=== PATIENT | male | born 1955 | race Caucasian/White ===

== ENCOUNTER → 2016-04-26 | Outpatient (CLI) | payer OTHER ==
[~2016-04-26] MED LIST: JANUVIA; LISI40TA; RYZOLT; SYNT75TA; TYLENOL #3; ZOCO40TA
--- NOTE | 2016-04-26 10:13 | REP ---
Chest two views HISTORY: Respiratory infection Comparison: 05/09/2008 The lungs are clear. The heart is normal in size. The pulmonary vasculature is normal in appearance. There are old compression fractures of several lower thoracic vertebral bodies. IMPRESSION: No acute disease. Signed by Jem Perez MD 04/26/2016 10:05 A
== END ==
LOC: M ADAMS 08:50
PROVIDERS: ATTEND Physician Assistant
DX: J06.9 Acute upper respiratory infection, unspecified (principal)
CPT/HCPCS: 71020; G0463

== ENCOUNTER → 2016-05-13 | Outpatient (REF) | payer OTHER | LOC: M SFHCADAM 10:04 | PROVIDERS: ATTEND Physician Assistant | DX: L40.1 Generalized pustular psoriasis (principal); L30.2 Cutaneous autosensitization; L25.9 Unspecified contact dermatitis, unspecified cause ==

== ENCOUNTER → 2016-07-25 | Outpatient (REF) | payer OTHER | LOC: M LAB REF 11:19 | PROVIDERS: ATTEND Nurse Practitioner Family | DX: L08.9 Local infection of the skin and subcutaneous tissue, unspecified (principal) ==

== ENCOUNTER → 2016-08-25 | Outpatient (REF) | payer OTHER ==
[2016-08-25 12:50] LABS: ALBUMIN 3.4 GM/DL (3.2-5.2); ALBUMIN/GLOBULIN RATIO 0.89 (1.00-1.93); BILIRUBIN,TOTAL 0.4 MG/DL (0.2-1.0); CALCIUM LEVEL 8.9 MG/DL (8.5-10.1); CREATININE FOR GFR 1.43 MG/DL (0.70-1.30); FREE T4 1.58 NG/DL (0.76-1.46); GLOMERULAR FILTRATION RATE 54.1 (>56); TOTAL PROTEIN 7.2 GM/DL (6.4-8.2)
== END ==
LOC: M SFHCPLAZ 08:01
PROVIDERS: ATTEND Physician Assistant
DX: N18.9 Chronic kidney disease, unspecified (principal); E03.9 Hypothyroidism, unspecified; E11.65 Type 2 diabetes mellitus with hyperglycemia

== ENCOUNTER → 2016-08-30 | Outpatient (CLI) | payer OTHER ==
--- NOTE | 2016-08-30 10:08 | REP ---
RIGHT HIP SERIES: Two views. HISTORY: Pain in the right hip. History of bursitis. 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 There is mild vascular calcification. There is femoral and acetabular spurring consistent with osteoarthritis. No fracture is seen. IMPRESSION: Mild osteoarthritic spurring. Prior right inguinal herniorrhaphy. No acute bony abnormality. Signed by Jaswant Law MD 08/30/2016 03:43 P
== END ==
LOC: M ADAMS 08:15
PROVIDERS: ATTEND Physician Assistant
DX: M25.551 Pain in right hip (principal); Z98.890 Other specified postprocedural states
CPT/HCPCS: 73502; G0463

== ENCOUNTER → 2016-10-04 | Outpatient (REF) | payer OTHER | LOC: M LAB REF 15:31 | PROVIDERS: ATTEND Nurse Practitioner Family | DX: L08.9 Local infection of the skin and subcutaneous tissue, unspecified (principal) ==

== ENCOUNTER → 2017-03-02 | Outpatient (REF) | payer OTHER ==
[2017-03-02 14:09] LABS: ANION GAP 10 MEQ/L (8-16); BLOOD UREA NITROGEN 27 MG/DL (7-18); CARBON DIOXIDE LEVEL 25 MEQ/L (21-32); CHLORIDE LEVEL 102 MEQ/L (98-107); CREATININE FOR GFR 1.64 MG/DL (0.70-1.30); GLUCOSE, FASTING 103 MG/DL (70-105); POTASSIUM SERUM 4.7 MEQ/L (3.5-5.1); SODIUM LEVEL 137 MEQ/L (136-145)
[2017-03-02 14:56] LABS: ESTIMATED AVERAGE GLUCOSE 192 MG/DL (60-110); HEMOGLOBIN A1c 8.3 %
== END ==
LOC: M SFHCADAM 08:30
DX: E11.65 Type 2 diabetes mellitus with hyperglycemia (principal); I10 Essential (primary) hypertension; J06.9 Acute upper respiratory infection, unspecified
CPT/HCPCS: 83036

== ENCOUNTER 2017-03-14 14:10 | Inpatient (IN) | payer OTHER ==
[2017-03-14] MEDS: NS 1,000 ML IV ×3 (14:35→18:30)
[2017-03-14] MEDS: IPRATROPIUM 0.5MG/ALBUTEROL 2.5MG INH SOL UD 3ML (DUONEB)(J7620) NEB (14:52)
[2017-03-14 15:03] LABS: BASO % 0.2 % (0.0-1.0); EOS % 0.1 % (0.0-3.0); HEMATOCRIT 44.7 % (42.0-52.0); HEMOGLOBIN 15.3 g/dl (14.0-18.0); IMMATURE GRANULOCYTE # 0.1 10^3/uL (0-0); IMMATURE GRANULOCYTE % 0.6 % (0-0); LYMPH # 1.4 10^3/uL (1.5-4.5); LYMPH % 8.6 % (24.0-44.0); MEAN CORPUSCULAR HEMOGLOBIN 28.9 pg (27.0-33.0); MEAN CORPUSCULAR HGB CONC 34.2 g/dl (32.0-36.5); MEAN CORPUSCULAR VOLUME 84.3 fl (80.0-96.0); MONO # 1.5 10^3/uL (0.0-0.8); MONO % 9.1 % (0.0-5.0); NEUTROPHILS # 13.5 10^3/uL (1.8-7.7); NEUTROPHILS % 81.4 % (36.0-66.0); PLATELET COUNT, AUTOMATED 250 10^3/uL (150-450); RED CELL DISTRIBUTION WIDTH 12.9 % (11.5-14.5); WHITE BLOOD COUNT 16.6 10^3/uL (4.0-10.0)
[2017-03-14 15:24] LABS: INR 0.92; PROTHROMBIN TIME 12.4 SECONDS (12.4-14.5)
[2017-03-14 15:27] LABS: ALBUMIN/GLOBULIN RATIO 0.71 (1.00-1.93); ALKALINE PHOSPHATASE 55 U/L (45-117); ALT/SGPT 19 U/L (12-78); ANION GAP 9 MEQ/L (8-16); AST/SGOT 9 U/L (7-37); BILIRUBIN,DIRECT 0.2 MG/DL (0.0-0.2); BILIRUBIN,TOTAL 0.6 MG/DL (0.2-1.0); BLOOD UREA NITROGEN 21 MG/DL (7-18); CALCIUM LEVEL 8.5 MG/DL (8.5-10.1); CARBON DIOXIDE LEVEL 24 MEQ/L (21-32); CHLORIDE LEVEL 105 MEQ/L (98-107); GLUCOSE, FASTING 198 MG/DL (70-100); LIPASE 98 U/L (73-393); POTASSIUM SERUM 4.3 MEQ/L (3.5-5.1); SODIUM LEVEL 138 MEQ/L (136-145); TOTAL PROTEIN 7.2 GM/DL (6.4-8.2)
[2017-03-14 15:28] LABS: LACTIC ACID SEPSIS PROTOCOL 1.4 MMOL/L (0.4-2.0)
[2017-03-14 15:56] LABS: BEDSIDE GLUCOSE 164 MG/DL (70-105)
[2017-03-14] MEDS ORDERED: ISOVUE-370 76% 100ML VIAL (Q9967) As Ordered (15:58)
[2017-03-14 17:07] LABS: CPK CREATINE PHOSPHOKINASE 46 U/L (39-308); MB/CK RELATIVE INDEX 2.17 (< OR =4); TROPONIN I < 0.02 NG/ML (< 0.10)
[2017-03-14] MEDS ORDERED: IPRATROPIUM 0.5MG/ALBUTEROL 2.5MG INH SOL UD 3ML (DUONEB)(J7620) NEB (18:30)
[2017-03-14] MEDS ORDERED: DEXTROSE 50% 50 ML SYRINGE IV (18:30)
[2017-03-14] MEDS ORDERED: GLUCOSE 4 GM CHEW TABLET PO (18:30)
[2017-03-14] MEDS ORDERED: GLUCAGON FOR INJ 1 MG VIAL (J1610) SC (18:30)
[2017-03-14] MEDS ORDERED: ACETAMINOPHEN TAB 650MG DOSE (2X325MG) PO (19:15)
[2017-03-14] MEDS ORDERED: ONDANSETRON 4MG/2ML VIAL (J2405) IV (19:15)
[2017-03-14] MEDS: dexameTHASONE 20 MG/5 ML VIAL (J1100) IV (19:30)
[2017-03-14] MEDS: CLINDAMYCIN 600 MG in APPROPRIATE DILUENT 1 EA IV (20:00)
[2017-03-14] MEDS ORDERED: rOPINIRole 0.25 MG TAB(REQUIP) PO (21:00)
[2017-03-14 21:31] LABS: BEDSIDE GLUCOSE 248 MG/DL (70-105)
[2017-03-14] MEDS: HumaLOG INSULIN (NovoLOG) PER UNIT SC (21:36)
[2017-03-14] MEDS: SENOKOT S TAB PO (21:36)
[2017-03-14] MEDS: LEVEMIR (INSULIN DETEMIR) 1 UNITS/0.01ML SC (21:56)
[2017-03-14] MEDS: rOPINIRole 0.25 MG TAB(REQUIP) PO (21:56)
[2017-03-14] MEDS: DOXYCYCLINE HYCLATE 100 MG in D5W MINI-BAG PLUS 100 ML IV (21:56)
[2017-03-15] MEDS: CLINDAMYCIN 600 MG in APPROPRIATE DILUENT 1 EA IV ×4 (02:26→19:47)
[2017-03-15] MEDS: HEPARIN SOD (PORCINE) 5000 UNITS/ML VIAL SC ×3 (06:39→21:32)
[2017-03-15] MEDS: LEVOTHYROXINE 150MCG TABLET (0.15MG) PO (06:39)
[2017-03-15 07:02] LABS: BASO % 0.1 % (0.0-1.0); HEMATOCRIT 41.2 % (42.0-52.0); HEMOGLOBIN 13.7 g/dl (14.0-18.0); IMMATURE GRANULOCYTE # 0.1 10^3/uL (0-0); IMMATURE GRANULOCYTE % 0.6 % (0-0); LYMPH # 0.7 10^3/uL (1.5-4.5); LYMPH % 6.1 % (24.0-44.0); MEAN CORPUSCULAR HEMOGLOBIN 28.9 pg (27.0-33.0); MEAN CORPUSCULAR HGB CONC 33.3 g/dl (32.0-36.5); MEAN CORPUSCULAR VOLUME 86.9 fl (80.0-96.0); MONO # 0.4 10^3/uL (0.0-0.8); NEUTROPHILS # 10.7 10^3/uL (1.8-7.7); NEUTROPHILS % 90.2 % (36.0-66.0); PLATELET COUNT, AUTOMATED 224 10^3/uL (150-450); RED BLOOD COUNT 4.74 10^6/uL (4.30-6.10); RED CELL DISTRIBUTION WIDTH 12.9 % (11.5-14.5); WHITE BLOOD COUNT 11.9 10^3/uL (4.0-10.0)
[2017-03-15 07:15] LABS: ANION GAP 5 MEQ/L (8-16); BLOOD UREA NITROGEN 25 MG/DL (7-18); CALCIUM LEVEL 8.4 MG/DL (8.5-10.1); CARBON DIOXIDE LEVEL 26 MEQ/L (21-32); CHLORIDE LEVEL 106 MEQ/L (98-107); CREATININE FOR GFR 1.58 MG/DL (0.70-1.30); GLUCOSE, FASTING 318 MG/DL (70-100); MAGNESIUM LEVEL 2.1 MG/DL (1.8-2.4); SODIUM LEVEL 137 MEQ/L (136-145)
[2017-03-15 07:17] LABS: POTASSIUM SERUM 5.2 MEQ/L (3.5-5.1)
[2017-03-15] MEDS: HumaLOG INSULIN (NovoLOG) PER UNIT SC ×4 (08:02→21:31)
[2017-03-15] MEDS: ROSUVASTATIN 10 MG TAB (CRESTOR) PO (08:04)
[2017-03-15] MEDS: SENOKOT S TAB PO ×2 (08:05→19:47)
[2017-03-15] MEDS: LOSARTAN 50 MG TAB PO (08:05)
[2017-03-15] MEDS: ASPIRIN 81 MG ENTERIC TAB PO (08:05)
[2017-03-15] MEDS: NS 1,000 ML IV ×2 (08:06→14:40)
[2017-03-15] MEDS: LEVEMIR (INSULIN DETEMIR) 1 UNITS/0.01ML SC ×2 (08:06→21:31)
[2017-03-15] MEDS: DOXYCYCLINE HYCLATE 100 MG in D5W MINI-BAG PLUS 100 ML IV ×2 (09:00→21:31)
[2017-03-15] MEDS ORDERED: hydroCHLOROthiazide 25 MG TAB PO (09:00)
[2017-03-15] MEDS: dexameTHASONE 20 MG/5 ML VIAL (J1100) IV (10:00)
[2017-03-15] MEDS: OXYMETAZOLINE NASAL SPRAY (AFRIN) (10:00)
[2017-03-15] MEDS: LIDOCAINE VISCOUS 2% SOLN 15ML UDC MT (10:15)
[2017-03-15] MEDS ORDERED: ISOVUE-370 76% 100ML VIAL (Q9967) As Ordered (11:13)
[2017-03-15 12:10] LABS: BEDSIDE GLUCOSE 237 MG/DL (70-105)
[2017-03-15 16:49] LABS: BEDSIDE GLUCOSE 298 MG/DL (70-105)
[2017-03-15] MEDS: rOPINIRole 0.25 MG TAB(REQUIP) PO (21:51)
[2017-03-15 22:05] LABS: BEDSIDE GLUCOSE 343 MG/DL (70-105)
[2017-03-16] MEDS: NS 1,000 ML IV ×2 (01:31→14:11)
[2017-03-16] MEDS: CLINDAMYCIN 600 MG in APPROPRIATE DILUENT 1 EA IV ×4 (01:31→20:00)
[2017-03-16] MEDS: LEVOTHYROXINE 150MCG TABLET (0.15MG) PO (05:45)
[2017-03-16 06:39] LABS: BASO % 0.2 % (0.0-1.0); HEMOGLOBIN 13.5 g/dl (14.0-18.0); IMMATURE GRANULOCYTE # 0.1 10^3/uL (0-0); IMMATURE GRANULOCYTE % 0.5 % (0-0); LYMPH # 1.5 10^3/uL (1.5-4.5); LYMPH % 10.4 % (24.0-44.0); MEAN CORPUSCULAR HEMOGLOBIN 28.6 pg (27.0-33.0); MEAN CORPUSCULAR HGB CONC 33.8 g/dl (32.0-36.5); MEAN CORPUSCULAR VOLUME 84.7 fl (80.0-96.0); MONO % 6.9 % (0.0-5.0); NEUTROPHILS # 11.6 10^3/uL (1.8-7.7); PLATELET COUNT, AUTOMATED 263 10^3/uL (150-450); RED BLOOD COUNT 4.72 10^6/uL (4.30-6.10); RED CELL DISTRIBUTION WIDTH 12.9 % (11.5-14.5); WHITE BLOOD COUNT 14.1 10^3/uL (4.0-10.0)
[2017-03-16] MEDS: HEPARIN SOD (PORCINE) 5000 UNITS/ML VIAL SC ×3 (07:00→22:53)
[2017-03-16 07:04] LABS: ANION GAP 7 MEQ/L (8-16); BLOOD UREA NITROGEN 34 MG/DL (7-18); CALCIUM LEVEL 8.9 MG/DL (8.5-10.1); CARBON DIOXIDE LEVEL 23 MEQ/L (21-32); CHLORIDE LEVEL 109 MEQ/L (98-107); CREATININE FOR GFR 1.37 MG/DL (0.70-1.30); GLOMERULAR FILTRATION RATE 56.6 (>56); GLUCOSE, FASTING 195 MG/DL (70-100); POTASSIUM SERUM 4.4 MEQ/L (3.5-5.1); SODIUM LEVEL 139 MEQ/L (136-145)
[2017-03-16] MEDS: LEVEMIR (INSULIN DETEMIR) 1 UNITS/0.01ML SC ×2 (08:17→22:54)
[2017-03-16] MEDS: SENOKOT S TAB PO ×2 (08:18→22:53)
[2017-03-16] MEDS: HumaLOG INSULIN (NovoLOG) PER UNIT SC ×4 (08:18→22:54)
[2017-03-16] MEDS: ROSUVASTATIN 10 MG TAB (CRESTOR) PO (08:18)
[2017-03-16] MEDS: LOSARTAN 50 MG TAB PO (08:19)
[2017-03-16] MEDS: dexameTHASONE 20 MG/5 ML VIAL (J1100) IV (08:19)
[2017-03-16] MEDS: ASPIRIN 81 MG ENTERIC TAB PO (08:19)
[2017-03-16] MEDS: DOXYCYCLINE HYCLATE 100 MG in D5W MINI-BAG PLUS 100 ML IV ×2 (08:20→22:54)
[2017-03-16] MEDS: OXYMETAZOLINE NASAL SPRAY (AFRIN) (11:15)
[2017-03-16] MEDS: LIDOCAINE 4% TOPICAL SOLN 50 ML BTL TOP (11:15)
[2017-03-16 11:56] LABS: BEDSIDE GLUCOSE 246 MG/DL (70-105)
[2017-03-16 17:55] LABS: BEDSIDE GLUCOSE 363 MG/DL (70-105)
[2017-03-16] MEDS ORDERED: PROHANCE 279.3MG/ML 5ML VIAL (A9576) As Ordered (21:58)
[2017-03-16] MEDS: rOPINIRole 0.25 MG TAB(REQUIP) PO (22:53)
[2017-03-16 23:02] LABS: BEDSIDE GLUCOSE 358 MG/DL (70-105)
[2017-03-17] MEDS: CLINDAMYCIN 600 MG in APPROPRIATE DILUENT 1 EA IV ×4 (02:20→20:47)
[2017-03-17] MEDS: HEPARIN SOD (PORCINE) 5000 UNITS/ML VIAL SC ×3 (06:00→22:09)
[2017-03-17] MEDS: LEVOTHYROXINE 150MCG TABLET (0.15MG) PO (06:26)
[2017-03-17 06:39] LABS: BASO % 0.3 % (0.0-1.0); HEMATOCRIT 38.8 % (42.0-52.0); HEMOGLOBIN 13.4 g/dl (14.0-18.0); IMMATURE GRANULOCYTE % 0.4 % (0-0); LYMPH # 2.5 10^3/uL (1.5-4.5); LYMPH % 22.8 % (24.0-44.0); MEAN CORPUSCULAR HEMOGLOBIN 29.5 pg (27.0-33.0); MEAN CORPUSCULAR HGB CONC 34.5 g/dl (32.0-36.5); MEAN CORPUSCULAR VOLUME 85.3 fl (80.0-96.0); MONO # 0.9 10^3/uL (0.0-0.8); MONO % 8.2 % (0.0-5.0); NEUTROPHILS # 7.5 10^3/uL (1.8-7.7); NEUTROPHILS % 68.3 % (36.0-66.0); PLATELET COUNT, AUTOMATED 260 10^3/uL (150-450); RED BLOOD COUNT 4.55 10^6/uL (4.30-6.10); RED CELL DISTRIBUTION WIDTH 12.7 % (11.5-14.5); WHITE BLOOD COUNT 10.9 10^3/uL (4.0-10.0)
[2017-03-17 06:49] LABS: ANION GAP 6 MEQ/L (8-16); BLOOD UREA NITROGEN 29 MG/DL (7-18); CALCIUM LEVEL 8.9 MG/DL (8.5-10.1); CARBON DIOXIDE LEVEL 26 MEQ/L (21-32); CHLORIDE LEVEL 107 MEQ/L (98-107); CREATININE FOR GFR 1.28 MG/DL (0.70-1.30); GLOMERULAR FILTRATION RATE > 60.0 (>56); GLUCOSE, FASTING 154 MG/DL (70-100); POTASSIUM SERUM 4.1 MEQ/L (3.5-5.1); SODIUM LEVEL 139 MEQ/L (136-145)
[2017-03-17] MEDS: HumaLOG INSULIN (NovoLOG) PER UNIT SC ×4 (07:30→21:37)
[2017-03-17] MEDS: ASPIRIN 81 MG ENTERIC TAB PO (07:33)
[2017-03-17] MEDS: LEVEMIR (INSULIN DETEMIR) 1 UNITS/0.01ML SC ×2 (07:34→21:36)
[2017-03-17] MEDS: ROSUVASTATIN 10 MG TAB (CRESTOR) PO (08:13)
[2017-03-17] MEDS: SENOKOT S TAB PO ×2 (08:14→21:36)
[2017-03-17] MEDS: LOSARTAN 50 MG TAB PO (08:14)
[2017-03-17] MEDS: DOXYCYCLINE HYCLATE 100 MG in D5W MINI-BAG PLUS 100 ML IV ×2 (09:24→21:37)
[2017-03-17 11:27] LABS: BEDSIDE GLUCOSE 113 MG/DL (70-105)
[2017-03-17] MEDS: PHENYLEPHRINE 0.5% NASAL SPRAY 15 ML As Ordered (13:34)
[2017-03-17] MEDS: LIDOCAINE W/EPINEPHRINE 1% 20ML VIAL As Ordered (13:34)
[2017-03-17] MEDS: CLINDAMYCIN 600 MG/50 ML PREMIX BAG As Ordered (14:10)
[2017-03-17] MEDS: OXYMETAZOLINE NASAL SPRAY (AFRIN) As Ordered (14:29)
[2017-03-17] MEDS ORDERED: ONDANSETRON 4MG/2ML VIAL (J2405) IV (16:00)
[2017-03-17] MEDS ORDERED: METOCLOPRAMIDE INJ 10MG/2ML VIAL (J2765) IV (16:00)
[2017-03-17] MEDS ORDERED: fentaNYL 100 MCG/2 ML INJECTION (J3010) IV (16:00)
[2017-03-17] MEDS: LR 1,000 ML IV (16:00)
[2017-03-17] MEDS ORDERED: HYDROmorphone HCL 1 MG/ML SYRINGE (J1170) IV (16:00)
[2017-03-17 16:58] LABS: BEDSIDE GLUCOSE 117 MG/DL (70-105)
[2017-03-17] MEDS: MORPHINE 2 MG/ML 1ML SYRINGE IV (20:57)
[2017-03-17] MEDS: rOPINIRole 0.25 MG TAB(REQUIP) PO (21:36)
[2017-03-18 01:11] LABS: BEDSIDE GLUCOSE 251 MG/DL (70-105)
[2017-03-18] MEDS: CLINDAMYCIN 600 MG in APPROPRIATE DILUENT 1 EA IV ×4 (02:10→20:14)
[2017-03-18 05:15] LABS: BASO # 0.1 10^3/uL (0.0-0.2); BASO % 0.6 % (0.0-1.0); EOS # 0.1 10^3/uL (0.0-0.50); EOS % 0.9 % (0.0-3.0); HEMATOCRIT 39.5 % (42.0-52.0); HEMOGLOBIN 13.2 g/dl (14.0-18.0); IMMATURE GRANULOCYTE % 0.5 % (0-0); LYMPH # 2.8 10^3/uL (1.5-4.5); LYMPH % 31.2 % (24.0-44.0); MEAN CORPUSCULAR HEMOGLOBIN 28.4 pg (27.0-33.0); MEAN CORPUSCULAR HGB CONC 33.4 g/dl (32.0-36.5); MEAN CORPUSCULAR VOLUME 85.1 fl (80.0-96.0); MONO # 0.8 10^3/uL (0.0-0.8); NEUTROPHILS # 5.1 10^3/uL (1.8-7.7); NEUTROPHILS % 57.8 % (36.0-66.0); PLATELET COUNT, AUTOMATED 238 10^3/uL (150-450); RED BLOOD COUNT 4.64 10^6/uL (4.30-6.10); RED CELL DISTRIBUTION WIDTH 12.8 % (11.5-14.5); WHITE BLOOD COUNT 8.8 10^3/uL (4.0-10.0)
[2017-03-18 05:29] LABS: ANION GAP 8 MEQ/L (8-16); BLOOD UREA NITROGEN 25 MG/DL (7-18); CALCIUM LEVEL 8.5 MG/DL (8.5-10.1); CARBON DIOXIDE LEVEL 25 MEQ/L (21-32); CHLORIDE LEVEL 104 MEQ/L (98-107); CREATININE FOR GFR 1.29 MG/DL (0.70-1.30); GLOMERULAR FILTRATION RATE > 60.0 (>56); GLUCOSE, FASTING 232 MG/DL (70-100); SODIUM LEVEL 137 MEQ/L (136-145)
[2017-03-18] MEDS: HEPARIN SOD (PORCINE) 5000 UNITS/ML VIAL SC ×3 (06:09→21:24)
[2017-03-18] MEDS: LEVOTHYROXINE 150MCG TABLET (0.15MG) PO (06:09)
[2017-03-18] MEDS: HumaLOG INSULIN (NovoLOG) PER UNIT SC ×4 (07:48→21:24)
[2017-03-18] MEDS: ROSUVASTATIN 10 MG TAB (CRESTOR) PO (07:49)
[2017-03-18] MEDS: LEVEMIR (INSULIN DETEMIR) 1 UNITS/0.01ML SC ×2 (07:49→21:24)
[2017-03-18] MEDS: ASPIRIN 81 MG ENTERIC TAB PO (07:50)
[2017-03-18] MEDS: LOSARTAN 50 MG TAB PO (07:50)
[2017-03-18] MEDS: SENOKOT S TAB PO ×2 (07:50→21:22)
[2017-03-18] MEDS: DOXYCYCLINE HYCLATE 100 MG in D5W MINI-BAG PLUS 100 ML IV ×2 (09:00→21:21)
[2017-03-18 12:03] LABS: BEDSIDE GLUCOSE 231 MG/DL (70-105)
[2017-03-18 17:14] LABS: BEDSIDE GLUCOSE 198 MG/DL (70-105)
[2017-03-18 21:21] LABS: BEDSIDE GLUCOSE 336 MG/DL (70-105)
[2017-03-18] MEDS: rOPINIRole 0.25 MG TAB(REQUIP) PO (21:23)
[2017-03-19] MEDS: CLINDAMYCIN 600 MG in APPROPRIATE DILUENT 1 EA IV ×2 (02:25→08:04)
[2017-03-19] MEDS: LEVOTHYROXINE 150MCG TABLET (0.15MG) PO (05:16)
[2017-03-19] MEDS: HEPARIN SOD (PORCINE) 5000 UNITS/ML VIAL SC (05:17)
[2017-03-19 05:39] LABS: BASO % 0.5 % (0.0-1.0); EOS # 0.2 10^3/uL (0.0-0.50); EOS % 2.1 % (0.0-3.0); HEMATOCRIT 40.1 % (42.0-52.0); HEMOGLOBIN 13.8 g/dl (14.0-18.0); IMMATURE GRANULOCYTE # 0.1 10^3/uL (0-0); LYMPH # 2.3 10^3/uL (1.5-4.5); LYMPH % 26.1 % (24.0-44.0); MEAN CORPUSCULAR HGB CONC 34.4 g/dl (32.0-36.5); MEAN CORPUSCULAR VOLUME 84.2 fl (80.0-96.0); MONO # 0.8 10^3/uL (0.0-0.8); NEUTROPHILS # 5.4 10^3/uL (1.8-7.7); NEUTROPHILS % 61.3 % (36.0-66.0); PLATELET COUNT, AUTOMATED 234 10^3/uL (150-450); RED BLOOD COUNT 4.76 10^6/uL (4.30-6.10); RED CELL DISTRIBUTION WIDTH 12.5 % (11.5-14.5); WHITE BLOOD COUNT 8.8 10^3/uL (4.0-10.0)
[2017-03-19 05:59] LABS: ANION GAP 9 MEQ/L (8-16); BLOOD UREA NITROGEN 20 MG/DL (7-18); CALCIUM LEVEL 8.3 MG/DL (8.5-10.1); CARBON DIOXIDE LEVEL 26 MEQ/L (21-32); CHLORIDE LEVEL 105 MEQ/L (98-107); CREATININE FOR GFR 1.12 MG/DL (0.70-1.30); GLOMERULAR FILTRATION RATE > 60.0 (>56); GLUCOSE, FASTING 223 MG/DL (70-100); POTASSIUM SERUM 3.7 MEQ/L (3.5-5.1); SODIUM LEVEL 140 MEQ/L (136-145)
[2017-03-19] MEDS: SENOKOT S TAB PO (07:57)
[2017-03-19] MEDS: LOSARTAN 50 MG TAB PO (07:57)
[2017-03-19] MEDS: ROSUVASTATIN 10 MG TAB (CRESTOR) PO (07:57)
[2017-03-19] MEDS: ASPIRIN 81 MG ENTERIC TAB PO (07:57)
[2017-03-19] MEDS: HumaLOG INSULIN (NovoLOG) PER UNIT SC ×2 (07:58→12:14)
[2017-03-19] MEDS: LEVEMIR (INSULIN DETEMIR) 1 UNITS/0.01ML SC (07:58)
[2017-03-19] MEDS: DOXYCYCLINE HYCLATE 100 MG in D5W MINI-BAG PLUS 100 ML IV (08:04)
[2017-03-21 09:14] LABS: BEDSIDE GLUCOSE 217 MG/DL (70-105)
== END 2017-03-19 13:18 | disposition home or self-care (01) | DRG 153 ==
LOC: M PCU 03-15 15:07 → M ED 14:10 → M ED INP 17:38 → M MSPAV 03-16 15:48
PROC: 0CBM8ZX Excision of Pharynx, Via Natural or Artificial Opening Endoscopic, Diagnostic (ICD-10-PCS; principal; 2017-03-17 13:00)
PROC: 0CBV8ZX Excision of Left Vocal Cord, Via Natural or Artificial Opening Endoscopic, Diagnostic (ICD-10-PCS; 2017-03-17 13:00)
DX: J04.30 Supraglottitis, unspecified, without obstruction (principal); N17.9 Acute kidney failure, unspecified; E11.9 Type 2 diabetes mellitus without complications; E78.5 Hyperlipidemia, unspecified; B95.1 Streptococcus, group B, as the cause of diseases classified elsewhere; E03.9 Hypothyroidism, unspecified; E66.01 Morbid (severe) obesity due to excess calories; I12.9 Hypertensive chronic kidney disease with stage 1 through stage 4 chronic kidney disease, or unspecified chronic kidney disease; N18.3 Chronic kidney disease, stage 3 (moderate); G25.81 Restless legs syndrome; F17.210 Nicotine dependence, cigarettes, uncomplicated; Z88.8 Allergy status to other drugs, medicaments and biological substances; Z79.84 Long term (current) use of oral hypoglycemic drugs; Z79.82 Long term (current) use of aspirin; Z79.899 Other long term (current) drug therapy

== ENCOUNTER → 2017-06-01 | Outpatient (REF) | payer OTHER ==
[2017-06-01 12:57] LABS: ALBUMIN 3.3 GM/DL (3.2-5.2); ALKALINE PHOSPHATASE 62 U/L (45-117); ALT/SGPT 26 U/L (12-78); ANION GAP 6 MEQ/L (8-16); AST/SGOT 10 U/L (7-37); BILIRUBIN,TOTAL 0.4 MG/DL (0.2-1.0); BLOOD UREA NITROGEN 31 MG/DL (7-18); CALCIUM LEVEL 9.2 MG/DL (8.5-10.1); CARBON DIOXIDE LEVEL 27 MEQ/L (21-32); CHLORIDE LEVEL 100 MEQ/L (98-107); CREATININE FOR GFR 1.65 MG/DL (0.70-1.30); GLOMERULAR FILTRATION RATE 45.7 (>56); POTASSIUM SERUM 4.8 MEQ/L (3.5-5.1); SODIUM LEVEL 133 MEQ/L (136-145); TOTAL PROTEIN 7.4 GM/DL (6.4-8.2)
[2017-06-01 13:07] LABS: GLUCOSE, FASTING 478 MG/DL (70-100)
[2017-06-01 13:37] LABS: ESTIMATED AVERAGE GLUCOSE 258 MG/DL (60-110); HEMOGLOBIN A1c 10.6 %
== END ==
LOC: M SFHCADAM 08:31
DX: E11.65 Type 2 diabetes mellitus with hyperglycemia (principal); I12.9 Hypertensive chronic kidney disease with stage 1 through stage 4 chronic kidney disease, or unspecified chronic kidney disease; N18.9 Chronic kidney disease, unspecified
CPT/HCPCS: 80053

== ENCOUNTER → 2017-08-29 | Outpatient (REF) | payer OTHER ==
[2017-08-29 12:26] LABS: HEMATOCRIT 48.7 % (42.0-52.0); HEMOGLOBIN 16.1 g/dl (13.5-17.5); MEAN CORPUSCULAR HEMOGLOBIN 29.4 pg (27.0-33.0); MEAN CORPUSCULAR HGB CONC 33.1 g/dl (32.0-36.5); MEAN CORPUSCULAR VOLUME 88.9 fl (80.0-96.0); PLATELET COUNT, AUTOMATED 259 10^3/uL (150-450); RED BLOOD COUNT 5.48 10^6/uL (4.30-6.10); RED CELL DISTRIBUTION WIDTH 13.6 % (11.5-14.5); WHITE BLOOD COUNT 8.5 10^3/uL (4.0-10.0)
[2017-08-29 12:47] LABS: ESTIMATED AVERAGE GLUCOSE 154 MG/DL (60-110)
[2017-08-29 12:54] LABS: ALBUMIN 3.2 GM/DL (3.2-5.2); ALBUMIN/GLOBULIN RATIO 0.76 (1.00-1.93); ALKALINE PHOSPHATASE 57 U/L (45-117); ALT/SGPT 33 U/L (12-78); ANION GAP 7 MEQ/L (8-16); AST/SGOT 21 U/L (7-37); BILIRUBIN,TOTAL 0.4 MG/DL (0.2-1.0); BLOOD UREA NITROGEN 21 MG/DL (7-18); CALCIUM LEVEL 9.2 MG/DL (8.5-10.1); CARBON DIOXIDE LEVEL 28 MEQ/L (21-32); CHLORIDE LEVEL 107 MEQ/L (98-107); CREATININE FOR GFR 1.22 MG/DL (0.70-1.30); GLOMERULAR FILTRATION RATE > 60.0 (>56); GLUCOSE, FASTING 51 MG/DL (70-100); POTASSIUM SERUM 4.4 MEQ/L (3.5-5.1); SODIUM LEVEL 142 MEQ/L (136-145); TOTAL PROTEIN 7.4 GM/DL (6.4-8.2)
== END ==
LOC: M SFHCADAM 07:42
DX: E11.65 Type 2 diabetes mellitus with hyperglycemia (principal); N18.3 Chronic kidney disease, stage 3 (moderate)
CPT/HCPCS: 80053

== ENCOUNTER → 2017-12-04 | Outpatient (REF) | payer OTHER ==
[2017-12-04 13:09] LABS: ANION GAP 6 MEQ/L (8-16); BLOOD UREA NITROGEN 24 MG/DL (7-18); CALCIUM LEVEL 8.6 MG/DL (8.8-10.2); CARBON DIOXIDE LEVEL 28 MEQ/L (21-32); CHLORIDE LEVEL 106 MEQ/L (98-107); GLOMERULAR FILTRATION RATE > 60.0 (>49); GLUCOSE, FASTING 110 MG/DL (70-100); POTASSIUM SERUM 5.1 MEQ/L (3.5-5.1); SODIUM LEVEL 140 MEQ/L (136-145)
[2017-12-04 13:12] LABS: ESTIMATED AVERAGE GLUCOSE 151 MG/DL (60-110); HEMOGLOBIN A1c 6.9 %
== END ==
LOC: M SFHCADAM 08:39
DX: E11.21 Type 2 diabetes mellitus with diabetic nephropathy (principal); I10 Essential (primary) hypertension
CPT/HCPCS: 83036

== ENCOUNTER 2017-12-24 09:50 | Emergency (ER) | payer OTHER ==
[2017-12-24] MEDS: KETOROLAC 30 MG/ML VIAL (J1885) IV (11:02)
[2017-12-24] MEDS: methylPREDNISolone INJ 125 MG/2 ML VIAL (J2930) IV (11:02)
[2017-12-24] MEDS: diazePAM 10 MG TAB PO (11:02)
[2017-12-24 11:30] LABS: BASO % 0.3 % (0.0-1.0); EOS # 0.2 10^3/uL (0.0-0.50); EOS % 2.6 % (0.0-3.0); HEMATOCRIT 52.2 % (42.0-52.0); HEMOGLOBIN 17.2 g/dl (13.5-17.5); IMMATURE GRANULOCYTE % 0.5 % (0-3.0); LYMPH # 1.3 10^3/uL (1.5-4.5); LYMPH % 14.8 % (24.0-44.0); MEAN CORPUSCULAR HEMOGLOBIN 29.3 pg (27.0-33.0); MEAN CORPUSCULAR VOLUME 88.9 fl (80.0-96.0); MONO # 0.7 10^3/uL (0.0-0.8); MONO % 7.8 % (0.0-5.0); NEUTROPHILS # 6.4 10^3/uL (1.8-7.7); PLATELET COUNT, AUTOMATED 248 10^3/uL (150-450); RED BLOOD COUNT 5.87 10^6/uL (4.30-6.10); RED CELL DISTRIBUTION WIDTH 14.1 % (11.5-14.5); WHITE BLOOD COUNT 8.7 10^3/uL (4.0-10.0)
[2017-12-24 12:07] LABS: ALBUMIN 3.3 GM/DL (3.2-5.2); ALBUMIN/GLOBULIN RATIO 0.85 (1.00-1.93); ALKALINE PHOSPHATASE 53 U/L (45-117); ALT/SGPT 31 U/L (12-78); ANION GAP 5 MEQ/L (8-16); AST/SGOT 14 U/L (7-37); BILIRUBIN,TOTAL 0.3 MG/DL (0.2-1.0); BLOOD UREA NITROGEN 24 MG/DL (7-18); CALCIUM LEVEL 9.4 MG/DL (8.8-10.2); CARBON DIOXIDE LEVEL 28 MEQ/L (21-32); CHLORIDE LEVEL 107 MEQ/L (98-107); CREATININE FOR GFR 1.26 MG/DL (0.70-1.30); GLOMERULAR FILTRATION RATE > 60.0 (>49); GLUCOSE, FASTING 135 MG/DL (70-100); POTASSIUM SERUM 4.9 MEQ/L (3.5-5.1); SODIUM LEVEL 140 MEQ/L (136-145); TOTAL PROTEIN 7.2 GM/DL (6.4-8.2)
== END 2017-12-24 13:13 | disposition home or self-care (01) ==
LOC: M ED 09:50
DX: M16.12 Unilateral primary osteoarthritis, left hip (principal); M51.36 Other intervertebral disc degeneration, lumbar region; E78.00 Pure hypercholesterolemia, unspecified; I12.9 Hypertensive chronic kidney disease with stage 1 through stage 4 chronic kidney disease, or unspecified chronic kidney disease; N18.3 Chronic kidney disease, stage 3 (moderate); E11.22 Type 2 diabetes mellitus with diabetic chronic kidney disease; E03.9 Hypothyroidism, unspecified; M48.00 Spinal stenosis, site unspecified; W01.0XXA Fall on same level from slipping, tripping and stumbling without subsequent striking against object, initial encounter; Y92.098 Other place in other non-institutional residence as the place of occurrence of the external cause; M54.9 Dorsalgia, unspecified; Z79.899 Other long term (current) drug therapy
CPT/HCPCS: J1885

== ENCOUNTER → 2018-03-02 | Outpatient (REF) | payer MEDICARE ==
[~2018-03-02] MED LIST changes: +AMLO2.5T3 PO; +AMOX875T PO; +BASA100I SQ; +GLIP10TA6 PO; +HYDR-643 PO; +INVO100T PO; +JANU100T PA; +JANU100T PO; +LEVO150T7 PO; +LOSA100T5 PO; +LOSA100T50 PO; +MOBI4TAB PO; +ROPI0.253 PO; +ROSU40TA3 PO; +TOUJ1.2I SC; +ZANA4TAB PO
[2018-03-02 14:06] LABS: ALBUMIN 3.2 GM/DL (3.2-5.2); ALT/SGPT 31 U/L (12-78); BILIRUBIN,TOTAL 0.3 MG/DL (0.2-1.0); BLOOD UREA NITROGEN 17 MG/DL (7-18); CALCIUM LEVEL 8.6 MG/DL (8.8-10.2); CARBON DIOXIDE LEVEL 27 MEQ/L (21-32); CHLORIDE LEVEL 104 MEQ/L (98-107); CHOLESTEROL LEVEL 105 MG/DL (<200); CHOLESTEROL RISK RATIO 2.625 (<5); CREATININE FOR GFR 1.26 MG/DL (0.70-1.30); GLOMERULAR FILTRATION RATE > 60.0 (>49); GLUCOSE, FASTING 232 MG/DL (70-100); HDL CHOLESTEROL 40 MG/DL (>40); LDL CHOLESTEROL 52 MG/DL (<100); NON-HDL-C 65 MG/DL; POTASSIUM SERUM 4.7 MEQ/L (3.5-5.1); SODIUM LEVEL 141 MEQ/L (136-145); TOTAL PROTEIN 7.4 GM/DL (6.4-8.2); TRIGLYCERIDES LEVEL 67 MG/DL (<150)
[2018-03-02 14:24] LABS: HEMOGLOBIN A1c 7.4 %
[2018-03-02 14:57] LABS: MAU/CREAT RATIO 1696.8 MCG/MG (0.0-30.0)
== END ==
LOC: M SFHCADAM 09:13
PROVIDERS: ATTEND Physician Assistant
DX: E11.42 Type 2 diabetes mellitus with diabetic polyneuropathy (principal); F17.211 Nicotine dependence, cigarettes, in remission
CPT/HCPCS: 80053; 80061; 82043; 83036; 99406; G0463

== ENCOUNTER → 2018-08-25 | Outpatient (CLI) | payer MEDICARE ==
[~2018-08-25] MED LIST changes: -ROSU40TA3 PO; +ROSU40TA4 PO
--- NOTE | 2018-08-25 09:38 | REP ---
Clinical: Pain. Technique: Lateral axial views of the calcaneus. Findings: Age-related degenerative changes are appreciated including calcaneal heal spur and calcifications at the Achilles insertion. No definite acute fracture or subluxation. Impression: Age-related degenerative changes. Electronically Signed by Shin Tillman MD 08/25/2018 09:30 A
== END ==
LOC: M ADAMS 08:47
PROVIDERS: ATTEND Physician Assistant
DX: M79.671 Pain in right foot (principal)

== ENCOUNTER → 2018-10-29 | Outpatient (REF) | payer MEDICARE ==
[2018-10-30 13:48] LABS: COMPLEMENT C3 151 MG/DL (90-180); COMPLEMENT C4 31 MG/DL (10-40); TOTAL PROTEIN 6.7 GM/DL (6.4-8.2)
[2018-10-30 14:02] LABS: URINE TOTAL PROTEIN 237.9 MG/DL (0-12)
[2018-10-31 10:23] LABS: HEPATITIS B SURFACE ANTIBODY NEGATIVE (POSITIVE); HEPATITIS B SURFACE ANTIGEN NEGATIVE (NEGATIVE)
[2018-10-31 10:43] LABS: HEPATITIS B CORE ANTIBODY IGM NEGATIVE (NEGATIVE)
[2018-10-31 10:46] LABS: HEPATITIS C VIRUS ABY INDEX > 11.0 INDEX (<0.8)
[2018-11-01 10:01] LABS: ALBUMIN 3.27 GM/DL (3.29-5.55); ALBUMIN % 48.8 % (55.8-66.1); ALPHA-1-GLOBULIN % 4.5 % (2.9-4.9); ALPHA-2-GLOBULINS 1.06 GM/DL (0.42-0.99); ALPHA-2-GLOBULINS % 15.8 % (7.1-11.8); BETA-2-GLOBULINS 0.38 GM/DL (0.19-0.55); BETA-2-GLOBULINS % 5.6 % (3.2-6.5); GAMMA GLOBULIN % 19.3 % (11.1-18.8); GAMMA GLOBULINS 1.29 GM/DL (0.65-1.58)
[2018-11-01 13:53] LABS: UPEP INTERPRETATION M-SPIKE IN BETA; URINE VOLUME RANDOM ML
== END ==
LOC: M LAB REF 13:19
PROVIDERS: ATTEND Internal Medicine Nephrology
DX: R80.9 Proteinuria, unspecified (principal)

== ENCOUNTER → 2018-11-07 | Outpatient (REF) | payer MEDICARE ==
[2018-11-07 20:32] LABS: CREATININE 24 HOUR, URINE 1501.5 MG/24HR (950-2500); TOTAL PROTEIN 24 HOUR URINE 3660.9 MG/24HR (50-150); URINE TOTAL PROTEIN 134.1 MG/DL (0-12)
== END ==
LOC: M LAB REF 17:26
PROVIDERS: ATTEND Internal Medicine Nephrology
DX: R80.9 Proteinuria, unspecified (principal); B18.2 Chronic viral hepatitis C; N18.2 Chronic kidney disease, stage 2 (mild)

== ENCOUNTER → 2018-11-07 | Outpatient (CLI) | payer MEDICARE ==
--- NOTE | 2018-11-08 06:29 | REP ---
Clinical: Chronic renal disease stage II and proteinuria. Technique: Real time larson scale and color evaluation using curved array transducer. Findings: The bladder is normal in appearance without wall thickening or mass lesion. Bilateral ureteral jets are identified. Prevoid bladder measures 11.2 x 8.6 x 5.8 cm (365 ml). Postvoid bladder measures 6.0 x 5.1 x 3.0 cm (60 ml). Postvoid residual equals 16.4%. Impression: Normal bladder ultrasound. Electronically Signed by Shin Tillman MD 11/08/2018 06:21 A
--- NOTE | 2018-11-08 06:33 | REP ---
Clinical: Chronic renal disease stage II and proteinuria. Technique: Real time larson scale ultrasound examination using curved array transducer. Findings: Right kidney is normal in reniform shape with prominent central sinus fat and cortical thinning without hydronephrosis, nephrolithiasis or renal mass lesion. Right kidney measures 14.9 x 7.3 x 6.8 cm with 2.0 cm upper pole cortical cyst. Left kidney is normal in reniform shape with prominent central sinus fat and cortical thinning measuring 15.1 x 4.7 x 6.4 cm. Mild hydronephrosis is appreciated and there appears to be an irregular 6.6 x 6.6 x 7.0 cm mass arising from the lower pole. Impression: 1. Evidence for chronic medical renal disease. 2. 2.0 cm simple right upper pole renal cyst. 3. 7 cm mass arising from the lower pole of the left kidney requires further investigation and urology consultation. Electronically Signed by Shin Tillman MD 11/08/2018 06:25 A
== END ==
LOC: M RAD 13:52
PROVIDERS: ATTEND Internal Medicine Nephrology
DX: N28.1 Cyst of kidney, acquired (principal); N18.2 Chronic kidney disease, stage 2 (mild); R80.9 Proteinuria, unspecified; E11.9 Type 2 diabetes mellitus without complications; B18.2 Chronic viral hepatitis C

== ENCOUNTER → 2018-11-20 | Outpatient (REF) | payer MEDICARE ==
[2018-11-20 13:23] LABS: BILIRUBIN,TOTAL 0.5 MG/DL (0.2-1.0); CALCIUM LEVEL 9.5 MG/DL (8.8-10.2); CREATININE FOR GFR 1.33 MG/DL (0.70-1.30); GLOMERULAR FILTRATION RATE 58.2 (>49); POTASSIUM SERUM 4.7 MEQ/L (3.5-5.1); TOTAL PROTEIN 6.9 GM/DL (6.4-8.2)
[2018-11-20 14:27] LABS: HEMOGLOBIN A1c 8.2 %
== END ==
LOC: M SFHCADAM 09:38
PROVIDERS: ATTEND Physician Assistant
DX: E11.42 Type 2 diabetes mellitus with diabetic polyneuropathy (principal); I12.9 Hypertensive chronic kidney disease with stage 1 through stage 4 chronic kidney disease, or unspecified chronic kidney disease; N18.3 Chronic kidney disease, stage 3 (moderate)
CPT/HCPCS: 80053; 83036; G0463

== ENCOUNTER → 2018-11-22 | Outpatient (REF) | payer MEDICARE ==
[2018-11-22 11:41] LABS: INR 0.87; PROTHROMBIN TIME 11.6 SECONDS (11.8-14.0)
[2018-11-23 10:56] LABS: HIV 1&2 SCREEN CENTAUR NEGATIVE (NEGATIVE)
[2018-11-27 08:06] LABS: HEPATITIS A IgG TOTAL Negative (Negative); HEPATITIS C QUANTITATION 163610 IU/mL (.); HEPATITIS C VIRUS GENOTYPE 1a (.)
== END ==
LOC: M SFHCPLAZ 09:21
PROVIDERS: ATTEND Internal Medicine Infectious Disease
DX: B18.2 Chronic viral hepatitis C (principal)
CPT/HCPCS: 36415; 81596; 82105; 85610; 86708; 87389; 87522; 87902; G0463

== ENCOUNTER → 2018-11-23 | Outpatient (CLI) | payer MEDICARE ==
[~2018-11-23] MED LIST changes: +ISOVUE-370 76% 100ML VIAL (Q9967) As Ordered ONE
--- NOTE | 2018-11-23 16:47 | REP ---
CT of the abdomen, pelvis not included, without and with IV contrast, without bowel contrast: After IV contrast, triphasic imaging is performed during the arterial phase, renal cortical enhancement phase and renal excretion phase of contrast enhancement. The study is performed for proteinuria, left renal neoplasm and chronic viral hepatitis C. Comparison is the renal ultrasound dated 11/07/2018. The comparison renal ultrasound identified a 7 cm left renal lower pole mass. On the study today the visualized lung carroll are unremarkable. The hepatic parenchyma is homogeneous on all phases of the study. There is no hepatic mass. The gallbladder, pancreas and spleen are normal size and unremarkable. The right adrenal is unremarkable. There is a 19 mm left adrenal hypodense nodule, stable and unchanged from a chest CT dated 03/14/2017. . The there is a mass arising from the lower pole of the left kidney measuring 7.1 cm AP by 6.2 cm transversely by six point 6 cm craniocaudad. The mass has an enhancing cortex similar to the left kidney. There are no other solid or cystic masses in the left kidney. There are two right renal Bosniak type 1 upper pole cyst adjacent to one another one measuring 2.8 cm in diameter and the other 2.6 cm in diameter. There are no solid masses in the right kidney. There are no renal calculi. There is no hydronephrosis. The abdominal aorta is unremarkable. There is no retroperitoneal or mesenteric adenopathy. There is no ascites. The visualized bowel loops are unremarkable. Impression: There is a left renal lower pole mass as described. There is a stable low density nodule in the left adrenal as described. There are right renal upper pole cysts. No adenopathy or ascites. There are no hepatic masses. The pelvis is not included in the scan. Electronically Signed by Esequiel Sena MD 11/23/2018 04:39 P
== END ==
LOC: M RAD 14:12
PROVIDERS: ATTEND Internal Medicine Nephrology
DX: B18.2 Chronic viral hepatitis C (principal); D41.02 Neoplasm of uncertain behavior of left kidney; R80.9 Proteinuria, unspecified
CPT/HCPCS: 74170; Q9967

== ENCOUNTER → 2019-01-02 | Outpatient (REF) | payer MEDICARE ==
[~2019-01-02] MED LIST changes: -ISOVUE-370 76% 100ML VIAL (Q9967) As Ordered ONE
[2019-01-02 19:03] LABS: HEMOGLOBIN 16.7 g/dl (13.5-17.5); MEAN CORPUSCULAR HEMOGLOBIN 29.6 pg (27.0-33.0); MEAN CORPUSCULAR HGB CONC 32.7 g/dl (32.0-36.5); MEAN CORPUSCULAR VOLUME 90.3 fl (80.0-96.0); PLATELET COUNT, AUTOMATED 283 10^3/uL (150-450); RED BLOOD COUNT 5.65 10^6/uL (4.30-6.10); WHITE BLOOD COUNT 8.6 10^3/uL (4.0-10.0)
[2019-01-02 19:04] LABS: APPEARANCE, URINE CLEAR (CLEAR); BACTERIA, URINE AUTO NEGATIVE (NEGATIVE); BILIRUBIN, URINE AUTO NEGATIVE (NEGATIVE); BLOOD, URINE BLOOD 1+ (NEGATIVE); COLOR, URINE YELLOW (YELLOW); GLUCOSE, URINE (UA) AUTO 3+ mg/dL (NEGATIVE); KETONE, URINE AUTO NEGATIVE (NEGATIVE); LEUKOCYTE ESTERASE, URINE AUTO NEGATIVE (NEGATIVE); NITRITE, URINE AUTO NEGATIVE (NEGATIVE); PROTEIN, URINE AUTO 2+ mg/dL (NEGATIVE); RBC, URINE AUTO 0 /HPF (0-3); SPECIFIC GRAVITY URINE AUTO 1.021 (1.002-1.035); SQUAMOUS EPITHELIAL CELL UR AU 0 /HPF (0-6); UROBILINOGEN, URINE AUTO 0.2 mg/dL (0.0-2.0); WBC, URINE AUTO 0 /HPF (0-3)
[2019-01-02 19:36] LABS: ALBUMIN 3.4 GM/DL (3.2-5.2); BILIRUBIN,TOTAL 0.3 MG/DL (0.2-1.0); CALCIUM LEVEL 9.2 MG/DL (8.8-10.2); CREATININE FOR GFR 1.51 MG/DL (0.70-1.30); GLOMERULAR FILTRATION RATE 50.3 (>49); POTASSIUM SERUM 4.5 MEQ/L (3.5-5.1); TOTAL PROTEIN 7.9 GM/DL (6.4-8.2)
== END ==
LOC: M SFHCADAM 14:37
PROVIDERS: ATTEND Physician Assistant
DX: N28.89 Other specified disorders of kidney and ureter (principal); E11.21 Type 2 diabetes mellitus with diabetic nephropathy
CPT/HCPCS: 80053; 81001; 83036; 85027; 87086; G0463

== ENCOUNTER → 2019-01-18 | Outpatient (CLI) | payer MEDICARE ==
[2019-01-18 19:25] LABS: HEMATOCRIT 46.5 % (42.0-52.0); HEMOGLOBIN 15.2 g/dl (13.5-17.5); MEAN CORPUSCULAR HEMOGLOBIN 29.5 pg (27.0-33.0); MEAN CORPUSCULAR HGB CONC 32.7 g/dl (32.0-36.5); MEAN CORPUSCULAR VOLUME 90.1 fl (80.0-96.0); PLATELET COUNT, AUTOMATED 358 10^3/uL (150-450); RED BLOOD COUNT 5.16 10^6/uL (4.30-6.10); WHITE BLOOD COUNT 8.4 10^3/uL (4.0-10.0)
[2019-01-18 19:28] LABS: ALBUMIN 2.7 GM/DL (3.2-5.2); BILIRUBIN,TOTAL 0.3 MG/DL (0.2-1.0); CALCIUM LEVEL 8.5 MG/DL (8.8-10.2); CREATININE FOR GFR 2.11 MG/DL (0.70-1.30); GLOMERULAR FILTRATION RATE 34.2 (>49); POTASSIUM SERUM 4.9 MEQ/L (3.5-5.1)
== END ==
LOC: M LABDRWAD 13:38
PROVIDERS: ATTEND Physician Assistant
DX: N18.9 Chronic kidney disease, unspecified (principal)

== ENCOUNTER 2019-03-19 13:06 | Inpatient (IN) | payer MEDICARE ==
[~2019-03-19] VITALS: Ht 182.9 cm; Wt 137.9 kg
[~2019-03-19 13:06] MED LIST changes: -JANU100T PA
--- NOTE | 2019-03-19 14:37 | REP ---
CHEST, SINGLE VIEW: There is no evidence of acute infiltrate. No pleural effusion is seen. The heart is normal in size. The mediastinal silhouette is unremarkable. The visualized osseous structures are intact. IMPRESSION: No acute pulmonary disease. Electronically Signed by Esequiel Dimas MD 03/20/2019 01:43 P
[2019-03-19] MEDS ORDERED: JARD1TAB PO (14:42)
[2019-03-19] MEDS ORDERED: AMLO10TA5 PO (14:42)
[2019-03-19] MEDS ORDERED: ZOLP10TA2 PO (14:42)
[2019-03-19] MEDS ORDERED: CARV3.12 PO (14:42)
[2019-03-19 14:46] LABS: BASO # 0.1 10^3/uL (0.0-0.2); BASO % 0.6 % (0.0-1.0); EOS # 0.3 10^3/uL (0.0-0.5); EOS % 3.2 % (0.0-3.0); HEMATOCRIT 42.3 % (42.0-52.0); HEMOGLOBIN 13.9 g/dl (13.5-17.5); LYMPH # 1.2 10^3/uL (1.5-5.0); LYMPH % 13.9 % (24.0-44.0); MEAN CORPUSCULAR HEMOGLOBIN 28.8 pg (27.0-33.0); MEAN CORPUSCULAR HGB CONC 32.9 g/dl (32.0-36.5); MEAN CORPUSCULAR VOLUME 87.6 fl (80.0-96.0); MONO # 0.7 10^3/uL (0.0-0.8); MONO % 7.7 % (0.0-5.0); NEUTROPHILS # 6.5 10^3/uL (1.5-8.5); NEUTROPHILS % 73.6 % (36.0-66.0); PLATELET COUNT, AUTOMATED 251 10^3/uL (150-450); RED BLOOD COUNT 4.83 10^6/uL (4.30-6.10); WHITE BLOOD COUNT 8.8 10^3/uL (4.0-10.0)
[2019-03-19 14:59] LABS: INR 1.03; PROTHROMBIN TIME 13.2 SECONDS (11.8-14.0)
[2019-03-19 15:19] LABS: ALBUMIN 3.1 GM/DL (3.2-5.2); ALT/SGPT 13 U/L (12-78); BILIRUBIN,DIRECT < 0.1 MG/DL (0.0-0.2); BILIRUBIN,TOTAL 0.3 MG/DL (0.2-1.0); BLOOD UREA NITROGEN 30 MG/DL (7-18); CALCIUM LEVEL 8.9 MG/DL (8.8-10.2); CARBON DIOXIDE LEVEL 21 MEQ/L (21-32); CHLORIDE LEVEL 108 MEQ/L (98-107); CK-MB VALUE MASS 1.8 NG/ML (<3.6); CPK CREATINE PHOSPHOKINASE 49 U/L (39-308); CREATININE FOR GFR 2.34 MG/DL (0.70-1.30); GLOMERULAR FILTRATION RATE 30.3 (>49); GLUCOSE, FASTING 159 MG/DL (70-100); MB/CK RELATIVE INDEX 3.67 (< OR =4); NT-PRO BNP 245 PG/ML (<125); POTASSIUM SERUM 5.2 MEQ/L (3.5-5.1); SODIUM LEVEL 136 MEQ/L (136-145); THYROXINE (T4) 11.2 UG/DL (4.5-12.0); TOTAL PROTEIN 7.5 GM/DL (6.4-8.2); TROPONIN I < 0.02 NG/ML (< 0.10)
--- NOTE | 2019-03-19 16:42 | REP ---
CT of the abdomen and pelvis without IV or bowel contrast for abdominal distension: Comparison is the CT of the abdomen dated 11/23/2018. The prior study was performed for proteinuria, left renal neoplasm and chronic viral hepatitis C. The patient has had an interim left nephrectomy. The study is performed contiguous with the chest CT this same date. The unenhanced hepatic parenchyma is homogeneous. The gallbladder is unremarkable. The pancreas and spleen are unremarkable. The right adrenal is unremarkable. The left adrenal is not identified. The two right renal upper pole cysts are identified to better advantage on the comparison study with IV contrast but are not significantly changed. The unenhanced right kidney is otherwise unremarkable. There is no hydronephrosis or calculus. The left kidney is surgically absent. There is a small soft tissue density in the left renal fossa, nonspecific, likely postsurgical change. I would recommend follow-up CT into 3 months to evaluate for tumor recurrence . The abdominal aorta is unremarkable. There is no periaortic adenopathy or mass. There is no bowel distension or obstruction. There is no ascites. The mesentery is unremarkable. Pelvis: There is no ascites or adenopathy. The bladder is unremarkable. There are occasional diverticula in the sigmoid colon. There is no evidence of diverticulitis. Impression: There is no bowel distension or obstruction. There is no ascites. There has been a left nephrectomy. There is a small soft tissue density in the left renal fossa. In the absence of other comparison studies. This is nonspecific and could represent postsurgical scarring or tumor recurrence. Follow-up CT in 2-3 months is recommended for further evaluation. There is no mesenteric or retroperitoneal adenopathy. There are right renal upper pole cysts, unchanged. There is no right renal hydronephrosis or calculus. There is sigmoid diverticulosis without diverticulitis. Electronically Signed by Esequiel Sena MD 03/19/2019 04:34 P
[2019-03-19 17:57] LABS: PARTIAL THROMBOPLASTIN TIME 25.8 SECONDS (25.0-38.4)
[2019-03-19] MEDS ORDERED: ENOXAPARIN 100MG/1ML SYRINGE (J1650) SC ONE (18:00)
[2019-03-19] MEDS ORDERED: GLUCOSE 4 GM CHEW TABLET PO PRN (18:30)
[2019-03-19] MEDS ORDERED: GLUCAGON FOR INJ 1 MG VIAL (J1610) SC PRN (18:30)
[2019-03-19] MEDS ORDERED: DEXTROSE 50% 50 ML SYRINGE IV PRN (18:30)
[2019-03-19] MEDS ORDERED: GLIP10TA6 PO (18:32)
[2019-03-19] MEDS ORDERED: BASA100I SC (18:32)
[2019-03-19] MEDS ORDERED: GABA-843 PO (18:32)
--- NOTE | 2019-03-19 18:34 | ECGEPIP ---
[facility] - ED Test Date: 2019-03-19 Pat Name: MELA LUNDBERG Department: Room: - Gender: Male Medical Or Surgical Instrument Maker: gabriel : 1955 Requested By: ANAIS Claudio Order Number: [id number] Reading MD: Constantino Orta Measurements Intervals [place] Rate: 70 P: 55 UT: 296 QRS: 75 QRSD: 92 T: 74 QT: 351 QTc: 380 Interpretive Statements SINUS RHYTHM WITH FIRST DEGREE AV BLOCK WITH OCCASIONAL SUPRAVENTRICULAR PREMATURE COMPLEXES SIMILAR TO 03/14/17 Electronically Signed on 03-19-2019 18:34:33 EST by Constantino Orta
[2019-03-19] MEDS ORDERED: GABAPENTIN 300 MG CAP PO PRN (18:45)
[2019-03-19] MEDS ORDERED: LEVALBUTEROL 1.25 MG/0.5 ML CONCENTRATE NEB INH PRN (18:45)
--- NOTE | 2019-03-19 18:52 | HPEPDOC ---
General Date of Admission 03/19/2019 Date of Service: Mar 19, 2019 Chief Complaint The patient is a 63-year-old male who presented to the emergency room with complete short of breath History of Present Illness Patient is a 63-year-old male who presented to the emergency room with complaint of shortness of breath that started at 12:30 PM. Patient reports that he was in the bathroom taking a shower and upon drying himself. He noted that he was experiencing sudden onset of shortness of breath. Patient reported he walked out of the room turned the fan on, but still had no resolution of his shortness of breath. Patient contacted his EMT friend who advised him go to the emergency room for further evaluation. They have then contacted 911 for ambulance services to the ER> Patient reported that he did not express any chest pain, palpitations but did experience a clear productive cough without any blood-tinged sputum. He denied nausea, vomiting, abdominal pain or any change in his bowel activity. No discomfort with urination. Patient denied any fever or chills over the last 2 weeks. Patient reports his appetite is normal and denies any significant changes in his weight. Home Medications Scheduled Amlodipine Besylate (Amlodipine Besylate) 10 Mg Tablet, 10 MG PO DAILY, (Reported) Carvedilol (Carvedilol) 3.125 Mg Tablet, 3.215 MG PO BID, (Reported) Empagliflozin (Jardiance) 10 Mg Tablet, 10 MG PO DAILY, (Reported) Glipizide (Glipizide) 10 Mg Tab, 30 MG PO DAILY, (Reported) Glipizide (Glipizide) 10 Mg Tablet, 10 MG PO QHS, (Reported) Insulin Glargine,Hum.rec.anlog (Basaglar Kwikpen U-100) 100 Unit/1 Ml Insuln.pen, 100 UNIT SC DAILY, (Reported) Levothyroxine Sodium (Levothyroxine Sodium) 150 Mcg Tab, 150 MCG PO DAILY, (Re ported) Ropinirole HCl (Ropinirole HCl) 0.25 Mg Tab, 0.75 MG PO QHS, (Reported) Sitagliptin Phosphate (Januvia) 100 Mg Tab, 100 MG PO DAILY, (Reported) Zolpidem Tartrate (Zolpidem Tartrate) 10 Mg Tablet, 10 MG PO QHS, (Reported) Scheduled PRN Gabapentin (Gabapentin) 300 Mg Capsule, 300 MG PO BID PRN for NERVE PAIN, (Reported) Allergies Coded Allergies: No Known Allergies (Unverified , 03/19/19) Past Medical History Medical History HTN, DLP, IDDM2, CKD3, Hypothyroidism, Renal cell CA s/p L Nephrectomy, Hepatitis C (s/p treatment), Obesity, OA, RLS, Psoriasis, Hx of infection post- surgery Surgical History Left nephrectomy 01/09/2019 Hypopharyngeal mass resection; patient has noted that this was a benign finding Umbilical hernia repair as an infant Family History - Patient reports that both his parents are and his father had a history of Alzheimers Social History - Patient reports that he quit smoking 1 year ago but was a smoker of 40 years at 1 [facility]. Patient denies use of alcohol. Reports he quit 2 years ago. 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 Review of Systems Other systems 10 point review of systems complete, all negative otherwise stated in HPI Vital Signs - Vitals: BP 137/69, HR 65, RR 18, Sat 97%RA, Temp 98.7F - General: Lying in bed, No acute distress, Speaking in full sentences, AAOx3 - HEENT: NC, AT, PERRLA, EOMI - CVS: RRR, +S1S2 - Lungs: Poor inspiratory effort, No wheezing / rales / rhonchi - Abdomen: Soft, Non-distended, Non-tender, L sided abdominal scar - Extremities: No lower extremity edema, No calf tenderness - Neuro: No focal motor or sensory deficit - Skin: No visible rashes Laboratory Data Labs 24H Laboratory Tests 2 03/19/19 14:29: Immature Granulocyte % (Auto) 1.0, Neutrophils (%) (Auto) 73.6H, Lymphocytes (%) (Auto) 13.9L, Monocytes (%) (Auto) 7.7H, Eosinophils (%) (Auto) 3.2H, Basophils (%) (Auto) 0.6, Neutrophils # (Auto) 6.5, Lymphocytes # (Auto) 1.2L, Monocytes # (Auto) 0.7, Eosinophils # (Auto) 0.3, Basophils # (Auto) 0.1, Nucleated Red Blood Cells % (auto) 0.0, Prothrombin Time 13.2, Prothromb Time International Ratio 1.03, Activated Partial Thromboplast Time 25.8, Anion Gap 7L, Glomerular Filtration Rate 30.3L, Lactic Acid Level 1.4, Calcium Level 8.9, Total Bilirubin 0.3, Direct Bilirubin < 0.1, Aspartate Amino Transf (AST/SGOT) 4L, Alanine Aminotransferase (ALT/SGPT) 13, Alkaline Phosphatase 55, Total Creatine Kinase 49, Creatine Kinase MB 1.8, Creatine Kinase MB Relative Index 3.67, Troponin I < 0.02, PK-Eli-B-Type Natriuretic Peptide 245H, Total Protein 7.5, Albumin 3.1L, Albumin/Globulin Ratio 0.70L, Thyroid Stimulating Hormone (TSH) 6.370H, Th yroxine (T4) 11.2 CBC/BMP Laboratory Tests 03/19/19 14:29 Microbiology Microbiology 03/19/19 Blood Culture, Received Pending 03/19/19 Respiratory Virus Panel (PCR) ([facility]) - Final, Complete 03/19/19 Blood Culture, Received Pending Plan / VTE VTE Prophylaxis Ordered?: Yes Plan Plan Sudden onset shortness of breath - Patient has presented to the emergency room after experiencing sudden onset shortness of breath, just started at 12:30 PM - Patient remains hemodynamically stable and afebrile; saturating well on room air - Auscultation is without any adventitious lung sounds. However, there is poor inspiratory effort bilaterally - No leukocytosis or lactic acidosis - Troponin 1 set is negative; Will trend troponin - CXR 03/19: No acute pulmonary disease. - CT chest 03/19: No active disease - Patient is at high risk of pulmonary embolism given his history of malignancy and recent surgical procedure - Patient will be given a single dose of Lovenox - He will be scheduled for a VQ scan in the morning Hx of infection post-surgery - Patients abdominal exam is benign - Hemodynamically stable and afebrile - No leukocytosis - CT abdomen / pelvis 03/19: There is no bowel distension or obstruction. There is no ascites. There has been a left nephrectomy. There is a small soft tissue density in the left renal fossa. In the absence of other comparison studies. This is nonspecific and could represent postsurgical scarring or tumor recurrence. Follow-up CT in 2-3 months is recommended for further evaluation. There is no mesenteric or retroperitoneal adenopathy. There are right renal upper pole cysts, unchanged. There is no right renal hydronephrosis or calculus. There is sigmoid diverticulosis without diverticulitis. HTN - BP appears well controlled - c/w Carvedilol DLP - Will check lipid profile - c/w Statin IDDM2 with Neuropathy - Will check A1c - Will c/w ISS and long acting insulin - c/w Gabapentin CKD3 - As per son, patients baseline creatinine is typically around 2.5 Hypothyroidism - c/w Levothyroxine Renal cell CA s/p L Nephrectomy - Patient follows with Dr. Stubbs as an outpatient Hepatitis C - s/p treatment - Will check Hepatitis C viral count - Follows with Dr. Melton Obesity - BMI of 40.6 - Complicating medical care OA - c/w Tylenol PRN RLS - c/w Ropinirole Psoriasis - Currently appears well controlled DVT prophylaxis - Will give single dose of Lovenox GRABIEL VASQUEZ MD Mar 19, 2019 18:52
--- NOTE | 2019-03-19 18:53 | REPVR ---
PROCEDURE INFORMATION: Exam: US Duplex Lower Extremity Veins Exam date and time: 03/19/2019 6:34 PM Age: 63 years old Clinical indication: Pain; Leg, lower; Bilateral; Additional info: Shortness of breath TECHNIQUE: Imaging protocol: Real-time duplex ultrasound of the Lower Extremities with 2-D larson scale, color Doppler flow and spectral waveform analysis with image documentation. Complete exam focused on the bilateral lower extremity veins. COMPARISON: No relevant prior studies available. FINDINGS: Right deep veins: Unremarkable. The common femoral, femoral, proximal profunda femoral and popliteal veins are patent without thrombus. Normal Doppler waveforms. Normal compressibility and/or augmentation response. Right superficial veins: Saphenofemoral junction is patent without thrombus. Left deep veins: Unremarkable. The common femoral, femoral, proximal profunda femoral and popliteal veins are patent without thrombus. Normal Doppler waveforms. Normal compressibility and/or augmentation response. Left superficial veins: Saphenofemoral junction is patent without thrombus. Soft tissues: Unremarkable. IMPRESSION: No DVT of bilateral lower extremity veins. Electronically signed by: Pee Napier On 03/19/2019 18:52:56 PM
[2019-03-19 20:00] VITALS: BP 186/92
[2019-03-19] MEDS ORDERED: CARVedilol 3.125 MG TAB PO SCH (21:00)
[2019-03-19] MEDS ORDERED: zolPIDEM TARTRATE 5 MG TAB PO PRN (21:00)
[2019-03-19 21:02] LABS: CPK CREATINE PHOSPHOKINASE 48 U/L (39-308); MB/CK RELATIVE INDEX 4.17 (< OR =4); TROPONIN I < 0.02 NG/ML (< 0.10)
[2019-03-19] MEDS: HumaLOG INSULIN (NovoLOG) PER UNIT SC SCH ×2 (21:29→21:46)
[2019-03-19] MEDS: LEVEMIR (INSULIN DETEMIR) 1 UNITS/0.01ML SC SCH (22:35)
[2019-03-19] MEDS: rOPINIRole 0.25 MG TAB(REQUIP) PO SCH (22:55)
[2019-03-20] VITALS (8 sets, daily range): BP systolic 133–180; BP diastolic 70–92
[2019-03-20 03:01] LABS: BASO % 0.5 % (0.0-1.0); EOS # 0.3 10^3/uL (0.0-0.5); EOS % 3.7 % (0.0-3.0); HEMATOCRIT 40.6 % (42.0-52.0); LYMPH # 1.8 10^3/uL (1.5-5.0); LYMPH % 23.5 % (24.0-44.0); MEAN CORPUSCULAR HEMOGLOBIN 28.3 pg (27.0-33.0); MEAN CORPUSCULAR VOLUME 88.5 fl (80.0-96.0); MONO # 0.8 10^3/uL (0.0-0.8); MONO % 10.2 % (0.0-5.0); NEUTROPHILS # 4.6 10^3/uL (1.5-8.5); NEUTROPHILS % 61.2 % (36.0-66.0); PLATELET COUNT, AUTOMATED 234 10^3/uL (150-450); RED BLOOD COUNT 4.59 10^6/uL (4.30-6.10); WHITE BLOOD COUNT 7.5 10^3/uL (4.0-10.0)
[2019-03-20 03:28] LABS: BLOOD UREA NITROGEN 35 MG/DL (7-18); CARBON DIOXIDE LEVEL 21 MEQ/L (21-32); CHLORIDE LEVEL 110 MEQ/L (98-107); CHOLESTEROL LEVEL 198 MG/DL (<200); CHOLESTEROL RISK RATIO 6.827 (<5); CK-MB VALUE MASS 1.6 NG/ML (<3.6); CPK CREATINE PHOSPHOKINASE 52 U/L (39-308); GLOMERULAR FILTRATION RATE 29.4 (>49); GLUCOSE, FASTING 146 MG/DL (70-100); HDL CHOLESTEROL 29 MG/DL (>40); HEMOGLOBIN A1c 8.7 %; LDL CHOLESTEROL 97 MG/DL (<100); MAGNESIUM LEVEL 2.1 MG/DL (1.8-2.4); MB/CK RELATIVE INDEX 3.08 (< OR =4); NON-HDL-C 169 MG/DL; POTASSIUM SERUM 4.6 MEQ/L (3.5-5.1); SODIUM LEVEL 140 MEQ/L (136-145); TRIGLYCERIDES LEVEL 359 MG/DL (<150); TROPONIN I < 0.02 NG/ML (< 0.10)
[2019-03-20] MEDS: LEVOTHYROXINE 150MCG TABLET (0.15MG) PO SCH (05:55)
--- NOTE | 2019-03-20 07:25 | REP ---
CT CHEST WITHOUT IV CONTRAST: CT chest performed without IV contrast. Sagittal and coronal reconstruction images are performed. The lungs are free of infiltrate. There some minor scattered interstitial fibrotic change. Calcified granuloma is seen in the left upper lobe and another is seen in the left lower lobe. No mediastinal or axillary adenopathy is seen. There is no evidence of aneurysm or thoracic or thoracic aorta. The heart is normal in size. There is no pleural or pericardial effusion. There are degenerative changes of the spine. IMPRESSION: Chronic findings as discussed above. No acute infiltrate or mediastinal adenopathy. Electronically Signed by Esequiel Dimas MD 03/20/2019 10:34 P
[2019-03-20] MEDS: ACETAMINOPHEN TAB 650MG DOSE (2X325MG) PO PRN ×3 (07:53→20:16)
[2019-03-20] MEDS: HumaLOG INSULIN (NovoLOG) PER UNIT SC SCH ×4 (09:04→20:15)
[2019-03-20] MEDS: amLODIPine 10 MG TAB PO SCH (09:04)
[2019-03-20] MEDS: CARVedilol 3.125 MG TAB PO SCH ×2 (09:05→20:19)
--- NOTE | 2019-03-20 11:15 | IPNPDOC ---
Subjective Date Seen The patient was seen on 03/20/19. Subjective Chief Complaint/HPI No further SOB - no complaints Constitutional: Denies: Chills, Fever Pulmonary: Denies: Dyspnea, Cough Cardiovascular: Denies: Chest Pain, Palpitations, Orthopnea Gastrointestinal: Denies: Nausea, Vomiting, Abdominal Pain, Diarrhea, Constipation Objective Physical Examination General Exam: Positive: Alert, No Acute Distress Chest Exam: Positive: Clear to auscultation; Negative: Rales, Rhonchi, Wheezing Heart Exam: Positive: Rate Normal, Regular Rhythm Telemetry: Positive: No significant arrhythmia Abdomen Exam: Positive: Soft; Negative: Tenderness Male Exam: Negative: Edema Skin Exam: Positive: Other skin issue (abdominal incision wound dry with large scabbed area in middle wihtout tenderness or surrounding erytham) Assessment /Plan Problems (1) Shortness of breath Status: Acute Problem Text: Etiology uncetain - concern for PE due to increased risk with renal carcinoma Unable to get spiral CT due to CKD VQ pending today Cont Lovenox therapeutic until results return (2) CKD (chronic kidney disease) stage 3, GFR 30-59 ml/min Status: Chronic Response to Treatment: Stable (3) Diabetes mellitus Status: Chronic Response to Treatment: Stable (4) HTN (hypertension) Status: Chronic Response to Treatment: Stable Plan/VTE VTE Prophylaxis Ordered?: Yes Disposition d/c home pending results of VQ VS, I&O, 24H, Fishbone Vital Signs/I&O Vital Signs Date Time Temp Pulse Resp B/P (MAP) Pulse Ox O2 Delivery O2 Flow Rate FiO2 03/20/19 09:05 65 142/91 03/20/19 08:00 96.9 20 98 Room Air I&O- Last 24 Hours up to 6 AM 03/20/19 06:00 Intake Total 750 ml Output Total 850 ml Balance -100 ml Laboratory Data 24H LABS Laboratory Tests 2 03/19/19 14:29: Immature Granulocyte % (Auto) 1.0, Neutrophils (%) (Auto) 73.6H, Lymphocytes (%) (Auto) 13.9L, Monocytes (%) (Auto) 7.7H, Eosinophils (%) (Auto) 3.2H, Basophils (%) (Auto) 0.6, Neutrophils # (Auto) 6.5, Lymphocytes # (Auto) 1.2L, Monocytes # (Auto) 0.7, Eosinophils # (Auto) 0.3, Basophils # (Auto) 0.1, Nucleated Red Blood Cells % (auto) 0.0, Prothrombin Time 13.2, Prothromb Time International Ratio 1.03, Activated Partial Thromboplast Time 25.8, Anion Gap 7L, Glomerular Filtration Rate 30.3L, Lactic Acid Level 1.4, Calcium Level 8.9, Total Bilirubin 0.3, Direct Bilirubin < 0.1, Aspartate Amino Transf (AST/SGOT) 4L, Alanine Aminotransferase (ALT/SGPT) 13, Alkaline Phosphatase 55, Total Creatine Kinase 49, Creatine Kinase MB 1.8, Creatine Kinase MB Relative Index 3.67, Troponin I < 0.02, DB-Sdh-M-Type Natriuretic Peptide 245H, Total Protein 7.5, Albumin 3.1L, Albumin/Globulin Ratio 0.70L, Thyroid Stimulating Hormone (TSH) 6.370H, Thyroxine (T4) 11.2 03/19/19 20:22: Total Creatine Kinase 48, Creatine Kinase MB 2.0, Creatine Kinase MB Relative Index 4.17H, Troponin I < 0.02 03/19/19 21:17: Bedside Glucose (Misc Panel) 263H 03/20/19 02:45: Immature Granulocyte % (Auto) 0.9, Neutrophils (%) (Auto) 61.2, Lymphocytes (%) (Auto) 23.5L, Monocytes (%) (Auto) 10.2H, Eosinophils (%) (Auto) 3.7H, Basophils (%) (Auto) 0.5, Neutrophils # (Auto) 4.6, Lymphocytes # (Auto) 1.8, Monocytes # (Auto) 0.8, Eosinophils # (Auto) 0.3, Basophils # (Auto) 0.0, Nucleated Red Blood Cells % (auto) 0.0, Anion Gap 9, Glomerular Filtration Rate 29.4L, Calcium Level 8.0L, Total Creatine Kinase 52, Creatine Kinase MB 1.6, Creatine Kinase MB Relative Index 3.08, Troponin I < 0.02, Estimated Mean Plasma Glucose 203H, Hemoglobin A1c 8.7, Magnesium Level 2.1, Triglycerides Level 359H, Total Cholesterol 198, LDL Cholesterol 97, Non-HDL Cholesterol (LDL + VLDL) 169, Total HDL Cholesterol 29L, Cholesterol/HDL Ratio 6.827H 03/20/19 07:36: Bedside Glucose (Misc Panel) 102 CBC/BMP Laboratory Tests 03/19/19 14:29 03/20/19 02:45 Microbiology Microbiology 03/19/19 Blood Culture, Received Pending 03/19/19 Respiratory Virus Panel (PCR) ([facility]) - Final, Complete 03/19/19 Blood Culture, Received Pending GISELA ISLAS PA-C Mar 20, 2019 11:15
[2019-03-20 12:04] LABS: CREATININE FOR GFR 2.36 MG/DL (0.70-1.30)
--- NOTE | 2019-03-20 12:39 | REP ---
Radionuclide pulmonary ventilation and perfusion scan: Comparison is the chest CT dated 03/19/2019. The study is performed with 1.0 mCi of technetium 99m DTPA aerosol followed by 5.5 mCi of technetium 99m MAA intravenously. There is a matched ventilation / perfusion defect in the right mid lung. No other perfusion defects are identified. No other ventilation defects are identified. Impression: The finding indicates a low probability of pulmonary embolus. Electronically Signed by Esequiel Sena MD 03/20/2019 12:31 P
[2019-03-20] MEDS: ENOXAPARIN 100MG/1ML SYRINGE (J1650) SC SCH ×2 (12:42→20:16)
[2019-03-20] MEDS: rOPINIRole 0.25 MG TAB(REQUIP) PO SCH (20:15)
[2019-03-20] MEDS: LEVEMIR (INSULIN DETEMIR) 1 UNITS/0.01ML SC SCH (20:16)
[2019-03-21] MEDS: ACETAMINOPHEN TAB 650MG DOSE (2X325MG) PO PRN ×3 (00:14→08:45)
[2019-03-21 04:00] VITALS: BP 145/70
[2019-03-21] MEDS: LEVOTHYROXINE 150MCG TABLET (0.15MG) PO SCH (05:14)
[2019-03-21 06:18] LABS: BASO # 0.1 10^3/uL (0.0-0.2); EOS # 0.3 10^3/uL (0.0-0.5); HEMATOCRIT 39.9 % (42.0-52.0); HEMOGLOBIN 13.4 g/dl (13.5-17.5); LYMPH # 1.3 10^3/uL (1.5-5.0); LYMPH % 21.5 % (24.0-44.0); MEAN CORPUSCULAR HEMOGLOBIN 29.6 pg (27.0-33.0); MEAN CORPUSCULAR HGB CONC 33.6 g/dl (32.0-36.5); MEAN CORPUSCULAR VOLUME 88.1 fl (80.0-96.0); MONO # 0.6 10^3/uL (0.0-0.8); MONO % 8.8 % (0.0-5.0); NEUTROPHILS # 3.9 10^3/uL (1.5-8.5); NEUTROPHILS % 62.4 % (36.0-66.0); PLATELET COUNT, AUTOMATED 246 10^3/uL (150-450); RED BLOOD COUNT 4.53 10^6/uL (4.30-6.10); WHITE BLOOD COUNT 6.2 10^3/uL (4.0-10.0)
--- NOTE | 2019-03-21 06:28 | ECHO ---
DATE OF PROCEDURE: 03/20/2019 DATE OF : 1955 AGE: 63 REFERRING PHYSICIAN: Dr. Madiha Rm LOCATION: Room 3218 REASON FOR STUDY: Edema. 2-D MEASUREMENTS: IVS: 1.3 cm LV: 4.9 cm LVPW: 1.3 cm LA: 4.2 cm Aorta: 3.4 cm DOPPLER MEASUREMENTS: Peak velocity across the aortic valve: 1.2 m/s Peak velocity across the LVOT: 0.91 m/s Mitral E: 0.55 Mitral: 0.72 Ratio: 0.8 2-D COMMENTS: 1. Technically limited study due to poor acoustic window. The endocardium was not well visualized. 2. Normal left ventricular size with mildly increased left ventricular wall thickness. Left ventricular systolic function appeared to be mildly depressed at 45-50%. 3. Mildly enlarged left atrium. Normal right atrium and right ventricle. 4. The atrial septum appeared to be normal without evidence of defect or shunt. 5. Normal aortic root. 6. Trace to small pericardial effusion noted, no evidence of cardiac tamponade. 7. Mildly calcified aortic valve, leaflet excursion appeared to be normal. The mitral valve and the tricuspid valve appeared to be normal in limited views. The pulmonic valve and proximal pulmonary artery branches were not well visualized. 8. The inferior vena cava was not well visualized. DOPPLER: No significant valvular abnormalities detected. Abnormal relaxation pattern was noted across the mitral valve leaflets as well as the mitral valve annulus consistent with features of grade 1 left ventricular diastolic dysfunction. IMPRESSION: 1. Technically limited study due to poor acoustic window. 2. Probably mildly depressed global left ventricular systolic function with normal left ventricular size and preserved left ventricular thickness. 3. Aortic valve sclerosis without stenosis or aortic regurgitation. 4. Isolated mildly dilated left atrium without any significant mitral regurgitation or mitral stenosis. Most likely related to underlying left ventricular diastolic dysfunction. 5. Trace to small pericardial effusion, no evidence of cardiac tamponade. 6. There are features of left ventricular diastolic dysfunction manifested by abnormal relaxation.
[2019-03-21 06:44] LABS: CALCIUM LEVEL 8.6 MG/DL (8.8-10.2); CREATININE FOR GFR 2.28 MG/DL (0.70-1.30); GLOMERULAR FILTRATION RATE 31.2 (>49); MAGNESIUM LEVEL 2.3 MG/DL (1.8-2.4); POTASSIUM SERUM 4.7 MEQ/L (3.5-5.1)
[2019-03-21 07:30] VITALS: BP 158/80
[2019-03-21] MEDS: HumaLOG INSULIN (NovoLOG) PER UNIT SC SCH (08:05)
[2019-03-21] MEDS: ENOXAPARIN 100MG/1ML SYRINGE (J1650) SC SCH (08:42)
[2019-03-21 08:45] VITALS: BP 158/80
[2019-03-21] MEDS: amLODIPine 10 MG TAB PO SCH (08:45)
[2019-03-21] MEDS: CARVedilol 3.125 MG TAB PO SCH (08:46)
--- NOTE | 2019-03-21 19:00 | DSES ---
DATE OF ADMISSION: 03/19/2019 DATE OF DISCHARGE: 03/21/2019 PRIMARY CARE PHYSICIAN: Milena Merida ATTENDING: Dr. Nando Fernandez HISTORY: This is a 63-year-old male patient who presented to the emergency room with increased shortness of breath. He states he was taking a shower. Upon drying himself noted sudden onset of shortness of breath walking out of the bathroom, turning on the fan, but without any improvement in his symptoms. He contacted his EMT friend, who advised emergency room evaluation. He denied any other symptoms associated with this. He was admitted to the hospital for sudden-onset shortness of breath. He was hemodynamically stable, saturating well on room air. Exam was benign. Troponins were negative. Chest x-ray was negative. Chest CT was negative, although patient is high risk for pulmonary embolism (PE) secondary to malignancy and recent surgery, and there he was started on Lovenox and admitted to the hospital for a V/Q scan, which has been obtained. V/Q scan was low risk for pulmonary embolus. He also underwent echocardiogram without any acute findings. At this point, his shortness of breath has resolved. He feels as though this is likely secondary to anxiety and depression with his recent renal cell carcinoma status post left nephrectomy diagnosis and stress associated with this. DISCHARGE DIAGNOSES: 1. Shortness of breath. 2. Chronic kidney disease, stage III. 3. Diabetes mellitus. 4. Hypertension. 5. Renal cell carcinoma. 6. Morbid obesity. DISCHARGE MEDICATIONS: - amlodipine 10 mg daily - carvedilol 3.215 mg daily - Jardiance 10 mg daily - gabapentin 300 mg twice a day as needed for nerve pain - glipizide 30 mg daily - Basaglar 100 units subcutaneous daily - levothyroxine 150 mcg daily - ropinirole 0.75 mg by mouth at bedtime - Januvia 100 mg daily - zolpidem 10 mg by mouth at bedtime DISCHARGE PLAN; Followup with is primary care physician (PCP) on March 26, as scheduled. DIET: Consistent-carbohydrate diet, 2-gram, no added salt. ACTIVITY: As tolerated.
[2019-03-22 14:08] LABS: HEPATITIS C QUANTITATION HCV Not Detected IU/mL (.)
== END 2019-03-21 11:30 | disposition home or self-care (01) | DRG 204 ==
LOC: M ED 13:06 → M ED INP 18:26 → ENRESERVDT 18:41 → ENRESERVTM 18:41 → M PCU 20:24
PROVIDERS: ADMIT Internal Medicine; ATTEND Family Medicine
DX: R06.02 Shortness of breath (principal); Z68.41 Body mass index [BMI] 40.0-44.9, adult; E66.01 Morbid (severe) obesity due to excess calories; N18.3 Chronic kidney disease, stage 3 (moderate); E11.40 Type 2 diabetes mellitus with diabetic neuropathy, unspecified; Z79.899 Other long term (current) drug therapy; I12.9 Hypertensive chronic kidney disease with stage 1 through stage 4 chronic kidney disease, or unspecified chronic kidney disease; E03.9 Hypothyroidism, unspecified; M19.90 Unspecified osteoarthritis, unspecified site; G25.81 Restless legs syndrome; L40.8 Other psoriasis; Z87.891 Personal history of nicotine dependence; K57.30 Diverticulosis of large intestine without perforation or abscess without bleeding; B18.2 Chronic viral hepatitis C; Z85.828 Personal history of other malignant neoplasm of skin

== ENCOUNTER → 2019-07-10 | Outpatient (REF) | payer MEDICARE ==
[~2019-07-10] MED LIST changes: +AMLO10TA5 PO; +BASA100I SC; +CARV3.12 PO; +GABA-843 PO; +JARD1TAB PO; +ZOLP10TA2 PO
[2019-07-10 17:31] LABS: BASO # 0.1 10^3/uL (0.0-0.2); BASO % 0.8 % (0.0-1.0); EOS # 0.3 10^3/uL (0.0-0.5); EOS % 3.6 % (0.0-3.0); HEMATOCRIT 42.2 % (42.0-52.0); HEMOGLOBIN 14.1 g/dl (13.5-17.5); LYMPH # 1.6 10^3/uL (1.5-5.0); LYMPH % 19.9 % (24.0-44.0); MEAN CORPUSCULAR HEMOGLOBIN 29.4 pg (27.0-33.0); MEAN CORPUSCULAR HGB CONC 33.4 g/dl (32.0-36.5); MEAN CORPUSCULAR VOLUME 88.1 fl (80.0-96.0); MONO # 0.8 10^3/uL (0.0-0.8); NEUTROPHILS # 5.2 10^3/uL (1.5-8.5); NEUTROPHILS % 64.9 % (36.0-66.0); PLATELET COUNT, AUTOMATED 280 10^3/uL (150-450); RED BLOOD COUNT 4.79 10^6/uL (4.30-6.10)
[2019-07-10 17:37] LABS: FREE T4 1.19 NG/DL (0.76-1.46); THYROID STIMULATING HORMONE 8.43 uIU/ML (0.358-3.740)
[2019-07-10 17:56] LABS: HEMOGLOBIN A1c 9.8 %
== END ==
LOC: M SFHCADAM 13:26
PROVIDERS: ATTEND Physician Assistant
DX: E11.21 Type 2 diabetes mellitus with diabetic nephropathy (principal); E03.9 Hypothyroidism, unspecified; R68.89 Other general symptoms and signs
CPT/HCPCS: 83036; 84439; 84443; 85025; G0463

== ENCOUNTER → 2019-09-03 | Outpatient (REF) | payer MEDICARE ==
[~2019-09-03] MED LIST changes: -AMLO10TA5 PO; +AMLO1TAB25 PO
[2019-09-03 14:07] LABS: CALCIUM LEVEL 8.4 MG/DL (8.8-10.2); CREATININE FOR GFR 2.15 MG/DL (0.70-1.30); FREE T4 1.07 NG/DL (0.76-1.46); GLOMERULAR FILTRATION RATE 33.4 (>49); THYROID STIMULATING HORMONE 9.93 uIU/ML (0.358-3.740)
[2019-09-03 14:25] LABS: HEMOGLOBIN A1c 7.8 %
== END ==
LOC: M SFHCADAM 07:57
PROVIDERS: ATTEND Physician Assistant
DX: E11.21 Type 2 diabetes mellitus with diabetic nephropathy (principal); E03.9 Hypothyroidism, unspecified

== ENCOUNTER → 2019-12-17 | Outpatient (REF) | payer MEDICARE ==
[2019-12-17 14:33] LABS: FREE T4 1.07 NG/DL (0.76-1.46); THYROID STIMULATING HORMONE 4.48 uIU/ML (0.358-3.740)
[2019-12-17 14:34] LABS: HEMOGLOBIN A1c 7.4 %
== END ==
LOC: M PLALAB 09:02
PROVIDERS: ATTEND Physician Assistant
DX: E03.9 Hypothyroidism, unspecified (principal); E11.42 Type 2 diabetes mellitus with diabetic polyneuropathy

== ENCOUNTER → 2020-02-25 | Outpatient (REF) | payer MEDICARE | LOC: M SFHCADAM 10:59 | PROVIDERS: ATTEND Physician Assistant | DX: R05 Cough (principal); Z20.828 Contact with and (suspected) exposure to other viral communicable diseases ==

== ENCOUNTER → 2020-03-02 | Outpatient (REF) | payer MEDICARE ==
[2020-03-02 13:38] LABS: CHOLESTEROL RISK RATIO 4.714 (<5); FREE T4 1.17 NG/DL (0.76-1.46); THYROID STIMULATING HORMONE 3.8 uIU/ML (0.358-3.740)
[2020-03-02 13:43] LABS: FOLATE 6.4 NG/ML
[2020-03-02 16:22] LABS: HEMOGLOBIN A1c 8.6 %
== END ==
LOC: M SFHCADAM 08:16
PROVIDERS: ATTEND Physician Assistant
DX: E03.9 Hypothyroidism, unspecified (principal); N18.4 Chronic kidney disease, stage 4 (severe); E11.22 Type 2 diabetes mellitus with diabetic chronic kidney disease; E78.00 Pure hypercholesterolemia, unspecified; Z12.5 Encounter for screening for malignant neoplasm of prostate
CPT/HCPCS: 80061; 82607; 82746; 83036; 84439; 84443; G0103

== ENCOUNTER → 2020-06-03 | Outpatient (REF) | payer MEDICARE ==
[~2020-06-03] MED LIST changes: +GABA-282 PO; -GABA-843 PO
[2020-06-03 22:37] LABS: FREE T4 1.11 NG/DL (0.76-1.46); THYROID STIMULATING HORMONE 4.79 uIU/ML (0.358-3.740)
[2020-06-04 00:41] LABS: HEMOGLOBIN A1c 8.2 %
== END ==
LOC: M SFHCADAM 17:12
PROVIDERS: ATTEND Physician Assistant
DX: E11.65 Type 2 diabetes mellitus with hyperglycemia (principal)

== ENCOUNTER → 2020-07-21 | Outpatient (REF) | payer MEDICARE ==
[2020-07-22 11:23] LABS: BASO # 0.1 10^3/uL (0.0-0.2); BASO % 0.9 % (0.0-1.0); EOS # 0.3 10^3/uL (0.0-0.5); EOS % 3.8 % (0.0-3.0); HEMATOCRIT 41.7 % (42.0-52.0); HEMOGLOBIN 13.3 g/dl (13.5-17.5); LYMPH # 1.6 10^3/uL (1.5-5.0); LYMPH % 17.9 % (24.0-44.0); MEAN CORPUSCULAR HEMOGLOBIN 28.5 pg (27.0-33.0); MEAN CORPUSCULAR HGB CONC 31.9 g/dl (32.0-36.5); MEAN CORPUSCULAR VOLUME 89.3 fl (80.0-96.0); MONO # 0.8 10^3/uL (0.0-0.8); MONO % 9.3 % (2.0-8.0); NEUTROPHILS # 6.1 10^3/uL (1.5-8.5); NEUTROPHILS % 67.1 % (36.0-66.0); PLATELET COUNT, AUTOMATED 299 10^3/uL (150-450); RED BLOOD COUNT 4.67 10^6/uL (4.30-6.10); WHITE BLOOD COUNT 9.1 10^3/uL (4.0-10.0)
[2020-07-22 11:57] LABS: ALBUMIN 2.9 GM/DL (3.2-5.2); BILIRUBIN,TOTAL 0.4 MG/DL (0.2-1.0); CALCIUM LEVEL 8.5 MG/DL (8.8-10.2); CREATININE FOR GFR 2.53 MG/DL (0.70-1.30); GLOMERULAR FILTRATION RATE 27.6 (>49); POTASSIUM SERUM 5.6 MEQ/L (3.5-5.1); TOTAL PROTEIN 6.8 GM/DL (6.4-8.2)
== END ==
LOC: M SFHCADAM 15:46
PROVIDERS: ATTEND Physician Assistant
DX: R10.814 Left lower quadrant abdominal tenderness (principal); N18.32 Chronic kidney disease, stage 3b

== ENCOUNTER → 2020-07-21 | Outpatient (CLI) | payer MEDICARE ==
--- NOTE | 2020-07-21 10:21 | REP ---
INDICATION: SCROTAL PAIN COMPARISON: None. TECHNIQUE: Dimas scale and color Doppler evaluation using linear and curved array transducer with color Doppler evaluation. FINDINGS: The testicles and epididymi are relatively normal in contour, size, echogenicity, vascularity and overall appearance. There is no evidence for intratesticular mass lesion, infectious/inflammatory process, or torsion. Moderate right and moderate to large left simple hydroceles noted. No varicoceles identified. Right testicle measures 4.2 x 2.9 x 2.2 cm. Left testicle measures 4.6 x 3.1 x 3.0 cm. IMPRESSION: Bilateral hydroceles (left greater than right) Normal/symmetric appearance of the testicles/epididymi. <Electronically signed by Shin Tillman > 07/21/20 1015
== END ==
LOC: M RAD 09:27
PROVIDERS: ATTEND Physician Assistant
DX: N43.3 Hydrocele, unspecified (principal); N50.82 Scrotal pain; R10.814 Left lower quadrant abdominal tenderness; N18.32 Chronic kidney disease, stage 3b
CPT/HCPCS: 76870; 80053; 85025; 93976; G0463

== ENCOUNTER → 2020-07-23 | Outpatient (CLI) | payer MEDICARE ==
--- NOTE | 2020-07-23 11:30 | REP ---
INDICATION: LLQ ABD PAIN / FLANK PAIN ? STONES COMPARISON: 03/19/2019 TECHNIQUE: Axial noncontrast images from the lung bases to the pubic symphysis with coronal and sagittal reformations. This CT examination was performed using the following dose reduction techniques: Automated exposure control, adjustment of mA and/or kv according to the patient's size, and use of iterative reconstruction technique. FINDINGS: Chronic relatively stable right perinephric stranding is appreciated without hydroureteronephrosis or nephroureterolithiasis. Patient is status post left nephrectomy and the left renal fossa demonstrates stable postsurgical changes. Mild hepatomegaly remains stable. Spleen/splenule, pancreas, gallbladder, and bilateral adrenal glands are normal. The enteric system is without obstruction or acute inflammatory process. Scattered colonic/sigmoid diverticula noted without acute diverticulitis. Pelvis demonstrates mildly prominent prostate gland with normal appearance to the bladder. Surgical clips in the bilateral inguinal canal suggest prior hernia repair. No ascites. No free air. No adenopathy. Abdominal aorta without aneurysm. Musculoskeletal structures demonstrate degenerative changes without acute osseous abnormality. Lung bases are clear. IMPRESSION: No acute abdominopelvic pathology appreciated. No ascites, acute inflammatory stranding, adenopathy, or free air. Postsurgical changes including prior left nephrectomy and bilateral inguinal hernia repair noted. Diverticulosis without acute diverticulitis. <Electronically signed by Shin Tillman > 07/23/20 [id number]
== END ==
LOC: M RAD 11:01
PROVIDERS: ATTEND Physician Assistant
DX: R10.32 Left lower quadrant pain (principal); R16.0 Hepatomegaly, not elsewhere classified; Z90.5 Acquired absence of kidney; K57.30 Diverticulosis of large intestine without perforation or abscess without bleeding

== ENCOUNTER → 2020-07-30 | Outpatient (CLI) | payer MEDICARE ==
[~2020-07-30] MED LIST changes: +ISOVUE-370 76% 100ML VIAL As Ordered ONE
--- NOTE | 2020-07-31 06:44 | REP ---
INDICATION: HX KIDNEY CANCER COMPARISON: 03/19/2019 TECHNIQUE: Axial noncontrast images from the thoracic inlet to the upper abdomen with coronal and sagittal reformations. This CT examination was performed using the following dose reduction techniques: Automated exposure control, adjustment of mA and/or kv according to the patient's size, and use of iterative reconstruction technique. FINDINGS: Bilateral lung carroll are essentially well aerated and clear. Minimal age-related interstitial changes noted. No acute consolidation, significant nodule, or mass. No effusion. No pneumothorax. Tracheobronchial tree is patent. Mediastinum demonstrates relatively normal thoracic aorta, pulmonary vasculature, and heart/pericardium. Atherosclerotic changes to the coronary arteries noted without cardiomegaly or pericardial effusion. No obvious axillary, hilar, or mediastinal adenopathy. Musculoskeletal structures demonstrate age-related degenerative changes without acute osseous abnormality. Limited upper abdomen demonstrates prior total left nephrectomy and normal appearance of the right adrenal gland. IMPRESSION: No acute mediastinal or pleuroparenchymal process appreciated. No evidence for metastatic disease. <Electronically signed by Shin Tillman > 07/31/20 [id number]
== END ==
LOC: M RAD 10:24
PROVIDERS: ATTEND Urology
DX: C64.2 Malignant neoplasm of left kidney, except renal pelvis (principal); N18.9 Chronic kidney disease, unspecified; Z90.5 Acquired absence of kidney

== ENCOUNTER → 2020-08-03 | Outpatient (REF) | payer MEDICARE ==
[~2020-08-03] MED LIST changes: -ISOVUE-370 76% 100ML VIAL As Ordered ONE
== END ==
LOC: M LABDRWAD 13:24
PROVIDERS: ATTEND Urology
DX: C64.2 Malignant neoplasm of left kidney, except renal pelvis (principal)

== ENCOUNTER → 2020-09-03 | Outpatient (REF) | payer MEDICARE ==
[2020-09-03 17:52] LABS: HEMOGLOBIN A1c 7.1 %
[2020-09-03 18:07] LABS: FREE T4 1.37 NG/DL (0.76-1.46); THYROID STIMULATING HORMONE 0.459 uIU/ML (0.358-3.740)
== END ==
LOC: M SFHCADAM 12:50
PROVIDERS: ATTEND Physician Assistant
DX: E03.9 Hypothyroidism, unspecified (principal); E11.22 Type 2 diabetes mellitus with diabetic chronic kidney disease

== ENCOUNTER → 2020-10-30 | Outpatient (REF) | payer MEDICARE | LOC: M LAB REF 16:40 | PROVIDERS: ATTEND Internal Medicine Nephrology | DX: N18.4 Chronic kidney disease, stage 4 (severe) (principal) ==

== ENCOUNTER → 2020-11-16 | Outpatient (REF) | payer MEDICARE ==
[2020-11-16 16:00] LABS: BASO # 0.1 10^3/uL (0.0-0.2); BASO % 0.6 % (0.0-1.0); EOS # 0.3 10^3/uL (0.0-0.5); EOS % 3.1 % (0.0-3.0); HEMATOCRIT 41.4 % (42.0-52.0); HEMOGLOBIN 13.4 g/dl (13.5-17.5); LYMPH # 1.4 10^3/uL (1.5-5.0); LYMPH % 17.5 % (24.0-44.0); MEAN CORPUSCULAR HEMOGLOBIN 28.7 pg (27.0-33.0); MEAN CORPUSCULAR HGB CONC 32.4 g/dl (32.0-36.5); MEAN CORPUSCULAR VOLUME 88.7 fl (80.0-96.0); MONO # 0.7 10^3/uL (0.0-0.8); NEUTROPHILS # 5.5 10^3/uL (1.5-8.5); NEUTROPHILS % 68.7 % (36.0-66.0); PLATELET COUNT, AUTOMATED 274 10^3/uL (150-450); RED BLOOD COUNT 4.67 10^6/uL (4.30-6.10)
[2020-11-16 16:24] LABS: CALCIUM LEVEL 8.6 MG/DL (8.8-10.2); CREATININE FOR GFR 2.87 MG/DL (0.70-1.30); GLOMERULAR FILTRATION RATE 23.8 (>49); POTASSIUM SERUM 5.5 MEQ/L (3.5-5.1)
[2020-11-16 16:28] LABS: APPEARANCE, URINE CLEAR (CLEAR); BACTERIA, URINE AUTO NEGATIVE (NEGATIVE); BILIRUBIN, URINE AUTO NEGATIVE (NEGATIVE); BLOOD, URINE BLOOD 1+ (NEGATIVE); COLOR, URINE STRAW (YELLOW); GLUCOSE, URINE (UA) AUTO 3+ mg/dL (NEGATIVE); KETONE, URINE AUTO NEGATIVE (NEGATIVE); LEUKOCYTE ESTERASE, URINE AUTO NEGATIVE (NEGATIVE); MUCUS, URINE SMALL (NEGATIVE); NITRITE, URINE AUTO NEGATIVE (NEGATIVE); PROTEIN, URINE AUTO 3+ mg/dL (NEGATIVE); RBC, URINE AUTO 0 /HPF (0-3); SPECIFIC GRAVITY URINE AUTO 1.009 (1.002-1.035); SQUAMOUS EPITHELIAL CELL UR AU 0 /HPF (0-6); UROBILINOGEN, URINE AUTO 0.2 mg/dL (0.0-2.0); WBC, URINE AUTO 0 /HPF (0-3)
== END ==
LOC: M LABDRWAD 14:55
PROVIDERS: ATTEND Urology
DX: N43.3 Hydrocele, unspecified (principal)

== ENCOUNTER → 2020-12-16 | Outpatient (REF) | payer MEDICARE ==
[2020-12-16 13:40] LABS: HEMOGLOBIN A1c 7.9 %
== END ==
LOC: M SFHCADAM 07:45
PROVIDERS: ATTEND Physician Assistant
DX: E11.22 Type 2 diabetes mellitus with diabetic chronic kidney disease (principal)
CPT/HCPCS: 83036; G0463

== ENCOUNTER → 2021-03-10 | Outpatient (REF) | payer MEDICARE ==
[~2021-03-10] MED LIST changes: +LOSA100T45 PO; -LOSA100T50 PO
[2021-03-10 13:03] LABS: HEMATOCRIT 39.9 % (42.0-52.0); HEMOGLOBIN 12.9 g/dl (13.5-17.5); MEAN CORPUSCULAR HEMOGLOBIN 28.9 pg (27.0-33.0); MEAN CORPUSCULAR HGB CONC 32.3 g/dl (32.0-36.5); MEAN CORPUSCULAR VOLUME 89.3 fl (80.0-96.0); PLATELET COUNT, AUTOMATED 267 10^3/uL (150-450); RED BLOOD COUNT 4.47 10^6/uL (4.30-6.10)
[2021-03-10 15:27] LABS: HEMOGLOBIN A1c 6.8 %
[2021-03-10 15:47] LABS: BILIRUBIN,TOTAL 0.2 MG/DL (0.2-1.0); CALCIUM LEVEL 8.2 MG/DL (8.8-10.2); CHOLESTEROL RISK RATIO 4.147 (<5); CREATININE FOR GFR 3.26 MG/DL (0.70-1.30); FREE T4 1.35 NG/DL (0.76-1.46); GLOMERULAR FILTRATION RATE 20.5 (>49); POTASSIUM SERUM 5.2 MEQ/L (3.5-5.1); THYROID STIMULATING HORMONE 0.178 uIU/ML (0.358-3.740); TOTAL PROTEIN 6.9 GM/DL (6.4-8.2)
[2021-03-10 15:50] LABS: FOLATE 5.7 NG/ML
== END ==
LOC: M SFHCADAM 07:17
PROVIDERS: ATTEND Physician Assistant
DX: E11.22 Type 2 diabetes mellitus with diabetic chronic kidney disease (principal); N18.4 Chronic kidney disease, stage 4 (severe); I10 Essential (primary) hypertension; Z12.5 Encounter for screening for malignant neoplasm of prostate
CPT/HCPCS: 80053; 80061; 82043; 82306; 82607; 82746; 83036; 84439; 84443; 85027; G0103

== ENCOUNTER → 2021-06-15 | Outpatient (REF) | payer MEDICARE ==
[2021-06-15 13:12] LABS: CALCIUM LEVEL 8.3 MG/DL (8.8-10.2); CREATININE FOR GFR 3.01 MG/DL (0.70-1.30); FREE T4 1.31 NG/DL (0.76-1.46); GLOMERULAR FILTRATION RATE 22.5 (>49); POTASSIUM SERUM 4.6 MEQ/L (3.5-5.1); THYROID STIMULATING HORMONE 0.872 uIU/ML (0.358-3.740)
[2021-06-15 13:25] LABS: HEMOGLOBIN A1c 7.2 %
== END ==
LOC: M SFHCADAM 07:46
PROVIDERS: ATTEND Physician Assistant
DX: E11.22 Type 2 diabetes mellitus with diabetic chronic kidney disease (principal); N18.4 Chronic kidney disease, stage 4 (severe); E03.9 Hypothyroidism, unspecified

== ENCOUNTER → 2021-08-24 | Outpatient (CLI) | payer MEDICARE ==
[~2021-08-24] MED LIST changes: +ALLO100T PO; +ATOR40TA75 PO; +TRAZ-257 PO
== END ==
LOC: M LABSMTC 10:05
PROVIDERS: ATTEND Anesthesiology
DX: Z01.812 Encounter for preprocedural laboratory examination (principal); Z20.822 Contact with and (suspected) exposure to COVID-19

== ENCOUNTER 2021-08-27 10:48 | Day surgery (SDC) | payer MEDICARE ==
[~2021-08-27] VITALS: Ht 182.9 cm; Wt 141.9 kg
[~2021-08-27 10:48] MED LIST changes: +NS 1,000 ML IV ONE
[2021-08-27] MEDS ORDERED: propofoL 200 MG/20 ML VIAL As Ordered ONE ×4 (12:23→13:52)
[2021-08-27] MEDS ORDERED: LIDOCAINE 2% INJ 100 MG/5 ML SYRINGE As Ordered ONE (12:23)
[2021-08-27 14:25] VITALS: BP 193/82
== END 2021-08-27 14:59 | disposition home or self-care (01) ==
LOC: M OPP 10:48
PROVIDERS: ATTEND Internal Medicine Gastroenterology
DX: K63.5 Polyp of colon (principal); K57.30 Diverticulosis of large intestine without perforation or abscess without bleeding; K64.8 Other hemorrhoids; R93.3 Abnormal findings on diagnostic imaging of other parts of digestive tract; Z79.02 Long term (current) use of antithrombotics/antiplatelets; Z79.84 Long term (current) use of oral hypoglycemic drugs; Z79.899 Other long term (current) drug therapy; Z86.19 Personal history of other infectious and parasitic diseases; Z87.891 Personal history of nicotine dependence; Z90.5 Acquired absence of kidney; Z85.528 Personal history of other malignant neoplasm of kidney

== ENCOUNTER 2021-09-21 15:57 | Outpatient (CLI) | payer MEDICARE ==
[~2021-09-21] VITALS: Ht 182.9 cm; Wt 140.0 kg
[~2021-09-21 15:57] MED LIST changes: +ALBUTEROL 90 MCG/ACT 8GM HFA INHALER INH PRN; +ALBUTEROL SULFATE 2.5 MG/0.5 ML INH NEB SOLN INH PRN; +EPINEPHrine INJ 1 MG/ML 1ML AMP IM PRN; -NS 1,000 ML IV ONE; +diphenhydrAMINE 50MG/ML VIAL (J1200) IV PRN; +methylPREDNISolone 125MG 2ML VIAL IV PRN
[2021-09-21 16:27] VITALS: BP 169/79
[2021-09-21] MEDS ORDERED: NS 1,000 ML IV SCH (17:05)
[2021-09-21 17:30] VITALS: BP 223/100
[2021-09-21 17:50] VITALS: BP 187/87
[2021-09-21] MEDS ORDERED: BEBTELOVIMAB 175MG 2ML VIAL (EUA) IV ONE (18:00)
[2021-09-21 18:30] VITALS: BP 162/80
== END 2021-09-21 18:50 | disposition home or self-care (01) ==
LOC: M OPCLI4PR 15:57 → M 4MAIN 16:01 → M OPCLI4PR 18:50
PROVIDERS: ATTEND Family Medicine
DX: U07.1 COVID-19 (principal)
CPT/HCPCS: 96374; 96375; J1200; J2930; M0222

== ENCOUNTER → 2021-10-26 | Outpatient (REF) | payer MEDICARE ==
[~2021-10-26] MED LIST changes: -ALBUTEROL 90 MCG/ACT 8GM HFA INHALER INH PRN; -ALBUTEROL SULFATE 2.5 MG/0.5 ML INH NEB SOLN INH PRN; -EPINEPHrine INJ 1 MG/ML 1ML AMP IM PRN; -diphenhydrAMINE 50MG/ML VIAL (J1200) IV PRN; -methylPREDNISolone 125MG 2ML VIAL IV PRN
[2021-10-26 19:41] LABS: HEMOGLOBIN A1c 7.7 %
== END ==
LOC: M LAB REF 16:54
PROVIDERS: ATTEND Physician Assistant
DX: E11.22 Type 2 diabetes mellitus with diabetic chronic kidney disease (principal); N18.4 Chronic kidney disease, stage 4 (severe)

== ENCOUNTER → 2021-11-18 | Outpatient (CLI) | payer MEDICARE | LOC: M LABSMTC 10:33 | PROVIDERS: ATTEND Colon & Rectal Surgery | DX: Z01.818 Encounter for other preprocedural examination (principal); Z11.52 Encounter for screening for COVID-19 ==

== ENCOUNTER → 2021-12-10 | Outpatient (CLI) | payer MEDICARE | LOC: M ADAMS 10:31 | PROVIDERS: ATTEND Physician Assistant | DX: M54.50 Low back pain, unspecified (principal); M47.816 Spondylosis without myelopathy or radiculopathy, lumbar region; M51.36 Other intervertebral disc degeneration, lumbar region; M46.06 Spinal enthesopathy, lumbar region; M16.0 Bilateral primary osteoarthritis of hip; Z98.890 Other specified postprocedural states ==

== ENCOUNTER → 2022-02-01 | Outpatient (CLI) | payer MEDICARE | LOC: M RAD 14:11 | PROVIDERS: ATTEND Urology | DX: C64.2 Malignant neoplasm of left kidney, except renal pelvis (principal); Z90.5 Acquired absence of kidney; N28.89 Other specified disorders of kidney and ureter ==

== ENCOUNTER 2022-02-03 16:01 | Inpatient (IN) | payer MEDICARE ==
[~2022-02-03] VITALS: Ht 182.9 cm; Wt 139.7 kg
[2022-02-03] MEDS ORDERED: LABETALOL 100MG/20ML VIAL IV STA (17:06)
[2022-02-03 17:22] LABS: BASO % 0.5 % (0.0-1.0); EOS # 0.3 10^3/uL (0.0-0.5); EOS % 3.9 % (0.0-3.0); HEMATOCRIT 32.9 % (42.0-52.0); HEMOGLOBIN 10.5 g/dl (13.5-17.5); LYMPH # 1.1 10^3/uL (1.5-5.0); LYMPH % 12.9 % (24.0-44.0); MEAN CORPUSCULAR HEMOGLOBIN 28.4 pg (27.0-33.0); MEAN CORPUSCULAR HGB CONC 31.9 g/dl (32.0-36.5); MEAN CORPUSCULAR VOLUME 88.9 fl (80.0-96.0); MONO # 0.7 10^3/uL (0.0-0.8); MONO % 8.4 % (2.0-8.0); NEUTROPHILS % 72.6 % (36.0-66.0); PLATELET COUNT, AUTOMATED 217 10^3/uL (150-450); WHITE BLOOD COUNT 8.2 10^3/uL (4.0-10.0)
[2022-02-03 17:45] LABS: ALBUMIN 2.9 G/DL (3.2-5.2); ALKALINE PHOSPHATASE 59 U/L (46-116); ALT/SGPT 15 U/L (7.0-40); AST/SGOT 9 U/L (<34); BILIRUBIN,DIRECT < 0.1 MG/DL (<0.4); BILIRUBIN,TOTAL 0.2 MG/DL (0.3-1.2); BLOOD UREA NITROGEN 48 MG/DL (9-23); CALCIUM LEVEL 8.5 MG/DL (8.3-10.6); CARBON DIOXIDE LEVEL 22 MMOL/L (20-31); CHLORIDE LEVEL 110 MMOL/L (98-107); CREATININE FOR GFR 4.19 MG/DL (0.70-1.30); GLOMERULAR FILTRATION RATE 15.3 (>49); GLUCOSE, FASTING 99 MG/DL (74-106); POTASSIUM SERUM 5.1 MMOL/L (3.5-5.1); SODIUM LEVEL 141 MMOL/L (136-145); TOTAL PROTEIN 6.7 G/DL (5.7-8.2)
[2022-02-03] MEDS ORDERED: ACETAMINOPHEN TAB 650MG DOSE (2X325MG) PO PRN (18:25)
[2022-02-03] MEDS ORDERED: GLUCOSE 4GM CHEW TABLET PO PRN (18:25)
[2022-02-03] MEDS ORDERED: DEXTROSE 50% 50ML SYRINGE IV PRN (18:25)
[2022-02-03] MEDS ORDERED: GLUCAGON INJ 1MG VIAL SC PRN (18:25)
[2022-02-03] MEDS ORDERED: TORS20TA2 PO (18:40)
[2022-02-03] MEDS ORDERED: LEVO200T4 PO (18:40)
[2022-02-03] MEDS ORDERED: MIRT1TAB PO (18:40)
[2022-02-03] MEDS ORDERED: LEVO25TA5 PO (18:40)
[2022-02-03] MEDS ORDERED: BASA100I SC (18:40)
[2022-02-03] MEDS ORDERED: TRAD5TAB PO (18:40)
[2022-02-03] MEDS ORDERED: MINO2.5T PO (18:40)
[2022-02-03] MEDS ORDERED: HOME MED LIST COMPLETE! XX SCH (18:45)
[2022-02-03 19:24] LABS: IRON (FE) 42 UG/DL (65-175); PERCENT SATURATION 14.9 % (19.7-50.0); TOTAL IRON BINDING CAPACITY 281 UG/DL (250-425)
[2022-02-03 19:26] LABS: FERRITIN 20.4 NG/ML (10.5-307.3)
[2022-02-03 19:27] LABS: FOLATE 5.81 NG/ML (>5.4)
[2022-02-03 19:56] LABS: HEMOGLOBIN A1c 6.1 % (4.0-6.0)
[2022-02-03] MEDS ORDERED: cefTRIAXone SOD 1 GM in D5W MINI-BAG PLUS 50 ML IV SCH (20:00)
[2022-02-03 20:24] LABS: RSV AMPLIFICATION NEGATIVE (NEGATIVE)
[2022-02-03] MEDS: INSULIN LISPRO (NovoLOG) PER UNIT SC SCH (20:37)
[2022-02-03] MEDS ORDERED: CARVedilol 3.125 MG TAB PO SCH (21:00)
[2022-02-03] MEDS: DOXYCYCLINE HYCLATE 100MG TABLET PO SCH (21:46)
[2022-02-03] MEDS: ATORVASTATIN 20 MG TAB PO SCH (21:48)
[2022-02-03] MEDS: CARVedilol 3.125 MG TAB PO SCH (22:04)
[2022-02-03 22:45] VITALS: BP 180/74
[2022-02-03] MEDS: traZODone 100 MG TAB PO SCH (23:58)
[2022-02-03] MEDS: rOPINIRole 0.25 MG TAB(REQUIP) PO SCH (23:59)
[2022-02-03] MEDS: MIRTAZAPINE 7.5MG PER 1/2 TABLET PO SCH (23:59)
[2022-02-04] VITALS (20 sets, daily range): BP systolic 127–175; BP diastolic 53–73; O2SAT 90–97
[2022-02-04 04:57] LABS: HEMATOCRIT 29.6 % (42.0-52.0); HEMOGLOBIN 9.3 g/dl (13.5-17.5); MEAN CORPUSCULAR HEMOGLOBIN 28.1 pg (27.0-33.0); MEAN CORPUSCULAR HGB CONC 31.4 g/dl (32.0-36.5); MEAN CORPUSCULAR VOLUME 89.4 fl (80.0-96.0); PLATELET COUNT, AUTOMATED 180 10^3/uL (150-450); RED BLOOD COUNT 3.31 10^6/uL (4.30-6.10); WHITE BLOOD COUNT 7.1 10^3/uL (4.0-10.0)
[2022-02-04 05:17] LABS: MAGNESIUM LEVEL 1.9 MG/DL (1.8-2.4)
[2022-02-04 05:19] LABS: CREATININE FOR GFR 4.41 MG/DL (0.70-1.30); GLOMERULAR FILTRATION RATE 14.5 (>49)
[2022-02-04] MEDS: LEVOTHYROXINE 100MCG TABLET (0.1MG) PO SCH (06:44)
[2022-02-04] MEDS: HEPARIN SOD (PORCINE) 5000UNITS/ML 1ML VIAL/SYRINGE SC SCH ×3 (06:45→20:41)
[2022-02-04] MEDS: LEVOTHYROXINE 25MCG TABLET (0.025MG) PO SCH (06:45)
[2022-02-04] MEDS: INSULIN LISPRO (NovoLOG) PER UNIT SC SCH ×4 (07:30→20:41)
[2022-02-04] MEDS: DOXYCYCLINE HYCLATE 100MG TABLET PO SCH ×2 (08:29→20:35)
[2022-02-04] MEDS: allopurinoL 100 MG TAB PO SCH (08:29)
[2022-02-04] MEDS: CARVedilol 3.125 MG TAB PO SCH ×2 (08:29→20:41)
[2022-02-04] MEDS ORDERED: LEVEMIR (INSULIN DETEMIR) 1 UNITS/0.01ML SC SCH (09:00)
[2022-02-04] MEDS: FUROSEMIDE 100MG/10ML VIAL IV SCH ×2 (10:35→17:29)
[2022-02-04] MEDS ORDERED: **hydrALAZINE** 10 MG TAB PO SCH (16:00)
[2022-02-04] MEDS ORDERED: cefTRIAXone SOD 2 GM in D5W MINI-BAG PLUS 50 ML IV SCH (20:00)
[2022-02-04] MEDS: MIRTAZAPINE 7.5MG PER 1/2 TABLET PO SCH (20:35)
[2022-02-04] MEDS: traZODone 100 MG TAB PO SCH (20:35)
[2022-02-04] MEDS: ATORVASTATIN 20 MG TAB PO SCH (20:41)
[2022-02-04] MEDS: rOPINIRole 0.25 MG TAB(REQUIP) PO SCH (20:41)
[2022-02-05] VITALS (16 sets, daily range): BP systolic 148–182; BP diastolic 66–90; O2SAT 87–97
[2022-02-05] MEDS: FUROSEMIDE 100MG/10ML VIAL IV SCH ×3 (02:01→17:10)
[2022-02-05 04:54] LABS: HEMATOCRIT 31.3 % (42.0-52.0); MEAN CORPUSCULAR HEMOGLOBIN 28.4 pg (27.0-33.0); MEAN CORPUSCULAR HGB CONC 31.9 g/dl (32.0-36.5); MEAN CORPUSCULAR VOLUME 88.9 fl (80.0-96.0); PLATELET COUNT, AUTOMATED 181 10^3/uL (150-450); RED BLOOD COUNT 3.52 10^6/uL (4.30-6.10); WHITE BLOOD COUNT 6.4 10^3/uL (4.0-10.0)
[2022-02-05] MEDS: LEVOTHYROXINE 100MCG TABLET (0.1MG) PO SCH (05:17)
[2022-02-05] MEDS: LEVOTHYROXINE 25MCG TABLET (0.025MG) PO SCH (05:18)
[2022-02-05] MEDS: HEPARIN SOD (PORCINE) 5000UNITS/ML 1ML VIAL/SYRINGE SC SCH ×3 (05:18→21:16)
[2022-02-05 05:23] LABS: CALCIUM LEVEL 7.8 MG/DL (8.3-10.6); CREATININE FOR GFR 4.41 MG/DL (0.70-1.30); GLOMERULAR FILTRATION RATE 14.5 (>49); POTASSIUM SERUM 4.9 MMOL/L (3.5-5.1)
[2022-02-05] MEDS: INSULIN LISPRO (NovoLOG) PER UNIT SC SCH ×4 (07:30→20:32)
[2022-02-05] MEDS: DOXYCYCLINE HYCLATE 100MG TABLET PO SCH (08:46)
[2022-02-05] MEDS: allopurinoL 100 MG TAB PO SCH (08:46)
[2022-02-05] MEDS: CARVedilol 3.125 MG TAB PO SCH (08:46)
[2022-02-05] MEDS ORDERED: **hydrALAZINE** 10 MG TAB PO SCH (10:20)
[2022-02-05] MEDS: LEVEMIR (INSULIN DETEMIR) 1 UNITS/0.01ML SC SCH (10:28)
[2022-02-05] MEDS: **hydrALAZINE** 50 MG TAB PO SCH ×2 (17:02→20:30)
[2022-02-05 17:53] LABS: CK-MB VALUE MASS < 1.0 NG/ML (<3.6)
[2022-02-05 17:55] LABS: CPK CREATINE PHOSPHOKINASE 64 U/L (46-171); MB/CK RELATIVE INDEX 1.56 (< OR =4)
[2022-02-05] MEDS: ATORVASTATIN 20 MG TAB PO SCH (20:29)
[2022-02-05] MEDS: rOPINIRole 0.25 MG TAB(REQUIP) PO SCH (20:29)
[2022-02-05] MEDS: GABAPENTIN 300 MG CAP PO PRN (20:30)
[2022-02-05] MEDS: traZODone 100 MG TAB PO SCH (20:30)
[2022-02-05] MEDS: MIRTAZAPINE 7.5MG PER 1/2 TABLET PO SCH (20:30)
[2022-02-06] VITALS (31 sets, daily range): BP systolic 149–220; BP diastolic 65–100; O2SAT 89–97
[2022-02-06 00:46] LABS: CK-MB VALUE MASS 1.8 NG/ML (<3.6)
[2022-02-06 00:47] LABS: MB/CK RELATIVE INDEX 3.15 (< OR =4)
[2022-02-06] MEDS: FUROSEMIDE 100MG/10ML VIAL IV SCH ×3 (02:06→17:28)
[2022-02-06] MEDS: LEVOTHYROXINE 25MCG TABLET (0.025MG) PO SCH (05:06)
[2022-02-06] MEDS: LEVOTHYROXINE 100MCG TABLET (0.1MG) PO SCH (05:06)
[2022-02-06] MEDS: HEPARIN SOD (PORCINE) 5000UNITS/ML 1ML VIAL/SYRINGE SC SCH ×3 (05:06→21:06)
[2022-02-06 08:03] LABS: HEMATOCRIT 34.4 % (42.0-52.0); HEMOGLOBIN 11.3 g/dl (13.5-17.5); MEAN CORPUSCULAR HEMOGLOBIN 28.8 pg (27.0-33.0); MEAN CORPUSCULAR HGB CONC 32.8 g/dl (32.0-36.5); MEAN CORPUSCULAR VOLUME 87.8 fl (80.0-96.0); PLATELET COUNT, AUTOMATED 230 10^3/uL (150-450); RED BLOOD COUNT 3.92 10^6/uL (4.30-6.10); WHITE BLOOD COUNT 7.4 10^3/uL (4.0-10.0)
[2022-02-06] MEDS: LEVEMIR (INSULIN DETEMIR) 1 UNITS/0.01ML SC SCH (08:10)
[2022-02-06] MEDS: INSULIN LISPRO (NovoLOG) PER UNIT SC SCH ×4 (08:10→20:14)
[2022-02-06] MEDS: **hydrALAZINE** 50 MG TAB PO SCH ×3 (08:11→17:32)
[2022-02-06] MEDS: allopurinoL 100 MG TAB PO SCH (08:11)
[2022-02-06 08:32] LABS: CK-MB VALUE MASS 1.1 NG/ML (<3.6)
[2022-02-06 08:35] LABS: MB/CK RELATIVE INDEX 1.8 (< OR =4)
[2022-02-06 08:38] LABS: CALCIUM LEVEL 8.8 MG/DL (8.3-10.6); CREATININE FOR GFR 4.21 MG/DL (0.70-1.30); GLOMERULAR FILTRATION RATE 15.2 (>49); PHOSPHORUS LEVEL 5.4 MG/DL (2.4-5.1); POTASSIUM SERUM 4.5 MMOL/L (3.5-5.1)
[2022-02-06] MEDS ORDERED: **hydrALAZINE** 50 MG TAB PO ONE (12:30)
[2022-02-06] MEDS ORDERED: **hydrALAZINE** 50 MG TAB PO SCH (16:00)
[2022-02-06] MEDS: GABAPENTIN 300 MG CAP PO PRN (20:14)
[2022-02-06] MEDS: MIRTAZAPINE 7.5MG PER 1/2 TABLET PO SCH (20:14)
[2022-02-06] MEDS: traZODone 100 MG TAB PO SCH (20:14)
[2022-02-06] MEDS: rOPINIRole 0.25 MG TAB(REQUIP) PO SCH (20:14)
[2022-02-06] MEDS: ATORVASTATIN 20 MG TAB PO SCH (20:14)
[2022-02-06 21:19] LABS: APPEARANCE, URINE MANUAL CLEAR (CLEAR); COLOR, URINE MANUAL YELLOW (YELLOW); PROTEIN, URINE MANUAL 2+ mg/dL (NEGATIVE)
[2022-02-06 21:20] LABS: BILIRUBIN, URINE MANUAL NEGATIVE (NEGATIVE); BLOOD URINE MANUAL TRACE (NEGATIVE); GLUCOSE, URINE (UA) MANUAL 1+(100 MG/DL) mg/dL (NEGATIVE); KETONE, URINE MANUAL NEGATIVE (NEGATIVE); LEUKOCYTE ESTERASE, URINE MAN NEGATIVE (NEGATIVE); NITRITE, URINE MANUAL NEGATIVE (NEGATIVE); UROBILINOGEN, URINE MANUAL NORMAL (NORMAL)
[2022-02-06 21:27] LABS: BACTERIA, URINE SMALL AMOUNT; RBC, URINE 0-1 /hpf (0-3); SQUAMOUS EPITHELIAL CELL URINE SMALL AMOUNT /hpf (SMALL AMT); WBC, URINE 0-1 /hpf (0-3)
[2022-02-06 21:28] LABS: AMORPHOUS SEDIMENT, URINE SMALL AMOUNT (NEGATIVE); HYALINE CAST, URINE 0-1 /lpf (0-1); MUCUS, URINE SMALL AMOUNT (NEGATIVE)
[2022-02-07] VITALS (28 sets, daily range): BP systolic 148–170; BP diastolic 64–88; O2SAT 89–97
[2022-02-07] MEDS: **hydrALAZINE** 50 MG TAB PO SCH ×4 (00:11→18:00)
[2022-02-07] MEDS: FUROSEMIDE 100MG/10ML VIAL IV SCH ×2 (01:07→09:38)
[2022-02-07] MEDS: HEPARIN SOD (PORCINE) 5000UNITS/ML 1ML VIAL/SYRINGE SC SCH ×3 (05:02→22:08)
[2022-02-07] MEDS: LEVOTHYROXINE 100MCG TABLET (0.1MG) PO SCH (05:02)
[2022-02-07] MEDS: LEVOTHYROXINE 25MCG TABLET (0.025MG) PO SCH (05:02)
[2022-02-07 05:53] LABS: HEMOGLOBIN 10.8 g/dl (13.5-17.5); MEAN CORPUSCULAR HEMOGLOBIN 28.4 pg (27.0-33.0); MEAN CORPUSCULAR HGB CONC 32.7 g/dl (32.0-36.5); MEAN CORPUSCULAR VOLUME 86.8 fl (80.0-96.0); PLATELET COUNT, AUTOMATED 208 10^3/uL (150-450); WHITE BLOOD COUNT 7.3 10^3/uL (4.0-10.0)
[2022-02-07 06:15] LABS: CALCIUM LEVEL 8.1 MG/DL (8.3-10.6); CREATININE FOR GFR 4.36 MG/DL (0.70-1.30); GLOMERULAR FILTRATION RATE 14.6 (>49); POTASSIUM SERUM 3.9 MMOL/L (3.5-5.1)
[2022-02-07] MEDS: allopurinoL 100 MG TAB PO SCH (08:46)
[2022-02-07] MEDS: LEVEMIR (INSULIN DETEMIR) 1 UNITS/0.01ML SC SCH (08:46)
[2022-02-07] MEDS: INSULIN LISPRO (NovoLOG) PER UNIT SC SCH ×4 (08:47→22:07)
[2022-02-07] MEDS: BUMETANIDE 1 MG TAB PO SCH ×2 (12:23→22:08)
[2022-02-07] MEDS: MIRTAZAPINE 7.5MG PER 1/2 TABLET PO SCH (22:08)
[2022-02-07] MEDS: traZODone 100 MG TAB PO SCH (22:09)
[2022-02-07] MEDS: ATORVASTATIN 20 MG TAB PO SCH (22:09)
[2022-02-07] MEDS: rOPINIRole 0.25 MG TAB(REQUIP) PO SCH (22:09)
[2022-02-08] VITALS (11 sets, daily range): BP systolic 161–164; BP diastolic 69–79; O2SAT 89–96
[2022-02-08] MEDS: **hydrALAZINE** 50 MG TAB PO SCH ×3 (00:07→12:41)
[2022-02-08 05:21] LABS: HEMATOCRIT 32.9 % (42.0-52.0); HEMOGLOBIN 10.7 g/dl (13.5-17.5); MEAN CORPUSCULAR HEMOGLOBIN 28.5 pg (27.0-33.0); MEAN CORPUSCULAR HGB CONC 32.5 g/dl (32.0-36.5); MEAN CORPUSCULAR VOLUME 87.5 fl (80.0-96.0); PLATELET COUNT, AUTOMATED 207 10^3/uL (150-450); RED BLOOD COUNT 3.76 10^6/uL (4.30-6.10); WHITE BLOOD COUNT 7.6 10^3/uL (4.0-10.0)
[2022-02-08 05:50] LABS: CREATININE FOR GFR 4.45 MG/DL (0.70-1.30); GLOMERULAR FILTRATION RATE 14.3 (>49)
[2022-02-08] MEDS: HEPARIN SOD (PORCINE) 5000UNITS/ML 1ML VIAL/SYRINGE SC SCH (05:51)
[2022-02-08] MEDS: LEVOTHYROXINE 25MCG TABLET (0.025MG) PO SCH (05:52)
[2022-02-08] MEDS: LEVOTHYROXINE 100MCG TABLET (0.1MG) PO SCH (05:52)
[2022-02-08] MEDS: LEVEMIR (INSULIN DETEMIR) 1 UNITS/0.01ML SC SCH (09:00)
[2022-02-08] MEDS: BUMETANIDE 1 MG TAB PO SCH (09:01)
[2022-02-08] MEDS: allopurinoL 100 MG TAB PO SCH (09:01)
[2022-02-08] MEDS: INSULIN LISPRO (NovoLOG) PER UNIT SC SCH ×2 (09:01→12:40)
[2022-02-08] MEDS ORDERED: BASA100I SC (10:04)
[2022-02-08] MEDS ORDERED: HYDR100T PO (10:04)
[2022-02-08] MEDS ORDERED: BUME1TAB3 PO (10:04)
== END 2022-02-08 14:21 | disposition home or self-care (01) | DRG 683 ==
LOC: EDBD 16:01 → M ED 16:01 → M ED INP 18:21 → M PCU 22:45
PROVIDERS: ADMIT Family Medicine; ATTEND General Practice
DX: N17.9 Acute kidney failure, unspecified (principal); J98.11 Atelectasis; I12.0 Hypertensive chronic kidney disease with stage 5 chronic kidney disease or end stage renal disease; Z68.41 Body mass index [BMI] 40.0-44.9, adult; N18.5 Chronic kidney disease, stage 5; E11.40 Type 2 diabetes mellitus with diabetic neuropathy, unspecified; E66.9 Obesity, unspecified; E11.22 Type 2 diabetes mellitus with diabetic chronic kidney disease; M19.90 Unspecified osteoarthritis, unspecified site; E78.5 Hyperlipidemia, unspecified; E03.9 Hypothyroidism, unspecified; G25.81 Restless legs syndrome; G47.00 Insomnia, unspecified; L40.8 Other psoriasis; D63.1 Anemia in chronic kidney disease; I16.0 Hypertensive urgency; B19.20 Unspecified viral hepatitis C without hepatic coma; Z79.4 Long term (current) use of insulin; Z79.899 Other long term (current) drug therapy; Z85.528 Personal history of other malignant neoplasm of kidney; I44.1 Atrioventricular block, second degree

== ENCOUNTER → 2022-03-20 | Outpatient (CLI) | payer MEDICARE ==
[~2022-03-20] MED LIST changes: +BUME1TAB3 PO; +CALC1CAP31 PO; +CALC500T68 PO; +CLONI1TA PO; +HYDR100T PO; +LEVO200T4 PO; +LEVO25TA5 PO; +MINO2.5T PO; +MIRT1TAB PO; +TORS20TA2 PO; +TRAD5TAB PO; +VITA100093 PO; +[UNRECOGNIZED DRUG - OTHER]
== END ==
LOC: M LABSMTC 10:12
PROVIDERS: ATTEND Anesthesiology
DX: Z01.812 Encounter for preprocedural laboratory examination (principal); Z11.52 Encounter for screening for COVID-19

== ENCOUNTER → 2022-03-22 | Outpatient (CLI) | payer MEDICARE ==
[~2022-03-22] MED LIST changes: +CLON-589 PO
== END ==
LOC: M PLAIMG 12:53
PROVIDERS: ATTEND Physician Assistant
DX: N28.89 Other specified disorders of kidney and ureter (principal); Z90.5 Acquired absence of kidney; I70.0 Atherosclerosis of aorta; I25.10 Atherosclerotic heart disease of native coronary artery without angina pectoris; R93.5 Abnormal findings on diagnostic imaging of other abdominal regions, including retroperitoneum

== ENCOUNTER 2022-03-24 06:09 | Inpatient (IN) | payer MEDICARE ==
[2022-03-24] VITALS (9 sets, daily range): BP systolic 170–204; BP diastolic 70–93; O2SAT 93
[~2022-03-24] VITALS: Ht 182.9 cm; Wt 149.1 kg
[~2022-03-24 06:09] MED LIST changes: -CLON-589 PO
[2022-03-24] MEDS ORDERED: ALVIMOPAN 12 MG CAPSULE (ENTEREG) PO ONE (06:30)
[2022-03-24] MEDS ORDERED: CelecoXIB 400 MG CAP PO ONE (06:30)
[2022-03-24] MEDS ORDERED: cefoTEtan DISODIUM 2 GM in D5W MINI-BAG PLUS 50 ML IV ONE (06:30)
[2022-03-24] MEDS ORDERED: HEPARIN SOD (PORCINE) 5000UNITS/ML 1ML VIAL/SYRINGE SQ ONE (06:30)
[2022-03-24] MEDS ORDERED: LR 1,000 ML IV SCH ×2 (07:10→12:50)
[2022-03-24] MEDS ORDERED: BUPIVACAINE HCL 0.25% 10ML VIAL As Ordered ONE (07:14)
[2022-03-24] MEDS ORDERED: LIDOCAINE 1% SDV 30ML VIAL As Ordered ONE (07:14)
[2022-03-24] MEDS ORDERED: BUPIVACAINE HCL 0.25% 30ML VIAL As Ordered ONE (07:14)
[2022-03-24] MEDS ORDERED: MIDAZOLAM INJ 2MG/2ML VIAL As Ordered ONE (07:15)
[2022-03-24] MEDS ORDERED: LIDOCAINE 2% 100MG/5ML SDV (FOR ANES.) As Ordered ONE (07:15)
[2022-03-24] MEDS ORDERED: propofoL 200 MG/20 ML VIAL As Ordered ONE (07:15)
[2022-03-24] MEDS ORDERED: ROCURONIUM BROMIDE 50MG/5ML VIAL As Ordered ONE ×2 (07:15→08:54)
[2022-03-24] MEDS ORDERED: fentaNYL 250 MCG/5 ML INJECTION As Ordered ONE (07:15)
[2022-03-24] MEDS ORDERED: BUPIVACAINE LIPOSOME/PF 1.3% 20ML VIAL (13.3MG/ML)(EXPAREL) As Ordered ONE (07:15)
[2022-03-24] MEDS ORDERED: LACRILUBE (AKWA TEARS) OPHTH OINT 3.5GM As Ordered ONE (08:05)
[2022-03-24] MEDS ORDERED: GLYCOPYRROLATE INJ 0.2 MG/ML 2 ML VIAL As Ordered ONE (08:41)
[2022-03-24] MEDS ORDERED: ePHEDrine SULFATE 25 MG/5 ML(5MG/ML) SYRINGE As Ordered ONE (08:56)
[2022-03-24] MEDS ORDERED: METOCLOPRAMIDE INJ 10MG/2ML VIAL As Ordered ONE (08:57)
[2022-03-24] MEDS ORDERED: ONDANSETRON 4MG 2ML VIAL As Ordered ONE (08:57)
[2022-03-24] MEDS ORDERED: ACETAMINOPHEN 1000MG 100ML IV BAG As Ordered ONE (08:57)
[2022-03-24] MEDS: glipiZIDE (GLUCOTROL) 5 MG TAB PO SCH ×2 (09:00→20:47)
[2022-03-24] MEDS ORDERED: HYDROmorphone HCL 2MG/ML 1ML VIAL As Ordered ONE (09:54)
[2022-03-24] MEDS: INDOCYANINE GREEN 25MG VIAL (IC-GREEN) As Ordered ONE ×2 (10:57→11:00)
[2022-03-24] MEDS ORDERED: SUGAMMADEX SODIUM 500 MG/5 ML VIAL (BRIDION) As Ordered ONE (12:28)
[2022-03-24] MEDS ORDERED: ONDANSETRON 4MG 2ML VIAL IV PRN (12:50)
[2022-03-24] MEDS ORDERED: oxyCODONE 5MG TAB PO PRN (12:50)
[2022-03-24] MEDS ORDERED: fentaNYL 100 MCG/2 ML INJECTION IV PRN (12:50)
[2022-03-24] MEDS ORDERED: GABAPENTIN 300 MG CAP PO PRN (13:00)
[2022-03-24] MEDS ORDERED: ACETAMINOPHEN TAB 650MG DOSE (2X325MG) PO PRN (13:00)
[2022-03-24] MEDS ORDERED: MORPHINE 4 MG/ML 1ML VIAL IV PRN (13:00)
[2022-03-24] MEDS: MORPHINE 2 MG/ML 1ML VIAL IV PRN ×2 (13:23→13:35)
[2022-03-24] MEDS: LR 1,000 ML IV SCH ×2 (14:48→20:48)
[2022-03-24] MEDS ORDERED: CLON-589 PO (15:06)
[2022-03-24] MEDS ORDERED: GLIP10TA6 PO (15:06)
[2022-03-24] MEDS ORDERED: HOME MED LIST COMPLETE! XX SCH (15:30)
[2022-03-24] MEDS: PANTOPRAZOLE 40MG VIAL IV SCH (17:50)
[2022-03-24] MEDS: PERCOCET 5MG/325MG TAB PO PRN (17:53)
[2022-03-24] MEDS: allopurinoL 100 MG TAB PO SCH (17:54)
[2022-03-24] MEDS ORDERED: UNRESOLVED CLARIFICATION ENTRY XX SCH (18:00)
[2022-03-24] MEDS: BUMETANIDE 1 MG TAB PO SCH (20:45)
[2022-03-24] MEDS: ATORVASTATIN 20 MG TAB PO SCH (20:46)
[2022-03-24] MEDS: rOPINIRole 0.25 MG TAB(REQUIP) PO SCH (20:47)
[2022-03-24] MEDS: traZODone 100 MG TAB PO SCH (20:47)
[2022-03-24] MEDS: LEVEMIR (INSULIN DETEMIR) 1 UNITS/0.01ML SC SCH (20:48)
[2022-03-24] MEDS: cloNIDine 0.1MG TABLET PO SCH (20:48)
[2022-03-24] MEDS: **hydrALAZINE** 50 MG TAB PO SCH (20:49)
[2022-03-25] VITALS (7 sets, daily range): BP systolic 147–188; BP diastolic 60–80
[2022-03-25] MEDS: PERCOCET 5MG/325MG TAB PO PRN ×3 (00:23→20:35)
[2022-03-25] MEDS: ONDANSETRON 4MG 2ML VIAL IV PRN (00:26)
[2022-03-25] MEDS: LR 1,000 ML IV SCH ×3 (05:50→20:36)
[2022-03-25] MEDS: LEVOTHYROXINE 25MCG TABLET (0.025MG) PO SCH (05:50)
[2022-03-25] MEDS: LEVOTHYROXINE 100MCG TABLET (0.1MG) PO SCH (05:51)
[2022-03-25 07:16] LABS: BASO % 0.2 % (0.0-1.0); EOS % 0.1 % (0.0-3.0); HEMATOCRIT 30.9 % (42.0-52.0); HEMOGLOBIN 10.2 g/dl (13.5-17.5); LYMPH # 0.7 10^3/uL (1.5-5.0); LYMPH % 5.8 % (24.0-44.0); MEAN CORPUSCULAR HEMOGLOBIN 28.5 pg (27.0-33.0); MEAN CORPUSCULAR VOLUME 86.3 fl (80.0-96.0); MONO # 0.7 10^3/uL (0.0-0.8); MONO % 5.6 % (2.0-8.0); NEUTROPHILS # 10.8 10^3/uL (1.5-8.5); NEUTROPHILS % 87.9 % (36.0-66.0); PLATELET COUNT, AUTOMATED 202 10^3/uL (150-450); RED BLOOD COUNT 3.58 10^6/uL (4.30-6.10); WHITE BLOOD COUNT 12.3 10^3/uL (4.0-10.0)
[2022-03-25 07:40] LABS: CALCIUM LEVEL 7.6 MG/DL (8.3-10.6); CREATININE FOR GFR 3.87 MG/DL (0.70-1.30); GLOMERULAR FILTRATION RATE 16.8 (>49); POTASSIUM SERUM 4.2 MMOL/L (3.5-5.1)
[2022-03-25] MEDS ORDERED: TRADJENTA PO SCH (09:00)
[2022-03-25] MEDS: LEVEMIR (INSULIN DETEMIR) 1 UNITS/0.01ML SC SCH ×2 (09:00→20:36)
[2022-03-25] MEDS: ENOXAPARIN 30MG/0.3ML SYRINGE (J1650 PER 10MG) SC SCH (10:30)
[2022-03-25] MEDS: **hydrALAZINE** 50 MG TAB PO SCH ×3 (10:30→20:39)
[2022-03-25] MEDS: BUMETANIDE 1 MG TAB PO SCH ×2 (10:32→20:34)
[2022-03-25] MEDS: cloNIDine 0.1MG TABLET PO SCH ×2 (10:32→20:39)
[2022-03-25] MEDS: allopurinoL 100 MG TAB PO SCH (10:33)
[2022-03-25] MEDS: glipiZIDE (GLUCOTROL) 5 MG TAB PO SCH ×2 (10:34→20:35)
[2022-03-25] MEDS: PANTOPRAZOLE 40MG VIAL IV SCH (11:58)
[2022-03-25] MEDS: rOPINIRole 0.25 MG TAB(REQUIP) PO SCH (20:35)
[2022-03-25] MEDS: ATORVASTATIN 20 MG TAB PO SCH (20:35)
[2022-03-25] MEDS: traZODone 100 MG TAB PO SCH (20:37)
[2022-03-26] MEDS: LR 1,000 ML IV SCH ×3 (05:00→21:00)
[2022-03-26] MEDS: LEVOTHYROXINE 25MCG TABLET (0.025MG) PO SCH (05:37)
[2022-03-26] MEDS: PERCOCET 5MG/325MG TAB PO PRN ×2 (05:37→16:47)
[2022-03-26] MEDS: LEVOTHYROXINE 100MCG TABLET (0.1MG) PO SCH (05:37)
[2022-03-26 06:09] VITALS: BP 186/79
[2022-03-26 06:55] LABS: BASO % 0.2 % (0.0-1.0); EOS # 0.2 10^3/uL (0.0-0.5); EOS % 2.1 % (0.0-3.0); HEMATOCRIT 28.4 % (42.0-52.0); HEMOGLOBIN 9.1 g/dl (13.5-17.5); LYMPH # 0.7 10^3/uL (1.5-5.0); LYMPH % 6.4 % (24.0-44.0); MEAN CORPUSCULAR HEMOGLOBIN 28.4 pg (27.0-33.0); MEAN CORPUSCULAR VOLUME 88.8 fl (80.0-96.0); MONO # 0.7 10^3/uL (0.0-0.8); MONO % 6.6 % (2.0-8.0); NEUTROPHILS # 8.9 10^3/uL (1.5-8.5); NEUTROPHILS % 83.9 % (36.0-66.0); PLATELET COUNT, AUTOMATED 189 10^3/uL (150-450); WHITE BLOOD COUNT 10.6 10^3/uL (4.0-10.0)
[2022-03-26 07:18] LABS: C REACTIVE PROTEIN QUANTITATIV 23.4 MG/DL (<1.0); CALCIUM LEVEL 7.7 MG/DL (8.3-10.6); CREATININE FOR GFR 3.74 MG/DL (0.70-1.30); GLOMERULAR FILTRATION RATE 17.5 (>49)
[2022-03-26] MEDS: PANTOPRAZOLE 40MG VIAL IV SCH (10:32)
[2022-03-26] MEDS: ENOXAPARIN 30MG/0.3ML SYRINGE (J1650 PER 10MG) SC SCH (10:33)
[2022-03-26] MEDS: allopurinoL 100 MG TAB PO SCH (10:36)
[2022-03-26] MEDS: **hydrALAZINE** 50 MG TAB PO SCH ×3 (10:36→20:51)
[2022-03-26] MEDS: cloNIDine 0.1MG TABLET PO SCH ×2 (10:37→20:51)
[2022-03-26] MEDS: BUMETANIDE 1 MG TAB PO SCH ×2 (10:39→20:48)
[2022-03-26] MEDS: glipiZIDE (GLUCOTROL) 5 MG TAB PO SCH ×2 (10:49→20:48)
[2022-03-26] MEDS: LEVEMIR (INSULIN DETEMIR) 1 UNITS/0.01ML SC SCH ×3 (13:02→20:55)
[2022-03-26 14:00] VITALS: BP 167/88
[2022-03-26] MEDS: rOPINIRole 0.25 MG TAB(REQUIP) PO SCH (20:47)
[2022-03-26] MEDS: ATORVASTATIN 20 MG TAB PO SCH (20:48)
[2022-03-26] MEDS: traZODone 100 MG TAB PO SCH (20:49)
[2022-03-26 20:50] VITALS: BP 180/74
[2022-03-27] MEDS: PERCOCET 5MG/325MG TAB PO PRN ×4 (01:46→21:20)
[2022-03-27 06:15] VITALS: BP 186/73
[2022-03-27 06:15] LABS: HEMATOCRIT 29.4 % (42.0-52.0); HEMOGLOBIN 9.3 g/dl (13.5-17.5); MEAN CORPUSCULAR HEMOGLOBIN 28.2 pg (27.0-33.0); MEAN CORPUSCULAR HGB CONC 31.6 g/dl (32.0-36.5); MEAN CORPUSCULAR VOLUME 89.1 fl (80.0-96.0); PLATELET COUNT, AUTOMATED 192 10^3/uL (150-450); WHITE BLOOD COUNT 10.4 10^3/uL (4.0-10.0)
[2022-03-27] MEDS: LEVOTHYROXINE 25MCG TABLET (0.025MG) PO SCH (06:26)
[2022-03-27] MEDS: LEVOTHYROXINE 100MCG TABLET (0.1MG) PO SCH (06:26)
[2022-03-27] MEDS: **hydrALAZINE** 50 MG TAB PO SCH ×3 (06:51→21:00)
[2022-03-27] MEDS: cloNIDine 0.1MG TABLET PO SCH ×2 (06:52→21:00)
[2022-03-27] MEDS: ENOXAPARIN 30MG/0.3ML SYRINGE (J1650 PER 10MG) SC SCH (09:41)
[2022-03-27] MEDS: PANTOPRAZOLE 40MG VIAL IV SCH (09:42)
[2022-03-27] MEDS: glipiZIDE (GLUCOTROL) 5 MG TAB PO SCH ×2 (09:42→20:58)
[2022-03-27] MEDS: BUMETANIDE 1 MG TAB PO SCH ×2 (09:42→20:59)
[2022-03-27] MEDS: allopurinoL 100 MG TAB PO SCH (09:42)
[2022-03-27] MEDS: LEVEMIR (INSULIN DETEMIR) 1 UNITS/0.01ML SC SCH ×2 (09:43→21:00)
[2022-03-27 20:26] VITALS: BP 213/82
[2022-03-27] MEDS: rOPINIRole 0.25 MG TAB(REQUIP) PO SCH (20:59)
[2022-03-27] MEDS: ATORVASTATIN 20 MG TAB PO SCH (20:59)
[2022-03-27] MEDS: traZODone 100 MG TAB PO SCH (21:00)
[2022-03-28] MEDS: LEVOTHYROXINE 100MCG TABLET (0.1MG) PO SCH (05:25)
[2022-03-28] MEDS: LEVOTHYROXINE 25MCG TABLET (0.025MG) PO SCH (05:25)
[2022-03-28 05:27] VITALS: BP 186/69
[2022-03-28] MEDS: cloNIDine 0.2 MG TAB PO SCH ×2 (06:00→12:22)
[2022-03-28] MEDS ORDERED: GLUCAGON INJ 1MG VIAL SC PRN (09:10)
[2022-03-28] MEDS ORDERED: DEXTROSE 50% 50ML SYRINGE IV PRN (09:10)
[2022-03-28] MEDS ORDERED: GLUCOSE 4GM CHEW TABLET PO PRN (09:10)
[2022-03-28 09:38] LABS: HEMOGLOBIN 10.8 g/dl (13.5-17.5); MEAN CORPUSCULAR HEMOGLOBIN 28.3 pg (27.0-33.0); MEAN CORPUSCULAR HGB CONC 31.8 g/dl (32.0-36.5); PLATELET COUNT, AUTOMATED 235 10^3/uL (150-450); RED BLOOD COUNT 3.82 10^6/uL (4.30-6.10); WHITE BLOOD COUNT 10.5 10^3/uL (4.0-10.0)
[2022-03-28] MEDS: PERCOCET 5MG/325MG TAB PO PRN ×2 (09:58→22:19)
[2022-03-28] MEDS: BUMETANIDE 1 MG TAB PO SCH ×2 (09:59→22:12)
[2022-03-28] MEDS: **hydrALAZINE** 50 MG TAB PO SCH ×3 (09:59→16:48)
[2022-03-28] MEDS: allopurinoL 100 MG TAB PO SCH (10:00)
[2022-03-28] MEDS: ENOXAPARIN 30MG/0.3ML SYRINGE (J1650 PER 10MG) SC SCH (10:00)
[2022-03-28] MEDS: PANTOPRAZOLE 40MG VIAL IV SCH (10:00)
[2022-03-28 10:05] LABS: CALCIUM LEVEL 8.4 MG/DL (8.3-10.6); CREATININE FOR GFR 3.59 MG/DL (0.70-1.30); GLOMERULAR FILTRATION RATE 18.3 (>49); POTASSIUM SERUM 4.2 MMOL/L (3.5-5.1)
[2022-03-28] MEDS: LEVEMIR (INSULIN DETEMIR) 1 UNITS/0.01ML SC SCH ×2 (10:07→22:10)
[2022-03-28] MEDS: INSULIN LISPRO (NovoLOG) PER UNIT SC SCH ×3 (12:23→21:00)
[2022-03-28 14:00] VITALS: BP 174/72
[2022-03-28] MEDS ORDERED: ISOSORBIDE DIN. (ISORDIL) 20 MG TAB PO SCH (16:00)
[2022-03-28] MEDS: cloNIDine 0.1MG TABLET PO SCH (16:49)
[2022-03-28] MEDS ORDERED: ISOSORBIDE DIN. (ISORDIL) 30 MG TAB PO SCH (18:00)
[2022-03-28 21:31] VITALS: BP 172/72
[2022-03-28] MEDS: traZODone 100 MG TAB PO SCH (22:11)
[2022-03-28] MEDS: rOPINIRole 0.25 MG TAB(REQUIP) PO SCH (22:11)
[2022-03-28] MEDS: ATORVASTATIN 20 MG TAB PO SCH (22:12)
[2022-03-29] MEDS: ISOSORBIDE DIN. (ISORDIL) 30 MG TAB PO SCH ×4 (00:21→18:46)
[2022-03-29] MEDS: **hydrALAZINE** 50 MG TAB PO SCH ×4 (00:22→18:45)
[2022-03-29] MEDS: cloNIDine 0.1MG TABLET PO SCH ×4 (00:38→18:45)
[2022-03-29 05:54] VITALS: BP 166/69
[2022-03-29] MEDS: LEVOTHYROXINE 25MCG TABLET (0.025MG) PO SCH (05:56)
[2022-03-29] MEDS: LEVOTHYROXINE 100MCG TABLET (0.1MG) PO SCH (05:56)
[2022-03-29] MEDS: INSULIN LISPRO (NovoLOG) PER UNIT SC SCH ×4 (09:37→20:57)
[2022-03-29] MEDS: BUMETANIDE 1 MG TAB PO SCH ×2 (09:38→20:57)
[2022-03-29] MEDS: LEVEMIR (INSULIN DETEMIR) 1 UNITS/0.01ML SC SCH ×2 (09:38→20:55)
[2022-03-29] MEDS: PANTOPRAZOLE 40MG VIAL IV SCH (09:39)
[2022-03-29] MEDS: allopurinoL 100 MG TAB PO SCH (09:39)
[2022-03-29] MEDS: ENOXAPARIN 30MG/0.3ML SYRINGE (J1650 PER 10MG) SC SCH (09:40)
[2022-03-29] MEDS: PERCOCET 5MG/325MG TAB PO PRN ×2 (13:01→20:56)
[2022-03-29 14:30] VITALS: BP 163/70
[2022-03-29] MEDS: rOPINIRole 0.25 MG TAB(REQUIP) PO SCH (20:56)
[2022-03-29] MEDS: traZODone 100 MG TAB PO SCH (20:56)
[2022-03-29] MEDS: ATORVASTATIN 20 MG TAB PO SCH (20:57)
[2022-03-29] MEDS: FLUTICASONE PROP 0.05% NASAL SPRAY 16 GM (FLONASE) NARES SCH (21:00)
[2022-03-29 22:00] VITALS: BP 163/69
[2022-03-30] MEDS: ISOSORBIDE DIN. (ISORDIL) 30 MG TAB PO SCH ×4 (00:30→18:53)
[2022-03-30] MEDS: **hydrALAZINE** 50 MG TAB PO SCH ×4 (00:31→18:54)
[2022-03-30] MEDS: cloNIDine 0.1MG TABLET PO SCH ×2 (00:31→05:42)
[2022-03-30] MEDS ORDERED: SODIUM CHLORIDE NASAL 0.65% SPRAY BTL (OCEAN) PRN (02:20)
[2022-03-30] MEDS: LEVOTHYROXINE 100MCG TABLET (0.1MG) PO SCH (05:41)
[2022-03-30] MEDS: LEVOTHYROXINE 25MCG TABLET (0.025MG) PO SCH (05:41)
[2022-03-30 06:00] VITALS: BP 178/77
[2022-03-30 06:18] LABS: MEAN CORPUSCULAR HEMOGLOBIN 28.9 pg (27.0-33.0); MEAN CORPUSCULAR HGB CONC 32.6 g/dl (32.0-36.5); MEAN CORPUSCULAR VOLUME 88.5 fl (80.0-96.0); PLATELET COUNT, AUTOMATED 197 10^3/uL (150-450); RED BLOOD COUNT 3.05 10^6/uL (4.30-6.10); WHITE BLOOD COUNT 9.9 10^3/uL (4.0-10.0)
[2022-03-30 06:44] LABS: CALCIUM LEVEL 7.6 MG/DL (8.3-10.6); CREATININE FOR GFR 3.98 MG/DL (0.70-1.30); GLOMERULAR FILTRATION RATE 16.3 (>49)
[2022-03-30 06:45] LABS: HEMOGLOBIN 8.8 g/dl (13.5-17.5)
[2022-03-30] MEDS: LEVEMIR (INSULIN DETEMIR) 1 UNITS/0.01ML SC SCH ×2 (09:00→22:09)
[2022-03-30] MEDS: OXYMETAZOLINE 0.05% NASAL SPRAY (AFRIN) SCH ×2 (09:00→22:08)
[2022-03-30] MEDS: ENOXAPARIN 30MG/0.3ML SYRINGE (J1650 PER 10MG) SC SCH (09:15)
[2022-03-30] MEDS: INSULIN LISPRO (NovoLOG) PER UNIT SC SCH ×4 (09:15→21:00)
[2022-03-30] MEDS: PANTOPRAZOLE 40MG VIAL IV SCH (09:15)
[2022-03-30] MEDS: BUMETANIDE 1 MG TAB PO SCH (09:16)
[2022-03-30] MEDS: MIRALAX *UNIT DOSE* 17GM PACKET PO SCH (09:17)
[2022-03-30] MEDS: allopurinoL 100 MG TAB PO SCH (09:17)
[2022-03-30] MEDS: FLUTICASONE PROP 0.05% NASAL SPRAY 16 GM (FLONASE) NARES SCH ×2 (09:17→22:12)
[2022-03-30] MEDS ORDERED: FUROSEMIDE 100MG/10ML VIAL IV ONE (09:45)
[2022-03-30] MEDS: PERCOCET 5MG/325MG TAB PO PRN ×2 (12:59→22:12)
[2022-03-30 14:00] VITALS: BP 142/62
[2022-03-30] MEDS: FUROSEMIDE 100MG/10ML VIAL IV SCH ×2 (18:53→22:08)
[2022-03-30 21:29] VITALS: BP 173/67
[2022-03-30] MEDS: rOPINIRole 0.25 MG TAB(REQUIP) PO SCH (22:10)
[2022-03-30] MEDS: ATORVASTATIN 20 MG TAB PO SCH (22:12)
[2022-03-30] MEDS: traZODone 100 MG TAB PO SCH (22:12)
[2022-03-31] MEDS: ISOSORBIDE DIN. (ISORDIL) 30 MG TAB PO SCH ×4 (00:20→17:21)
[2022-03-31] MEDS: **hydrALAZINE** 50 MG TAB PO SCH ×4 (00:20→17:21)
[2022-03-31] MEDS: FUROSEMIDE 100MG/10ML VIAL IV SCH ×2 (04:04→16:43)
[2022-03-31] MEDS: LEVOTHYROXINE 25MCG TABLET (0.025MG) PO SCH (05:14)
[2022-03-31] MEDS: LEVOTHYROXINE 100MCG TABLET (0.1MG) PO SCH (05:15)
[2022-03-31 06:00] VITALS: BP 169/65
[2022-03-31] MEDS: PANTOPRAZOLE 40MG VIAL IV SCH (08:15)
[2022-03-31] MEDS: LEVEMIR (INSULIN DETEMIR) 1 UNITS/0.01ML SC SCH ×2 (08:15→20:54)
[2022-03-31] MEDS: ENOXAPARIN 30MG/0.3ML SYRINGE (J1650 PER 10MG) SC SCH (08:15)
[2022-03-31] MEDS: INSULIN LISPRO (NovoLOG) PER UNIT SC SCH ×4 (08:15→20:42)
[2022-03-31] MEDS: MIRALAX *UNIT DOSE* 17GM PACKET PO SCH (08:16)
[2022-03-31] MEDS: allopurinoL 100 MG TAB PO SCH (08:17)
[2022-03-31] MEDS: CARVedilol 12.5 MG TAB PO SCH ×2 (08:18→20:53)
[2022-03-31] MEDS: FLUTICASONE PROP 0.05% NASAL SPRAY 16 GM (FLONASE) NARES SCH ×2 (08:18→20:55)
[2022-03-31] MEDS: OXYMETAZOLINE 0.05% NASAL SPRAY (AFRIN) SCH ×2 (08:19→20:55)
[2022-03-31 08:50] LABS: BASO # 0.1 10^3/uL (0.0-0.2); BASO % 0.6 % (0.0-1.0); EOS # 0.3 10^3/uL (0.0-0.5); HEMOGLOBIN 9.5 g/dl (13.5-17.5); LYMPH # 0.8 10^3/uL (1.5-5.0); LYMPH % 7.7 % (24.0-44.0); MEAN CORPUSCULAR HEMOGLOBIN 28.7 pg (27.0-33.0); MEAN CORPUSCULAR HGB CONC 32.8 g/dl (32.0-36.5); MEAN CORPUSCULAR VOLUME 87.6 fl (80.0-96.0); MONO # 0.7 10^3/uL (0.0-0.8); MONO % 6.7 % (2.0-8.0); NEUTROPHILS # 8.1 10^3/uL (1.5-8.5); NEUTROPHILS % 79.6 % (36.0-66.0); PLATELET COUNT, AUTOMATED 234 10^3/uL (150-450); RED BLOOD COUNT 3.31 10^6/uL (4.30-6.10); WHITE BLOOD COUNT 10.2 10^3/uL (4.0-10.0)
[2022-03-31 09:12] LABS: C REACTIVE PROTEIN QUANTITATIV 9.1 MG/DL (<1.0)
[2022-03-31 09:14] LABS: CALCIUM LEVEL 7.7 MG/DL (8.3-10.6); CREATININE FOR GFR 4.15 MG/DL (0.70-1.30); GLOMERULAR FILTRATION RATE 15.5 (>49)
[2022-03-31 10:44] LABS: ALBUMIN 2.2 G/DL (3.2-5.2)
[2022-03-31] MEDS: PANTOPRAZOLE 40MG TAB (PROTONIX) PO SCH (12:07)
[2022-03-31] MEDS: PERCOCET 5MG/325MG TAB PO PRN ×2 (12:08→21:10)
[2022-03-31 14:00] VITALS: BP 177/61
[2022-03-31] MEDS ORDERED: LIDOCAINE 1% MDV 20ML VIAL As Ordered ONE (15:06)
[2022-03-31] MEDS: SODIUM CHLORIDE 0.9% INJ 10 ML SYR IV SCH (17:17)
[2022-03-31 20:34] VITALS: BP 176/63
[2022-03-31] MEDS: ATORVASTATIN 20 MG TAB PO SCH (20:53)
[2022-03-31] MEDS: traZODone 100 MG TAB PO SCH (20:54)
[2022-03-31] MEDS: rOPINIRole 0.25 MG TAB(REQUIP) PO SCH (20:54)
[2022-04-01] MEDS: ISOSORBIDE DIN. (ISORDIL) 30 MG TAB PO SCH ×4 (00:41→17:09)
[2022-04-01] MEDS: **hydrALAZINE** 50 MG TAB PO SCH ×4 (00:42→17:11)
[2022-04-01] MEDS: FUROSEMIDE 100MG/10ML VIAL IV SCH ×3 (00:43→17:12)
[2022-04-01] MEDS: LEVOTHYROXINE 25MCG TABLET (0.025MG) PO SCH (05:48)
[2022-04-01] MEDS: LEVOTHYROXINE 100MCG TABLET (0.1MG) PO SCH (05:48)
[2022-04-01] MEDS: SODIUM CHLORIDE 0.9% INJ 10 ML SYR IV SCH ×2 (05:50→17:15)
[2022-04-01] MEDS: PERCOCET 5MG/325MG TAB PO PRN ×3 (05:56→17:54)
[2022-04-01 06:21] VITALS: BP 158/59
[2022-04-01] MEDS: MIRALAX *UNIT DOSE* 17GM PACKET PO SCH (08:12)
[2022-04-01] MEDS: LEVEMIR (INSULIN DETEMIR) 1 UNITS/0.01ML SC SCH ×2 (08:12→20:46)
[2022-04-01] MEDS: INSULIN LISPRO (NovoLOG) PER UNIT SC SCH ×4 (08:13→20:37)
[2022-04-01] MEDS: SODIUM CHLORIDE 0.9% INJ 10 ML SYR IV PRN (08:14)
[2022-04-01] MEDS: ENOXAPARIN 30MG/0.3ML SYRINGE (J1650 PER 10MG) SC SCH (08:14)
[2022-04-01] MEDS: PANTOPRAZOLE 40MG TAB (PROTONIX) PO SCH (08:16)
[2022-04-01] MEDS: CARVedilol 12.5 MG TAB PO SCH ×2 (08:17→20:45)
[2022-04-01] MEDS: allopurinoL 100 MG TAB PO SCH (08:17)
[2022-04-01 08:18] LABS: CALCIUM LEVEL 7.7 MG/DL (8.3-10.6); CREATININE FOR GFR 4.53 MG/DL (0.70-1.30); POTASSIUM SERUM 3.9 MMOL/L (3.5-5.1)
[2022-04-01] MEDS: FLUTICASONE PROP 0.05% NASAL SPRAY 16 GM (FLONASE) NARES SCH ×2 (08:18→20:48)
[2022-04-01] MEDS: OXYMETAZOLINE 0.05% NASAL SPRAY (AFRIN) SCH ×2 (08:18→20:48)
[2022-04-01 14:00] VITALS: BP 168/67
[2022-04-01] MEDS: ONDANSETRON 4MG 2ML VIAL IV PRN (17:11)
[2022-04-01 18:10] VITALS: BP 157/59
[2022-04-01 19:59] VITALS: BP 141/50
[2022-04-01] MEDS: rOPINIRole 0.25 MG TAB(REQUIP) PO SCH (20:45)
[2022-04-01] MEDS: ATORVASTATIN 20 MG TAB PO SCH (20:45)
[2022-04-01] MEDS: traZODone 100 MG TAB PO SCH (20:46)
[2022-04-02 00:16] VITALS: BP 143/56
[2022-04-02] MEDS: ISOSORBIDE DIN. (ISORDIL) 30 MG TAB PO SCH ×4 (00:19→17:33)
[2022-04-02] MEDS: **hydrALAZINE** 50 MG TAB PO SCH ×4 (00:19→17:33)
[2022-04-02] MEDS: PERCOCET 5MG/325MG TAB PO PRN ×3 (03:00→21:00)
[2022-04-02 05:28] VITALS: BP 139/52
[2022-04-02] MEDS: SODIUM CHLORIDE 0.9% INJ 10 ML SYR IV SCH ×2 (05:32→17:19)
[2022-04-02] MEDS: LEVOTHYROXINE 25MCG TABLET (0.025MG) PO SCH (05:32)
[2022-04-02] MEDS: LEVOTHYROXINE 100MCG TABLET (0.1MG) PO SCH (05:32)
[2022-04-02 05:55] LABS: HEMATOCRIT 27.5 % (42.0-52.0); HEMOGLOBIN 8.8 g/dl (13.5-17.5); MEAN CORPUSCULAR HEMOGLOBIN 28.4 pg (27.0-33.0); MEAN CORPUSCULAR VOLUME 88.7 fl (80.0-96.0); PLATELET COUNT, AUTOMATED 254 10^3/uL (150-450)
[2022-04-02 06:21] LABS: CALCIUM LEVEL 7.7 MG/DL (8.3-10.6); CREATININE FOR GFR 4.87 MG/DL (0.70-1.30); GLOMERULAR FILTRATION RATE 12.9 (>49); POTASSIUM SERUM 4.1 MMOL/L (3.5-5.1)
[2022-04-02] MEDS: ALBUTEROL SULFATE 2.5MG/0.5ML INH NEB SOLN NEB SCH ×3 (08:00→23:28)
[2022-04-02] MEDS: FUROSEMIDE 100MG/10ML VIAL IV SCH (08:49)
[2022-04-02] MEDS: ENOXAPARIN 30MG/0.3ML SYRINGE (J1650 PER 10MG) SC SCH (08:50)
[2022-04-02] MEDS: LEVEMIR (INSULIN DETEMIR) 1 UNITS/0.01ML SC SCH ×2 (08:50→21:00)
[2022-04-02] MEDS: PANTOPRAZOLE 40MG TAB (PROTONIX) PO SCH (08:51)
[2022-04-02] MEDS: INSULIN LISPRO (NovoLOG) PER UNIT SC SCH ×4 (08:51→20:55)
[2022-04-02] MEDS: MIRALAX *UNIT DOSE* 17GM PACKET PO SCH (08:52)
[2022-04-02] MEDS: allopurinoL 100 MG TAB PO SCH (08:52)
[2022-04-02] MEDS: CARVedilol 12.5 MG TAB PO SCH ×2 (08:53→20:59)
[2022-04-02] MEDS: FLUTICASONE PROP 0.05% NASAL SPRAY 16 GM (FLONASE) NARES SCH ×2 (08:53→21:01)
[2022-04-02] MEDS: FUROSEMIDE injection 250 MG in D5W 225 ML IV SCH (13:23)
[2022-04-02 13:45] LABS: APPEARANCE, URINE MANUAL CLEAR (CLEAR); COLOR, URINE MANUAL YELLOW (YELLOW)
[2022-04-02 13:46] LABS: SPECIFIC GRAVITY,URINE MANUAL 1.015 (1.002-1.035)
[2022-04-02 13:47] LABS: BILIRUBIN, URINE MANUAL NEGATIVE (NEGATIVE); BLOOD URINE MANUAL NEGATIVE (NEGATIVE); GLUCOSE, URINE (UA) MANUAL 1+(100 MG/DL) mg/dL (NEGATIVE); KETONE, URINE MANUAL NEGATIVE (NEGATIVE); LEUKOCYTE ESTERASE, URINE MAN NEGATIVE (NEGATIVE); NITRITE, URINE MANUAL NEGATIVE (NEGATIVE); PROTEIN, URINE MANUAL TRACE mg/dL (NEGATIVE); UROBILINOGEN, URINE MANUAL NORMAL (NORMAL)
[2022-04-02 13:55] LABS: RBC, URINE 0-1 /hpf (0-3); WBC, URINE 0-1 /hpf (0-3)
[2022-04-02 13:56] LABS: BACTERIA, URINE SMALL AMOUNT; HYALINE CAST, URINE 0-1 /lpf (0-1); MUCUS, URINE SMALL AMOUNT (NEGATIVE); SQUAMOUS EPITHELIAL CELL URINE NONE SEEN /hpf (SMALL AMT)
[2022-04-02 14:00] VITALS: BP 147/53
[2022-04-02 20:50] VITALS: BP 159/57
[2022-04-02] MEDS: traZODone 100 MG TAB PO SCH (20:59)
[2022-04-02] MEDS: rOPINIRole 0.25 MG TAB(REQUIP) PO SCH (20:59)
[2022-04-02] MEDS: ATORVASTATIN 20 MG TAB PO SCH (21:00)
[2022-04-03] MEDS: **hydrALAZINE** 50 MG TAB PO SCH ×4 (00:24→18:06)
[2022-04-03] MEDS: ISOSORBIDE DIN. (ISORDIL) 30 MG TAB PO SCH ×4 (00:25→18:06)
[2022-04-03] MEDS: FUROSEMIDE injection 250 MG in D5W 225 ML IV SCH ×2 (00:25→13:10)
[2022-04-03 06:00] VITALS: BP 157/53
[2022-04-03] MEDS: SODIUM CHLORIDE 0.9% INJ 10 ML SYR IV SCH ×3 (06:00→18:00)
[2022-04-03 06:49] LABS: CALCIUM LEVEL 7.5 MG/DL (8.3-10.6); CREATININE FOR GFR 5.15 MG/DL (0.70-1.30); GLOMERULAR FILTRATION RATE 12.1 (>49); POTASSIUM SERUM 4.1 MMOL/L (3.5-5.1)
[2022-04-03] MEDS: LEVOTHYROXINE 100MCG TABLET (0.1MG) PO SCH (06:54)
[2022-04-03] MEDS: LEVOTHYROXINE 25MCG TABLET (0.025MG) PO SCH (06:55)
[2022-04-03] MEDS: ENOXAPARIN 30MG/0.3ML SYRINGE (J1650 PER 10MG) SC SCH (08:24)
[2022-04-03] MEDS: INSULIN LISPRO (NovoLOG) PER UNIT SC SCH ×4 (08:24→20:04)
[2022-04-03] MEDS: allopurinoL 100 MG TAB PO SCH (08:25)
[2022-04-03] MEDS: LEVEMIR (INSULIN DETEMIR) 1 UNITS/0.01ML SC SCH ×2 (08:25→20:25)
[2022-04-03] MEDS: PANTOPRAZOLE 40MG TAB (PROTONIX) PO SCH (08:25)
[2022-04-03] MEDS: PERCOCET 5MG/325MG TAB PO PRN ×2 (08:26→20:25)
[2022-04-03] MEDS: CARVedilol 12.5 MG TAB PO SCH ×2 (08:32→20:24)
[2022-04-03] MEDS: ALBUTEROL SULFATE 2.5MG/0.5ML INH NEB SOLN NEB SCH ×3 (08:32→23:13)
[2022-04-03] MEDS: FLUTICASONE PROP 0.05% NASAL SPRAY 16 GM (FLONASE) NARES SCH ×2 (08:33→20:25)
[2022-04-03] MEDS: MIRALAX *UNIT DOSE* 17GM PACKET PO SCH (08:35)
[2022-04-03 08:45] LABS: INR 0.99; PROTHROMBIN TIME 13.3 SECONDS (12.5-14.5)
[2022-04-03] MEDS ORDERED: CHLOROTHIAZIDE 500MG VIAL IV ONE (09:00)
[2022-04-03 14:00] VITALS: BP 156/57
[2022-04-03 17:39] VITALS: BP 159/58
[2022-04-03 19:55] VITALS: BP 159/57
[2022-04-03] MEDS: rOPINIRole 0.25 MG TAB(REQUIP) PO SCH (20:24)
[2022-04-03] MEDS: ATORVASTATIN 20 MG TAB PO SCH (20:24)
[2022-04-03] MEDS: traZODone 100 MG TAB PO SCH (20:24)
[2022-04-03] MEDS ORDERED: MORPHINE 2 MG/ML 1ML VIAL IV ONE (22:00)
[2022-04-03 22:38] LABS: BLOOD UREA NITROGEN 58 MG/DL (9-23); CALCIUM LEVEL 7.5 MG/DL (8.3-10.6); CARBON DIOXIDE LEVEL 24 MMOL/L (20-31); CHLORIDE LEVEL 101 MMOL/L (98-107); CREATININE FOR GFR 5.23 MG/DL (0.70-1.30); GLOMERULAR FILTRATION RATE 11.9 (>49); GLUCOSE, FASTING 192 MG/DL (74-106); MAGNESIUM LEVEL 1.8 MG/DL (1.8-2.4); PHOSPHORUS LEVEL 5.2 MG/DL (2.4-5.1); POTASSIUM SERUM 3.8 MMOL/L (3.5-5.1); SODIUM LEVEL 133 MMOL/L (136-145)
[2022-04-03 22:40] LABS: VITAMIN B12 LEVEL 498 PG/ML (211-911)
[2022-04-04] VITALS (8 sets, daily range): BP systolic 146–158; BP diastolic 52–66
[2022-04-04] MEDS: **hydrALAZINE** 50 MG TAB PO SCH ×4 (00:09→19:12)
[2022-04-04] MEDS: ISOSORBIDE DIN. (ISORDIL) 30 MG TAB PO SCH ×4 (00:09→19:11)
[2022-04-04] MEDS: FUROSEMIDE injection 250 MG in D5W 225 ML IV SCH (00:10)
[2022-04-04] MEDS: SODIUM CHLORIDE 0.9% INJ 10 ML SYR IV SCH ×3 (04:23→18:00)
[2022-04-04] MEDS: LEVOTHYROXINE 100MCG TABLET (0.1MG) PO SCH (06:32)
[2022-04-04] MEDS: LEVOTHYROXINE 25MCG TABLET (0.025MG) PO SCH (06:33)
[2022-04-04] MEDS ORDERED: HEPARIN 1,000UNITS/ML 10ML VIAL (FOR RADIOLOGY & DIALYSIS ONLY) XX SCH (06:35)
[2022-04-04] MEDS ORDERED: HEPARIN 1,000UNITS/ML 10ML VIAL (FOR RADIOLOGY & DIALYSIS ONLY) IV PRN (06:35)
[2022-04-04] MEDS ORDERED: SODIUM CHLORIDE 0.9% 1000ML IV PRN (06:35)
[2022-04-04 06:38] LABS: BASO % 0.5 % (0.0-1.0); EOS # 0.2 10^3/uL (0.0-0.5); EOS % 3.1 % (0.0-3.0); HEMATOCRIT 26.9 % (42.0-52.0); HEMOGLOBIN 8.7 g/dl (13.5-17.5); LYMPH % 12.8 % (24.0-44.0); MEAN CORPUSCULAR HEMOGLOBIN 28.5 pg (27.0-33.0); MEAN CORPUSCULAR HGB CONC 32.3 g/dl (32.0-36.5); MEAN CORPUSCULAR VOLUME 88.2 fl (80.0-96.0); MONO # 0.8 10^3/uL (0.0-0.8); NEUTROPHILS # 5.5 10^3/uL (1.5-8.5); NEUTROPHILS % 70.4 % (36.0-66.0); PLATELET COUNT, AUTOMATED 266 10^3/uL (150-450); RED BLOOD COUNT 3.05 10^6/uL (4.30-6.10); WHITE BLOOD COUNT 7.8 10^3/uL (4.0-10.0)
[2022-04-04 07:03] LABS: CALCIUM LEVEL 7.4 MG/DL (8.3-10.6); CREATININE FOR GFR 5.38 MG/DL (0.70-1.30); GLOMERULAR FILTRATION RATE 11.5 (>49); POTASSIUM SERUM 3.7 MMOL/L (3.5-5.1)
[2022-04-04] MEDS: INSULIN LISPRO (NovoLOG) PER UNIT SC SCH ×4 (07:30→20:20)
[2022-04-04] MEDS: ALBUTEROL SULFATE 2.5MG/0.5ML INH NEB SOLN NEB SCH ×2 (07:53→15:18)
[2022-04-04] MEDS: MIRALAX *UNIT DOSE* 17GM PACKET PO SCH (08:11)
[2022-04-04] MEDS: LEVEMIR (INSULIN DETEMIR) 1 UNITS/0.01ML SC SCH ×2 (08:13→21:03)
[2022-04-04] MEDS: allopurinoL 100 MG TAB PO SCH (08:52)
[2022-04-04] MEDS: PANTOPRAZOLE 40MG TAB (PROTONIX) PO SCH (08:52)
[2022-04-04] MEDS: FLUTICASONE PROP 0.05% NASAL SPRAY 16 GM (FLONASE) NARES SCH ×2 (08:53→21:04)
[2022-04-04] MEDS: CARVedilol 12.5 MG TAB PO SCH ×2 (08:53→21:03)
[2022-04-04] MEDS: ENOXAPARIN 30MG/0.3ML SYRINGE (J1650 PER 10MG) SC SCH (09:00)
[2022-04-04 11:06] LABS: HEPATITIS B SURFACE ANTIBODY POSITIVE (POSITIVE)
[2022-04-04 11:17] LABS: HEPATITIS B SURFACE ANTIGEN NEGATIVE (NEGATIVE)
[2022-04-04] MEDS ORDERED: FUROSEMIDE 100MG/10ML VIAL IV ONE (11:20)
[2022-04-04 11:38] LABS: HEPATITIS B CORE ANTIBODY IGM NEGATIVE (NEGATIVE)
[2022-04-04 12:37] LABS: HEPATITIS C VIRUS ABY INDEX > 11.0 INDEX (<0.8)
[2022-04-04] MEDS ORDERED: MIDAZOLAM INJ 2MG/2ML VIAL As Ordered ONE ×2 (14:15→17:02)
[2022-04-04] MEDS ORDERED: LIDOCAINE 2% 100MG/5ML SDV (FOR ANES.) As Ordered ONE ×2 (14:15→17:02)
[2022-04-04] MEDS ORDERED: propofoL 200 MG/20 ML VIAL As Ordered ONE ×2 (14:15→17:02)
[2022-04-04] MEDS ORDERED: fentaNYL 100 MCG/2 ML INJECTION As Ordered ONE ×2 (14:15→17:02)
[2022-04-04] MEDS ORDERED: HEPARIN SOD (PORCINE) 5000UNITS/ML 1ML VIAL/SYRINGE As Ordered ONE (16:52)
[2022-04-04] MEDS ORDERED: LIDOCAINE 1% SDV 30ML VIAL As Ordered ONE (16:52)
[2022-04-04] MEDS ORDERED: DESFLURANE 240 ML INHALANT As Ordered ONE (17:03)
[2022-04-04] MEDS ORDERED: ACETAMINOPHEN 1000MG 100ML IV BAG As Ordered ONE (18:00)
[2022-04-04] MEDS ORDERED: ceFAZolin 2 GM/D5W 50 ML IV BAG As Ordered ONE (18:00)
[2022-04-04] MEDS ORDERED: ePHEDrine SULFATE 25 MG/5 ML(5MG/ML) SYRINGE As Ordered ONE (18:04)
[2022-04-04] MEDS: ATORVASTATIN 20 MG TAB PO SCH (21:02)
[2022-04-04] MEDS: traZODone 100 MG TAB PO SCH (21:02)
[2022-04-04] MEDS: rOPINIRole 0.25 MG TAB(REQUIP) PO SCH (21:03)
[2022-04-04] MEDS: PERCOCET 5MG/325MG TAB PO PRN (21:06)
[2022-04-05] MEDS: ALBUTEROL SULFATE 2.5MG/0.5ML INH NEB SOLN NEB SCH ×4 (00:01→23:32)
[2022-04-05] MEDS: **hydrALAZINE** 50 MG TAB PO SCH ×5 (00:16→23:16)
[2022-04-05] MEDS: ISOSORBIDE DIN. (ISORDIL) 30 MG TAB PO SCH ×5 (00:17→23:16)
[2022-04-05 01:51] VITALS: BP 150/57
[2022-04-05] MEDS: LEVOTHYROXINE 25MCG TABLET (0.025MG) PO SCH (05:37)
[2022-04-05] MEDS: LEVOTHYROXINE 100MCG TABLET (0.1MG) PO SCH (05:37)
[2022-04-05] MEDS: PERCOCET 5MG/325MG TAB PO PRN ×3 (05:38→23:17)
[2022-04-05] MEDS: SODIUM CHLORIDE 0.9% INJ 10 ML SYR IV SCH ×2 (05:40→17:43)
[2022-04-05 05:44] VITALS: BP 154/56
[2022-04-05 06:33] LABS: HEMATOCRIT 27.9 % (42.0-52.0); MEAN CORPUSCULAR HGB CONC 32.3 g/dl (32.0-36.5); MEAN CORPUSCULAR VOLUME 86.9 fl (80.0-96.0); PLATELET COUNT, AUTOMATED 282 10^3/uL (150-450); RED BLOOD COUNT 3.21 10^6/uL (4.30-6.10); WHITE BLOOD COUNT 7.8 10^3/uL (4.0-10.0)
[2022-04-05] MEDS ORDERED: SODIUM CHLORIDE 0.9% 1000ML IV PRN (07:05)
[2022-04-05] MEDS ORDERED: HEPARIN 1,000UNITS/ML 10ML VIAL (FOR RADIOLOGY & DIALYSIS ONLY) XX SCH (07:05)
[2022-04-05] MEDS ORDERED: HEPARIN 1,000UNITS/ML 10ML VIAL (FOR RADIOLOGY & DIALYSIS ONLY) IV PRN (07:05)
[2022-04-05] MEDS: INSULIN LISPRO (NovoLOG) PER UNIT SC SCH ×4 (07:30→20:19)
[2022-04-05] MEDS: CARVedilol 12.5 MG TAB PO SCH ×2 (07:43→20:34)
[2022-04-05] MEDS: LEVEMIR (INSULIN DETEMIR) 1 UNITS/0.01ML SC SCH ×2 (07:44→20:36)
[2022-04-05 07:45] LABS: CALCIUM LEVEL 7.9 MG/DL (8.3-10.6); CREATININE FOR GFR 5.55 MG/DL (0.70-1.30); GLOMERULAR FILTRATION RATE 11.1 (>49); POTASSIUM SERUM 3.8 MMOL/L (3.5-5.1)
[2022-04-05] MEDS: ENOXAPARIN 30MG/0.3ML SYRINGE (J1650 PER 10MG) SC SCH (09:00)
[2022-04-05] MEDS: MIRALAX *UNIT DOSE* 17GM PACKET PO SCH (09:00)
[2022-04-05] MEDS: FLUTICASONE PROP 0.05% NASAL SPRAY 16 GM (FLONASE) NARES SCH ×2 (09:00→20:36)
[2022-04-05] MEDS: allopurinoL 100 MG TAB PO SCH (09:00)
[2022-04-05] MEDS: PANTOPRAZOLE 40MG TAB (PROTONIX) PO SCH (09:00)
[2022-04-05] MEDS ORDERED: PERCOCET 5MG/325MG TAB PO ONE (12:40)
[2022-04-05 20:15] VITALS: BP 162/60
[2022-04-05] MEDS: traZODone 100 MG TAB PO SCH (20:34)
[2022-04-05] MEDS: ATORVASTATIN 20 MG TAB PO SCH (20:34)
[2022-04-05] MEDS: rOPINIRole 0.25 MG TAB(REQUIP) PO SCH (20:34)
[2022-04-06 05:35] VITALS: BP 161/59
[2022-04-06] MEDS: LEVOTHYROXINE 100MCG TABLET (0.1MG) PO SCH (05:36)
[2022-04-06] MEDS: ISOSORBIDE DIN. (ISORDIL) 30 MG TAB PO SCH ×3 (05:36→18:18)
[2022-04-06] MEDS: LEVOTHYROXINE 25MCG TABLET (0.025MG) PO SCH (05:36)
[2022-04-06] MEDS: PANTOPRAZOLE 40MG TAB (PROTONIX) PO SCH (05:36)
[2022-04-06] MEDS: **hydrALAZINE** 50 MG TAB PO SCH ×3 (05:37→18:18)
[2022-04-06] MEDS: allopurinoL 100 MG TAB PO SCH (05:37)
[2022-04-06] MEDS: CARVedilol 12.5 MG TAB PO SCH ×2 (05:37→21:46)
[2022-04-06] MEDS: SODIUM CHLORIDE 0.9% INJ 10 ML SYR IV SCH ×2 (05:38→18:19)
[2022-04-06] MEDS ORDERED: HEPARIN 1,000UNITS/ML 10ML VIAL (FOR RADIOLOGY & DIALYSIS ONLY) IV PRN (06:40)
[2022-04-06] MEDS ORDERED: SODIUM CHLORIDE 0.9% 1000ML IV PRN (06:40)
[2022-04-06] MEDS ORDERED: HEPARIN 1,000UNITS/ML 10ML VIAL (FOR RADIOLOGY & DIALYSIS ONLY) XX SCH (06:40)
[2022-04-06 06:45] LABS: CALCIUM LEVEL 7.5 MG/DL (8.3-10.6); CREATININE FOR GFR 4.55 MG/DL (0.70-1.30); GLOMERULAR FILTRATION RATE 13.9 (>49); POTASSIUM SERUM 4.1 MMOL/L (3.5-5.1)
[2022-04-06 07:01] LABS: PERCENT SATURATION 18.5 % (19.7-50.0)
[2022-04-06] MEDS: ALBUTEROL SULFATE 2.5MG/0.5ML INH NEB SOLN NEB SCH ×3 (07:47→23:19)
[2022-04-06] MEDS: MIRALAX *UNIT DOSE* 17GM PACKET PO SCH (08:14)
[2022-04-06] MEDS: INSULIN LISPRO (NovoLOG) PER UNIT SC SCH ×4 (08:15→21:00)
[2022-04-06] MEDS: LEVEMIR (INSULIN DETEMIR) 1 UNITS/0.01ML SC SCH ×2 (08:16→21:48)
[2022-04-06] MEDS: ENOXAPARIN 30MG/0.3ML SYRINGE (J1650 PER 10MG) SC SCH (08:17)
[2022-04-06] MEDS: FLUTICASONE PROP 0.05% NASAL SPRAY 16 GM (FLONASE) NARES SCH ×2 (08:17→21:00)
[2022-04-06] MEDS ORDERED: HYDROMORPHONE HCL 0.5 MG/ 0.5 ML SYRINGE IV ONE (10:40)
[2022-04-06] MEDS: SODIUM CHLORIDE 0.9% INJ 10 ML SYR IV PRN (11:26)
[2022-04-06] MEDS: LIDOCAINE 5% (LIDODERM) PATCH TD SCH ×2 (11:27→21:45)
[2022-04-06 20:00] VITALS: BP 149/54
[2022-04-06] MEDS: rOPINIRole 0.25 MG TAB(REQUIP) PO SCH (21:42)
[2022-04-06] MEDS: ATORVASTATIN 20 MG TAB PO SCH (21:43)
[2022-04-06] MEDS: traZODone 100 MG TAB PO SCH (21:45)
[2022-04-06] MEDS: PERCOCET 5MG/325MG TAB PO PRN (21:53)
[2022-04-07] MEDS: ISOSORBIDE DIN. (ISORDIL) 30 MG TAB PO SCH ×4 (05:46→17:23)
[2022-04-07] MEDS: **hydrALAZINE** 50 MG TAB PO SCH ×4 (05:46→17:23)
[2022-04-07] MEDS: LEVOTHYROXINE 25MCG TABLET (0.025MG) PO SCH (05:49)
[2022-04-07] MEDS: LEVOTHYROXINE 100MCG TABLET (0.1MG) PO SCH (05:50)
[2022-04-07] MEDS: SODIUM CHLORIDE 0.9% INJ 10 ML SYR IV SCH ×2 (05:51→17:24)
[2022-04-07 06:00] VITALS: BP 140/58
[2022-04-07 06:59] LABS: CALCIUM LEVEL 8.3 MG/DL (8.3-10.6); CREATININE FOR GFR 3.59 MG/DL (0.70-1.30); GLOMERULAR FILTRATION RATE 18.3 (>49); POTASSIUM SERUM 4.3 MMOL/L (3.5-5.1)
[2022-04-07] MEDS: GASTROGRAFIN SOLUTION 30ML PO SCH ×2 (07:21→07:50)
[2022-04-07] MEDS: INSULIN LISPRO (NovoLOG) PER UNIT SC SCH ×4 (07:30→20:48)
[2022-04-07] MEDS ORDERED: ISOVUE-370 76% 100ML VIAL As Ordered ONE (09:09)
[2022-04-07] MEDS: CARVedilol 12.5 MG TAB PO SCH ×2 (10:21→20:46)
[2022-04-07] MEDS: PERCOCET 5MG/325MG TAB PO PRN ×2 (10:22→20:47)
[2022-04-07] MEDS: allopurinoL 100 MG TAB PO SCH (10:23)
[2022-04-07] MEDS: PANTOPRAZOLE 40MG TAB (PROTONIX) PO SCH (10:23)
[2022-04-07] MEDS: LEVEMIR (INSULIN DETEMIR) 1 UNITS/0.01ML SC SCH ×2 (10:24→20:48)
[2022-04-07] MEDS: ENOXAPARIN 30MG/0.3ML SYRINGE (J1650 PER 10MG) SC SCH (10:24)
[2022-04-07] MEDS: MIRALAX *UNIT DOSE* 17GM PACKET PO SCH (10:25)
[2022-04-07] MEDS: FLUTICASONE PROP 0.05% NASAL SPRAY 16 GM (FLONASE) NARES SCH ×2 (10:25→20:48)
[2022-04-07] MEDS ORDERED: HEPARIN 1,000UNITS/ML 10ML VIAL (FOR RADIOLOGY & DIALYSIS ONLY) XX SCH (10:30)
[2022-04-07] MEDS ORDERED: HEPARIN 1,000UNITS/ML 10ML VIAL (FOR RADIOLOGY & DIALYSIS ONLY) IV PRN (10:30)
[2022-04-07] MEDS ORDERED: SODIUM CHLORIDE 0.9% 1000ML IV PRN (10:30)
[2022-04-07] MEDS: ALBUTEROL SULFATE 2.5MG/0.5ML INH NEB SOLN NEB SCH ×3 (10:46→23:21)
[2022-04-07 16:10] VITALS: BP 156/58
[2022-04-07 20:28] VITALS: BP 157/66
[2022-04-07] MEDS: rOPINIRole 0.25 MG TAB(REQUIP) PO SCH (20:45)
[2022-04-07] MEDS: ATORVASTATIN 20 MG TAB PO SCH (20:45)
[2022-04-07] MEDS: traZODone 100 MG TAB PO SCH (20:46)
[2022-04-08 00:46] VITALS: BP 157/65
[2022-04-08] MEDS: **hydrALAZINE** 50 MG TAB PO SCH ×4 (00:55→17:13)
[2022-04-08] MEDS: ISOSORBIDE DIN. (ISORDIL) 30 MG TAB PO SCH ×4 (00:55→17:12)
[2022-04-08] MEDS: LEVOTHYROXINE 25MCG TABLET (0.025MG) PO SCH (05:50)
[2022-04-08] MEDS: LEVOTHYROXINE 100MCG TABLET (0.1MG) PO SCH (05:50)
[2022-04-08] MEDS: SODIUM CHLORIDE 0.9% INJ 10 ML SYR IV SCH ×2 (05:51→17:14)
[2022-04-08 05:54] VITALS: BP 158/64
[2022-04-08 06:54] LABS: CALCIUM LEVEL 8.4 MG/DL (8.3-10.6); CREATININE FOR GFR 3.22 MG/DL (0.70-1.30); GLOMERULAR FILTRATION RATE 20.8 (>49); POTASSIUM SERUM 4.6 MMOL/L (3.5-5.1)
[2022-04-08] MEDS: ALBUTEROL SULFATE 2.5MG/0.5ML INH NEB SOLN NEB SCH ×2 (07:26→15:17)
[2022-04-08] MEDS: LEVEMIR (INSULIN DETEMIR) 1 UNITS/0.01ML SC SCH ×2 (08:37→21:46)
[2022-04-08] MEDS: INSULIN LISPRO (NovoLOG) PER UNIT SC SCH ×4 (08:38→21:00)
[2022-04-08] MEDS: allopurinoL 100 MG TAB PO SCH (08:39)
[2022-04-08] MEDS: PANTOPRAZOLE 40MG TAB (PROTONIX) PO SCH (08:39)
[2022-04-08] MEDS: MIRALAX *UNIT DOSE* 17GM PACKET PO SCH (08:39)
[2022-04-08] MEDS: ENOXAPARIN 30MG/0.3ML SYRINGE (J1650 PER 10MG) SC SCH (08:40)
[2022-04-08] MEDS: CARVedilol 12.5 MG TAB PO SCH ×2 (08:40→21:46)
[2022-04-08] MEDS: FLUTICASONE PROP 0.05% NASAL SPRAY 16 GM (FLONASE) NARES SCH ×2 (08:41→21:46)
[2022-04-08] MEDS: LIDOCAINE 5% (LIDODERM) PATCH TD SCH ×2 (08:42→08:53)
[2022-04-08] MEDS: PERCOCET 5MG/325MG TAB PO PRN ×2 (08:45→21:44)
[2022-04-08 14:00] VITALS: BP 153/60
[2022-04-08] MEDS: ATORVASTATIN 20 MG TAB PO SCH (21:44)
[2022-04-08] MEDS: rOPINIRole 0.25 MG TAB(REQUIP) PO SCH (21:44)
[2022-04-08] MEDS: traZODone 100 MG TAB PO SCH (21:44)
[2022-04-08 22:00] VITALS: BP 159/56
[2022-04-09] MEDS: ISOSORBIDE DIN. (ISORDIL) 30 MG TAB PO SCH ×4 (00:01→18:17)
[2022-04-09] MEDS: **hydrALAZINE** 50 MG TAB PO SCH ×4 (00:01→18:16)
[2022-04-09] MEDS: LEVOTHYROXINE 25MCG TABLET (0.025MG) PO SCH (05:46)
[2022-04-09] MEDS: LEVOTHYROXINE 100MCG TABLET (0.1MG) PO SCH (05:46)
[2022-04-09] MEDS: SODIUM CHLORIDE 0.9% INJ 10 ML SYR IV SCH ×2 (05:48→18:00)
[2022-04-09 06:00] VITALS: BP 143/62
[2022-04-09] MEDS: ALBUTEROL SULFATE 2.5MG/0.5ML INH NEB SOLN NEB SCH ×3 (07:26→16:00)
[2022-04-09] MEDS: PANTOPRAZOLE 40MG TAB (PROTONIX) PO SCH (09:00)
[2022-04-09] MEDS: MIRALAX *UNIT DOSE* 17GM PACKET PO SCH (09:00)
[2022-04-09] MEDS: LIDOCAINE 5% (LIDODERM) PATCH TD SCH (09:00)
[2022-04-09] MEDS: ENOXAPARIN 30MG/0.3ML SYRINGE (J1650 PER 10MG) SC SCH (09:00)
[2022-04-09] MEDS: allopurinoL 100 MG TAB PO SCH (09:00)
[2022-04-09] MEDS: CARVedilol 12.5 MG TAB PO SCH (09:01)
[2022-04-09] MEDS: LEVEMIR (INSULIN DETEMIR) 1 UNITS/0.01ML SC SCH (09:02)
[2022-04-09] MEDS: INSULIN LISPRO (NovoLOG) PER UNIT SC SCH ×3 (09:02→17:30)
[2022-04-09] MEDS: FLUTICASONE PROP 0.05% NASAL SPRAY 16 GM (FLONASE) NARES SCH (09:02)
[2022-04-09] MEDS ORDERED: HEPARIN 1,000UNITS/ML 10ML VIAL (FOR RADIOLOGY & DIALYSIS ONLY) XX SCH (11:35)
[2022-04-09] MEDS ORDERED: SODIUM CHLORIDE 0.9% 1000ML IV PRN (11:35)
[2022-04-09] MEDS ORDERED: HEPARIN 1,000UNITS/ML 10ML VIAL (FOR RADIOLOGY & DIALYSIS ONLY) IV PRN (11:35)
[2022-04-09] MEDS: PERCOCET 5MG/325MG TAB PO PRN ×2 (12:28→18:33)
[2022-04-09] MEDS ORDERED: SELF1KIT MC (13:02)
[2022-04-09] MEDS ORDERED: LEVE1INJ5 SC (13:02)
[2022-04-09] MEDS ORDERED: MINO10TA PO ×2 (13:02→17:57)
[2022-04-09] MEDS ORDERED: CARV12.5 PO (13:02)
[2022-04-09] MEDS ORDERED: ISOS30TAB PO (13:02)
[2022-04-09] MEDS ORDERED: HYDR100T26 PO (13:02)
[2022-04-09] MEDS ORDERED: PERCOCET PO (13:05)
[2022-04-09] MEDS ORDERED: MIRA1POW3 PO (13:05)
[2022-04-09 17:33] VITALS: BP 174/67
[2022-04-09] MEDS ORDERED: cloNIDine 0.1MG TABLET PO ONE (18:15)
[2022-04-09 18:17] VITALS: BP 141/57
[2022-04-10] MEDS ORDERED: ISOSORBIDE DIN. (ISORDIL) 30 MG TAB PO SCH
[2022-04-10] MEDS ORDERED: **hydrALAZINE** 50 MG TAB PO SCH
== END 2022-04-09 18:55 | disposition home or self-care (01) | DRG 329 ==
LOC: M OR 06:09 → M MS5PR 14:25 → M MSPAV 04-01 18:08
PROVIDERS: ADMIT Surgery; ATTEND General Practice
PROC: 8E0W4CZ Robotic Assisted Procedure of Trunk Region, Percutaneous Endoscopic Approach (ICD-10-PCS; 2022-03-24)
PROC: 0DTF4ZZ Resection of Right Large Intestine, Percutaneous Endoscopic Approach (ICD-10-PCS; principal; 2022-03-24 07:30)
PROC: 05HB33Z Insertion of Infusion Device into Right Basilic Vein, Percutaneous Approach (ICD-10-PCS; 2022-03-31)
PROC: 0JH63XZ Insertion of Tunneled Vascular Access Device into Chest Subcutaneous Tissue and Fascia, Percutaneous Approach (ICD-10-PCS; 2022-04-04)
PROC: 5A1D70Z Performance of Urinary Filtration, Intermittent, Less than 6 Hours Per Day (ICD-10-PCS; 2022-04-05)
DX: C18.2 Malignant neoplasm of ascending colon (principal); N18.6 End stage renal disease; J96.01 Acute respiratory failure with hypoxia; I12.0 Hypertensive chronic kidney disease with stage 5 chronic kidney disease or end stage renal disease; Z68.41 Body mass index [BMI] 40.0-44.9, adult; E87.1 Hypo-osmolality and hyponatremia; N17.9 Acute kidney failure, unspecified; E87.20 Acidosis, unspecified; E11.22 Type 2 diabetes mellitus with diabetic chronic kidney disease; E78.5 Hyperlipidemia, unspecified; E03.9 Hypothyroidism, unspecified; E66.9 Obesity, unspecified; M19.90 Unspecified osteoarthritis, unspecified site; G25.81 Restless legs syndrome; G47.00 Insomnia, unspecified; L40.9 Psoriasis, unspecified; Z87.891 Personal history of nicotine dependence; Z90.5 Acquired absence of kidney; Z85.528 Personal history of other malignant neoplasm of kidney; I16.0 Hypertensive urgency; J44.9 Chronic obstructive pulmonary disease, unspecified; D64.9 Anemia, unspecified; E87.70 Fluid overload, unspecified; I95.9 Hypotension, unspecified; Z79.890 Hormone replacement therapy; Z79.4 Long term (current) use of insulin; Z79.899 Other long term (current) drug therapy; Z88.8 Allergy status to other drugs, medicaments and biological substances; K63.89 Other specified diseases of intestine; E66.01 Morbid (severe) obesity due to excess calories; I44.0 Atrioventricular block, first degree

== ENCOUNTER → 2022-06-16 | Outpatient (REF) | payer MEDICARE ==
[~2022-06-16] MED LIST changes: +CARV12.5 PO; +CLON-589 PO; +HYDR100T26 PO; +INSU100I6 SC; +ISOS30TAB PO; +MINO10TA PO; +MIRA1POW3 PO; +PERCOCET PO; +SELF1KIT MC
== END ==
LOC: M SFHCADAM 09:36
PROVIDERS: ATTEND Physician Assistant
DX: Z12.5 Encounter for screening for malignant neoplasm of prostate (principal)

== ENCOUNTER → 2022-07-29 | Outpatient (CLI) | payer MEDICARE ==
[~2022-07-29] MED LIST changes: +AMLO10TA PO; +GASTROGRAFIN SOLUTION 30ML As Ordered ONE; +INSUDET SC; -LOSA100T45 PO; +LOSA100T46 PO; +RENV2TAB PO; +VELP5CHW PO
== END ==
LOC: M RAD 11:25
PROVIDERS: ATTEND Internal Medicine Medical Oncology
DX: C18.9 Malignant neoplasm of colon, unspecified (principal); Z98.0 Intestinal bypass and anastomosis status; Z90.49 Acquired absence of other specified parts of digestive tract; K57.30 Diverticulosis of large intestine without perforation or abscess without bleeding; I70.0 Atherosclerosis of aorta; R93.5 Abnormal findings on diagnostic imaging of other abdominal regions, including retroperitoneum; I25.10 Atherosclerotic heart disease of native coronary artery without angina pectoris
CPT/HCPCS: 71250; 74176; Q9963

== ENCOUNTER 2022-08-05 10:21 | Day surgery (SDC) | payer MEDICARE ==
[~2022-08-05] VITALS: Ht 182.9 cm; Wt 132.9 kg
[~2022-08-05 10:21] MED LIST changes: +CelecoXIB 400 MG CAP PO ONE; -GASTROGRAFIN SOLUTION 30ML As Ordered ONE; +LIDOCAINE 2% 100MG/5ML SDV (FOR ANES.) As Ordered ONE; +MIDAZOLAM 5MG/ML 1ML VIAL As Ordered ONE; +MIDAZOLAM INJ 2MG/2ML VIAL As Ordered ONE; +ONDANSETRON 4MG 2ML VIAL As Ordered ONE; +ROCURONIUM BROMIDE 50MG/5ML VIAL As Ordered ONE; +SUGAMMADEX SODIUM 500 MG/5 ML VIAL (BRIDION) As Ordered ONE; +fentaNYL 100 MCG/2 ML INJECTION As Ordered ONE; +propofoL 200 MG/20 ML VIAL As Ordered ONE
[2022-08-05] MEDS ORDERED: HEPARIN SOD (PORCINE) 5000UNITS/ML 1ML VIAL/SYRINGE As Ordered ONE (10:34)
[2022-08-05] MEDS ORDERED: ceFAZolin SOD 1 GM in D5W MINI-BAG PLUS 50 ML IV ONE (11:05)
[2022-08-05] MEDS ORDERED: ceFAZolin SOD 2 GM in IV 1 EA IV ONE (11:05)
[2022-08-05] MEDS ORDERED: ETOMIDATE INJ 20MG/10ML VIAL As Ordered ONE (11:17)
[2022-08-05] MEDS ORDERED: CISATRACURIUM 2MG/ML 5ML VIAL As Ordered ONE (11:23)
[2022-08-05] MEDS ORDERED: ceFAZolin 1GM VIAL As Ordered ONE (11:55)
[2022-08-05] MEDS ORDERED: ceFAZolin 2 GM/D5W 50 ML IV BAG As Ordered ONE (11:55)
[2022-08-05] MEDS ORDERED: VASOPRESSIN INJ 20UNITS/ML 1ML VIAL As Ordered ONE (12:22)
[2022-08-05] MEDS ORDERED: ePHEDrine SULFATE 25 MG/5 ML(5MG/ML) SYRINGE As Ordered ONE (12:22)
[2022-08-05] MEDS ORDERED: oxyCODONE 5MG TAB PO PRN (12:55)
[2022-08-05] MEDS ORDERED: fentaNYL 100 MCG/2 ML INJECTION IV PRN (12:55)
[2022-08-05] MEDS ORDERED: ONDANSETRON 4MG 2ML VIAL IV PRN (12:55)
[2022-08-05] MEDS ORDERED: INSULIN LISPRO (NovoLOG) PER UNIT SC PRN (12:55)
[2022-08-05 14:05] VITALS: BP 163/70; TEMP 97.8; O2SAT 94
[2022-08-08] MEDS ORDERED: HYDR-3713 (14:48)
== END 2022-08-05 14:35 | disposition home or self-care (01) ==
LOC: M SDC 10:21
PROVIDERS: ATTEND Surgery
DX: N18.6 End stage renal disease (principal); I12.0 Hypertensive chronic kidney disease with stage 5 chronic kidney disease or end stage renal disease; E11.9 Type 2 diabetes mellitus without complications; E03.9 Hypothyroidism, unspecified; K21.9 Gastro-esophageal reflux disease without esophagitis; D64.9 Anemia, unspecified; F32.A Depression, unspecified; Z87.891 Personal history of nicotine dependence; Z88.8 Allergy status to other drugs, medicaments and biological substances; B18.2 Chronic viral hepatitis C; Z79.899 Other long term (current) drug therapy; Z85.528 Personal history of other malignant neoplasm of kidney
CPT/HCPCS: 36415; 49324; 84132; C1750; J0690; J1100; J2250; J2405; J3010

== ENCOUNTER 2022-08-26 12:12 | Emergency (ER) | payer MEDICARE ==
[~2022-08-26] VITALS: Ht 182.9 cm; Wt 131.5 kg
[~2022-08-26 12:12] MED LIST changes: -CelecoXIB 400 MG CAP PO ONE; +HYDR-3713; -LIDOCAINE 2% 100MG/5ML SDV (FOR ANES.) As Ordered ONE; -MIDAZOLAM 5MG/ML 1ML VIAL As Ordered ONE; -MIDAZOLAM INJ 2MG/2ML VIAL As Ordered ONE; -ONDANSETRON 4MG 2ML VIAL As Ordered ONE; -ROCURONIUM BROMIDE 50MG/5ML VIAL As Ordered ONE; -ROPI0.253 PO; +ROPI5TAB19 PO; -SUGAMMADEX SODIUM 500 MG/5 ML VIAL (BRIDION) As Ordered ONE; -fentaNYL 100 MCG/2 ML INJECTION As Ordered ONE; -propofoL 200 MG/20 ML VIAL As Ordered ONE
[2022-08-26 13:54] LABS: BASO # 0.1 10^3/uL (0.0-0.2); BASO % 0.7 % (0.0-1.0); EOS # 0.3 10^3/uL (0.0-0.5); EOS % 4.3 % (0.0-3.0); HEMATOCRIT 35.3 % (42.0-52.0); HEMOGLOBIN 12.1 g/dl (13.5-17.5); LYMPH # 1.2 10^3/uL (1.5-5.0); LYMPH % 17.1 % (24.0-44.0); MEAN CORPUSCULAR HEMOGLOBIN 30.4 pg (27.0-33.0); MEAN CORPUSCULAR HGB CONC 34.3 g/dl (32.0-36.5); MEAN CORPUSCULAR VOLUME 88.7 fl (80.0-96.0); MONO # 0.7 10^3/uL (0.0-0.8); MONO % 9.2 % (2.0-8.0); NEUTROPHILS # 4.9 10^3/uL (1.5-8.5); NEUTROPHILS % 67.9 % (36.0-66.0); PLATELET COUNT, AUTOMATED 217 10^3/uL (150-450); RED BLOOD COUNT 3.98 10^6/uL (4.30-6.10); WHITE BLOOD COUNT 7.2 10^3/uL (4.0-10.0)
[2022-08-26 14:23] LABS: ALBUMIN 3.4 G/DL (3.2-5.2); ALKALINE PHOSPHATASE 52 U/L (46-116); ALT/SGPT < 9 U/L (7.0-40); AST/SGOT < 8 U/L (<34); BILIRUBIN,DIRECT 0.1 MG/DL (<0.4); BILIRUBIN,TOTAL 0.4 MG/DL (0.3-1.2); BLOOD UREA NITROGEN 17 MG/DL (9-23); CALCIUM LEVEL 8.6 MG/DL (8.3-10.6); CARBON DIOXIDE LEVEL 30 MMOL/L (20-31); CHLORIDE LEVEL 104 MMOL/L (98-107); GLOMERULAR FILTRATION RATE 29.2 (>49); GLUCOSE, FASTING 116 MG/DL (74-106); POTASSIUM SERUM 3.6 MMOL/L (3.5-5.1); SODIUM LEVEL 140 MMOL/L (136-145); TOTAL PROTEIN 7.1 G/DL (5.7-8.2)
[2022-08-26] MEDS ORDERED: VANCOMYCIN HCL 1,000 MG, VIAL MATE ADAPTER 1 EACH in NS 250 ML IV ONE (15:35)
[2022-08-26 18:48] VITALS: BP 144/67; TEMP 98.2; O2SAT 95
== END 2022-08-26 18:52 | disposition home or self-care (01) ==
LOC: M ED 12:12
DX: T82.49XA Other complication of vascular dialysis catheter, initial encounter (principal); N18.6 End stage renal disease; Z99.2 Dependence on renal dialysis; E11.9 Type 2 diabetes mellitus without complications; I10 Essential (primary) hypertension; F32.9 Major depressive disorder, single episode, unspecified; E78.5 Hyperlipidemia, unspecified; Z85.528 Personal history of other malignant neoplasm of kidney; Z90.5 Acquired absence of kidney; Z79.4 Long term (current) use of insulin; Z79.899 Other long term (current) drug therapy; Z88.8 Allergy status to other drugs, medicaments and biological substances

== ENCOUNTER → 2022-09-19 | Outpatient (CLI) | payer MEDICARE | LOC: M PLARAD 08:31 | PROVIDERS: ATTEND Nurse Practitioner | DX: C18.0 Malignant neoplasm of cecum (principal); Z53.9 Procedure and treatment not carried out, unspecified reason ==

== ENCOUNTER → 2022-09-30 | Outpatient (CLI) | payer MEDICARE ==
[~2022-09-30] MED LIST changes: +LIDOCAINE 1% MDV 20ML VIAL As Ordered ONE; +LIDOCAINE W/EPINEPHRINE 1% 20ML VIAL As Ordered ONE
[2022-09-30 07:15] VITALS: TEMP 98.5
[2022-09-30 08:30] VITALS: BP 182/94; O2SAT 95
== END ==
LOC: M IRPRO 06:54
PROVIDERS: ATTEND Surgery Vascular Surgery
DX: N18.6 End stage renal disease (principal); Z99.2 Dependence on renal dialysis

== ENCOUNTER 2022-10-25 02:35 | Emergency (ER) | payer MEDICAID, MEDICARE ==
[~2022-10-25] VITALS: Ht 182.9 cm; Wt 139.0 kg
[~2022-10-25 02:35] MED LIST changes: -LIDOCAINE 1% MDV 20ML VIAL As Ordered ONE; -LIDOCAINE W/EPINEPHRINE 1% 20ML VIAL As Ordered ONE
[2022-10-25 02:50] VITALS: TEMP 98.1
[2022-10-25 03:32] LABS: BASO % 0.5 % (0.0-1.0); EOS # 0.2 10^3/uL (0.0-0.5); EOS % 2.9 % (0.0-3.0); HEMATOCRIT 31.9 % (42.0-52.0); HEMOGLOBIN 10.7 g/dl (13.5-17.5); LYMPH # 0.9 10^3/uL (1.5-5.0); LYMPH % 12.3 % (24.0-44.0); MEAN CORPUSCULAR HEMOGLOBIN 30.3 pg (27.0-33.0); MEAN CORPUSCULAR HGB CONC 33.5 g/dl (32.0-36.5); MEAN CORPUSCULAR VOLUME 90.4 fl (80.0-96.0); MONO # 0.6 10^3/uL (0.0-0.8); MONO % 8.1 % (2.0-8.0); NEUTROPHILS # 5.7 10^3/uL (1.5-8.5); NEUTROPHILS % 75.5 % (36.0-66.0); PLATELET COUNT, AUTOMATED 219 10^3/uL (150-450); RED BLOOD COUNT 3.53 10^6/uL (4.30-6.10); WHITE BLOOD COUNT 7.5 10^3/uL (4.0-10.0)
[2022-10-25 03:54] LABS: LIPASE 41 U/L (12-53)
[2022-10-25 03:56] LABS: ALBUMIN 2.9 G/DL (3.2-5.2); ALKALINE PHOSPHATASE 52 U/L (46-116); ALT/SGPT 10 U/L (7.0-40); AST/SGOT < 8 U/L (<34); BILIRUBIN,DIRECT < 0.1 MG/DL (<0.4); BILIRUBIN,TOTAL 0.2 MG/DL (0.3-1.2); TOTAL PROTEIN 6.6 G/DL (5.7-8.2)
[2022-10-25] MEDS ORDERED: ONDANSETRON 4MG 2ML VIAL IV ONE (06:00)
[2022-10-25] MEDS ORDERED: MORPHINE 4 MG/ML 1ML VIAL IV ONE (06:00)
[2022-10-25 08:01] VITALS: BP 145/104; O2SAT 97
== END 2022-10-25 08:33 | disposition home or self-care (01) ==
LOC: M ED 02:35 → EDBD 02:35 → M ED 08:33
DX: R10.9 Unspecified abdominal pain (principal); E11.9 Type 2 diabetes mellitus without complications; I10 Essential (primary) hypertension; E78.5 Hyperlipidemia, unspecified; C64.9 Malignant neoplasm of unspecified kidney, except renal pelvis; N18.6 End stage renal disease; Z87.891 Personal history of nicotine dependence; Z88.8 Allergy status to other drugs, medicaments and biological substances; Z91.09 Other allergy status, other than to drugs and biological substances; Z79.4 Long term (current) use of insulin; Z79.891 Long term (current) use of opiate analgesic; Z79.899 Other long term (current) drug therapy

== ENCOUNTER → 2022-11-28 | Outpatient (CLI) | payer MEDICARE, MEDICAID | LOC: M PLARAD 11:30 | PROVIDERS: ATTEND Nurse Practitioner | DX: C18.0 Malignant neoplasm of cecum (principal) | CPT/HCPCS: 78815; A9552 ==

== ENCOUNTER → 2023-02-17 | Outpatient (CLI) | payer MEDICARE | LOC: M PLAIMG 10:43 | PROVIDERS: ATTEND Nurse Practitioner | DX: C18.9 Malignant neoplasm of colon, unspecified (principal) ==

== ENCOUNTER → 2023-03-15 | Outpatient (CLI) | payer MEDICARE | LOC: M PLAIMG 10:11 | PROVIDERS: ATTEND Nurse Practitioner | DX: C18.9 Malignant neoplasm of colon, unspecified (principal); Z90.5 Acquired absence of kidney; N28.89 Other specified disorders of kidney and ureter; Z90.49 Acquired absence of other specified parts of digestive tract; K57.30 Diverticulosis of large intestine without perforation or abscess without bleeding ==

== ENCOUNTER → 2023-03-28 | Outpatient (REF) | payer MEDICARE ==
[2023-03-28 17:13] LABS: HEMATOCRIT 38.8 % (42.0-52.0); HEMOGLOBIN 13.2 g/dl (13.5-17.5); RED BLOOD COUNT 4.42 10^6/uL (4.30-6.10); WHITE BLOOD COUNT 6.9 10^3/uL (4.0-10.0)
[2023-03-28 17:14] LABS: BASO # 0.1 10^3/uL (0.0-0.2); BASO % 0.9 % (0.0-1.0); EOS # 0.2 10^3/uL (0.0-0.5); EOS % 2.9 % (0.0-3.0); LYMPH # 1.1 10^3/uL (1.5-5.0); LYMPH % 15.2 % (24.0-44.0); MEAN CORPUSCULAR HEMOGLOBIN 29.9 pg (27.0-33.0); MEAN CORPUSCULAR VOLUME 87.8 fl (80.0-96.0); MONO # 0.4 10^3/uL (0.0-0.8); MONO % 6.2 % (2.0-8.0); NEUTROPHILS # 5.1 10^3/uL (1.5-8.5); NEUTROPHILS % 73.9 % (36.0-66.0); PLATELET COUNT, AUTOMATED 200 10^3/uL (150-450)
[2023-03-28 17:19] LABS: ALBUMIN 2.7 G/DL (3.2-5.2); ALKALINE PHOSPHATASE 67 U/L (46-116); ALT/SGPT < 9 U/L (7.0-40); AST/SGOT < 8 U/L (<34); BILIRUBIN,TOTAL 0.3 MG/DL (0.3-1.2); BLOOD UREA NITROGEN 68 MG/DL (9-23); CALCIUM LEVEL 7.9 MG/DL (8.3-10.6); CARBON DIOXIDE LEVEL 26 MMOL/L (20-31); CHLORIDE LEVEL 96 MMOL/L (98-107); GLOMERULAR FILTRATION RATE 13.4 (>49); GLUCOSE, FASTING 399 MG/DL (74-106); POTASSIUM SERUM 4.2 MMOL/L (3.5-5.1); SODIUM LEVEL 132 MMOL/L (136-145); TOTAL PROTEIN 6.6 G/DL (5.7-8.2)
== END ==
LOC: M LAB REF 16:02
PROVIDERS: ATTEND Internal Medicine Medical Oncology
DX: C18.9 Malignant neoplasm of colon, unspecified (principal); E78.00 Pure hypercholesterolemia, unspecified; E03.9 Hypothyroidism, unspecified; Z12.5 Encounter for screening for malignant neoplasm of prostate
CPT/HCPCS: 80053; 80061; 82378; 84439; 84443; 85025; G0103

== ENCOUNTER → 2023-03-28 | Outpatient (REF) | payer MEDICARE ==
[2023-03-28 17:17] LABS: PSA SCREENING 0.48 NG/ML (< 4.00)
[2023-03-28 17:22] LABS: CHOLESTEROL RISK RATIO 3.41 (<5); HDL CHOLESTEROL 34.8 MG/DL (>40); LDL CHOLESTEROL 51.2 MG/DL (<100); NON-HDL-C 84.2 MG/DL
[2023-03-28 17:23] LABS: THYROID STIMULATING HORMONE 2.54 uIU/ML (0.55-4.78)
[2023-03-28 17:24] LABS: FREE T4 1.51 NG/DL (0.89-1.76)
== END ==
LOC: M SFHCADAM 16:04
PROVIDERS: ATTEND Physician Assistant
DX: E78.00 Pure hypercholesterolemia, unspecified (principal); E03.9 Hypothyroidism, unspecified; Z12.5 Encounter for screening for malignant neoplasm of prostate

== ENCOUNTER → 2023-04-12 | Outpatient (CLI) | payer MEDICARE ==
[~2023-04-12] MED LIST changes: +ISOVUE-370 76% 100ML VIAL ONE; -MIRA1POW3 PO; +MIRA33506 PO; +ROPI1TAB73 PO
== END ==
LOC: M PLAIMG 10:23
PROVIDERS: ATTEND Internal Medicine Medical Oncology
DX: N28.89 Other specified disorders of kidney and ureter (principal); C18.9 Malignant neoplasm of colon, unspecified; Z90.5 Acquired absence of kidney; R18.8 Other ascites; I70.0 Atherosclerosis of aorta; I25.10 Atherosclerotic heart disease of native coronary artery without angina pectoris
CPT/HCPCS: 74170; Q9967

== ENCOUNTER 2023-06-13 15:22 | Inpatient (IN) | payer MEDICARE ==
[~2023-06-13] VITALS: Ht 182.9 cm; Wt 144.8 kg
[~2023-06-13 15:22] MED LIST changes: -ISOVUE-370 76% 100ML VIAL ONE
[2023-06-13 15:55] LABS: BASO % 0.6 % (0.0-1.0); EOS # 0.2 10^3/uL (0.0-0.5); EOS % 3.3 % (0.0-3.0); HEMATOCRIT 38.1 % (42.0-52.0); HEMOGLOBIN 12.9 g/dl (13.5-17.5); LYMPH # 1.1 10^3/uL (1.5-5.0); LYMPH % 16.8 % (24.0-44.0); MEAN CORPUSCULAR HEMOGLOBIN 30.3 pg (27.0-33.0); MEAN CORPUSCULAR HGB CONC 33.9 g/dl (32.0-36.5); MEAN CORPUSCULAR VOLUME 89.4 fl (80.0-96.0); MONO # 0.6 10^3/uL (0.0-0.8); MONO % 8.3 % (2.0-8.0); NEUTROPHILS # 4.7 10^3/uL (1.5-8.5); NEUTROPHILS % 70.5 % (36.0-66.0); PLATELET COUNT, AUTOMATED 211 10^3/uL (150-450); RED BLOOD COUNT 4.26 10^6/uL (4.30-6.10); WHITE BLOOD COUNT 6.6 10^3/uL (4.0-10.0)
[2023-06-13 16:18] LABS: LIPASE 41 U/L (12-53)
[2023-06-13 16:20] LABS: ALBUMIN 2.7 G/DL (3.2-5.2); ALKALINE PHOSPHATASE 63 U/L (46-116); ALT/SGPT 10 U/L (7.0-40); AST/SGOT 11 U/L (<34); BILIRUBIN,DIRECT < 0.1 MG/DL (<0.4); BILIRUBIN,TOTAL 0.3 MG/DL (0.3-1.2); BLOOD UREA NITROGEN 53 MG/DL (9-23); CALCIUM LEVEL 8.3 MG/DL (8.3-10.6); CARBON DIOXIDE LEVEL 29 MMOL/L (20-31); CHLORIDE LEVEL 98 MMOL/L (98-107); CREATININE FOR GFR 5.01 MG/DL (0.70-1.30); GLOMERULAR FILTRATION RATE 12.4 (>49); GLUCOSE, FASTING 137 MG/DL (74-106); MAGNESIUM LEVEL 1.9 MG/DL (1.8-2.4); PHOSPHORUS LEVEL 6.5 MG/DL (2.4-5.1); POTASSIUM SERUM 4.2 MMOL/L (3.5-5.1); SODIUM LEVEL 134 MMOL/L (136-145); TOTAL PROTEIN 6.6 G/DL (5.7-8.2)
[2023-06-13 16:21] LABS: THYROID STIMULATING HORMONE 2.215 uIU/ML (0.55-4.78)
[2023-06-13 16:23] LABS: CK-MB VALUE MASS 1.9 NG/ML (<3.6)
[2023-06-13 16:27] LABS: CPK CREATINE PHOSPHOKINASE 76 U/L (46-171)
[2023-06-13 18:13] LABS: CK-MB VALUE MASS 2.3 NG/ML (<3.6)
[2023-06-13 18:14] LABS: MB/CK RELATIVE INDEX 3.02 (< OR =4)
[2023-06-13] MEDS ORDERED: CARV12.5 PO (19:06)
[2023-06-13] MEDS ORDERED: POLY17PO18 PO (19:06)
[2023-06-13] MEDS ORDERED: MINO10TA PO (19:06)
[2023-06-13] MEDS ORDERED: TORS100T PO (19:08)
[2023-06-13] MEDS ORDERED: HOME MED LIST COMPLETE! XX SCH ×2 (19:15→23:50)
[2023-06-13] MEDS ORDERED: DEXTROSE 50% 50ML SYRINGE IV PRN (19:15)
[2023-06-13] MEDS ORDERED: GLUCAGON INJ 1MG VIAL SC PRN (19:15)
[2023-06-13] MEDS ORDERED: GLUCOSE 4GM CHEW TABLET PO PRN (19:15)
[2023-06-13] MEDS ORDERED: LEVEMIR (INSULIN DETEMIR) 1 UNITS/0.01ML SC SCH (21:00)
[2023-06-13] MEDS: ATORVASTATIN 20 MG TAB PO SCH (21:23)
[2023-06-13] MEDS: MIRTAZAPINE 7.5MG PER 1/2 TABLET PO SCH (21:23)
[2023-06-13] MEDS: traZODone 100 MG TAB PO SCH (21:23)
[2023-06-13] MEDS: PIPERACILLIN/TAZOBACTAM SOD 3.375 GM in D5W MINI-BAG PLUS 50 ML IV ONE (23:24)
[2023-06-13] MEDS: rOPINIRole 0.25 MG TAB(REQUIP) PO SCH (23:57)
[2023-06-13] MEDS: rOPINIRole 1MG TAB PO SCH (23:57)
[2023-06-13] MEDS: INSULIN LISPRO (NovoLOG) PER UNIT SC SCH (23:57)
[2023-06-14 00:32] VITALS: BP 131/62; TEMP 98; O2SAT 98
[2023-06-14 04:53] VITALS: BP 162/70; TEMP 97.3; O2SAT 97
[2023-06-14 06:03] LABS: CALCIUM LEVEL 8.1 MG/DL (8.3-10.6); CREATININE FOR GFR 5.14 MG/DL (0.70-1.30); GLOMERULAR FILTRATION RATE 12.1 (>49); POTASSIUM SERUM 3.6 MMOL/L (3.5-5.1)
[2023-06-14] MEDS: PIPERACILLIN/TAZOBACTAM SOD 2.25 GM in D5W MINI-BAG PLUS 50 ML IV SCH (06:22)
[2023-06-14] MEDS: LEVOTHYROXINE 100MCG TABLET (0.1MG) PO SCH (06:23)
[2023-06-14] MEDS: LEVOTHYROXINE 25MCG TABLET (0.025MG) PO SCH (06:23)
[2023-06-14 08:00] VITALS: BP 152/80; TEMP 97.7; O2SAT 96
[2023-06-14] MEDS: GABAPENTIN 300 MG CAP PO PRN (09:11)
[2023-06-14] MEDS: (RENVELA) SEVELAMER **CARBONate** 800 MG TAB PO SCH (09:11)
[2023-06-14] MEDS: allopurinoL 100 MG TAB PO SCH (09:11)
[2023-06-14 10:25] LABS: HEMATOCRIT 35.7 % (42.0-52.0); HEMOGLOBIN 11.8 g/dl (13.5-17.5); MEAN CORPUSCULAR HEMOGLOBIN 30.1 pg (27.0-33.0); MEAN CORPUSCULAR HGB CONC 33.1 g/dl (32.0-36.5); MEAN CORPUSCULAR VOLUME 91.1 fl (80.0-96.0); PLATELET COUNT, AUTOMATED 186 10^3/uL (150-450); RED BLOOD COUNT 3.92 10^6/uL (4.30-6.10); WHITE BLOOD COUNT 6.3 10^3/uL (4.0-10.0)
[2023-06-14] MEDS: HEPARIN SOD (PORCINE) 5000UNITS/ML 1ML VIAL/SYRINGE PD SCH (10:45)
[2023-06-14] MEDS: POTASSIUM CHLORIDE 10MEQ SR TABLET PO ONE (10:46)
[2023-06-14 12:25] VITALS: BP 172/74; TEMP 98.1; O2SAT 91
[2023-06-14] MEDS: TORSEMIDE 100 MG TAB PO SCH (12:26)
[2023-06-14 12:28] LABS: APPEARANCE, BODY FLUID CLEAR (CLEAR); PERITONEAL DIALYSATE FL COLOR COLORLESS (COLORLESS); SOURCE, BODY FLUID PERITONEAL DIALYSATE
[2023-06-14] MEDS: HEPARIN SOD (PORCINE) 5000UNITS/ML 1ML VIAL/SYRINGE SQ SCH (14:00)
[2023-06-14 16:00] VITALS: BP 158/74; TEMP 97.9; O2SAT 93
[2023-06-14 19:55] VITALS: BP 159/72; TEMP 97.9; O2SAT 93
[2023-06-14] MEDS: LEVEMIR (INSULIN DETEMIR) 1 UNITS/0.01ML SC SCH (20:55)
[2023-06-15] VITALS (7 sets, daily range): BP systolic 142–192; BP diastolic 68–88; TEMP 97.4–98.1; O2SAT 91–95
[2023-06-15 07:25] LABS: APPEARANCE, BODY FLUID CLEAR (CLEAR); PERITONEAL DIALYSATE FL COLOR COLORLESS (COLORLESS); SOURCE, BODY FLUID PERITONEAL DIALYSATE
[2023-06-15 07:43] LABS: BASO % 0.7 % (0.0-1.0); EOS # 0.3 10^3/uL (0.0-0.5); EOS % 4.2 % (0.0-3.0); HEMATOCRIT 36.7 % (42.0-52.0); HEMOGLOBIN 12.3 g/dl (13.5-17.5); LYMPH # 0.9 10^3/uL (1.5-5.0); LYMPH % 14.4 % (24.0-44.0); MEAN CORPUSCULAR HGB CONC 33.5 g/dl (32.0-36.5); MEAN CORPUSCULAR VOLUME 89.5 fl (80.0-96.0); MONO # 0.5 10^3/uL (0.0-0.8); MONO % 8.8 % (2.0-8.0); NEUTROPHILS # 4.2 10^3/uL (1.5-8.5); NEUTROPHILS % 71.6 % (36.0-66.0); PLATELET COUNT, AUTOMATED 216 10^3/uL (150-450); WHITE BLOOD COUNT 5.9 10^3/uL (4.0-10.0)
[2023-06-15 08:03] LABS: ERYTHROCYTE SEDIMENTATION RATE 67 mm/hr (0-20)
[2023-06-15 08:11] LABS: C REACTIVE PROTEIN QUANTITATIV 1.9 MG/DL (<1.0)
[2023-06-15 08:12] LABS: CALCIUM LEVEL 8.3 MG/DL (8.3-10.6); CREATININE FOR GFR 4.79 MG/DL (0.70-1.30); GLOMERULAR FILTRATION RATE 13.1 (>49); POTASSIUM SERUM 4.1 MMOL/L (3.5-5.1)
[2023-06-15 08:32] LABS: PROCALCITONIN 0.17 ng/ml
[2023-06-15] MEDS: INSULIN LISPRO (NovoLOG) PER UNIT SC SCH ×2 (08:58→21:00)
[2023-06-15] MEDS ORDERED: RAMELTEON 8 MG TAB (ROZEREM) PO PRN (09:35)
[2023-06-15] MEDS: GABAPENTIN 300 MG CAP PO PRN (21:15)
[2023-06-16] VITALS (7 sets, daily range): BP systolic 146–190; BP diastolic 60–79; TEMP 97.7–98.8; O2SAT 91–96
[2023-06-16 07:51] LABS: HEMATOCRIT 40.5 % (42.0-52.0); HEMOGLOBIN 13.6 g/dl (13.5-17.5); MEAN CORPUSCULAR HEMOGLOBIN 30.2 pg (27.0-33.0); MEAN CORPUSCULAR HGB CONC 33.6 g/dl (32.0-36.5); PLATELET COUNT, AUTOMATED 230 10^3/uL (150-450); WHITE BLOOD COUNT 5.8 10^3/uL (4.0-10.0)
[2023-06-16 08:23] LABS: ALBUMIN 2.8 G/DL (3.2-5.2); CALCIUM LEVEL 8.6 MG/DL (8.3-10.6); CREATININE FOR GFR 4.52 MG/DL (0.70-1.30); MAGNESIUM LEVEL 1.9 MG/DL (1.8-2.4); PHOSPHORUS LEVEL 4.5 MG/DL (2.4-5.1); POTASSIUM SERUM 3.9 MMOL/L (3.5-5.1)
[2023-06-16] MEDS: PIPERACILLIN/TAZOBACTAM SOD 3.375 GM in D5W MINI-BAG PLUS 50 ML IV SCH (11:58)
[2023-06-16 15:17] LABS: APPEARANCE, BODY FLUID CLEAR (CLEAR); PERITONEAL DIALYSATE FL COLOR COLORLESS (COLORLESS); SOURCE, BODY FLUID PERITONEAL DIALYSATE
[2023-06-17] VITALS (7 sets, daily range): BP systolic 139–182; BP diastolic 64–73; TEMP 97.7–98.7; O2SAT 90–95
[2023-06-17 07:48] LABS: APPEARANCE, BODY FLUID CLEAR (CLEAR); PERITONEAL DIALYSATE FL COLOR COLORLESS (COLORLESS); SOURCE, BODY FLUID PERITONEAL DIALYSATE
[2023-06-17 09:35] LABS: HEMATOCRIT 36.9 % (42.0-52.0); HEMOGLOBIN 12.3 g/dl (13.5-17.5); MEAN CORPUSCULAR HGB CONC 33.3 g/dl (32.0-36.5); PLATELET COUNT, AUTOMATED 198 10^3/uL (150-450); WHITE BLOOD COUNT 5.8 10^3/uL (4.0-10.0)
[2023-06-17 10:00] LABS: ALBUMIN 2.5 G/DL (3.2-5.2); CALCIUM LEVEL 8.4 MG/DL (8.3-10.6); CREATININE FOR GFR 4.3 MG/DL (0.70-1.30); GLOMERULAR FILTRATION RATE 14.8 (>49); MAGNESIUM LEVEL 1.7 MG/DL (1.8-2.4); PHOSPHORUS LEVEL 4.2 MG/DL (2.4-5.1); POTASSIUM SERUM 3.8 MMOL/L (3.5-5.1)
[2023-06-17] MEDS ORDERED: MINO10TA PO (12:13)
[2023-06-19 10:07] LABS: LYME PCR FOR BODY FLUID Negative (Negative)
== END 2023-06-17 15:29 | disposition home or self-care (01) | DRG 308 ==
LOC: M ED 15:22 → EDBD 15:22 → M ED INP 19:12 → M PCU 21:30
PROVIDERS: ADMIT Internal Medicine; ATTEND Internal Medicine
DX: I44.2 Atrioventricular block, complete (principal); N18.6 End stage renal disease; K65.9 Peritonitis, unspecified; E87.1 Hypo-osmolality and hyponatremia; I12.0 Hypertensive chronic kidney disease with stage 5 chronic kidney disease or end stage renal disease; E11.22 Type 2 diabetes mellitus with diabetic chronic kidney disease; Z99.2 Dependence on renal dialysis; E03.9 Hypothyroidism, unspecified; I20.9 Angina pectoris, unspecified; M10.9 Gout, unspecified; G47.00 Insomnia, unspecified; G25.81 Restless legs syndrome; E21.3 Hyperparathyroidism, unspecified; E11.40 Type 2 diabetes mellitus with diabetic neuropathy, unspecified; Z79.899 Other long term (current) drug therapy; Z88.8 Allergy status to other drugs, medicaments and biological substances; Z87.891 Personal history of nicotine dependence; Z85.528 Personal history of other malignant neoplasm of kidney

== ENCOUNTER → 2023-06-17 | Outpatient (CLI) | payer MEDICARE ==
[~2023-06-17] MED LIST changes: +POLY17PO18 PO; -ROSU40TA4 PO; +ROSU40TA63 PO; +TORS100T PO
== END ==
LOC: M EKG 15:35
PROVIDERS: ATTEND Student in an Organized Health Care Education/Training Program
DX: I44.2 Atrioventricular block, complete (principal)

== ENCOUNTER → 2023-07-19 | Outpatient (REF) | payer MEDICARE ==
[2023-07-19 14:48] LABS: BASO # 0.1 10^3/uL (0.0-0.2); BASO % 0.6 % (0.0-1.0); EOS # 0.3 10^3/uL (0.0-0.5); EOS % 3.3 % (0.0-3.0); HEMATOCRIT 36.9 % (42.0-52.0); HEMOGLOBIN 12.1 g/dl (13.5-17.5); LYMPH % 12.5 % (24.0-44.0); MEAN CORPUSCULAR HGB CONC 32.8 g/dl (32.0-36.5); MEAN CORPUSCULAR VOLUME 91.3 fl (80.0-96.0); MONO # 0.6 10^3/uL (0.0-0.8); MONO % 7.5 % (2.0-8.0); NEUTROPHILS # 6.1 10^3/uL (1.5-8.5); NEUTROPHILS % 74.4 % (36.0-66.0); PLATELET COUNT, AUTOMATED 225 10^3/uL (150-450); RED BLOOD COUNT 4.04 10^6/uL (4.30-6.10); WHITE BLOOD COUNT 8.2 10^3/uL (4.0-10.0)
[2023-07-19 14:53] LABS: CALCIUM LEVEL 7.9 MG/DL (8.3-10.6); CREATININE FOR GFR 4.62 MG/DL (0.70-1.30); GLOMERULAR FILTRATION RATE 13.7 (>49); POTASSIUM SERUM 4.4 MMOL/L (3.5-5.1)
== END ==
LOC: M LABDRWAD 13:01
PROVIDERS: ATTEND Physician Assistant
DX: R07.9 Chest pain, unspecified (principal)

== ENCOUNTER 2023-08-14 06:46 | Day surgery (SDC) | payer MEDICARE ==
[~2023-08-14] VITALS: Ht 182.9 cm; Wt 142.2 kg
[~2023-08-14 06:46] MED LIST changes: +D200CAP3 PO; +ELIQ5TAB PO
[2023-08-14] MEDS ORDERED: NS 1,000 ML IV SCH ×2 (07:05→11:20)
[2023-08-14] MEDS ORDERED: GLUCAGON INJ 1MG VIAL SC PRN (07:05)
[2023-08-14] MEDS ORDERED: GLUCOSE 4 GM CHEW PO PRN (07:05)
[2023-08-14] MEDS ORDERED: INSULIN LISPRO (NovoLOG) PER UNIT SC PRN (07:05)
[2023-08-14] MEDS ORDERED: MIDAZOLAM INJ 2MG/2ML VIAL As Ordered ONE (08:01)
[2023-08-14] MEDS ORDERED: ROCURONIUM BROMIDE 50MG/5ML VIAL As Ordered ONE (08:01)
[2023-08-14] MEDS ORDERED: fentaNYL 100 MCG/2 ML INJECTION As Ordered ONE (08:03)
[2023-08-14] MEDS: CelecoXIB 400 MG CAP PO ONE (08:33)
[2023-08-14] MEDS ORDERED: ceFAZolin SOD 3 GM in IV 1 EA IV ONE (08:35)
[2023-08-14] MEDS: DEXTROSE 50% 50ML SYRINGE IV PRN (08:38)
[2023-08-14] MEDS: ceFAZolin SOD 2 GM in IV 1 EA IV ONE (10:19)
[2023-08-14] MEDS: ceFAZolin SOD 1 GM in D5W MINI-BAG PLUS 50 ML IV ONE (10:19)
[2023-08-14] MEDS ORDERED: HYDROmorphone HCL 2MG/ML 1ML VIAL As Ordered ONE (10:27)
[2023-08-14] MEDS ORDERED: propofoL 200 MG/20 ML VIAL As Ordered ONE (10:50)
[2023-08-14] MEDS ORDERED: ONDANSETRON 4MG 2ML VIAL As Ordered ONE (10:51)
[2023-08-14] MEDS ORDERED: LIDOCAINE 2% 100MG/5ML SDV (FOR ANES.) As Ordered ONE (10:51)
[2023-08-14] MEDS ORDERED: SUCCINYLCHOLINE 100MG/5ML SYRINGE As Ordered ONE (10:53)
[2023-08-14] MEDS ORDERED: ePHEDrine SULFATE 25 MG/5 ML(5MG/ML) SYRINGE As Ordered ONE (10:54)
[2023-08-14] MEDS ORDERED: GLYCOPYRROLATE INJ 0.2 MG/ML 2 ML VIAL As Ordered ONE (10:54)
[2023-08-14] MEDS ORDERED: PHENYLephrine 500MCG 5ML (100MCG/ML) SYRINGE As Ordered ONE (10:54)
[2023-08-14] MEDS ORDERED: SUGAMMADEX SODIUM 500 MG/5 ML VIAL (BRIDION) As Ordered ONE (11:11)
[2023-08-14] MEDS ORDERED: oxyCODONE 5MG TAB PO PRN (11:20)
[2023-08-14] MEDS ORDERED: ONDANSETRON 4MG 2ML VIAL IV PRN (11:20)
[2023-08-14] MEDS ORDERED: diphenhydrAMINE 50MG/ML VIAL IV PRN (11:20)
[2023-08-14] MEDS ORDERED: fentaNYL 100 MCG/2 ML INJECTION IV PRN (11:20)
[2023-08-14] MEDS ORDERED: METOCLOPRAMIDE INJ 10MG/2ML VIAL IV PRN (11:20)
[2023-08-14] MEDS: oxyCODONE 5MG TAB PO PRN (13:49)
[2023-08-14 14:12] VITALS: BP 147/68; TEMP 97.6; O2SAT 98
== END 2023-08-14 14:30 | disposition home or self-care (01) ==
LOC: M SDC 06:46
PROVIDERS: ATTEND Surgery
DX: T82.49XA Other complication of vascular dialysis catheter, initial encounter (principal)
CPT/HCPCS: 36415; 49324; 82330; 82947; 84132; 84295; 85014; J0330; J0665; J0690; J1170; J2250; J2371; J2405; J3010

== ENCOUNTER → 2023-10-05 | Outpatient (CLI) | payer MEDICARE | LOC: M ADAMS 10:17 | PROVIDERS: ATTEND Physician Assistant | DX: M25.552 Pain in left hip (principal) ==

== ENCOUNTER → 2023-10-11 | Outpatient (CLI) | payer MEDICARE ==
[~2023-10-11] MED LIST changes: +LIDOCAINE 1% MDV 20ML VIAL As Ordered ONE; +MIDAZOLAM INJ 2MG/2ML VIAL As Ordered ONE; +fentaNYL 100 MCG/2 ML INJECTION As Ordered ONE
[2023-10-11 08:13] VITALS: TEMP 98.1
[2023-10-11 08:53] LABS: INR 1.06; PROTHROMBIN TIME 13.5 SECONDS (12.5-14.5)
[2023-10-11 11:15] VITALS: BP 136/63; O2SAT 93
== END ==
LOC: M IRPRO 08:09
PROVIDERS: ATTEND Urology
DX: C64.1 Malignant neoplasm of right kidney, except renal pelvis (principal); N28.89 Other specified disorders of kidney and ureter
CPT/HCPCS: 50200; 76942; 85610; 88305; 99152; J2250; J3010

== ENCOUNTER 2023-11-27 07:10 | Inpatient (IN) | payer MEDICARE ==
[~2023-11-27] VITALS: Ht 182.9 cm; Wt 141.4 kg
[2023-11-27] VITALS (12 sets, daily range): BP systolic 71–119; BP diastolic 48–58; TEMP 97.5; O2SAT 94–99
[~2023-11-27 07:10] MED LIST changes: +ACET300T47 PO; +GABA-1172 PO; -GABA-282 PO; +GLIP10TA15 PO; -GLIP10TA6 PO; -LIDOCAINE 1% MDV 20ML VIAL As Ordered ONE; -MIDAZOLAM INJ 2MG/2ML VIAL As Ordered ONE; -ROSU40TA63 PO; +ROSU40TA81 PO; +SEMA0.257 SUBQ; -fentaNYL 100 MCG/2 ML INJECTION As Ordered ONE
[2023-11-27 08:29] LABS: HEMATOCRIT 34.3 % (42.0-52.0); HEMOGLOBIN 11.3 g/dl (13.5-17.5); MEAN CORPUSCULAR HEMOGLOBIN 29.1 pg (27.0-33.0); MEAN CORPUSCULAR HGB CONC 32.9 g/dl (32.0-36.5); MEAN CORPUSCULAR VOLUME 88.4 fl (80.0-96.0); PLATELET COUNT, AUTOMATED 196 10^3/uL (150-450); RED BLOOD COUNT 3.88 10^6/uL (4.30-6.10); WHITE BLOOD COUNT 8.2 10^3/uL (4.0-10.0)
[2023-11-27 08:40] LABS: INR 1.07; PROTHROMBIN TIME 13.6 SECONDS (12.5-14.5)
[2023-11-27] MEDS ORDERED: CIPROFLOXACIN/D5W 400 MG/200 ML BAG As Ordered ONE (08:58)
[2023-11-27] MEDS: NS 1,000 ML IV SCH ×2 (09:14→18:25)
[2023-11-27] MEDS: CIPROFLOXACIN 400 MG in IV 1 EA IV ONE (09:14)
[2023-11-27] MEDS ORDERED: LIDOCAINE 1% MDV 20ML VIAL As Ordered ONE (12:21)
[2023-11-27] MEDS ORDERED: fentaNYL 100 MCG/2 ML INJECTION As Ordered ONE (12:22)
[2023-11-27] MEDS ORDERED: MIDAZOLAM INJ 2MG/2ML VIAL As Ordered ONE (12:22)
[2023-11-27] MEDS ORDERED: PERCOCET 5MG/325MG TAB PO PRN (14:25)
[2023-11-27] MEDS ORDERED: PHENAZOPYRIDINE 100 MG TAB PO ONE (14:55)
[2023-11-27] MEDS ORDERED: PERCOCET 5MG/325MG TAB As Ordered ONE (15:10)
[2023-11-27] MEDS ORDERED: MEPERIDINE 25 MG/ML 1ML VIAL As Ordered ONE (15:21)
[2023-11-27] MEDS: MEPERIDINE 25 MG/ML 1ML VIAL IV ONE (15:34)
[2023-11-27 15:41] LABS: HEMATOCRIT 34.2 % (42.0-52.0); HEMOGLOBIN 11.3 g/dl (13.5-17.5); MEAN CORPUSCULAR HEMOGLOBIN 29.4 pg (27.0-33.0); MEAN CORPUSCULAR VOLUME 88.8 fl (80.0-96.0); PLATELET COUNT, AUTOMATED 197 10^3/uL (150-450); RED BLOOD COUNT 3.85 10^6/uL (4.30-6.10); WHITE BLOOD COUNT 9.6 10^3/uL (4.0-10.0)
[2023-11-27] MEDS ORDERED: ONDANSETRON 4MG 2ML VIAL As Ordered ONE (16:07)
[2023-11-27] MEDS: ONDANSETRON 4MG 2ML VIAL IV ONE (16:10)
[2023-11-27] MEDS ORDERED: LIDOCAINE 2% 100MG/5ML SDV (FOR ANES.) As Ordered ONE (16:11)
[2023-11-27] MEDS ORDERED: propofoL 200 MG/20 ML VIAL As Ordered ONE (16:11)
[2023-11-27] MEDS ORDERED: LIDOCAINE 1% SDV 30ML VIAL As Ordered ONE (16:16)
[2023-11-27] MEDS ORDERED: ISOVUE-300 61% 100ML VIAL As Ordered ONE (16:16)
[2023-11-27 16:31] LABS: CALCIUM LEVEL 7.8 MG/DL (8.3-10.6); CREATININE FOR GFR 7.73 MG/DL (0.70-1.30); GLOMERULAR FILTRATION RATE 7.5 (>49); POTASSIUM SERUM 3.7 MMOL/L (3.5-5.1)
[2023-11-27] MEDS ORDERED: PHENYLephrine 500MCG 5ML (100MCG/ML) SYRINGE As Ordered ONE (16:43)
[2023-11-27] MEDS: PHENYLEPHRINE HCL INJ 10 MG in D5W 100 ML IV SCH (18:20)
[2023-11-27] MEDS ORDERED: INSULIN LISPRO (NovoLOG) PER UNIT SC PRN (18:25)
[2023-11-27] MEDS ORDERED: DEXTROSE 50% 50ML SYRINGE IV PRN (18:25)
[2023-11-27] MEDS ORDERED: GLUCAGON INJ 1MG VIAL SC PRN (18:25)
[2023-11-27] MEDS ORDERED: GLUCOSE 4 GM CHEW PO PRN (18:25)
[2023-11-27] MEDS ORDERED: oxyCODONE 5MG TAB PO PRN (18:25)
[2023-11-27] MEDS ORDERED: ONDANSETRON 4MG 2ML VIAL IV PRN (18:25)
[2023-11-27] MEDS ORDERED: VASOPRESSIN INJ 20UNITS/ML 1ML VIAL As Ordered ONE (18:31)
[2023-11-27] MEDS: fentaNYL 100 MCG/2 ML INJECTION IV PRN (18:40)
[2023-11-27 19:02] LABS: HEMATOCRIT 24.5 % (42.0-52.0); HEMOGLOBIN 7.9 g/dl (13.5-17.5); MEAN CORPUSCULAR HEMOGLOBIN 29.6 pg (27.0-33.0); MEAN CORPUSCULAR HGB CONC 32.2 g/dl (32.0-36.5); MEAN CORPUSCULAR VOLUME 91.8 fl (80.0-96.0); PLATELET COUNT, AUTOMATED 245 10^3/uL (150-450); RED BLOOD COUNT 2.67 10^6/uL (4.30-6.10); WHITE BLOOD COUNT 17.3 10^3/uL (4.0-10.0)
[2023-11-27] MEDS: HYDROMORPHONE HCL 0.5 MG/ 0.5 ML SYRINGE IV PRN (19:06)
[2023-11-27] MEDS ORDERED: ISOVUE-370 76% 100ML VIAL As Ordered ONE (20:13)
[2023-11-27] MEDS: NOREPINEPHRINE 4MG IN D5 250ML 4 MG in IV 1 EA IV SCH (22:41)
[2023-11-28] VITALS (90 sets, daily range): BP systolic 82–135; BP diastolic 42–98; TEMP 97.1–99.4; O2SAT 87–99
[2023-11-28 01:09] LABS: HEMATOCRIT 28.2 % (42.0-52.0); HEMOGLOBIN 9.1 g/dl (13.5-17.5); MEAN CORPUSCULAR HEMOGLOBIN 29.4 pg (27.0-33.0); MEAN CORPUSCULAR HGB CONC 32.3 g/dl (32.0-36.5); MEAN CORPUSCULAR VOLUME 91.3 fl (80.0-96.0); PLATELET COUNT, AUTOMATED 203 10^3/uL (150-450); RED BLOOD COUNT 3.09 10^6/uL (4.30-6.10); WHITE BLOOD COUNT 14.6 10^3/uL (4.0-10.0)
[2023-11-28 01:40] LABS: CALCIUM LEVEL 7.2 MG/DL (8.3-10.6); CREATININE FOR GFR 8.34 MG/DL (0.70-1.30); GLOMERULAR FILTRATION RATE 6.9 (>49); POTASSIUM SERUM 5.9 MMOL/L (3.5-5.1)
[2023-11-28] MEDS: PATIROMER SORBITEX CALCIUM 8.4 GM POWDER PACKET (VELTASSA) PO ONE (03:09)
[2023-11-28] MEDS: DEXTROSE 50% 50ML SYRINGE IV STA (03:09)
[2023-11-28] MEDS: HumuLIN R (REGULAR) INSULIN (NovoLIN R) **100U/ML** PER UNIT IV STA (03:09)
[2023-11-28 05:21] LABS: BASO % 0.2 % (0.0-1.0); HEMATOCRIT 26.7 % (42.0-52.0); HEMOGLOBIN 8.5 g/dl (13.5-17.5); LYMPH # 0.5 10^3/uL (1.5-5.0); LYMPH % 4.3 % (24.0-44.0); MEAN CORPUSCULAR HGB CONC 31.8 g/dl (32.0-36.5); MEAN CORPUSCULAR VOLUME 91.1 fl (80.0-96.0); MONO # 0.8 10^3/uL (0.0-0.8); MONO % 6.5 % (2.0-8.0); NEUTROPHILS % 87.3 % (36.0-66.0); PLATELET COUNT, AUTOMATED 173 10^3/uL (150-450); RED BLOOD COUNT 2.93 10^6/uL (4.30-6.10); WHITE BLOOD COUNT 12.6 10^3/uL (4.0-10.0)
[2023-11-28 05:43] LABS: CALCIUM LEVEL 7.1 MG/DL (8.3-10.6); CREATININE FOR GFR 8.67 MG/DL (0.70-1.30); GLOMERULAR FILTRATION RATE 6.6 (>49); MAGNESIUM LEVEL 2.6 MG/DL (1.8-2.4); PHOSPHORUS LEVEL 10.9 MG/DL (2.4-5.1); POTASSIUM SERUM 5.8 MMOL/L (3.5-5.1)
[2023-11-28] MEDS: INSULIN LISPRO (NovoLOG) PER UNIT SC SCH (06:00)
[2023-11-28] MEDS ORDERED: HEPARIN 1,000UNITS/ML 10ML VIAL (FOR RADIOLOGY & DIALYSIS ONLY) XX SCH (08:00)
[2023-11-28] MEDS ORDERED: SODIUM CHLORIDE 0.9% 1000ML IV PRN (08:00)
[2023-11-28] MEDS ORDERED: HEPARIN 1,000UNITS/ML 10ML VIAL (FOR RADIOLOGY & DIALYSIS ONLY) IV PRN (08:00)
[2023-11-28] MEDS: MIDAZOLAM INJ 2MG/2ML VIAL IV ONE (08:13)
[2023-11-28] MEDS ORDERED: GLUCAGON INJ 1MG VIAL SC PRN (09:00)
[2023-11-28] MEDS ORDERED: GLUCOSE 4 GM CHEW PO PRN (09:00)
[2023-11-28] MEDS ORDERED: DEXTROSE 50% 50ML SYRINGE IV PRN (09:00)
[2023-11-28] MEDS: HEPARIN 1,000UNITS/ML 10ML VIAL (FOR RADIOLOGY & DIALYSIS ONLY) IV STA (10:05)
[2023-11-28] MEDS ORDERED: NEUR300C PO (10:34)
[2023-11-28] MEDS ORDERED: ROCA0.5C PO (10:48)
[2023-11-28] MEDS ORDERED: HOME MED LIST COMPLETE! XX SCH (10:50)
[2023-11-28] MEDS: ATORVASTATIN 20 MG TAB PO SCH (11:37)
[2023-11-28] MEDS: LEVOTHYROXINE 25MCG TABLET (0.025MG) PO SCH (11:38)
[2023-11-28] MEDS: allopurinoL 100 MG TAB PO SCH (11:38)
[2023-11-28] MEDS: LEVOTHYROXINE 100MCG TABLET (0.1MG) PO SCH (11:38)
[2023-11-28 12:05] LABS: HEMATOCRIT 25.1 % (42.0-52.0); HEMOGLOBIN 8.6 g/dl (13.5-17.5); MEAN CORPUSCULAR HEMOGLOBIN 30.3 pg (27.0-33.0); MEAN CORPUSCULAR HGB CONC 34.3 g/dl (32.0-36.5); MEAN CORPUSCULAR VOLUME 88.4 fl (80.0-96.0); PLATELET COUNT, AUTOMATED 168 10^3/uL (150-450); RED BLOOD COUNT 2.84 10^6/uL (4.30-6.10); WHITE BLOOD COUNT 11.8 10^3/uL (4.0-10.0)
[2023-11-28] MEDS ORDERED: HEPARIN SOD (PORCINE) 5000UNITS/ML 1ML VIAL/SYRINGE IV PRN (13:20)
[2023-11-28 14:00] LABS: HEMOGLOBIN 8.4 g/dl (13.5-17.5); MEAN CORPUSCULAR HEMOGLOBIN 29.6 pg (27.0-33.0); MEAN CORPUSCULAR HGB CONC 33.6 g/dl (32.0-36.5); PLATELET COUNT, AUTOMATED 172 10^3/uL (150-450); RED BLOOD COUNT 2.84 10^6/uL (4.30-6.10); WHITE BLOOD COUNT 11.4 10^3/uL (4.0-10.0)
[2023-11-28] MEDS: HEPARIN DRIP 25,000 UNITS in IV 1 EA IV SCH (14:29)
[2023-11-28] MEDS: ACETAMINOPHEN 325 MG TAB PO PRN (14:32)
[2023-11-28] MEDS: IBUPROFEN 400MG TAB PO ONE (17:37)
[2023-11-28 19:12] LABS: HEMATOCRIT 23.3 % (42.0-52.0); HEMOGLOBIN 7.7 g/dl (13.5-17.5); MEAN CORPUSCULAR HEMOGLOBIN 29.5 pg (27.0-33.0); MEAN CORPUSCULAR VOLUME 89.3 fl (80.0-96.0); PLATELET COUNT, AUTOMATED 157 10^3/uL (150-450); RED BLOOD COUNT 2.61 10^6/uL (4.30-6.10); WHITE BLOOD COUNT 10.9 10^3/uL (4.0-10.0)
[2023-11-28] MEDS: rOPINIRole 1MG TAB PO SCH (20:28)
[2023-11-28] MEDS: rOPINIRole 0.25 MG TAB(REQUIP) PO SCH (20:29)
[2023-11-28] MEDS: ACETAMINOPHEN 500 MG TAB PO PRN (20:29)
[2023-11-28 20:53] LABS: ALBUMIN 2.1 G/DL (3.2-5.2); CALCIUM LEVEL 7.7 MG/DL (8.3-10.6); CREATININE FOR GFR 5.97 MG/DL (0.70-1.30); GLOMERULAR FILTRATION RATE 10.1 (>49); PHOSPHORUS LEVEL 7.2 MG/DL (2.4-5.1); POTASSIUM SERUM 4.3 MMOL/L (3.5-5.1)
[2023-11-29] VITALS (23 sets, daily range): BP systolic 95–160; BP diastolic 46–65; TEMP 97.8–99; O2SAT 91–100
[2023-11-29 01:41] LABS: HEMATOCRIT 26.3 % (42.0-52.0); HEMOGLOBIN 8.7 g/dl (13.5-17.5); MEAN CORPUSCULAR HEMOGLOBIN 29.7 pg (27.0-33.0); MEAN CORPUSCULAR HGB CONC 33.1 g/dl (32.0-36.5); MEAN CORPUSCULAR VOLUME 89.8 fl (80.0-96.0); PLATELET COUNT, AUTOMATED 145 10^3/uL (150-450); RED BLOOD COUNT 2.93 10^6/uL (4.30-6.10); WHITE BLOOD COUNT 10.9 10^3/uL (4.0-10.0)
[2023-11-29 03:40] LABS: BASO % 0.3 % (0.0-1.0); EOS # 0.1 10^3/uL (0.0-0.5); EOS % 0.9 % (0.0-3.0); HEMATOCRIT 25.6 % (42.0-52.0); HEMOGLOBIN 8.6 g/dl (13.5-17.5); LYMPH # 0.6 10^3/uL (1.5-5.0); LYMPH % 5.7 % (24.0-44.0); MEAN CORPUSCULAR HEMOGLOBIN 30.4 pg (27.0-33.0); MEAN CORPUSCULAR HGB CONC 33.6 g/dl (32.0-36.5); MEAN CORPUSCULAR VOLUME 90.5 fl (80.0-96.0); MONO # 0.8 10^3/uL (0.0-0.8); MONO % 6.9 % (2.0-8.0); NEUTROPHILS # 9.5 10^3/uL (1.5-8.5); NEUTROPHILS % 85.3 % (36.0-66.0); PLATELET COUNT, AUTOMATED 137 10^3/uL (150-450); RED BLOOD COUNT 2.83 10^6/uL (4.30-6.10); WHITE BLOOD COUNT 11.1 10^3/uL (4.0-10.0)
[2023-11-29 04:04] LABS: CALCIUM LEVEL 7.4 MG/DL (8.3-10.6); CREATININE FOR GFR 6.32 MG/DL (0.70-1.30); GLOMERULAR FILTRATION RATE 9.5 (>49); MAGNESIUM LEVEL 2.4 MG/DL (1.8-2.4); PHOSPHORUS LEVEL 8.2 MG/DL (2.4-5.1); POTASSIUM SERUM 4.6 MMOL/L (3.5-5.1)
[2023-11-29] MEDS ORDERED: ROCURONIUM BROMIDE 50MG/5ML VIAL As Ordered ONE (08:26)
[2023-11-29] MEDS ORDERED: NS 1,000 ML IV SCH ×2 (08:50→10:55)
[2023-11-29] MEDS ORDERED: ePHEDrine SULFATE 25 MG/5 ML(5MG/ML) SYRINGE As Ordered ONE (08:56)
[2023-11-29] MEDS ORDERED: HEPARIN 1,000UNITS/ML 10ML VIAL (FOR RADIOLOGY & DIALYSIS ONLY) As Ordered ONE (09:02)
[2023-11-29] MEDS ORDERED: ceFAZolin SOD 3 GM in IV 1 EA IV ONE (09:05)
[2023-11-29] MEDS ORDERED: ceFAZolin 2 GM/D5W 50 ML IV BAG As Ordered ONE (09:08)
[2023-11-29] MEDS ORDERED: ceFAZolin 1GM VIAL As Ordered ONE (09:08)
[2023-11-29] MEDS ORDERED: HEPARIN 25,000 UNITS/250 ML D5W BAG (100 UNITS/ML) As Ordered ONE (09:18)
[2023-11-29] MEDS ORDERED: PHENYLEPHRINE 10MG/ML 1ML VIAL As Ordered ONE (09:28)
[2023-11-29] MEDS ORDERED: propofoL 1,000 MG in IV 1 EA IV SCH (10:30)
[2023-11-29] MEDS ORDERED: PHENYLephrine 500MCG 5ML (100MCG/ML) SYRINGE IV PRN (10:30)
[2023-11-29] MEDS ORDERED: PHENYLEPHRINE HCL INJ 10 MG in D5W 100 ML IV SCH (10:30)
[2023-11-29] MEDS ORDERED: fentaNYL 100 MCG/2 ML INJECTION IV PRN ×2 (10:30→11:30)
[2023-11-29] MEDS ORDERED: HYDROMORPHONE HCL 0.5 MG/ 0.5 ML SYRINGE IV PRN (10:30)
[2023-11-29] MEDS: PHENYLephrine 500MCG 5ML (100MCG/ML) SYRINGE IV ONE (11:15)
[2023-11-29] MEDS: propofoL 1,000 MG in IV 1 EA IV SCH (11:17)
[2023-11-29] MEDS: MIDAZOLAM INJ 2MG/2ML VIAL IV PRN ×2 (11:19→12:41)
[2023-11-29] MEDS: CEFAZOLIN SOD IV ONE (11:41)
[2023-11-29] MEDS: ADV IV ONE (11:41)
[2023-11-29] MEDS: ceFAZolin SOD 2 GM in IV 1 EA IV ONE (11:41)
[2023-11-29] MEDS: DEXTROSE 5% IV ONE (11:41)
[2023-11-29] MEDS: MINI IV ONE (11:41)
[2023-11-29 12:08] LABS: ABG BASE EXCESS -7.4 (-2.0-2.0); ABG HCO3 19.9 MMOL/L (22.0-26.0); ABG O2 SATURATION 94.6 % (95.0-99.0); ABG PARTIAL PRESSURE CO2 48.1 mmHg (35.0-45.0); ABG STANDARD HCO3 18.4 MMOL/L. (22.0-26.0); ABG TOTAL CO2 21.4 MMOL/L (23.0-31.0)
[2023-11-29 12:12] LABS: ABG pH (ARTERIAL) 7.234 UNITS (7.350-7.450)
[2023-11-29] MEDS: NOREPINEPHRINE 4MG IN D5 250ML 4 MG in IV 1 EA IV SCH (12:24)
[2023-11-29] MEDS: CLOPIDOGREL 75 MG TAB PO SCH (12:24)
[2023-11-29] MEDS: ASPIRIN 81MG CHEW TABLET PO SCH (12:24)
[2023-11-29 15:37] LABS: CALCIUM LEVEL 7.4 MG/DL (8.3-10.6); CREATININE FOR GFR 6.98 MG/DL (0.70-1.30); GLOMERULAR FILTRATION RATE 8.5 (>49); POTASSIUM SERUM 4.6 MMOL/L (3.5-5.1)
[2023-11-29 16:36] LABS: ABG BASE EXCESS -3.7 (-2.0-2.0); ABG HCO3 22.2 MMOL/L (22.0-26.0); ABG O2 SATURATION 91.3 % (95.0-99.0); ABG PARTIAL PRESSURE CO2 44.3 mmHg (35.0-45.0); ABG PARTIAL PRESSURE O2 64.7 mmHg (75.0-100.0); ABG STANDARD HCO3 21.2 MMOL/L. (22.0-26.0); ABG TOTAL CO2 23.6 MMOL/L (23.0-31.0); ABG pH (ARTERIAL) 7.318 UNITS (7.350-7.450)
[2023-11-29 18:34] LABS: VENOUS BASE EXCESS -6.2 (-2.0-2.0); VENOUS HCO3 19.9 MMOL/L (23.0-27.0); VENOUS O2 SATURATION 98.5 % (60.0-80.0); VENOUS PARTIAL PRESSURE CO2 42.1 mmHg (38.0-50.0); VENOUS PARTIAL PRESSURE O2 150.8 mmHg (30.0-50.0); VENOUS PH 7.293 UNITS (7.330-7.430); VENOUS STANDARD HCO3 19.4 MMOL/L; VENOUS TOTAL CO2 21.2 MMOL/L (24.0-28.0)
[2023-11-29] MEDS: oxyCODONE 5MG TAB PO PRN (21:12)
[2023-11-29] MEDS: HEPARIN SOD (PORCINE) 5000UNITS/ML 1ML VIAL/SYRINGE SQ SCH (21:12)
[2023-11-30] VITALS (13 sets, daily range): BP systolic 111–163; BP diastolic 51–71; TEMP 98.2–99.4; O2SAT 90–98
[2023-11-30 00:07] LABS: VENOUS BASE EXCESS -5.3 (-2.0-2.0); VENOUS O2 SATURATION 97.9 % (60.0-80.0); VENOUS PARTIAL PRESSURE CO2 44.8 mmHg (38.0-50.0); VENOUS PARTIAL PRESSURE O2 130.2 mmHg (30.0-50.0); VENOUS PH 7.289 UNITS (7.330-7.430); VENOUS STANDARD HCO3 20.1 MMOL/L; VENOUS TOTAL CO2 22.4 MMOL/L (24.0-28.0)
[2023-11-30 00:23] LABS: HEMATOCRIT 24.8 % (42.0-52.0); HEMOGLOBIN 8.1 g/dl (13.5-17.5); MEAN CORPUSCULAR HEMOGLOBIN 29.8 pg (27.0-33.0); MEAN CORPUSCULAR HGB CONC 32.7 g/dl (32.0-36.5); MEAN CORPUSCULAR VOLUME 91.2 fl (80.0-96.0); PLATELET COUNT, AUTOMATED 138 10^3/uL (150-450); RED BLOOD COUNT 2.72 10^6/uL (4.30-6.10); WHITE BLOOD COUNT 12.1 10^3/uL (4.0-10.0)
[2023-11-30] MEDS: SUCRALFATE 1 GM TAB PO ONE (00:54)
[2023-11-30 04:50] LABS: BASO % 0.3 % (0.0-1.0); EOS # 0.1 10^3/uL (0.0-0.5); EOS % 1.2 % (0.0-3.0); HEMATOCRIT 24.4 % (42.0-52.0); LYMPH # 0.5 10^3/uL (1.5-5.0); MEAN CORPUSCULAR HGB CONC 32.8 g/dl (32.0-36.5); MEAN CORPUSCULAR VOLUME 91.4 fl (80.0-96.0); MONO # 0.8 10^3/uL (0.0-0.8); MONO % 6.8 % (2.0-8.0); NEUTROPHILS % 86.7 % (36.0-66.0); PLATELET COUNT, AUTOMATED 134 10^3/uL (150-450); RED BLOOD COUNT 2.67 10^6/uL (4.30-6.10); WHITE BLOOD COUNT 11.6 10^3/uL (4.0-10.0)
[2023-11-30 05:14] LABS: CALCIUM LEVEL 7.3 MG/DL (8.3-10.6); CREATININE FOR GFR 7.6 MG/DL (0.70-1.30); GLOMERULAR FILTRATION RATE 7.7 (>49); MAGNESIUM LEVEL 2.2 MG/DL (1.8-2.4); PHOSPHORUS LEVEL 8.3 MG/DL (2.4-5.1); POTASSIUM SERUM 4.3 MMOL/L (3.5-5.1)
[2023-11-30] MEDS ORDERED: HEPARIN 1,000UNITS/ML 10ML VIAL (FOR RADIOLOGY & DIALYSIS ONLY) IV PRN (06:45)
[2023-11-30] MEDS ORDERED: SODIUM CHLORIDE 0.9% 1000ML IV PRN (06:45)
[2023-11-30] MEDS ORDERED: SUCRALFATE 1 GM TAB PO SCH (09:00)
[2023-11-30] MEDS: SUCRALFATE 1 GM TAB PO SCH (09:00)
[2023-11-30] MEDS: HEPARIN 1,000UNITS/ML 10ML VIAL (FOR RADIOLOGY & DIALYSIS ONLY) XX SCH (09:34)
[2023-12-01 03:44] VITALS: BP 138/62; TEMP 98.7; O2SAT 91
[2023-12-01 06:42] LABS: BASO % 0.4 % (0.0-1.0); EOS # 0.3 10^3/uL (0.0-0.5); EOS % 2.9 % (0.0-3.0); HEMATOCRIT 26.1 % (42.0-52.0); HEMOGLOBIN 8.4 g/dl (13.5-17.5); LYMPH # 0.6 10^3/uL (1.5-5.0); MEAN CORPUSCULAR HEMOGLOBIN 29.6 pg (27.0-33.0); MEAN CORPUSCULAR HGB CONC 32.2 g/dl (32.0-36.5); MEAN CORPUSCULAR VOLUME 91.9 fl (80.0-96.0); MONO # 0.6 10^3/uL (0.0-0.8); MONO % 5.8 % (2.0-8.0); NEUTROPHILS # 9.4 10^3/uL (1.5-8.5); NEUTROPHILS % 84.7 % (36.0-66.0); PLATELET COUNT, AUTOMATED 133 10^3/uL (150-450); RED BLOOD COUNT 2.84 10^6/uL (4.30-6.10)
[2023-12-01 07:04] LABS: CALCIUM LEVEL 7.8 MG/DL (8.3-10.6); CREATININE FOR GFR 5.59 MG/DL (0.70-1.30); GLOMERULAR FILTRATION RATE 10.9 (>49); MAGNESIUM LEVEL 2.1 MG/DL (1.8-2.4); PHOSPHORUS LEVEL 4.6 MG/DL (2.4-5.1); POTASSIUM SERUM 4.1 MMOL/L (3.5-5.1)
[2023-12-01 08:04] VITALS: BP 130/58; TEMP 98.5; O2SAT 97
[2023-12-01 11:55] VITALS: BP 145/66; TEMP 98.6; O2SAT 92
[2023-12-01 17:54] VITALS: O2SAT 95
[2023-12-01 20:22] VITALS: BP 129/60; TEMP 98.9; O2SAT 93
[2023-12-01] MEDS ORDERED: GLUCOSE 4 GM CHEW PO PRN (20:25)
[2023-12-01] MEDS ORDERED: GLUCAGON INJ 1MG VIAL SC PRN (20:25)
[2023-12-01] MEDS ORDERED: DEXTROSE 50% 50ML SYRINGE IV PRN (20:25)
[2023-12-01] MEDS: INSULIN LISPRO (NovoLOG) PER UNIT SC SCH (20:42)
[2023-12-02] VITALS (7 sets, daily range): BP systolic 132–178; BP diastolic 60–77; TEMP 98–98.7; O2SAT 90–96
[2023-12-02 08:23] LABS: BASO % 0.3 % (0.0-1.0); EOS # 0.4 10^3/uL (0.0-0.5); EOS % 3.8 % (0.0-3.0); HEMATOCRIT 24.4 % (42.0-52.0); LYMPH # 0.6 10^3/uL (1.5-5.0); LYMPH % 5.9 % (24.0-44.0); MEAN CORPUSCULAR HEMOGLOBIN 30.2 pg (27.0-33.0); MEAN CORPUSCULAR HGB CONC 32.8 g/dl (32.0-36.5); MEAN CORPUSCULAR VOLUME 92.1 fl (80.0-96.0); MONO # 0.8 10^3/uL (0.0-0.8); MONO % 7.6 % (2.0-8.0); NEUTROPHILS # 8.3 10^3/uL (1.5-8.5); NEUTROPHILS % 81.1 % (36.0-66.0); PLATELET COUNT, AUTOMATED 151 10^3/uL (150-450); RED BLOOD COUNT 2.65 10^6/uL (4.30-6.10); WHITE BLOOD COUNT 10.3 10^3/uL (4.0-10.0)
[2023-12-02] MEDS: INSULIN LISPRO (NovoLOG) PER UNIT SC SCH (08:26)
[2023-12-02 08:46] LABS: CALCIUM LEVEL 7.6 MG/DL (8.3-10.6); CREATININE FOR GFR 6.66 MG/DL (0.70-1.30); GLOMERULAR FILTRATION RATE 8.9 (>49); POTASSIUM SERUM 4.2 MMOL/L (3.5-5.1)
[2023-12-02] MEDS: SUCROFERRIC OXYHYDROXIDE 500MG CHEW TAB (VELPHORO) PO SCH (13:25)
[2023-12-03 00:45] VITALS: BP 148/66
[2023-12-03 03:19] VITALS: BP 157/70; TEMP 98.5; O2SAT 92
[2023-12-03 07:00] VITALS: BP 165/72; TEMP 98.2; O2SAT 94
[2023-12-03 08:37] LABS: CALCIUM LEVEL 7.8 MG/DL (8.3-10.6); CREATININE FOR GFR 7.34 MG/DL (0.70-1.30); POTASSIUM SERUM 4.1 MMOL/L (3.5-5.1)
[2023-12-03] MEDS: (RENVELA) SEVELAMER **CARBONate** 800 MG TAB PO SCH (12:50)
[2023-12-03 16:00] VITALS: BP 169/74; TEMP 98.6; O2SAT 87
[2023-12-03] MEDS: DARBEPOETIN 100MCG/0.5ML *NON-DIALYSIS* SYRINGE SC SCH (18:45)
[2023-12-03 20:03] VITALS: BP 167/74; TEMP 98.7; O2SAT 91
[2023-12-03 23:30] VITALS: BP 124/50; TEMP 98.8; O2SAT 90
[2023-12-04 04:13] VITALS: BP 163/51; TEMP 98.2; O2SAT 91
[2023-12-04 05:17] LABS: BASO % 0.4 % (0.0-1.0); EOS # 0.4 10^3/uL (0.0-0.5); HEMATOCRIT 25.3 % (42.0-52.0); HEMOGLOBIN 8.2 g/dl (13.5-17.5); LYMPH # 0.8 10^3/uL (1.5-5.0); MEAN CORPUSCULAR HEMOGLOBIN 29.9 pg (27.0-33.0); MEAN CORPUSCULAR HGB CONC 32.4 g/dl (32.0-36.5); MEAN CORPUSCULAR VOLUME 92.3 fl (80.0-96.0); MONO # 0.9 10^3/uL (0.0-0.8); MONO % 9.3 % (2.0-8.0); NEUTROPHILS # 7.3 10^3/uL (1.5-8.5); NEUTROPHILS % 76.8 % (36.0-66.0); PLATELET COUNT, AUTOMATED 185 10^3/uL (150-450); RED BLOOD COUNT 2.74 10^6/uL (4.30-6.10); WHITE BLOOD COUNT 9.6 10^3/uL (4.0-10.0)
[2023-12-04 05:38] LABS: C REACTIVE PROTEIN QUANTITATIV 25.9 MG/DL (<1.0)
[2023-12-04 05:43] LABS: CALCIUM LEVEL 7.4 MG/DL (8.3-10.6); CREATININE FOR GFR 8.09 MG/DL (0.70-1.30); GLOMERULAR FILTRATION RATE 7.1 (>49)
[2023-12-04 12:00] VITALS: BP 179/71; TEMP 98.8; O2SAT 95
[2023-12-04] MEDS ORDERED: ceFAZolin SOD 2 GM in IV 1 EA IV ONE (14:15)
[2023-12-04] MEDS: ceFAZolin SOD 2 GM in IV 1 EA IV ONE (14:21)
[2023-12-04] MEDS: MINI IV ONE (14:22)
[2023-12-04] MEDS: CEFAZOLIN SOD IV ONE (14:22)
[2023-12-04] MEDS: ADV IV ONE (14:22)
[2023-12-04] MEDS: DEXTROSE 5% IV ONE (14:22)
[2023-12-04 17:10] VITALS: BP 161/53
[2023-12-04 20:00] VITALS: BP 163/47; TEMP 98.8; O2SAT 95
[2023-12-05 04:00] VITALS: BP 168/50; TEMP 98.6; O2SAT 97
[2023-12-05] MEDS ORDERED: LIDOCAINE 1% SDV 5ML VIAL SC PRN (06:00)
[2023-12-05] MEDS ORDERED: HEPARIN 1,000UNITS/ML 10ML VIAL (FOR RADIOLOGY & DIALYSIS ONLY) XX SCH (06:00)
[2023-12-05] MEDS ORDERED: HEPARIN 1,000UNITS/ML 10ML VIAL (FOR RADIOLOGY & DIALYSIS ONLY) IV PRN (06:00)
[2023-12-05] MEDS ORDERED: SODIUM CHLORIDE 0.9% 1000ML IV PRN (06:00)
[2023-12-05 06:22] LABS: BASO # 0.1 10^3/uL (0.0-0.2); BASO % 0.5 % (0.0-1.0); EOS # 0.3 10^3/uL (0.0-0.5); EOS % 2.8 % (0.0-3.0); HEMATOCRIT 25.9 % (42.0-52.0); HEMOGLOBIN 8.3 g/dl (13.5-17.5); LYMPH # 0.6 10^3/uL (1.5-5.0); LYMPH % 6.1 % (24.0-44.0); MEAN CORPUSCULAR HEMOGLOBIN 29.1 pg (27.0-33.0); MEAN CORPUSCULAR VOLUME 90.9 fl (80.0-96.0); MONO # 0.8 10^3/uL (0.0-0.8); MONO % 8.5 % (2.0-8.0); NEUTROPHILS # 7.8 10^3/uL (1.5-8.5); NEUTROPHILS % 80.4 % (36.0-66.0); PLATELET COUNT, AUTOMATED 201 10^3/uL (150-450); RED BLOOD COUNT 2.85 10^6/uL (4.30-6.10); WHITE BLOOD COUNT 9.7 10^3/uL (4.0-10.0)
[2023-12-05 06:37] LABS: C REACTIVE PROTEIN QUANTITATIV 28.8 MG/DL (<1.0)
[2023-12-05 06:42] LABS: CALCIUM LEVEL 7.7 MG/DL (8.3-10.6); CREATININE FOR GFR 9.31 MG/DL (0.70-1.30); GLOMERULAR FILTRATION RATE 6.1 (>49); POTASSIUM SERUM 4.5 MMOL/L (3.5-5.1)
[2023-12-05 13:00] VITALS: BP 114/58; TEMP 98.1; O2SAT 88
[2023-12-05 19:58] VITALS: BP 161/57; TEMP 98.2; O2SAT 95
[2023-12-05] MEDS: MIRALAX *UNIT DOSE* 17GM PACKET PO PRN (23:22)
[2023-12-05] MEDS: LIDOCAINE 5% (LIDODERM) PATCH TD SCH (23:22)
[2023-12-05] MEDS: SENNA 8.6 MG TAB (SENOKOT) PO PRN (23:22)
[2023-12-05] MEDS: traMADol 50 MG TAB PO ONE (23:24)
[2023-12-06 04:00] VITALS: BP 180/70; TEMP 97.5; O2SAT 92
[2023-12-06 06:22] LABS: HEMATOCRIT 24.5 % (42.0-52.0); MEAN CORPUSCULAR HEMOGLOBIN 29.9 pg (27.0-33.0); MEAN CORPUSCULAR HGB CONC 32.7 g/dl (32.0-36.5); MEAN CORPUSCULAR VOLUME 91.4 fl (80.0-96.0); PLATELET COUNT, AUTOMATED 232 10^3/uL (150-450); RED BLOOD COUNT 2.68 10^6/uL (4.30-6.10); WHITE BLOOD COUNT 9.6 10^3/uL (4.0-10.0)
[2023-12-06 06:49] LABS: ALBUMIN 1.5 G/DL (3.2-5.2); ALKALINE PHOSPHATASE 109 U/L (46-116); ALT/SGPT < 9 U/L (7.0-40); AST/SGOT 20 U/L (<34); BILIRUBIN,TOTAL 0.2 MG/DL (0.3-1.2); BLOOD UREA NITROGEN 39 MG/DL (9-23); CALCIUM LEVEL 7.8 MG/DL (8.3-10.6); CARBON DIOXIDE LEVEL 25 MMOL/L (20-31); CHLORIDE LEVEL 99 MMOL/L (98-107); CREATININE FOR GFR 6.24 MG/DL (0.70-1.30); GLOMERULAR FILTRATION RATE 9.6 (>49); GLUCOSE, FASTING 142 MG/DL (74-106); POTASSIUM SERUM 3.9 MMOL/L (3.5-5.1); SODIUM LEVEL 133 MMOL/L (136-145); TOTAL PROTEIN 5.4 G/DL (5.7-8.2)
[2023-12-06 12:00] VITALS: BP 171/70; TEMP 98.4; O2SAT 98
[2023-12-06] MEDS: MIRTAZAPINE 7.5MG PER 1/2 TABLET PO SCH (21:18)
[2023-12-06 22:10] VITALS: BP 153/58; TEMP 98.4; O2SAT 89
[2023-12-07] VITALS (10 sets, daily range): BP systolic 146–178; BP diastolic 46–63; TEMP 98.4–98.8; O2SAT 82–94
[2023-12-07] MEDS ORDERED: LIDOCAINE 1% SDV 5ML VIAL SC PRN (06:00)
[2023-12-07] MEDS ORDERED: HEPARIN 1,000UNITS/ML 10ML VIAL (FOR RADIOLOGY & DIALYSIS ONLY) IV PRN (06:00)
[2023-12-07] MEDS ORDERED: SODIUM CHLORIDE 0.9% 1000ML IV PRN (06:00)
[2023-12-07 09:09] LABS: HEMATOCRIT 24.1 % (42.0-52.0); HEMOGLOBIN 7.8 g/dl (13.5-17.5); MEAN CORPUSCULAR HEMOGLOBIN 29.8 pg (27.0-33.0); MEAN CORPUSCULAR HGB CONC 32.4 g/dl (32.0-36.5); PLATELET COUNT, AUTOMATED 271 10^3/uL (150-450); RED BLOOD COUNT 2.62 10^6/uL (4.30-6.10); WHITE BLOOD COUNT 9.3 10^3/uL (4.0-10.0)
[2023-12-07] MEDS: HEPARIN 1,000UNITS/ML 10ML VIAL (FOR RADIOLOGY & DIALYSIS ONLY) XX SCH (09:41)
[2023-12-07 10:53] LABS: ALBUMIN 1.5 G/DL (3.2-5.2); BILIRUBIN,TOTAL 0.2 MG/DL (0.3-1.2); CALCIUM LEVEL 7.7 MG/DL (8.3-10.6); CREATININE FOR GFR 7.62 MG/DL (0.70-1.30); GLOMERULAR FILTRATION RATE 7.6 (>49); POTASSIUM SERUM 4.1 MMOL/L (3.5-5.1); TOTAL PROTEIN 5.4 G/DL (5.7-8.2)
[2023-12-07] MEDS ORDERED: METOPROLOL TART 12.5 MG PER 1/2 TAB PO ONE (23:40)
[2023-12-08] MEDS ORDERED: METOPROLOL TART 12.5 MG PER 1/2 TAB PO ONE
[2023-12-08] MEDS: **hydrALAZINE** 10 MG TAB PO ONE (00:30)
[2023-12-08 03:57] VITALS: BP 172/55; TEMP 97.9; O2SAT 92
[2023-12-08 05:14] VITALS: BP 173/59
[2023-12-08 05:26] LABS: HEMATOCRIT 25.4 % (42.0-52.0); HEMOGLOBIN 8.1 g/dl (13.5-17.5); MEAN CORPUSCULAR HEMOGLOBIN 29.6 pg (27.0-33.0); MEAN CORPUSCULAR HGB CONC 31.9 g/dl (32.0-36.5); MEAN CORPUSCULAR VOLUME 92.7 fl (80.0-96.0); PLATELET COUNT, AUTOMATED 294 10^3/uL (150-450); RED BLOOD COUNT 2.74 10^6/uL (4.30-6.10); WHITE BLOOD COUNT 9.4 10^3/uL (4.0-10.0)
[2023-12-08 05:53] LABS: ALBUMIN 1.6 G/DL (3.2-5.2); ALKALINE PHOSPHATASE 125 U/L (46-116); ALT/SGPT < 9 U/L (7.0-40); AST/SGOT 30 U/L (<34); BILIRUBIN,TOTAL 0.3 MG/DL (0.3-1.2); BLOOD UREA NITROGEN 35 MG/DL (9-23); CARBON DIOXIDE LEVEL 25 MMOL/L (20-31); CHLORIDE LEVEL 101 MMOL/L (98-107); CREATININE FOR GFR 5.63 MG/DL (0.70-1.30); GLOMERULAR FILTRATION RATE 10.8 (>49); GLUCOSE, FASTING 151 MG/DL (74-106); POTASSIUM SERUM 3.9 MMOL/L (3.5-5.1); SODIUM LEVEL 134 MMOL/L (136-145); TOTAL PROTEIN 5.6 G/DL (5.7-8.2)
[2023-12-08 09:01] VITALS: O2SAT 97
[2023-12-08] MEDS: SUCRALFATE 1 GM TAB PO SCH (21:00)
[2023-12-08] MEDS: PANTOPRAZOLE 40MG VIAL IV SCH (21:00)
[2023-12-09] VITALS (20 sets, daily range): BP systolic 117–147; BP diastolic 51–90; TEMP 96.6–99.2; O2SAT 98–100
[2023-12-09 01:32] LABS: HEMATOCRIT 19.3 % (42.0-52.0); HEMOGLOBIN 6.2 g/dl (13.5-17.5)
[2023-12-09] MEDS ORDERED: HEPARIN 1,000UNITS/ML 10ML VIAL (FOR RADIOLOGY & DIALYSIS ONLY) IV PRN (06:00)
[2023-12-09] MEDS ORDERED: HEPARIN 1,000UNITS/ML 10ML VIAL (FOR RADIOLOGY & DIALYSIS ONLY) XX SCH (06:00)
[2023-12-09] MEDS ORDERED: SODIUM CHLORIDE 0.9% 1000ML IV PRN (06:00)
[2023-12-09 09:45] LABS: BASO % 0.3 % (0.0-1.0); EOS # 0.2 10^3/uL (0.0-0.5); EOS % 1.9 % (0.0-3.0); LYMPH # 0.8 10^3/uL (1.5-5.0); LYMPH % 8.4 % (24.0-44.0); MEAN CORPUSCULAR HEMOGLOBIN 30.2 pg (27.0-33.0); MEAN CORPUSCULAR HGB CONC 32.4 g/dl (32.0-36.5); MONO # 0.8 10^3/uL (0.0-0.8); MONO % 8.4 % (2.0-8.0); NEUTROPHILS # 7.4 10^3/uL (1.5-8.5); NEUTROPHILS % 77.3 % (36.0-66.0); PLATELET COUNT, AUTOMATED 304 10^3/uL (150-450); RED BLOOD COUNT 1.99 10^6/uL (4.30-6.10); WHITE BLOOD COUNT 9.6 10^3/uL (4.0-10.0)
[2023-12-09 09:52] LABS: HEMATOCRIT 18.5 % (42.0-52.0)
[2023-12-09] MEDS ORDERED: LIDO5TD TD (10:07)
[2023-12-09] MEDS ORDERED: PANT40IN4 IV (10:07)
[2023-12-09 10:18] LABS: INR 1.35; PARTIAL THROMBOPLASTIN TIME 33.2 SECONDS (24.8-34.2); PROTHROMBIN TIME 16.2 SECONDS (12.5-14.5)
[2023-12-09 10:30] LABS: ALBUMIN 1.3 G/DL (3.2-5.2); BILIRUBIN,TOTAL 0.2 MG/DL (0.3-1.2); CALCIUM LEVEL 7.2 MG/DL (8.3-10.6); CREATININE FOR GFR 7.13 MG/DL (0.70-1.30); GLOMERULAR FILTRATION RATE 8.2 (>49); POTASSIUM SERUM 4.7 MMOL/L (3.5-5.1); TOTAL PROTEIN 4.6 G/DL (5.7-8.2)
[2023-12-09 13:12] LABS: HEMATOCRIT 24.4 % (42.0-52.0); HEMOGLOBIN 7.7 g/dl (13.5-17.5); PLATELET COUNT, AUTOMATED 290 10^3/uL (150-450)
[2023-12-09 13:43] LABS: ALBUMIN 1.3 G/DL (3.2-5.2); ALKALINE PHOSPHATASE 89 U/L (46-116); ALT/SGPT < 9 U/L (7.0-40); AST/SGOT 26 U/L (<34); BILIRUBIN,TOTAL 0.5 MG/DL (0.3-1.2); BLOOD UREA NITROGEN 63 MG/DL (9-23); CALCIUM LEVEL 7.1 MG/DL (8.3-10.6); CARBON DIOXIDE LEVEL 28 MMOL/L (20-31); CHLORIDE LEVEL 101 MMOL/L (98-107); CREATININE FOR GFR 7.06 MG/DL (0.70-1.30); GLOMERULAR FILTRATION RATE 8.3 (>49); GLUCOSE, FASTING 170 MG/DL (74-106); MAGNESIUM LEVEL 1.9 MG/DL (1.8-2.4); PHOSPHORUS LEVEL 6.1 MG/DL (2.4-5.1); POTASSIUM SERUM 4.6 MMOL/L (3.5-5.1); SODIUM LEVEL 133 MMOL/L (136-145); TOTAL PROTEIN 4.4 G/DL (5.7-8.2)
[2023-12-10] MEDS ORDERED: DARBEPOETIN 100MCG/0.5ML *DIALYSIS* SYRINGE IV SCH (09:00)
== END 2023-12-09 14:12 | disposition short-term general hospital (02) | DRG 907 ==
LOC: M IRPRO 07:10 → M ED INP 18:19 → M ICU 21:21 → M PCU 11-30 17:11 → M MSPAV 12-03 22:59 → M PCU 12-09 09:37
PROVIDERS: ADMIT Internal Medicine Pulmonary Disease; ATTEND Internal Medicine
PROC: 0T503ZZ Destruction of Right Kidney, Percutaneous Approach (ICD-10-PCS; 2023-11-27)
PROC: 047K3ZZ Dilation of Right Femoral Artery, Percutaneous Approach (ICD-10-PCS; 2023-11-27)
PROC: B416YZZ Fluoroscopy of Right Renal Artery using Other Contrast (ICD-10-PCS; 2023-11-27)
PROC: 30233N1 Transfusion of Nonautologous Red Blood Cells into Peripheral Vein, Percutaneous Approach (ICD-10-PCS; 2023-11-27)
PROC: 04V Lower Arteries, Restriction (ICD-10-PCS; principal; 2023-11-27 09:00)
PROC: 05PYX3Z Removal of Infusion Device from Upper Vein, External Approach (ICD-10-PCS; 2023-12-04)
PROC: 0JH63XZ Insertion of Tunneled Vascular Access Device into Chest Subcutaneous Tissue and Fascia, Percutaneous Approach (ICD-10-PCS; 2023-12-04)
PROC: 02HV33Z Insertion of Infusion Device into Superior Vena Cava, Percutaneous Approach (ICD-10-PCS; 2023-12-08)
PROC: 30233R1 Transfusion of Nonautologous Platelets into Peripheral Vein, Percutaneous Approach (ICD-10-PCS; 2023-12-09)
DX: T81.19XA Other postprocedural shock, initial encounter (principal); N18.6 End stage renal disease; J96.00 Acute respiratory failure, unspecified whether with hypoxia or hypercapnia; C64.1 Malignant neoplasm of right kidney, except renal pelvis; I12.0 Hypertensive chronic kidney disease with stage 5 chronic kidney disease or end stage renal disease; E87.1 Hypo-osmolality and hyponatremia; D62 Acute posthemorrhagic anemia; Z68.41 Body mass index [BMI] 40.0-44.9, adult; I48.92 Unspecified atrial flutter; E87.20 Acidosis, unspecified; L76.32 Postprocedural hematoma of skin and subcutaneous tissue following other procedure; I97.620 Postprocedural hemorrhage of a circulatory system organ or structure following other procedure; E11.51 Type 2 diabetes mellitus with diabetic peripheral angiopathy without gangrene; E03.9 Hypothyroidism, unspecified; E66.01 Morbid (severe) obesity due to excess calories; E11.22 Type 2 diabetes mellitus with diabetic chronic kidney disease; E78.5 Hyperlipidemia, unspecified; E87.5 Hyperkalemia; Z79.01 Long term (current) use of anticoagulants; Z87.891 Personal history of nicotine dependence; L40.8 Other psoriasis; G25.81 Restless legs syndrome; I48.91 Unspecified atrial fibrillation; I44.1 Atrioventricular block, second degree; Y84.8 Other medical procedures as the cause of abnormal reaction of the patient, or of later complication, without mention of misadventure at the time of the procedure

== ENCOUNTER 2024-01-17 10:52 | Inpatient (IN) | payer MEDICARE ==
[~2024-01-17] VITALS: Ht 182.9 cm; Wt 134.9 kg
[~2024-01-17 10:52] MED LIST changes: +LIDO5TD TD; +NEUR300C PO; +PANT40IN4 IV; +ROCA0.5C PO
[2024-01-17 12:11] LABS: ALBUMIN 2.4 G/DL (3.2-5.2); ALKALINE PHOSPHATASE 94 U/L (40-129); ALT/SGPT 20 U/L (7.0-40); AST/SGOT 13 U/L (<34); BILIRUBIN,DIRECT < 0.1 MG/DL (<0.4); BILIRUBIN,TOTAL < 0.2 MG/DL (0.3-1.2); BLOOD UREA NITROGEN 59 MG/DL (9-23); CARBON DIOXIDE LEVEL 24 MMOL/L (20-31); CHLORIDE LEVEL 98 MMOL/L (98-107); CREATININE FOR GFR 7.43 MG/DL (0.70-1.30); GLOMERULAR FILTRATION RATE 7.9 (>49); GLUCOSE, FASTING 273 MG/DL (74-106); POTASSIUM SERUM 5.5 MMOL/L (3.5-5.1); SODIUM LEVEL 133 MMOL/L (136-145)
[2024-01-17 12:19] LABS: BASO % 0.4 % (0.0-1.0); EOS # 0.5 10^3/uL (0.0-0.5); EOS % 6.7 % (0.0-3.0); HEMATOCRIT 27.3 % (42.0-52.0); HEMOGLOBIN 8.4 g/dl (13.5-17.5); LYMPH # 0.8 10^3/uL (1.5-5.0); LYMPH % 9.8 % (24.0-44.0); MEAN CORPUSCULAR HEMOGLOBIN 29.5 pg (27.0-33.0); MEAN CORPUSCULAR HGB CONC 30.8 g/dl (32.0-36.5); MEAN CORPUSCULAR VOLUME 95.8 fl (80.0-96.0); MONO # 0.5 10^3/uL (0.0-0.8); MONO % 6.5 % (2.0-8.0); NEUTROPHILS # 5.9 10^3/uL (1.5-8.5); NEUTROPHILS % 74.6 % (36.0-66.0); PLATELET COUNT, AUTOMATED 207 10^3/uL (150-450); RED BLOOD COUNT 2.85 10^6/uL (4.30-6.10); WHITE BLOOD COUNT 7.9 10^3/uL (4.0-10.0)
[2024-01-17 12:22] LABS: VENOUS BASE EXCESS -4.9 (-2.0-2.0); VENOUS HCO3 23.5 MMOL/L (23.0-27.0); VENOUS O2 SATURATION 74.1 % (60.0-80.0); VENOUS PARTIAL PRESSURE CO2 62.1 mmHg (38.0-50.0); VENOUS PARTIAL PRESSURE O2 44.7 mmHg (30.0-50.0); VENOUS PH 7.195 UNITS (7.330-7.430); VENOUS TOTAL CO2 25.4 MMOL/L (24.0-28.0)
[2024-01-17 12:34] LABS: INR 0.96; PROTHROMBIN TIME 13.1 SECONDS (12.5-14.5)
[2024-01-17] MEDS ORDERED: ISOVUE-370 76% 100ML VIAL As Ordered ONE (12:53)
[2024-01-17] MEDS: PATIROMER SORBITEX CALCIUM 8.4 GM POWDER PACKET (VELTASSA) PO ONE (14:10)
[2024-01-17] MEDS: ACETAMINOPHEN *IV* 1,000 MG in IV 1 EA IV ONE (14:10)
[2024-01-17] MEDS ORDERED: PERCOCET 5MG/325MG TAB PO PRN (14:30)
[2024-01-17] MEDS ORDERED: ACETAMINOPHEN 325 MG TAB PO PRN (14:30)
[2024-01-17] MEDS: MORPHINE 2 MG/ML 1ML VIAL IV ONE (14:40)
[2024-01-17] MEDS ORDERED: SEVE800T3 PO (14:44)
[2024-01-17] MEDS ORDERED: SEMA0.257 INJ (14:44)
[2024-01-17] MEDS ORDERED: ATOR40TA75 PO (14:44)
[2024-01-17] MEDS ORDERED: MIRT1TAB PO (14:44)
[2024-01-17] MEDS ORDERED: GABA-1171 PO (14:44)
[2024-01-17] MEDS ORDERED: PANT40TA29 PO (14:44)
[2024-01-17] MEDS ORDERED: HOME MED LIST COMPLETE! XX SCH (14:45)
[2024-01-17] MEDS ORDERED: GLUCOSE 4 GM CHEW PO PRN (15:10)
[2024-01-17] MEDS ORDERED: GLUCAGON INJ 1MG VIAL SC PRN (15:10)
[2024-01-17] MEDS ORDERED: ALBUTEROL SULFATE 2.5MG/0.5ML INH NEB SOLN NEB PRN (15:35)
[2024-01-17] MEDS ORDERED: D32000CA PO (15:43)
[2024-01-17 15:59] LABS: INR 0.99; PROTHROMBIN TIME 13.4 SECONDS (12.5-14.5)
[2024-01-17 16:20] LABS: PERCENT SATURATION 29.3 % (19.7-50.0)
[2024-01-17 16:22] LABS: FERRITIN 501.3 NG/ML (10.5-307.3); FOLATE 4.22 NG/ML (>5.4)
[2024-01-17 16:31] LABS: PROCALCITONIN 0.4 ng/ml
[2024-01-17] MEDS: FUROSEMIDE 100MG/10ML VIAL IV SCH (16:50)
[2024-01-17 17:16] VITALS: BP 151/69; TEMP 97.2; O2SAT 96
[2024-01-17] MEDS: INSULIN LISPRO (NovoLOG) PER UNIT SC SCH ×2 (17:30→21:00)
[2024-01-17] MEDS: SUCRALFATE SUSP 1GM/10ML UD PO SCH (17:34)
[2024-01-17] MEDS ORDERED: APIXABAN 5 MG TAB (ELIQUIS) PO SCH (21:00)
[2024-01-17] MEDS: LEVEMIR (INSULIN DETEMIR) 1 UNITS/0.01ML SC SCH (21:10)
[2024-01-17] MEDS: GABAPENTIN 100 MG CAP PO SCH (21:10)
[2024-01-17] MEDS: PANTOPRAZOLE 40MG TAB (PROTONIX) PO SCH (21:10)
[2024-01-17] MEDS: traZODone 100 MG TAB PO SCH (21:10)
[2024-01-17] MEDS: rOPINIRole 1MG TAB PO SCH (21:10)
[2024-01-17 21:51] VITALS: BP 160/80; TEMP 97.2; O2SAT 97
[2024-01-17] MEDS: rOPINIRole 0.25 MG TAB(REQUIP) PO SCH (21:57)
[2024-01-17] MEDS: PERCOCET 5MG/325MG TAB PO PRN (23:52)
[2024-01-17 23:54] VITALS: BP 156/67; TEMP 97.5; O2SAT 92
[2024-01-18] VITALS (19 sets, daily range): BP systolic 106–154; BP diastolic 49–70; TEMP 97.1–98; O2SAT 55–96
[2024-01-18 01:52] LABS: CALCIUM LEVEL 7.7 MG/DL (8.3-10.6); CREATININE FOR GFR 8.11 MG/DL (0.70-1.30); GLOMERULAR FILTRATION RATE 7.1 (>49); POTASSIUM SERUM 5.3 MMOL/L (3.5-5.1)
[2024-01-18 05:42] LABS: HEMATOCRIT 26.8 % (42.0-52.0); HEMOGLOBIN 8.1 g/dl (13.5-17.5); MEAN CORPUSCULAR HEMOGLOBIN 29.6 pg (27.0-33.0); MEAN CORPUSCULAR HGB CONC 30.2 g/dl (32.0-36.5); MEAN CORPUSCULAR VOLUME 97.8 fl (80.0-96.0); PLATELET COUNT, AUTOMATED 202 10^3/uL (150-450); RED BLOOD COUNT 2.74 10^6/uL (4.30-6.10); WHITE BLOOD COUNT 7.7 10^3/uL (4.0-10.0)
[2024-01-18] MEDS: LEVOTHYROXINE 100MCG TABLET (0.1MG) PO SCH (05:53)
[2024-01-18] MEDS: LEVOTHYROXINE 25MCG TABLET (0.025MG) PO SCH (05:54)
[2024-01-18 06:03] LABS: ALKALINE PHOSPHATASE 82 U/L (40-129); ALT/SGPT 16 U/L (7.0-40); AST/SGOT < 8 U/L (<34); BILIRUBIN,TOTAL < 0.2 MG/DL (0.3-1.2); BLOOD UREA NITROGEN 62 MG/DL (9-23); CALCIUM LEVEL 7.7 MG/DL (8.3-10.6); CARBON DIOXIDE LEVEL 27 MMOL/L (20-31); CHLORIDE LEVEL 103 MMOL/L (98-107); CREATININE FOR GFR 8.31 MG/DL (0.70-1.30); GLOMERULAR FILTRATION RATE 6.9 (>49); GLUCOSE, FASTING 96 MG/DL (74-106); POTASSIUM SERUM 5.6 MMOL/L (3.5-5.1); SODIUM LEVEL 136 MMOL/L (136-145); TOTAL PROTEIN 5.9 G/DL (5.7-8.2)
[2024-01-18] MEDS ORDERED: cefTRIAXone SOD 1 GM in DEXTROSE 5% (D5W) ADV/MINI-BAG 50 ML IV SCH (07:15)
[2024-01-18] MEDS ORDERED: CEFEPIME HCL 1 GM in DEXTROSE 5% (D5W) ADV/MINI-BAG 50 ML IV SCH (07:15)
[2024-01-18] MEDS: ATORVASTATIN 20 MG TAB PO SCH (08:34)
[2024-01-18] MEDS: (RENVELA) SEVELAMER **CARBONate** 800 MG TAB PO SCH (08:34)
[2024-01-18] MEDS: DOXYCYCLINE HYCLATE 100MG TABLET PO SCH (08:35)
[2024-01-18] MEDS: CEFEPIME HCL 1 GM in DEXTROSE 5% (D5W) ADV/MINI-BAG 50 ML IV SCH (08:37)
[2024-01-18] MEDS ORDERED: allopurinoL 100 MG TAB PO SCH (09:00)
[2024-01-18] MEDS ORDERED: TORSEMIDE 100 MG TAB PO SCH (09:00)
[2024-01-18] MEDS ORDERED: MIRTAZAPINE 7.5MG PER 1/2 TABLET PO SCH (09:00)
[2024-01-18 12:18] LABS: ABG BASE EXCESS -4.7 (-2.0-2.0); ABG HCO3 25.7 MMOL/L (22.0-26.0); ABG PARTIAL PRESSURE O2 82.8 mmHg (75.0-100.0); ABG STANDARD HCO3 20.5 MMOL/L. (22.0-26.0); ABG TOTAL CO2 28.3 MMOL/L (23.0-31.0)
[2024-01-18 12:25] LABS: ABG PARTIAL PRESSURE CO2 85.3 mmHg (35.0-45.0); ABG pH (ARTERIAL) 7.096 UNITS (7.350-7.450)
[2024-01-18] MEDS: NALOXONE INJ 0.4MG/1ML VIAL IV STA (12:36)
[2024-01-18] MEDS ORDERED: ACETAMINOPHEN 325 MG TAB PO PRN (13:00)
[2024-01-18] MEDS: FLUBLOK(EGGFREE) TRIVAL(24-25) VACCINE PF 0.5ML SYRINGE 18YRS & OLDER IM.IMMUN ONE (14:00)
[2024-01-18 15:14] LABS: ABG BASE EXCESS -3.7 (-2.0-2.0); ABG HCO3 25.3 MMOL/L (22.0-26.0); ABG O2 SATURATION 95.6 % (95.0-99.0); ABG PARTIAL PRESSURE O2 85.9 mmHg (75.0-100.0); ABG STANDARD HCO3 21.3 MMOL/L. (22.0-26.0); ABG TOTAL CO2 27.5 MMOL/L (23.0-31.0)
[2024-01-18 15:17] LABS: ABG PARTIAL PRESSURE CO2 71.7 mmHg (35.0-45.0); ABG pH (ARTERIAL) 7.166 UNITS (7.350-7.450)
[2024-01-18] MEDS: PATIROMER SORBITEX CALCIUM 8.4 GM POWDER PACKET (VELTASSA) PO SCH (15:51)
[2024-01-18] MEDS: ACETAMINOPHEN 325 MG TAB PO SCH (15:52)
[2024-01-18 16:28] LABS: BASO % 0.5 % (0.0-1.0); EOS # 0.3 10^3/uL (0.0-0.5); EOS % 3.6 % (0.0-3.0); HEMATOCRIT 29.1 % (42.0-52.0); HEMOGLOBIN 8.8 g/dl (13.5-17.5); LYMPH # 0.7 10^3/uL (1.5-5.0); MEAN CORPUSCULAR HEMOGLOBIN 29.6 pg (27.0-33.0); MEAN CORPUSCULAR HGB CONC 30.2 g/dl (32.0-36.5); MONO # 0.4 10^3/uL (0.0-0.8); MONO % 5.2 % (2.0-8.0); NEUTROPHILS # 6.4 10^3/uL (1.5-8.5); NEUTROPHILS % 79.3 % (36.0-66.0); PLATELET COUNT, AUTOMATED 216 10^3/uL (150-450); RED BLOOD COUNT 2.97 10^6/uL (4.30-6.10)
[2024-01-18 16:58] LABS: ALBUMIN 2.1 G/DL (3.2-5.2); ALKALINE PHOSPHATASE 84 U/L (40-129); ALT/SGPT 16 U/L (7.0-40); AST/SGOT < 8 U/L (<34); BILIRUBIN,TOTAL < 0.2 MG/DL (0.3-1.2); BLOOD UREA NITROGEN 65 MG/DL (9-23); CALCIUM LEVEL 7.8 MG/DL (8.3-10.6); CARBON DIOXIDE LEVEL 24 MMOL/L (20-31); CHLORIDE LEVEL 101 MMOL/L (98-107); CREATININE FOR GFR 8.65 MG/DL (0.70-1.30); GLOMERULAR FILTRATION RATE 6.6 (>49); GLUCOSE, FASTING 79 MG/DL (74-106); MAGNESIUM LEVEL 2.1 MG/DL (1.8-2.4); POTASSIUM SERUM 6.5 MMOL/L (3.5-5.1); SODIUM LEVEL 135 MMOL/L (136-145); TOTAL PROTEIN 6.4 G/DL (5.7-8.2)
[2024-01-18] MEDS: CALCIUM GLUCONATE 1,000 MG in DEXTROSE 5% (D5W) MINI-BAG PLU 100 ML IV ONE (17:05)
[2024-01-18] MEDS: IPRATROPIUM 0.5MG/ALBUTEROL 2.5MG INH SOL UD 3ML (DUONEB) NEB SCH (17:07)
[2024-01-18] MEDS: DEXTROSE 50% 50ML SYRINGE IV STA (17:14)
[2024-01-18] MEDS: HumuLIN R (REGULAR) INSULIN (NovoLIN R) **100U/ML** PER UNIT IV STA (17:15)
[2024-01-18] MEDS: ALBUTEROL SULFATE 2.5MG/0.5ML INH NEB SOLN NEB ONE (18:07)
[2024-01-18 19:57] LABS: ABG BASE EXCESS -3.9 (-2.0-2.0); ABG HCO3 23.1 MMOL/L (22.0-26.0); ABG PARTIAL PRESSURE CO2 52.2 mmHg (35.0-45.0); ABG PARTIAL PRESSURE O2 126.9 mmHg (75.0-100.0); ABG STANDARD HCO3 21.2 MMOL/L. (22.0-26.0); ABG TOTAL CO2 24.7 MMOL/L (23.0-31.0); ABG pH (ARTERIAL) 7.263 UNITS (7.350-7.450)
[2024-01-18 20:54] LABS: CALCIUM LEVEL 7.4 MG/DL (8.3-10.6); CREATININE FOR GFR 8.97 MG/DL (0.70-1.30); GLOMERULAR FILTRATION RATE 6.3 (>49); POTASSIUM SERUM 5.7 MMOL/L (3.5-5.1)
[2024-01-18] MEDS: LEVEMIR (INSULIN DETEMIR) 1 UNITS/0.01ML SC SCH (21:28)
[2024-01-19] VITALS (30 sets, daily range): BP systolic 103–153; BP diastolic 50–102; TEMP 97.4–99; O2SAT 76–95
[2024-01-19 04:59] LABS: HEMATOCRIT 23.2 % (42.0-52.0); MEAN CORPUSCULAR HEMOGLOBIN 29.3 pg (27.0-33.0); MEAN CORPUSCULAR HGB CONC 30.2 g/dl (32.0-36.5); MEAN CORPUSCULAR VOLUME 97.1 fl (80.0-96.0); PLATELET COUNT, AUTOMATED 191 10^3/uL (150-450); RED BLOOD COUNT 2.39 10^6/uL (4.30-6.10); WHITE BLOOD COUNT 7.3 10^3/uL (4.0-10.0)
[2024-01-19 05:43] LABS: ALBUMIN 1.9 G/DL (3.2-5.2); ALKALINE PHOSPHATASE 73 U/L (40-129); ALT/SGPT 13 U/L (7.0-40); AST/SGOT < 8 U/L (<34); BILIRUBIN,TOTAL < 0.2 MG/DL (0.3-1.2); BLOOD UREA NITROGEN 69 MG/DL (9-23); CALCIUM LEVEL 7.6 MG/DL (8.3-10.6); CARBON DIOXIDE LEVEL 25 MMOL/L (20-31); CHLORIDE LEVEL 104 MMOL/L (98-107); CREATININE FOR GFR 9.49 MG/DL (0.70-1.30); GLOMERULAR FILTRATION RATE 5.9 (>49); GLUCOSE, FASTING 57 MG/DL (74-106); POTASSIUM SERUM 6.1 MMOL/L (3.5-5.1); SODIUM LEVEL 136 MMOL/L (136-145); TOTAL PROTEIN 5.5 G/DL (5.7-8.2)
[2024-01-19] MEDS: DEXTROSE 50% 50ML SYRINGE IV PRN (08:04)
[2024-01-19] MEDS ORDERED: LIDOCAINE 1% SDV 5ML VIAL SC PRN (08:35)
[2024-01-19] MEDS ORDERED: SODIUM CHLORIDE 0.9% 1000 ML IV PRN (08:35)
[2024-01-19] MEDS ORDERED: HEPARIN 1,000UNITS/ML 10ML VIAL (FOR RADIOLOGY & DIALYSIS ONLY) IV PRN (08:35)
[2024-01-19] MEDS: PATIROMER SORBITEX CALCIUM 8.4 GM POWDER PACKET (VELTASSA) PO STA (10:40)
[2024-01-19] MEDS: LEVOTHYROXINE 100MCG (0.1MG) 5ML SDV PF (SOLUTION FORM) IV SCH (10:41)
[2024-01-19] MEDS: LIDOCAINE 5% (LIDODERM) PATCH TD SCH (10:42)
[2024-01-19] MEDS: HEPARIN 1,000UNITS/ML 10ML VIAL (FOR RADIOLOGY & DIALYSIS ONLY) IV STA (10:43)
[2024-01-19] MEDS: CALCITRIOL 0.25 MCG CAP (S0169) PO SCH (10:45)
[2024-01-19] MEDS: HEPARIN 1,000UNITS/ML 10ML VIAL (FOR RADIOLOGY & DIALYSIS ONLY) XX SCH (15:32)
[2024-01-19 15:53] LABS: CALCIUM LEVEL 7.5 MG/DL (8.3-10.6); CREATININE FOR GFR 5.3 MG/DL (0.70-1.30); GLOMERULAR FILTRATION RATE 11.6 (>49); POTASSIUM SERUM 4.1 MMOL/L (3.5-5.1)
[2024-01-19] MEDS: CEFEPIME HCL 1 GM in DEXTROSE 5% (D5W) ADV/MINI-BAG 50 ML IV SCH (17:24)
[2024-01-19] MEDS ORDERED: PILL CUTTER 1 EACH XX ONE (17:30)
[2024-01-19 18:00] LABS: HEMOGLOBIN 9.1 g/dl (13.5-17.5)
[2024-01-19 18:01] LABS: HEMATOCRIT 28.3 % (42.0-52.0)
[2024-01-19] MEDS: LEVEMIR (INSULIN DETEMIR) 1 UNITS/0.01ML SC SCH (21:02)
[2024-01-20] VITALS (15 sets, daily range): BP systolic 141–179; BP diastolic 64–76; TEMP 97–98.1; O2SAT 86–97
[2024-01-20 05:47] LABS: HEMATOCRIT 28.2 % (42.0-52.0); MEAN CORPUSCULAR HGB CONC 31.9 g/dl (32.0-36.5); PLATELET COUNT, AUTOMATED 174 10^3/uL (150-450); WHITE BLOOD COUNT 7.2 10^3/uL (4.0-10.0)
[2024-01-20] MEDS ORDERED: HEPARIN 1,000UNITS/ML 10ML VIAL (FOR RADIOLOGY & DIALYSIS ONLY) IV PRN (06:00)
[2024-01-20] MEDS ORDERED: SODIUM CHLORIDE 0.9% 1000 ML IV PRN (06:00)
[2024-01-20 06:08] LABS: ALBUMIN 1.9 G/DL (3.2-5.2); ALKALINE PHOSPHATASE 77 U/L (40-129); ALT/SGPT 13 U/L (7.0-40); AST/SGOT < 8 U/L (<34); BILIRUBIN,TOTAL 0.2 MG/DL (0.3-1.2); BLOOD UREA NITROGEN 49 MG/DL (9-23); CALCIUM LEVEL 7.8 MG/DL (8.3-10.6); CARBON DIOXIDE LEVEL 28 MMOL/L (20-31); CHLORIDE LEVEL 100 MMOL/L (98-107); CREATININE FOR GFR 6.75 MG/DL (0.70-1.30); GLOMERULAR FILTRATION RATE 8.8 (>49); GLUCOSE, FASTING 102 MG/DL (74-106); POTASSIUM SERUM 4.8 MMOL/L (3.5-5.1); SODIUM LEVEL 134 MMOL/L (136-145)
[2024-01-20] MEDS: LEVEMIR (INSULIN DETEMIR) 1 UNITS/0.01ML SC SCH (08:17)
[2024-01-20] MEDS: HEPARIN 1,000UNITS/ML 10ML VIAL (FOR RADIOLOGY & DIALYSIS ONLY) XX SCH (09:48)
[2024-01-20] MEDS ORDERED: LEVOTHYROXINE 100MCG TABLET (0.1MG) PO SCH (14:00)
[2024-01-20] MEDS ORDERED: LEVOTHYROXINE 25MCG TABLET (0.025MG) PO SCH (14:00)
[2024-01-20] MEDS: LEVOTHYROXINE 25MCG TABLET (0.025MG) PO SCH (15:22)
[2024-01-20] MEDS: LEVOTHYROXINE 100MCG TABLET (0.1MG) PO SCH (15:23)
[2024-01-20] MEDS: traZODone 100 MG TAB PO SCH (20:26)
[2024-01-21] VITALS (13 sets, daily range): BP systolic 103–147; BP diastolic 52–66; TEMP 97.8–98.8; O2SAT 92–98
[2024-01-21] MEDS: RAMELTEON 8 MG TAB (ROZEREM) PO ONE (00:04)
[2024-01-21 05:41] LABS: HEMATOCRIT 28.9 % (42.0-52.0); HEMOGLOBIN 9.1 g/dl (13.5-17.5); MEAN CORPUSCULAR HEMOGLOBIN 29.9 pg (27.0-33.0); MEAN CORPUSCULAR HGB CONC 31.5 g/dl (32.0-36.5); MEAN CORPUSCULAR VOLUME 95.1 fl (80.0-96.0); PLATELET COUNT, AUTOMATED 159 10^3/uL (150-450); RED BLOOD COUNT 3.04 10^6/uL (4.30-6.10); WHITE BLOOD COUNT 6.8 10^3/uL (4.0-10.0)
[2024-01-21 06:01] LABS: ALBUMIN 1.9 G/DL (3.2-5.2); ALKALINE PHOSPHATASE 73 U/L (40-129); ALT/SGPT 11 U/L (7.0-40); AST/SGOT < 8 U/L (<34); BILIRUBIN,TOTAL 0.2 MG/DL (0.3-1.2); BLOOD UREA NITROGEN 36 MG/DL (9-23); CALCIUM LEVEL 8.1 MG/DL (8.3-10.6); CARBON DIOXIDE LEVEL 26 MMOL/L (20-31); CHLORIDE LEVEL 103 MMOL/L (98-107); CREATININE FOR GFR 5.34 MG/DL (0.70-1.30); GLOMERULAR FILTRATION RATE 11.5 (>49); GLUCOSE, FASTING 110 MG/DL (74-106); POTASSIUM SERUM 4.5 MMOL/L (3.5-5.1); SODIUM LEVEL 136 MMOL/L (136-145); TOTAL PROTEIN 5.7 G/DL (5.7-8.2)
[2024-01-21 13:49] LABS: PROCALCITONIN 1.07 ng/ml
[2024-01-21] MEDS: RAMELTEON 8 MG TAB (ROZEREM) PO SCH (21:00)
[2024-01-21] MEDS: LIDOCAINE 5% (LIDODERM) PATCH TD SCH (21:47)
[2024-01-22] VITALS (19 sets, daily range): BP systolic 134–147; BP diastolic 60–67; TEMP 97–98.4; O2SAT 90–99
[2024-01-22] MEDS ORDERED: HEPARIN 1,000UNITS/ML 10ML VIAL (FOR RADIOLOGY & DIALYSIS ONLY) IV PRN (06:00)
[2024-01-22] MEDS ORDERED: LIDOCAINE 1% SDV 5ML VIAL SC PRN (06:00)
[2024-01-22] MEDS ORDERED: SODIUM CHLORIDE 0.9% 1000 ML IV PRN (06:00)
[2024-01-22 06:38] LABS: HEMATOCRIT 26.6 % (42.0-52.0); HEMOGLOBIN 8.5 g/dl (13.5-17.5); MEAN CORPUSCULAR HEMOGLOBIN 30.2 pg (27.0-33.0); MEAN CORPUSCULAR VOLUME 94.7 fl (80.0-96.0); PLATELET COUNT, AUTOMATED 153 10^3/uL (150-450); RED BLOOD COUNT 2.81 10^6/uL (4.30-6.10); WHITE BLOOD COUNT 6.5 10^3/uL (4.0-10.0)
[2024-01-22 07:25] LABS: ALKALINE PHOSPHATASE 71 U/L (40-129); ALT/SGPT 12 U/L (7.0-40); AST/SGOT 11 U/L (<34); BILIRUBIN,TOTAL < 0.2 MG/DL (0.3-1.2); BLOOD UREA NITROGEN 47 MG/DL (9-23); CALCIUM LEVEL 8.2 MG/DL (8.3-10.6); CARBON DIOXIDE LEVEL 24 MMOL/L (20-31); CHLORIDE LEVEL 101 MMOL/L (98-107); CREATININE FOR GFR 6.69 MG/DL (0.70-1.30); GLOMERULAR FILTRATION RATE 8.9 (>49); GLUCOSE, FASTING 114 MG/DL (74-106); POTASSIUM SERUM 4.9 MMOL/L (3.5-5.1); PROCALCITONIN 1.12 ng/ml; SODIUM LEVEL 135 MMOL/L (136-145); TOTAL PROTEIN 5.6 G/DL (5.7-8.2)
[2024-01-22] MEDS: HEPARIN 1,000UNITS/ML 10ML VIAL (FOR RADIOLOGY & DIALYSIS ONLY) XX SCH (14:28)
[2024-01-22] MEDS: DARBEPOETIN 100MCG/0.5ML *DIALYSIS* SYRINGE IV SCH (14:34)
[2024-01-23] VITALS (28 sets, daily range): BP systolic 130–158; BP diastolic 61–70; TEMP 97.3–98.2; O2SAT 90–100
[2024-01-23 05:21] LABS: HEMATOCRIT 26.6 % (42.0-52.0); HEMOGLOBIN 8.5 g/dl (13.5-17.5); PLATELET COUNT, AUTOMATED 153 10^3/uL (150-450); RED BLOOD COUNT 2.83 10^6/uL (4.30-6.10); WHITE BLOOD COUNT 6.7 10^3/uL (4.0-10.0)
[2024-01-23 05:54] LABS: BILIRUBIN,TOTAL 0.2 MG/DL (0.3-1.2); CALCIUM LEVEL 8.1 MG/DL (8.3-10.6); CREATININE FOR GFR 5.08 MG/DL (0.70-1.30); GLOMERULAR FILTRATION RATE 12.2 (>49); POTASSIUM SERUM 4.7 MMOL/L (3.5-5.1); TOTAL PROTEIN 5.9 G/DL (5.7-8.2)
[2024-01-23] MEDS: ceFAZolin 2 GM/D5W 50 ML IV BAG As Ordered ONE (14:18)
[2024-01-23] MEDS ORDERED: propofoL 200 MG/20 ML VIAL As Ordered ONE (14:52)
[2024-01-23] MEDS ORDERED: LIDOCAINE 2% 100MG/5ML SDV (FOR ANES.) As Ordered ONE (14:52)
[2024-01-23] MEDS: LIDOCAINE W/EPINEPHRINE 1% 20ML VIAL As Ordered ONE (15:55)
[2024-01-23] MEDS: HEPARIN 1,000UNITS/ML 10ML VIAL (FOR RADIOLOGY & DIALYSIS ONLY) As Ordered ONE (15:56)
[2024-01-23] MEDS ORDERED: fentaNYL 100 MCG/2 ML INJECTION IV PRN (16:05)
[2024-01-23] MEDS ORDERED: ONDANSETRON 4MG 2ML VIAL IV PRN (16:05)
[2024-01-23] MEDS ORDERED: oxyCODONE 5MG TAB PO PRN (16:05)
[2024-01-23] MEDS: LEVEMIR (INSULIN DETEMIR) 1 UNITS/0.01ML SC SCH (21:09)
[2024-01-23 21:27] LABS: APPEARANCE, URINE CLOUDY (CLEAR); BACTERIA, URINE AUTO NEGATIVE (NEGATIVE); BILIRUBIN, URINE AUTO NEGATIVE (NEGATIVE); BLOOD, URINE BLOOD 3+ (NEGATIVE); COLOR, URINE YELLOW (YELLOW); GLUCOSE, URINE (UA) AUTO 1+ mg/dL (NEGATIVE); KETONE, URINE AUTO NEGATIVE (NEGATIVE); LEUKOCYTE ESTERASE, URINE AUTO 1+ (NEGATIVE); NITRITE, URINE AUTO NEGATIVE (NEGATIVE); PROTEIN, URINE AUTO 2+ mg/dL (NEGATIVE); RBC, URINE AUTO 33 /HPF (0-3); SPECIFIC GRAVITY URINE AUTO 1.013 (1.002-1.035); SQUAMOUS EPITHELIAL CELL UR AU 1 /HPF (0-6); UROBILINOGEN, URINE AUTO 0.2 mg/dL (0.0-2.0); WBC, URINE AUTO 19 /HPF (0-3)
[2024-01-24] VITALS (14 sets, daily range): BP systolic 138–167; BP diastolic 61–72; TEMP 97.9–98.4; O2SAT 90–97
[2024-01-24] MEDS: traMADol 50 MG TAB PO PRN (02:25)
[2024-01-24 05:48] LABS: HEMATOCRIT 25.4 % (42.0-52.0); HEMOGLOBIN 8.2 g/dl (13.5-17.5); MEAN CORPUSCULAR HEMOGLOBIN 30.3 pg (27.0-33.0); MEAN CORPUSCULAR HGB CONC 32.3 g/dl (32.0-36.5); MEAN CORPUSCULAR VOLUME 93.7 fl (80.0-96.0); PLATELET COUNT, AUTOMATED 134 10^3/uL (150-450); RED BLOOD COUNT 2.71 10^6/uL (4.30-6.10); WHITE BLOOD COUNT 6.5 10^3/uL (4.0-10.0)
[2024-01-24] MEDS ORDERED: HEPARIN 1,000UNITS/ML 10ML VIAL (FOR RADIOLOGY & DIALYSIS ONLY) IV PRN (06:00)
[2024-01-24] MEDS ORDERED: SODIUM CHLORIDE 0.9% 250ML IV PRN (06:00)
[2024-01-24 06:22] LABS: ALBUMIN 2.1 G/DL (3.2-5.2); ALKALINE PHOSPHATASE 74 U/L (40-129); ALT/SGPT 14 U/L (7.0-40); AST/SGOT 12 U/L (<34); BILIRUBIN,TOTAL < 0.2 MG/DL (0.3-1.2); BLOOD UREA NITROGEN 45 MG/DL (9-23); CALCIUM LEVEL 8.2 MG/DL (8.3-10.6); CARBON DIOXIDE LEVEL 23 MMOL/L (20-31); CHLORIDE LEVEL 101 MMOL/L (98-107); CREATININE FOR GFR 6.67 MG/DL (0.70-1.30); GLOMERULAR FILTRATION RATE 8.9 (>49); GLUCOSE, FASTING 136 MG/DL (74-106); POTASSIUM SERUM 5.2 MMOL/L (3.5-5.1); SODIUM LEVEL 133 MMOL/L (136-145); TOTAL PROTEIN 5.8 G/DL (5.7-8.2)
[2024-01-24] MEDS ORDERED: TOUJ1.2I SC (10:47)
[2024-01-24] MEDS ORDERED: TRAM50TA2 PO (10:47)
[2024-01-24] MEDS ORDERED: LIDO5TD TOP (10:54)
[2024-01-24] MEDS ORDERED: LEVO1TAB39 PO (10:54)
[2024-01-24] MEDS ORDERED: SEVE800T3 PO (10:54)
[2024-01-24] MEDS: HEPARIN 1,000UNITS/ML 10ML VIAL (FOR RADIOLOGY & DIALYSIS ONLY) XX SCH (14:44)
[2024-01-24] MEDS: LevoFLOXacin 500 MG TABLET PO SCH (17:50)
== END 2024-01-24 18:25 | disposition home health service (06) | DRG 291 ==
LOC: EDBD 10:52 → M ED 10:52 → M ED INP 14:28 → M PCU 17:07 → M ICU 01-18 15:30 → M PCU 01-19 16:54
PROVIDERS: ADMIT Internal Medicine; ATTEND Internal Medicine
PROC: 30233N1 Transfusion of Nonautologous Red Blood Cells into Peripheral Vein, Percutaneous Approach (ICD-10-PCS; principal; 2024-01-19)
PROC: 02HV33Z Insertion of Infusion Device into Superior Vena Cava, Percutaneous Approach (ICD-10-PCS; 2024-01-19)
PROC: 5A1D70Z Performance of Urinary Filtration, Intermittent, Less than 6 Hours Per Day (ICD-10-PCS; 2024-01-19)
PROC: 0JH60XZ Insertion of Tunneled Vascular Access Device into Chest Subcutaneous Tissue and Fascia, Open Approach (ICD-10-PCS; 2024-01-24)
DX: I13.2 Hypertensive heart and chronic kidney disease with heart failure and with stage 5 chronic kidney disease, or end stage renal disease (principal); I50.33 Acute on chronic diastolic (congestive) heart failure; N18.6 End stage renal disease; J96.02 Acute respiratory failure with hypercapnia; G93.41 Metabolic encephalopathy; J96.01 Acute respiratory failure with hypoxia; J15.69 Pneumonia due to other Gram-negative bacteria; T85.691A Other mechanical complication of intraperitoneal dialysis catheter, initial encounter; J91.0 Malignant pleural effusion; I48.92 Unspecified atrial flutter; I48.20 Chronic atrial fibrillation, unspecified; E11.42 Type 2 diabetes mellitus with diabetic polyneuropathy; E78.5 Hyperlipidemia, unspecified; E03.9 Hypothyroidism, unspecified; D63.1 Anemia in chronic kidney disease; D50.9 Iron deficiency anemia, unspecified; M10.9 Gout, unspecified; E66.9 Obesity, unspecified; L40.0 Psoriasis vulgaris; G25.81 Restless legs syndrome; E11.649 Type 2 diabetes mellitus with hypoglycemia without coma; E87.5 Hyperkalemia; K21.9 Gastro-esophageal reflux disease without esophagitis; I44.1 Atrioventricular block, second degree; E11.51 Type 2 diabetes mellitus with diabetic peripheral angiopathy without gangrene; I70.201 Unspecified atherosclerosis of native arteries of extremities, right leg; Z79.4 Long term (current) use of insulin; Z79.890 Hormone replacement therapy; Z79.899 Other long term (current) drug therapy; Z88.8 Allergy status to other drugs, medicaments and biological substances; Z99.2 Dependence on renal dialysis; Z87.891 Personal history of nicotine dependence; Z85.528 Personal history of other malignant neoplasm of kidney; Z90.5 Acquired absence of kidney; Z85.038 Personal history of other malignant neoplasm of large intestine; Z90.49 Acquired absence of other specified parts of digestive tract

== ENCOUNTER 2024-01-30 09:50 | Inpatient (IN) | payer MEDICARE, MEDICAID ==
[~2024-01-30] VITALS: Ht 182.9 cm; Wt 105.7 kg
[~2024-01-30 09:50] MED LIST changes: +D32000CA PO; +GABA-1171 PO; +LEVO1TAB39 PO; +LIDO5TD TOP; +PANT40TA29 PO; +SEMA0.257 INJ; +SEVE800T3 PO; +TRAM50TA2 PO
[2024-01-30 14:41] LABS: HEMATOCRIT 29.1 % (42.0-52.0); MEAN CORPUSCULAR HEMOGLOBIN 29.7 pg (27.0-33.0); MEAN CORPUSCULAR HGB CONC 30.9 g/dl (32.0-36.5); PLATELET COUNT, AUTOMATED 220 10^3/uL (150-450); RED BLOOD COUNT 3.03 10^6/uL (4.30-6.10); WHITE BLOOD COUNT 7.1 10^3/uL (4.0-10.0)
[2024-01-30 15:19] LABS: CALCIUM LEVEL 8.2 MG/DL (8.3-10.6); CREATININE FOR GFR 9.67 MG/DL (0.70-1.30); GLOMERULAR FILTRATION RATE 5.8 (>49); POTASSIUM SERUM 6.1 MMOL/L (3.5-5.1)
[2024-01-30] MEDS: PATIROMER SORBITEX CALCIUM 8.4 GM POWDER PACKET (VELTASSA) PO ONE ×2 (17:08→22:45)
[2024-01-30] MEDS ORDERED: DEXTROSE 50% 50ML SYRINGE IV PRN (17:20)
[2024-01-30] MEDS ORDERED: GLUCOSE 4 GM CHEW PO PRN (17:20)
[2024-01-30] MEDS ORDERED: GLUCAGON INJ 1MG VIAL SC PRN (17:20)
[2024-01-30] MEDS ORDERED: CALC1CAP31 PO (17:23)
[2024-01-30] MEDS ORDERED: MIRT1TAB15 PO (17:23)
[2024-01-30] MEDS ORDERED: POLY510P14 PO (17:27)
[2024-01-30] MEDS ORDERED: TRAM50TA2 PO (17:28)
[2024-01-30] MEDS: INSULIN LISPRO (NovoLOG) PER UNIT SC SCH (17:30)
[2024-01-30] MEDS ORDERED: HOME MED LIST COMPLETE! XX SCH (17:30)
[2024-01-30] MEDS: (RENVELA) SEVELAMER **CARBONate** 800 MG TAB PO SCH (19:38)
[2024-01-30] MEDS: oxyCODONE 5MG TAB PO PRN (20:23)
[2024-01-30] MEDS: LEVEMIR (INSULIN DETEMIR) 1 UNITS/0.01ML SC SCH (21:00)
[2024-01-30] MEDS ORDERED: (RENVELA) SEVELAMER **CARBONate** 800 MG TAB PO SCH (21:00)
[2024-01-30 22:43] LABS: CALCIUM LEVEL 7.6 MG/DL (8.3-10.6); CREATININE FOR GFR 9.97 MG/DL (0.70-1.30); GLOMERULAR FILTRATION RATE 5.6 (>49); POTASSIUM SERUM 6.1 MMOL/L (3.5-5.1)
[2024-01-30] MEDS: GABAPENTIN 100 MG CAP PO SCH (22:44)
[2024-01-30] MEDS: MIRTAZAPINE 15 MG TAB PO SCH (22:45)
[2024-01-30] MEDS: PANTOPRAZOLE 40MG TAB (PROTONIX) PO SCH (22:45)
[2024-01-30] MEDS: rOPINIRole 1MG TAB PO SCH (23:04)
[2024-01-30] MEDS: rOPINIRole 0.25 MG TAB(REQUIP) PO SCH (23:04)
[2024-01-30] MEDS: DICLOFENAC EPOLAMINE 1.3% PATCH TOP SCH (23:04)
[2024-01-30] MEDS: ACETAMINOPHEN 325 MG TAB PO SCH (23:05)
[2024-01-30] MEDS: HumuLIN R (REGULAR) INSULIN (NovoLIN R) **100U/ML** PER UNIT IV STA (23:10)
[2024-01-30] MEDS: CALCIUM GLUCONATE 1,000 MG in DEXTROSE 5% (D5W) MINI-BAG PLU 100 ML IV ONE (23:43)
[2024-01-30] MEDS: DEXTROSE 50% 50ML SYRINGE IV STA (23:43)
[2024-01-31] MEDS ORDERED: HEPARIN 1,000UNITS/ML 10ML VIAL (FOR RADIOLOGY & DIALYSIS ONLY) IV PRN (06:00)
[2024-01-31] MEDS ORDERED: SODIUM CHLORIDE 0.9% 1000 ML IV PRN (06:00)
[2024-01-31] MEDS ORDERED: LIDOCAINE 1% SDV 5ML VIAL SC PRN (06:00)
[2024-01-31] MEDS: LEVOTHYROXINE 100MCG TABLET (0.1MG) PO SCH (06:46)
[2024-01-31] MEDS: LEVOTHYROXINE 25MCG TABLET (0.025MG) PO SCH (06:46)
[2024-01-31] MEDS: ATORVASTATIN 20 MG TAB PO SCH (08:32)
[2024-01-31] MEDS: LIDOCAINE 5% (LIDODERM) PATCH TOP SCH (08:34)
[2024-01-31 08:57] LABS: HEMOGLOBIN 8.6 g/dl (13.5-17.5); MEAN CORPUSCULAR HGB CONC 30.7 g/dl (32.0-36.5); MEAN CORPUSCULAR VOLUME 97.6 fl (80.0-96.0); PLATELET COUNT, AUTOMATED 197 10^3/uL (150-450); RED BLOOD COUNT 2.87 10^6/uL (4.30-6.10); WHITE BLOOD COUNT 6.6 10^3/uL (4.0-10.0)
[2024-01-31] MEDS ORDERED: CALCITRIOL 0.25 MCG CAP (S0169) PO SCH (09:00)
[2024-01-31 09:45] LABS: CALCIUM LEVEL 8.4 MG/DL (8.3-10.6); CREATININE FOR GFR 10.49 MG/DL (0.70-1.30); GLOMERULAR FILTRATION RATE 5.3 (>49); MAGNESIUM LEVEL 1.8 MG/DL (1.8-2.4); POTASSIUM SERUM 6.8 MMOL/L (3.5-5.1)
[2024-01-31] MEDS: HEPARIN 1,000UNITS/ML 10ML VIAL (FOR RADIOLOGY & DIALYSIS ONLY) XX SCH (11:29)
[2024-01-31 14:36] VITALS: BP 121/57; TEMP 98.4; O2SAT 93
[2024-01-31 16:15] VITALS: BP 129/60; TEMP 97.8; O2SAT 94
[2024-01-31 19:46] VITALS: BP 115/56; TEMP 97.8; O2SAT 94
[2024-01-31 23:28] VITALS: BP 111/53; TEMP 97.8; O2SAT 96
[2024-02-01] VITALS (26 sets, daily range): BP systolic 111–139; BP diastolic 54–69; TEMP 97.6–98.3; O2SAT 74–96
[2024-02-01] MEDS ORDERED: SODIUM CHLORIDE 0.9% 1000 ML IV PRN (06:00)
[2024-02-01] MEDS ORDERED: LIDOCAINE 1% SDV 5ML VIAL SC PRN (06:00)
[2024-02-01] MEDS ORDERED: HEPARIN 1,000UNITS/ML 10ML VIAL (FOR RADIOLOGY & DIALYSIS ONLY) IV PRN (06:00)
[2024-02-01 08:50] LABS: HEMATOCRIT 26.8 % (42.0-52.0); HEMOGLOBIN 8.3 g/dl (13.5-17.5); MEAN CORPUSCULAR HEMOGLOBIN 29.9 pg (27.0-33.0); MEAN CORPUSCULAR VOLUME 96.4 fl (80.0-96.0); PLATELET COUNT, AUTOMATED 182 10^3/uL (150-450); RED BLOOD COUNT 2.78 10^6/uL (4.30-6.10); WHITE BLOOD COUNT 6.8 10^3/uL (4.0-10.0)
[2024-02-01 09:19] LABS: CALCIUM LEVEL 8.2 MG/DL (8.3-10.6); CREATININE FOR GFR 9.03 MG/DL (0.70-1.30); GLOMERULAR FILTRATION RATE 6.3 (>49); MAGNESIUM LEVEL 1.8 MG/DL (1.8-2.4); POTASSIUM SERUM 5.8 MMOL/L (3.5-5.1)
[2024-02-01] MEDS: HEPARIN 1,000UNITS/ML 10ML VIAL (FOR RADIOLOGY & DIALYSIS ONLY) XX SCH (10:04)
[2024-02-01 14:07] LABS: CREATININE FOR GFR 5.98 MG/DL (0.70-1.30); GLOMERULAR FILTRATION RATE 10.1 (>49); POTASSIUM SERUM 4.2 MMOL/L (3.5-5.1)
[2024-02-01] MEDS ORDERED: ceFAZolin SOD 2 GM in IV 1 EA IV ONE (14:50)
[2024-02-01] MEDS ORDERED: ceFAZolin SOD 3 GM in IV 1 EA IV ONE (15:20)
[2024-02-01] MEDS ORDERED: MIDAZOLAM INJ 2MG/2ML VIAL As Ordered ONE (15:28)
[2024-02-01] MEDS ORDERED: ceFAZolin 2 GM/D5W 50 ML IV BAG As Ordered ONE (15:28)
[2024-02-01] MEDS ORDERED: HEPARIN 1,000UNITS/ML 10ML VIAL (FOR RADIOLOGY & DIALYSIS ONLY) As Ordered ONE (15:28)
[2024-02-01] MEDS ORDERED: fentaNYL 100 MCG/2 ML INJECTION As Ordered ONE (15:28)
[2024-02-01] MEDS ORDERED: ceFAZolin 1GM VIAL As Ordered ONE (15:29)
[2024-02-01] MEDS ORDERED: LIDOCAINE 1% MDV 20ML VIAL As Ordered ONE (15:29)
[2024-02-01] MEDS: ceFAZolin SOD 1 GM in DEXTROSE 5% (D5W) ADV/MINI-BAG 50 ML IV ONE (15:39)
[2024-02-01] MEDS: ceFAZolin SOD 2 GM in IV 1 EA IV ONE (15:39)
[2024-02-01] MEDS ORDERED: PILL CUTTER 1 EACH XX PRN (16:20)
[2024-02-01] MEDS: NS (Normal Saline) 0.9% 1,000 ML IV SCH (16:54)
[2024-02-01 17:22] LABS: VENOUS BASE EXCESS -0.6 (-2.0-2.0); VENOUS HCO3 25.3 MMOL/L (23.0-27.0); VENOUS O2 SATURATION 99.2 % (60.0-80.0); VENOUS PARTIAL PRESSURE CO2 47.8 mmHg (38.0-50.0); VENOUS PARTIAL PRESSURE O2 139.9 mmHg (30.0-50.0); VENOUS PH 7.342 UNITS (7.330-7.430); VENOUS TOTAL CO2 26.8 MMOL/L (24.0-28.0)
[2024-02-01] MEDS: traMADol 50 MG TAB PO PRN (23:11)
[2024-02-02] VITALS (29 sets, daily range): BP systolic 108–151; BP diastolic 56–72; TEMP 97.5–98.4; O2SAT 88–100
[2024-02-02 06:20] LABS: HEMATOCRIT 26.1 % (42.0-52.0); HEMOGLOBIN 8.1 g/dl (13.5-17.5); MEAN CORPUSCULAR HEMOGLOBIN 29.9 pg (27.0-33.0); MEAN CORPUSCULAR VOLUME 96.3 fl (80.0-96.0); PLATELET COUNT, AUTOMATED 171 10^3/uL (150-450); RED BLOOD COUNT 2.71 10^6/uL (4.30-6.10); WHITE BLOOD COUNT 6.6 10^3/uL (4.0-10.0)
[2024-02-02 06:43] LABS: CALCIUM LEVEL 7.9 MG/DL (8.3-10.6); CREATININE FOR GFR 7.38 MG/DL (0.70-1.30); GLOMERULAR FILTRATION RATE 7.9 (>49); MAGNESIUM LEVEL 1.6 MG/DL (1.8-2.4)
[2024-02-02] MEDS ORDERED: SENNA 8.6 MG TAB (SENOKOT) PO PRN (08:00)
[2024-02-02] MEDS: MIRALAX *UNIT DOSE* 17GM PACKET PO SCH (09:00)
[2024-02-02] MEDS: BISACODYL 10MG SUPP PR SCH (09:00)
[2024-02-03] VITALS (26 sets, daily range): BP systolic 116–155; BP diastolic 44–67; TEMP 97–98; O2SAT 90–99
[2024-02-03] MEDS ORDERED: HEPARIN 1,000UNITS/ML 10ML VIAL (FOR RADIOLOGY & DIALYSIS ONLY) IV PRN (06:00)
[2024-02-03] MEDS ORDERED: SODIUM CHLORIDE 0.9% 1000 ML IV PRN (06:00)
[2024-02-03 06:33] LABS: HEMATOCRIT 26.4 % (42.0-52.0); HEMOGLOBIN 8.4 g/dl (13.5-17.5); MEAN CORPUSCULAR HEMOGLOBIN 29.7 pg (27.0-33.0); MEAN CORPUSCULAR HGB CONC 31.8 g/dl (32.0-36.5); MEAN CORPUSCULAR VOLUME 93.3 fl (80.0-96.0); PLATELET COUNT, AUTOMATED 159 10^3/uL (150-450); RED BLOOD COUNT 2.83 10^6/uL (4.30-6.10)
[2024-02-03 07:08] LABS: CALCIUM LEVEL 8.1 MG/DL (8.3-10.6); CREATININE FOR GFR 8.52 MG/DL (0.70-1.30); GLOMERULAR FILTRATION RATE 6.7 (>49); MAGNESIUM LEVEL 1.7 MG/DL (1.8-2.4); POTASSIUM SERUM 5.1 MMOL/L (3.5-5.1)
[2024-02-03] MEDS: HEPARIN 1,000UNITS/ML 10ML VIAL (FOR RADIOLOGY & DIALYSIS ONLY) XX SCH (08:40)
[2024-02-04] VITALS (37 sets, daily range): BP systolic 123–160; BP diastolic 54–68; TEMP 97.4–98.5; O2SAT 83–100
[2024-02-04] MEDS: MORPHINE 2 MG/ML 1ML VIAL IV ONE (00:42)
[2024-02-04 06:24] LABS: HEMATOCRIT 28.1 % (42.0-52.0); HEMOGLOBIN 8.8 g/dl (13.5-17.5); MEAN CORPUSCULAR HEMOGLOBIN 29.7 pg (27.0-33.0); MEAN CORPUSCULAR HGB CONC 31.3 g/dl (32.0-36.5); MEAN CORPUSCULAR VOLUME 94.9 fl (80.0-96.0); PLATELET COUNT, AUTOMATED 167 10^3/uL (150-450); RED BLOOD COUNT 2.96 10^6/uL (4.30-6.10); WHITE BLOOD COUNT 6.5 10^3/uL (4.0-10.0)
[2024-02-04 06:46] LABS: CALCIUM LEVEL 8.5 MG/DL (8.3-10.6); CREATININE FOR GFR 6.08 MG/DL (0.70-1.30); GLOMERULAR FILTRATION RATE 9.9 (>49); MAGNESIUM LEVEL 1.8 MG/DL (1.8-2.4); POTASSIUM SERUM 4.7 MMOL/L (3.5-5.1)
[2024-02-04] MEDS: ANALGESIC BALM CRM 3OZ TOP SCH (20:56)
[2024-02-05] VITALS (29 sets, daily range): BP systolic 119–154; BP diastolic 55–90; TEMP 97.3–97.9; O2SAT 85–99
[2024-02-05] MEDS ORDERED: SODIUM CHLORIDE 0.9% 1000 ML IV PRN (06:00)
[2024-02-05] MEDS ORDERED: HEPARIN 1,000UNITS/ML 10ML VIAL (FOR RADIOLOGY & DIALYSIS ONLY) IV PRN (06:00)
[2024-02-05 07:14] LABS: HEMATOCRIT 27.8 % (42.0-52.0); HEMOGLOBIN 8.8 g/dl (13.5-17.5); MEAN CORPUSCULAR HEMOGLOBIN 30.1 pg (27.0-33.0); MEAN CORPUSCULAR HGB CONC 31.7 g/dl (32.0-36.5); MEAN CORPUSCULAR VOLUME 95.2 fl (80.0-96.0); PLATELET COUNT, AUTOMATED 176 10^3/uL (150-450); RED BLOOD COUNT 2.92 10^6/uL (4.30-6.10); WHITE BLOOD COUNT 7.6 10^3/uL (4.0-10.0)
[2024-02-05 07:41] LABS: CALCIUM LEVEL 8.6 MG/DL (8.3-10.6); CREATININE FOR GFR 7.68 MG/DL (0.70-1.30); GLOMERULAR FILTRATION RATE 7.6 (>49); MAGNESIUM LEVEL 1.8 MG/DL (1.8-2.4); POTASSIUM SERUM 5.2 MMOL/L (3.5-5.1)
[2024-02-05] MEDS: HEPARIN 1,000UNITS/ML 10ML VIAL (FOR RADIOLOGY & DIALYSIS ONLY) XX SCH (09:28)
[2024-02-05 12:35] LABS: LIPASE 29 U/L (12-53)
[2024-02-05 12:37] LABS: ALBUMIN 2.3 G/DL (3.2-5.2); ALKALINE PHOSPHATASE 65 U/L (40-129); ALT/SGPT < 9 U/L (7.0-40); AST/SGOT < 8 U/L (<34); BILIRUBIN,DIRECT < 0.1 MG/DL (<0.4); BILIRUBIN,TOTAL < 0.2 MG/DL (0.3-1.2); TOTAL PROTEIN 6.5 G/DL (5.7-8.2)
[2024-02-05 13:29] LABS: HEMATOCRIT 28.4 % (42.0-52.0); HEMOGLOBIN 8.9 g/dl (13.5-17.5); MEAN CORPUSCULAR HEMOGLOBIN 29.8 pg (27.0-33.0); MEAN CORPUSCULAR HGB CONC 31.3 g/dl (32.0-36.5); PLATELET COUNT, AUTOMATED 178 10^3/uL (150-450); RED BLOOD COUNT 2.99 10^6/uL (4.30-6.10)
[2024-02-05 13:30] LABS: BLOOD UREA NITROGEN 35 MG/DL (9-23); CALCIUM LEVEL 8.4 MG/DL (8.3-10.6); CARBON DIOXIDE LEVEL 25 MMOL/L (20-31); CHLORIDE LEVEL 105 MMOL/L (98-107); CREATININE FOR GFR 4.79 MG/DL (0.70-1.30); GLOMERULAR FILTRATION RATE 13.1 (>49); GLUCOSE, FASTING 163 MG/DL (74-106); POTASSIUM SERUM 4.3 MMOL/L (3.5-5.1); SODIUM LEVEL 139 MMOL/L (136-145)
[2024-02-05 15:05] LABS: PROCALCITONIN 0.86 ng/ml
[2024-02-05 16:40] LABS: BASO % 0.6 % (0.0-1.0); EOS # 0.5 10^3/uL (0.0-0.5); EOS % 7.2 % (0.0-3.0); LYMPH # 0.6 10^3/uL (1.5-5.0); LYMPH % 9.6 % (24.0-44.0); MONO # 0.6 10^3/uL (0.0-0.8); MONO % 8.8 % (2.0-8.0); NEUTROPHILS # 4.5 10^3/uL (1.5-8.5); NEUTROPHILS % 72.4 % (36.0-66.0)
[2024-02-05] MEDS: LevoFLOXacin 750 MG TABLET PO SCH (17:20)
[2024-02-05] MEDS: MELATONIN 12 MG PO SCH (21:49)
[2024-02-06] VITALS (25 sets, daily range): BP systolic 122–158; BP diastolic 58–75; TEMP 97.6–98.4; O2SAT 90–100
[2024-02-06] MEDS ORDERED: SODIUM CHLORIDE 0.9% 1000 ML IV PRN (06:45)
[2024-02-06] MEDS ORDERED: HEPARIN 1,000UNITS/ML 10ML VIAL (FOR RADIOLOGY & DIALYSIS ONLY) IV PRN (06:45)
[2024-02-06 06:58] LABS: HEMATOCRIT 26.5 % (42.0-52.0); HEMOGLOBIN 8.3 g/dl (13.5-17.5); MEAN CORPUSCULAR HEMOGLOBIN 29.3 pg (27.0-33.0); MEAN CORPUSCULAR HGB CONC 31.3 g/dl (32.0-36.5); MEAN CORPUSCULAR VOLUME 93.6 fl (80.0-96.0); PLATELET COUNT, AUTOMATED 170 10^3/uL (150-450); RED BLOOD COUNT 2.83 10^6/uL (4.30-6.10); WHITE BLOOD COUNT 6.9 10^3/uL (4.0-10.0)
[2024-02-06 07:36] LABS: ALBUMIN 2.2 G/DL (3.2-5.2); ALKALINE PHOSPHATASE 62 U/L (40-129); ALT/SGPT < 9 U/L (7.0-40); AST/SGOT < 8 U/L (<34); BILIRUBIN,TOTAL < 0.2 MG/DL (0.3-1.2); BLOOD UREA NITROGEN 48 MG/DL (9-23); CALCIUM LEVEL 8.5 MG/DL (8.3-10.6); CARBON DIOXIDE LEVEL 24 MMOL/L (20-31); CHLORIDE LEVEL 105 MMOL/L (98-107); GLOMERULAR FILTRATION RATE 9.2 (>49); GLUCOSE, FASTING 129 MG/DL (74-106); POTASSIUM SERUM 5.4 MMOL/L (3.5-5.1); SODIUM LEVEL 139 MMOL/L (136-145); TOTAL PROTEIN 6.1 G/DL (5.7-8.2)
[2024-02-06] MEDS: HEPARIN 1,000UNITS/ML 10ML VIAL (FOR RADIOLOGY & DIALYSIS ONLY) XX SCH (09:04)
[2024-02-06] MEDS: IRON SUCROSE 100MG 5ML VIAL IV SCH (09:04)
[2024-02-06] MEDS: DARBEPOETIN 100MCG/0.5ML *DIALYSIS* SYRINGE IV SCH (10:08)
[2024-02-06] MEDS: LevoFLOXacin 250 MG TABLET PO SCH (17:36)
[2024-02-07] VITALS (26 sets, daily range): BP systolic 113–170; BP diastolic 50–68; TEMP 97.2–98.5; O2SAT 90–97
[2024-02-07] MEDS ORDERED: HEPARIN 1,000UNITS/ML 10ML VIAL (FOR RADIOLOGY & DIALYSIS ONLY) IV PRN (06:00)
[2024-02-07] MEDS ORDERED: SODIUM CHLORIDE 0.9% 1000 ML IV PRN (06:00)
[2024-02-07 06:33] LABS: HEMATOCRIT 28.8 % (42.0-52.0); MEAN CORPUSCULAR HGB CONC 31.3 g/dl (32.0-36.5); PLATELET COUNT, AUTOMATED 152 10^3/uL (150-450)
[2024-02-07 06:54] LABS: ALBUMIN 2.3 G/DL (3.2-5.2); ALKALINE PHOSPHATASE 64 U/L (40-129); ALT/SGPT < 9 U/L (7.0-40); AST/SGOT 9 U/L (<34); BILIRUBIN,TOTAL < 0.2 MG/DL (0.3-1.2); BLOOD UREA NITROGEN 33 MG/DL (9-23); CALCIUM LEVEL 8.5 MG/DL (8.3-10.6); CARBON DIOXIDE LEVEL 24 MMOL/L (20-31); CHLORIDE LEVEL 104 MMOL/L (98-107); GLUCOSE, FASTING 117 MG/DL (74-106); POTASSIUM SERUM 4.5 MMOL/L (3.5-5.1); SODIUM LEVEL 137 MMOL/L (136-145); TOTAL PROTEIN 6.7 G/DL (5.7-8.2)
[2024-02-07] MEDS: HEPARIN 1,000UNITS/ML 10ML VIAL (FOR RADIOLOGY & DIALYSIS ONLY) XX SCH (09:58)
[2024-02-08] VITALS (8 sets, daily range): BP systolic 144–162; BP diastolic 43–85; TEMP 97.9–98.1; O2SAT 86–94
[2024-02-08 07:15] LABS: HEMATOCRIT 27.9 % (42.0-52.0); HEMOGLOBIN 8.7 g/dl (13.5-17.5); MEAN CORPUSCULAR HEMOGLOBIN 29.9 pg (27.0-33.0); MEAN CORPUSCULAR HGB CONC 31.2 g/dl (32.0-36.5); MEAN CORPUSCULAR VOLUME 95.9 fl (80.0-96.0); PLATELET COUNT, AUTOMATED 169 10^3/uL (150-450); RED BLOOD COUNT 2.91 10^6/uL (4.30-6.10); WHITE BLOOD COUNT 5.2 10^3/uL (4.0-10.0)
[2024-02-08 07:34] LABS: MAGNESIUM LEVEL 1.7 MG/DL (1.8-2.4)
[2024-02-08 07:36] LABS: ALBUMIN 2.3 G/DL (3.2-5.2); ALKALINE PHOSPHATASE 63 U/L (40-129); ALT/SGPT < 9 U/L (7.0-40); AST/SGOT 9 U/L (<34); BILIRUBIN,TOTAL < 0.2 MG/DL (0.3-1.2); BLOOD UREA NITROGEN 30 MG/DL (9-23); CALCIUM LEVEL 8.3 MG/DL (8.3-10.6); CARBON DIOXIDE LEVEL 26 MMOL/L (20-31); CHLORIDE LEVEL 101 MMOL/L (98-107); CREATININE FOR GFR 4.45 MG/DL (0.70-1.30); GLOMERULAR FILTRATION RATE 14.2 (>49); GLUCOSE, FASTING 139 MG/DL (74-106); POTASSIUM SERUM 4.4 MMOL/L (3.5-5.1); SODIUM LEVEL 137 MMOL/L (136-145); TOTAL PROTEIN 6.6 G/DL (5.7-8.2)
[2024-02-08 07:39] LABS: THYROID STIMULATING HORMONE 11.056 uIU/ML (0.55-4.78); THYROXINE (T4) 6.5 UG/DL (4.5-10.9)
[2024-02-08 07:41] LABS: FREE THYROXINE INDEX 2.9 % (1.4-3.8); T UPTAKE 44.6 % (22.5-37.0)
[2024-02-08] MEDS: MAGNESIUM OXIDE 400MG TAB (MAG-OX) PO SCH (21:01)
[2024-02-09 04:00] VITALS: BP 147/59; TEMP 97.2; O2SAT 96
[2024-02-09] MEDS ORDERED: SODIUM CHLORIDE 0.9% 1000 ML IV PRN (06:00)
[2024-02-09] MEDS ORDERED: HEPARIN 1,000UNITS/ML 10ML VIAL (FOR RADIOLOGY & DIALYSIS ONLY) IV PRN (06:00)
[2024-02-09 08:41] LABS: HEMATOCRIT 25.7 % (42.0-52.0); HEMOGLOBIN 8.1 g/dl (13.5-17.5); MEAN CORPUSCULAR HGB CONC 31.5 g/dl (32.0-36.5); MEAN CORPUSCULAR VOLUME 95.2 fl (80.0-96.0); PLATELET COUNT, AUTOMATED 174 10^3/uL (150-450); WHITE BLOOD COUNT 5.6 10^3/uL (4.0-10.0)
[2024-02-09 09:06] LABS: ALBUMIN 2.4 G/DL (3.2-5.2); ALKALINE PHOSPHATASE 63 U/L (40-129); ALT/SGPT < 9 U/L (7.0-40); AST/SGOT < 8 U/L (<34); BILIRUBIN,TOTAL < 0.2 MG/DL (0.3-1.2); BLOOD UREA NITROGEN 52 MG/DL (9-23); CALCIUM LEVEL 8.4 MG/DL (8.3-10.6); CARBON DIOXIDE LEVEL 23 MMOL/L (20-31); CHLORIDE LEVEL 101 MMOL/L (98-107); CREATININE FOR GFR 6.28 MG/DL (0.70-1.30); GLOMERULAR FILTRATION RATE 9.5 (>49); GLUCOSE, FASTING 197 MG/DL (74-106); POTASSIUM SERUM 4.5 MMOL/L (3.5-5.1); SODIUM LEVEL 135 MMOL/L (136-145); TOTAL PROTEIN 6.4 G/DL (5.7-8.2)
[2024-02-09] MEDS: HEPARIN 1,000UNITS/ML 10ML VIAL (FOR RADIOLOGY & DIALYSIS ONLY) XX SCH (09:31)
[2024-02-09 09:43] LABS: CALCIUM LEVEL 8.4 MG/DL (8.3-10.6); CREATININE FOR GFR 6.2 MG/DL (0.70-1.30); GLOMERULAR FILTRATION RATE 9.7 (>49); MAGNESIUM LEVEL 1.8 MG/DL (1.8-2.4); POTASSIUM SERUM 4.3 MMOL/L (3.5-5.1)
[2024-02-09 20:47] VITALS: BP 149/39; TEMP 99; O2SAT 91
[2024-02-10 04:42] VITALS: BP 133/46; TEMP 98.4; O2SAT 90
[2024-02-10] MEDS ORDERED: HEPARIN 1,000UNITS/ML 10ML VIAL (FOR RADIOLOGY & DIALYSIS ONLY) IV PRN (06:00)
[2024-02-10] MEDS ORDERED: SODIUM CHLORIDE 0.9% 1000 ML IV PRN (06:00)
[2024-02-10] MEDS ORDERED: LIDOCAINE 1% SDV 5ML VIAL SC PRN (06:00)
[2024-02-10] MEDS: HEPARIN 1,000UNITS/ML 10ML VIAL (FOR RADIOLOGY & DIALYSIS ONLY) XX SCH (09:43)
[2024-02-11 05:04] VITALS: BP 128/53; TEMP 97.7; O2SAT 94
[2024-02-11 07:40] LABS: HEMATOCRIT 31.1 % (42.0-52.0); HEMOGLOBIN 9.5 g/dl (13.5-17.5); MEAN CORPUSCULAR HGB CONC 30.5 g/dl (32.0-36.5); MEAN CORPUSCULAR VOLUME 94.8 fl (80.0-96.0); PLATELET COUNT, AUTOMATED 171 10^3/uL (150-450); RED BLOOD COUNT 3.28 10^6/uL (4.30-6.10)
[2024-02-11 07:56] LABS: ALBUMIN 2.6 G/DL (3.2-5.2); BILIRUBIN,TOTAL 0.2 MG/DL (0.3-1.2); CALCIUM LEVEL 8.4 MG/DL (8.3-10.6); CREATININE FOR GFR 4.13 MG/DL (0.70-1.30); GLOMERULAR FILTRATION RATE 15.5 (>49); POTASSIUM SERUM 4.2 MMOL/L (3.5-5.1); TOTAL PROTEIN 7.1 G/DL (5.7-8.2)
[2024-02-11 22:30] VITALS: O2SAT 92
[2024-02-12] VITALS (10 sets, daily range): BP systolic 107–144; BP diastolic 33–60; TEMP 97.3–98.2; O2SAT 84–98
[2024-02-12] MEDS ORDERED: LIDOCAINE 1% SDV 5ML VIAL SC PRN (06:00)
[2024-02-12] MEDS ORDERED: HEPARIN 1,000UNITS/ML 10ML VIAL (FOR RADIOLOGY & DIALYSIS ONLY) IV PRN (06:00)
[2024-02-12] MEDS ORDERED: SODIUM CHLORIDE 0.9% 250ML IV PRN (06:00)
[2024-02-12 09:14] LABS: HEMATOCRIT 26.8 % (42.0-52.0); HEMOGLOBIN 8.5 g/dl (13.5-17.5); MEAN CORPUSCULAR HGB CONC 31.7 g/dl (32.0-36.5); MEAN CORPUSCULAR VOLUME 94.7 fl (80.0-96.0); PLATELET COUNT, AUTOMATED 150 10^3/uL (150-450); RED BLOOD COUNT 2.83 10^6/uL (4.30-6.10); WHITE BLOOD COUNT 5.7 10^3/uL (4.0-10.0)
[2024-02-12 09:36] LABS: ALBUMIN 2.5 G/DL (3.2-5.2); ALKALINE PHOSPHATASE 68 U/L (40-129); ALT/SGPT < 9 U/L (7.0-40); AST/SGOT < 8 U/L (<34); BILIRUBIN,TOTAL < 0.2 MG/DL (0.3-1.2); BLOOD UREA NITROGEN 57 MG/DL (9-23); CALCIUM LEVEL 8.4 MG/DL (8.3-10.6); CARBON DIOXIDE LEVEL 24 MMOL/L (20-31); CHLORIDE LEVEL 98 MMOL/L (98-107); CREATININE FOR GFR 5.95 MG/DL (0.70-1.30); GLOMERULAR FILTRATION RATE 10.2 (>49); GLUCOSE, FASTING 235 MG/DL (74-106); POTASSIUM SERUM 4.3 MMOL/L (3.5-5.1); SODIUM LEVEL 133 MMOL/L (136-145); TOTAL PROTEIN 6.8 G/DL (5.7-8.2)
[2024-02-12] MEDS: HEPARIN 1,000UNITS/ML 10ML VIAL (FOR RADIOLOGY & DIALYSIS ONLY) XX SCH (10:40)
[2024-02-12] MEDS ORDERED: NITROGLYCERIN 0.3MG SUBL TAB SL PRN (21:05)
[2024-02-12] MEDS: NITROGLYCERIN 0.4MG SUBL TABLET SL STA (21:09)
[2024-02-12 21:28] LABS: VENOUS BASE EXCESS -0.5 (-2.0-2.0); VENOUS HCO3 25.4 MMOL/L (23.0-27.0); VENOUS O2 SATURATION 89.9 % (60.0-80.0); VENOUS PARTIAL PRESSURE CO2 47.8 mmHg (38.0-50.0); VENOUS PARTIAL PRESSURE O2 60.9 mmHg (30.0-50.0); VENOUS PH 7.344 UNITS (7.330-7.430); VENOUS STANDARD HCO3 23.9 MMOL/L; VENOUS TOTAL CO2 26.9 MMOL/L (24.0-28.0)
[2024-02-12] MEDS: NITROGLYCERIN 0.4MG SUBL TABLET SL PRN (21:29)
[2024-02-12 21:33] LABS: BASO % 0.5 % (0.0-1.0); EOS # 0.4 10^3/uL (0.0-0.5); EOS % 6.7 % (0.0-3.0); HEMATOCRIT 28.4 % (42.0-52.0); LYMPH % 16.3 % (24.0-44.0); MEAN CORPUSCULAR HEMOGLOBIN 29.3 pg (27.0-33.0); MEAN CORPUSCULAR HGB CONC 31.7 g/dl (32.0-36.5); MEAN CORPUSCULAR VOLUME 92.5 fl (80.0-96.0); MONO # 0.6 10^3/uL (0.0-0.8); MONO % 10.2 % (2.0-8.0); NEUTROPHILS % 64.4 % (36.0-66.0); PLATELET COUNT, AUTOMATED 161 10^3/uL (150-450); RED BLOOD COUNT 3.07 10^6/uL (4.30-6.10); WHITE BLOOD COUNT 6.3 10^3/uL (4.0-10.0)
[2024-02-12 22:02] LABS: CK-MB VALUE MASS < 1.0 NG/ML (<3.6)
[2024-02-12 22:04] LABS: ALBUMIN 2.5 G/DL (3.2-5.2); ALKALINE PHOSPHATASE 81 U/L (40-129); ALT/SGPT < 9 U/L (7.0-40); AST/SGOT 10 U/L (<34); BILIRUBIN,TOTAL 0.2 MG/DL (0.3-1.2); BLOOD UREA NITROGEN 37 MG/DL (9-23); CALCIUM LEVEL 8.3 MG/DL (8.3-10.6); CARBON DIOXIDE LEVEL 25 MMOL/L (20-31); CHLORIDE LEVEL 98 MMOL/L (98-107); CPK CREATINE PHOSPHOKINASE 26 U/L (46-171); GLOMERULAR FILTRATION RATE 15.6 (>49); GLUCOSE, FASTING 206 MG/DL (74-106); MAGNESIUM LEVEL 1.8 MG/DL (1.8-2.4); MB/CK RELATIVE INDEX 3.84 (< OR =4); PHOSPHORUS LEVEL 2.5 MG/DL (2.4-5.1); POTASSIUM SERUM 3.9 MMOL/L (3.5-5.1); SODIUM LEVEL 134 MMOL/L (136-145); TOTAL PROTEIN 6.7 G/DL (5.7-8.2)
[2024-02-12 22:10] LABS: PROCALCITONIN 1.56 ng/ml
[2024-02-12 23:16] LABS: CK-MB VALUE MASS 1.2 NG/ML (<3.6)
[2024-02-12 23:17] LABS: MB/CK RELATIVE INDEX 5.71 (< OR =4)
[2024-02-13 04:00] VITALS: BP 142/45; TEMP 98.4; O2SAT 96
[2024-02-13 09:01] VITALS: BP 106/58
[2024-02-13 11:35] VITALS: O2SAT 95
[2024-02-14 01:00] VITALS: O2SAT 82
[2024-02-14 01:10] VITALS: O2SAT 92
[2024-02-14 04:00] VITALS: BP 123/41; TEMP 98.8; O2SAT 96
[2024-02-14 09:00] VITALS: BP 131/51
[2024-02-15 04:15] VITALS: BP 142/50; TEMP 97.7; O2SAT 88
[2024-02-15] MEDS ORDERED: SODIUM CHLORIDE 0.9% 250ML IV PRN (06:00)
[2024-02-15] MEDS ORDERED: HEPARIN 1,000UNITS/ML 10ML VIAL (FOR RADIOLOGY & DIALYSIS ONLY) IV PRN (06:00)
[2024-02-15] MEDS ORDERED: LIDOCAINE 1% SDV 5ML VIAL SC PRN (06:00)
[2024-02-15] MEDS: HEPARIN 1,000UNITS/ML 10ML VIAL (FOR RADIOLOGY & DIALYSIS ONLY) XX SCH (08:56)
[2024-02-16 04:00] VITALS: BP 125/54; TEMP 98.2; O2SAT 95
[2024-02-17 03:40] VITALS: BP 127/47; TEMP 98.4; O2SAT 90
[2024-02-17] MEDS ORDERED: HEPARIN 1,000UNITS/ML 10ML VIAL (FOR RADIOLOGY & DIALYSIS ONLY) IV PRN (06:45)
[2024-02-17] MEDS ORDERED: SODIUM CHLORIDE 0.9% 1000 ML IV PRN (06:45)
[2024-02-17] MEDS: HEPARIN 1,000UNITS/ML 10ML VIAL (FOR RADIOLOGY & DIALYSIS ONLY) XX SCH (08:52)
[2024-02-17 09:05] LABS: HEMOGLOBIN 8.3 g/dl (13.5-17.5); MEAN CORPUSCULAR HEMOGLOBIN 28.9 pg (27.0-33.0); MEAN CORPUSCULAR HGB CONC 30.7 g/dl (32.0-36.5); MEAN CORPUSCULAR VOLUME 94.1 fl (80.0-96.0); PLATELET COUNT, AUTOMATED 170 10^3/uL (150-450); RED BLOOD COUNT 2.87 10^6/uL (4.30-6.10); WHITE BLOOD COUNT 7.1 10^3/uL (4.0-10.0)
[2024-02-17 09:28] LABS: ALBUMIN 2.5 G/DL (3.2-5.2); CALCIUM LEVEL 8.3 MG/DL (8.3-10.6); CREATININE FOR GFR 6.94 MG/DL (0.70-1.30); GLOMERULAR FILTRATION RATE 8.5 (>49); POTASSIUM SERUM 5.1 MMOL/L (3.5-5.1)
[2024-02-17] MEDS: ALTEPLASE 2MG/2ML VIAL IV PRN (11:55)
[2024-02-19 04:00] VITALS: BP 144/54; TEMP 97.9; O2SAT 93
[2024-02-19] MEDS ORDERED: SODIUM CHLORIDE 0.9% 1000 ML IV PRN (06:00)
[2024-02-19] MEDS ORDERED: ALTEPLASE 2MG/2ML VIAL IV PRN (06:00)
[2024-02-19] MEDS ORDERED: HEPARIN 1,000UNITS/ML 10ML VIAL (FOR RADIOLOGY & DIALYSIS ONLY) IV PRN (06:00)
[2024-02-19] MEDS: HEPARIN 1,000UNITS/ML 10ML VIAL (FOR RADIOLOGY & DIALYSIS ONLY) XX SCH (09:57)
[2024-02-19] MEDS: DARBEPOETIN 200MCG/0.4ML *DIALYSIS* SYRINGE IV SCH (10:54)
[2024-02-20 04:53] VITALS: BP 138/48; TEMP 98.2; O2SAT 88
[2024-02-20] MEDS: rOPINIRole 1MG TAB PO SCH (19:12)
[2024-02-20] MEDS: rOPINIRole 0.25 MG TAB(REQUIP) PO SCH (19:12)
[2024-02-21 04:00] VITALS: BP 158/54; TEMP 98.4; O2SAT 97
[2024-02-22 04:00] VITALS: BP 156/57; TEMP 98.2; O2SAT 96
[2024-02-22] MEDS ORDERED: SODIUM CHLORIDE 0.9% 1000 ML IV PRN (06:00)
[2024-02-22] MEDS ORDERED: ALTEPLASE 2MG/2ML VIAL IV PRN (06:00)
[2024-02-22] MEDS ORDERED: HEPARIN 1,000UNITS/ML 10ML VIAL (FOR RADIOLOGY & DIALYSIS ONLY) IV PRN (06:00)
[2024-02-22] MEDS: HEPARIN 1,000UNITS/ML 10ML VIAL (FOR RADIOLOGY & DIALYSIS ONLY) XX SCH (08:30)
[2024-02-22 09:28] LABS: CALCIUM LEVEL 8.7 MG/DL (8.3-10.6); CREATININE FOR GFR 7.53 MG/DL (0.70-1.30); GLOMERULAR FILTRATION RATE 7.7 (>49); POTASSIUM SERUM 5.8 MMOL/L (3.5-5.1)
[2024-02-23 05:00] VITALS: BP 169/63; TEMP 98.1; O2SAT 90
[2024-02-23 06:23] LABS: HEMATOCRIT 29.4 % (42.0-52.0); HEMOGLOBIN 9.3 g/dl (13.5-17.5); MEAN CORPUSCULAR HEMOGLOBIN 30.1 pg (27.0-33.0); MEAN CORPUSCULAR HGB CONC 31.6 g/dl (32.0-36.5); MEAN CORPUSCULAR VOLUME 95.1 fl (80.0-96.0); PLATELET COUNT, AUTOMATED 188 10^3/uL (150-450); RED BLOOD COUNT 3.09 10^6/uL (4.30-6.10); WHITE BLOOD COUNT 7.2 10^3/uL (4.0-10.0)
[2024-02-23 06:30] LABS: ALBUMIN 2.8 G/DL (3.2-5.2); CALCIUM LEVEL 8.5 MG/DL (8.3-10.6); CREATININE FOR GFR 5.7 MG/DL (0.70-1.30); GLOMERULAR FILTRATION RATE 10.7 (>49); PHOSPHORUS LEVEL 6.6 MG/DL (2.4-5.1); POTASSIUM SERUM 5.5 MMOL/L (3.5-5.1)
[2024-02-23] MEDS ORDERED: SODIUM CHLORIDE 0.9% 1000 ML IV PRN (06:45)
[2024-02-23] MEDS ORDERED: HEPARIN 1,000UNITS/ML 10ML VIAL (FOR RADIOLOGY & DIALYSIS ONLY) XX SCH (06:45)
[2024-02-23] MEDS: HEPARIN 1,000UNITS/ML 10ML VIAL (FOR RADIOLOGY & DIALYSIS ONLY) IV PRN (09:55)
[2024-02-23 13:30] VITALS: BP 139/48; TEMP 98.2; O2SAT 95
[2024-02-24 04:00] VITALS: BP 140/48; TEMP 98.8; O2SAT 87
[2024-02-24] MEDS ORDERED: HEPARIN 1,000UNITS/ML 10ML VIAL (FOR RADIOLOGY & DIALYSIS ONLY) IV PRN (06:00)
[2024-02-24] MEDS ORDERED: LIDOCAINE 1% SDV 5ML VIAL SC PRN (06:00)
[2024-02-24] MEDS ORDERED: SODIUM CHLORIDE 0.9% 1000 ML IV PRN (06:00)
[2024-02-24] MEDS: HEPARIN 1,000UNITS/ML 10ML VIAL (FOR RADIOLOGY & DIALYSIS ONLY) XX SCH (09:15)
[2024-02-25 04:00] VITALS: BP 127/53; TEMP 98.1; O2SAT 94
[2024-02-26 04:41] VITALS: BP 146/41; TEMP 98.1; O2SAT 99
[2024-02-26 14:28] LABS: CALCIUM LEVEL 8.8 MG/DL (8.3-10.6); CREATININE FOR GFR 6.37 MG/DL (0.70-1.30); GLOMERULAR FILTRATION RATE 9.4 (>49); POTASSIUM SERUM 4.9 MMOL/L (3.5-5.1)
[2024-02-27 05:20] VITALS: BP 136/86; TEMP 98.4; O2SAT 95
[2024-02-27 05:25] VITALS: BP 138/86
[2024-02-27] MEDS ORDERED: SODIUM CHLORIDE 0.9% 1000 ML IV PRN (06:00)
[2024-02-27] MEDS ORDERED: LIDOCAINE 1% SDV 5ML VIAL SC PRN (06:00)
[2024-02-27] MEDS ORDERED: HEPARIN 1,000UNITS/ML 10ML VIAL (FOR RADIOLOGY & DIALYSIS ONLY) IV PRN (06:00)
[2024-02-27] MEDS: HEPARIN 1,000UNITS/ML 10ML VIAL (FOR RADIOLOGY & DIALYSIS ONLY) XX SCH (08:46)
== END 2024-02-27 14:47 | disposition home health service (06) | DRG 551 ==
LOC: M ED 09:50 → EDBD 09:50 → M ED INP 18:47 → M PCU 01-31 14:12 → M MSPAV 02-07 23:21
PROVIDERS: ADMIT Student in an Organized Health Care Education/Training Program; ATTEND Internal Medicine
PROC: 5A1D70Z Performance of Urinary Filtration, Intermittent, Less than 6 Hours Per Day (ICD-10-PCS; 2024-01-31)
PROC: 0JH63XZ Insertion of Tunneled Vascular Access Device into Chest Subcutaneous Tissue and Fascia, Percutaneous Approach (ICD-10-PCS; principal; 2024-02-01 14:30)
PROC: 05PY33Z Removal of Infusion Device from Upper Vein, Percutaneous Approach (ICD-10-PCS; 2024-02-01 14:30)
DX: S32.2XXA Fracture of coccyx, initial encounter for closed fracture (principal); N18.6 End stage renal disease; J18.9 Pneumonia, unspecified organism; I13.2 Hypertensive heart and chronic kidney disease with heart failure and with stage 5 chronic kidney disease, or end stage renal disease; E87.20 Acidosis, unspecified; I50.30 Unspecified diastolic (congestive) heart failure; I48.92 Unspecified atrial flutter; I48.91 Unspecified atrial fibrillation; E11.42 Type 2 diabetes mellitus with diabetic polyneuropathy; E78.5 Hyperlipidemia, unspecified; E03.9 Hypothyroidism, unspecified; E11.22 Type 2 diabetes mellitus with diabetic chronic kidney disease; M10.9 Gout, unspecified; E66.9 Obesity, unspecified; G25.81 Restless legs syndrome; E87.6 Hypokalemia; W19.XXXA Unspecified fall, initial encounter; R29.6 Repeated falls; Y92.9 Unspecified place or not applicable; I44.1 Atrioventricular block, second degree; G47.00 Insomnia, unspecified; R53.81 Other malaise; R09.02 Hypoxemia; I73.9 Peripheral vascular disease, unspecified; E83.42 Hypomagnesemia; M19.90 Unspecified osteoarthritis, unspecified site; E11.51 Type 2 diabetes mellitus with diabetic peripheral angiopathy without gangrene; D50.9 Iron deficiency anemia, unspecified; Z79.4 Long term (current) use of insulin; Z79.890 Hormone replacement therapy; Z79.899 Other long term (current) drug therapy; Z88.8 Allergy status to other drugs, medicaments and biological substances; Z99.2 Dependence on renal dialysis; Z85.528 Personal history of other malignant neoplasm of kidney; Z87.891 Personal history of nicotine dependence; Z90.5 Acquired absence of kidney; Z85.038 Personal history of other malignant neoplasm of large intestine; Z90.49 Acquired absence of other specified parts of digestive tract

== ENCOUNTER → 2024-03-29 | Outpatient (CLI) | payer MEDICARE ==
[~2024-03-29] MED LIST changes: +MIRT1TAB15 PO; +POLY510P14 PO
== END ==
LOC: M ADAMS 08:38
PROVIDERS: ATTEND Internal Medicine Nephrology
DX: N18.6 End stage renal disease (principal)

== ENCOUNTER → 2024-03-29 | Outpatient (REF) | payer MEDICARE ==
[~2024-03-29] MED LIST changes: +HYDR25TA87 PO
[2024-03-29 15:52] LABS: CHOLESTEROL RISK RATIO 2.63 (<5); HDL CHOLESTEROL 34.6 MG/DL (>40); LDL CHOLESTEROL 27.4 MG/DL (<100); NON-HDL-C 56.4 MG/DL
[2024-03-29 15:55] LABS: PSA SCREENING 0.27 NG/ML (< 4.00)
[2024-03-29 16:00] LABS: THYROID STIMULATING HORMONE 8.033 uIU/ML (0.55-4.78)
[2024-03-29 16:01] LABS: FREE T4 1.28 NG/DL (0.89-1.76)
== END ==
LOC: M SFHCADAM 08:37
PROVIDERS: ATTEND Physician Assistant
DX: E03.9 Hypothyroidism, unspecified (principal); E78.00 Pure hypercholesterolemia, unspecified; Z12.5 Encounter for screening for malignant neoplasm of prostate; N18.6 End stage renal disease; Z79.899 Other long term (current) drug therapy

== ENCOUNTER 2024-04-01 15:07 | Inpatient (IN) | payer MEDICARE ==
[~2024-04-01] VITALS: Ht 182.9 cm; Wt 133.1 kg
[~2024-04-01 15:07] MED LIST changes: -HYDR25TA87 PO
[2024-04-01 15:59] LABS: BASO % 0.4 % (0.0-1.0); EOS # 0.4 10^3/uL (0.0-0.5); EOS % 6.1 % (0.0-3.0); HEMATOCRIT 29.1 % (42.0-52.0); HEMOGLOBIN 9.1 g/dl (13.5-17.5); LYMPH # 1.3 10^3/uL (1.5-5.0); LYMPH % 17.9 % (24.0-44.0); MEAN CORPUSCULAR HEMOGLOBIN 31.9 pg (27.0-33.0); MEAN CORPUSCULAR HGB CONC 31.3 g/dl (32.0-36.5); MEAN CORPUSCULAR VOLUME 102.1 fl (80.0-96.0); MONO # 0.6 10^3/uL (0.0-0.8); MONO % 8.3 % (2.0-8.0); NEUTROPHILS # 4.8 10^3/uL (1.5-8.5); NEUTROPHILS % 66.9 % (36.0-66.0); PLATELET COUNT, AUTOMATED 164 10^3/uL (150-450); RED BLOOD COUNT 2.85 10^6/uL (4.30-6.10); WHITE BLOOD COUNT 7.1 10^3/uL (4.0-10.0)
[2024-04-01] MEDS: IPRATROPIUM 0.5MG/ALBUTEROL 2.5MG INH SOL UD 3ML (DUONEB) NEB ONE (16:17)
[2024-04-01 16:19] LABS: INR 0.99; PARTIAL THROMBOPLASTIN TIME 24.9 SECONDS (24.8-34.2); PROTHROMBIN TIME 13.4 SECONDS (12.5-14.5)
[2024-04-01] MEDS: methylPREDNISolone 125MG 2ML VIAL IV ONE (16:33)
[2024-04-01 16:34] LABS: ABG BASE EXCESS -0.8 (-2.0-2.0); ABG HCO3 25.9 MMOL/L (22.0-26.0); ABG PARTIAL PRESSURE CO2 52.4 mmHg (35.0-45.0); ABG PARTIAL PRESSURE O2 72.7 mmHg (75.0-100.0); ABG STANDARD HCO3 23.8 MMOL/L. (22.0-26.0); ABG TOTAL CO2 27.5 MMOL/L (23.0-31.0); ABG pH (ARTERIAL) 7.311 UNITS (7.350-7.450)
[2024-04-01 16:37] LABS: ALBUMIN 2.7 G/DL (3.2-5.2); ALKALINE PHOSPHATASE 67 U/L (40-129); ALT/SGPT 13 U/L (7.0-40); AST/SGOT 13 U/L (<34); BILIRUBIN,DIRECT < 0.1 MG/DL (<0.4); BILIRUBIN,TOTAL < 0.2 MG/DL (0.3-1.2); BLOOD UREA NITROGEN 53 MG/DL (9-23); CALCIUM LEVEL 7.6 MG/DL (8.3-10.6); CARBON DIOXIDE LEVEL 27 MMOL/L (20-31); CHLORIDE LEVEL 99 MMOL/L (98-107); CK-MB VALUE MASS 1.4 NG/ML (<3.6); CPK CREATINE PHOSPHOKINASE 42 U/L (46-171); CREATININE FOR GFR 6.29 MG/DL (0.70-1.30); FREE T4 1.17 NG/DL (0.89-1.76); GLOMERULAR FILTRATION RATE 9.5 (>49); GLUCOSE, FASTING 208 MG/DL (74-106); MAGNESIUM LEVEL 1.8 MG/DL (1.8-2.4); MB/CK RELATIVE INDEX 3.33 (< OR =4); PHOSPHORUS LEVEL 7.5 MG/DL (2.4-5.1); POTASSIUM SERUM 5.3 MMOL/L (3.5-5.1); SODIUM LEVEL 137 MMOL/L (136-145); THYROID STIMULATING HORMONE 5.697 uIU/ML (0.55-4.78); TOTAL PROTEIN 6.9 G/DL (5.7-8.2)
[2024-04-01] MEDS: HumuLIN R (REGULAR) INSULIN (NovoLIN R) **100U/ML** PER UNIT IV ONE (17:11)
[2024-04-01] MEDS: DEXTROSE 50% 50ML SYRINGE IV STA (17:11)
[2024-04-01] MEDS: CALCIUM GLUCONATE 1,000 MG in DEXTROSE 5% (D5W) MINI-BAG PLU 100 ML IV ONE (17:11)
[2024-04-01] MEDS ORDERED: GLUCAGON INJ 1MG VIAL SC PRN (17:45)
[2024-04-01] MEDS ORDERED: cefTRIAXone SOD 1 GM in DEXTROSE 5% (D5W) ADV/MINI-BAG 50 ML IV SCH (17:45)
[2024-04-01] MEDS ORDERED: DEXTROSE 50% 50ML SYRINGE IV PRN (17:45)
[2024-04-01] MEDS ORDERED: ACETAMINOPHEN 325 MG TAB PO PRN (17:45)
[2024-04-01] MEDS ORDERED: GLUCOSE 4 GM CHEW PO PRN (17:45)
[2024-04-01] MEDS ORDERED: MOM 30ML SUSPENSION UDC PO PRN (17:45)
[2024-04-01 18:29] LABS: PROCALCITONIN 0.97 ng/ml
[2024-04-01] MEDS ORDERED: TOUJ1.2I SC (18:38)
[2024-04-01] MEDS: CEFEPIME HCL 2 GM in DEXTROSE 5% (D5W) ADV/MINI-BAG 50 ML IV ONE (18:38)
[2024-04-01] MEDS ORDERED: HOME MED LIST COMPLETE! XX SCH (18:50)
[2024-04-01] MEDS: INSULIN LISPRO (NovoLOG) PER UNIT SC SCH ×2 (19:04→23:13)
[2024-04-01] MEDS ORDERED: CEFEPIME HCL 1 GM in DEXTROSE 5% (D5W) ADV/MINI-BAG 50 ML IV SCH (20:00)
[2024-04-01 23:00] VITALS: BP 158/82; TEMP 98.5; O2SAT 90
[2024-04-01] MEDS: ATORVASTATIN 20 MG TAB PO SCH (23:14)
[2024-04-01] MEDS: guaiFENesin ER TABLET 600 MG TAB PO SCH (23:14)
[2024-04-01] MEDS: DOXYCYCLINE HYCLATE 100MG TABLET PO SCH (23:14)
[2024-04-01] MEDS: rOPINIRole 0.25 MG TAB(REQUIP) PO SCH (23:16)
[2024-04-01] MEDS: MIRTAZAPINE 7.5MG PER 1/2 TABLET PO SCH (23:16)
[2024-04-01] MEDS: DOCUSATE SODIUM 100MG CAPSULE PO SCH (23:16)
[2024-04-02] VITALS (9 sets, daily range): BP systolic 150–190; BP diastolic 65–84; TEMP 98–98.5; O2SAT 90–97
[2024-04-02] MEDS ORDERED: HEPARIN 1,000UNITS/ML 10ML VIAL (FOR RADIOLOGY & DIALYSIS ONLY) IV PRN (06:00)
[2024-04-02] MEDS ORDERED: SODIUM CHLORIDE 0.9% 1000 ML IV PRN (06:00)
[2024-04-02] MEDS: CEFEPIME HCL 1 GM in DEXTROSE 5% (D5W) ADV/MINI-BAG 50 ML IV SCH (06:30)
[2024-04-02] MEDS: LEVOTHYROXINE 100MCG TABLET (0.1MG) PO SCH (06:30)
[2024-04-02] MEDS: LEVOTHYROXINE 25MCG TABLET (0.025MG) PO SCH (06:30)
[2024-04-02 06:47] LABS: BASO % 0.1 % (0.0-1.0); HEMATOCRIT 29.8 % (42.0-52.0); HEMOGLOBIN 9.4 g/dl (13.5-17.5); LYMPH # 0.5 10^3/uL (1.5-5.0); LYMPH % 6.4 % (24.0-44.0); MEAN CORPUSCULAR HEMOGLOBIN 31.3 pg (27.0-33.0); MEAN CORPUSCULAR HGB CONC 31.5 g/dl (32.0-36.5); MEAN CORPUSCULAR VOLUME 99.3 fl (80.0-96.0); MONO % 0.4 % (2.0-8.0); NEUTROPHILS # 6.7 10^3/uL (1.5-8.5); PLATELET COUNT, AUTOMATED 155 10^3/uL (150-450); WHITE BLOOD COUNT 7.3 10^3/uL (4.0-10.0)
[2024-04-02 07:59] LABS: ALBUMIN 2.8 G/DL (3.2-5.2); ALKALINE PHOSPHATASE 69 U/L (40-129); ALT/SGPT 10 U/L (7.0-40); AST/SGOT < 8 U/L (<34); BILIRUBIN,TOTAL 0.2 MG/DL (0.3-1.2); BLOOD UREA NITROGEN 67 MG/DL (9-23); CALCIUM LEVEL 8.3 MG/DL (8.3-10.6); CARBON DIOXIDE LEVEL 23 MMOL/L (20-31); CHLORIDE LEVEL 99 MMOL/L (98-107); CREATININE FOR GFR 7.23 MG/DL (0.70-1.30); GLOMERULAR FILTRATION RATE 8.1 (>49); GLUCOSE, FASTING 344 MG/DL (74-106); MAGNESIUM LEVEL 1.9 MG/DL (1.8-2.4); POTASSIUM SERUM 6.2 MMOL/L (3.5-5.1); SODIUM LEVEL 134 MMOL/L (136-145); TOTAL PROTEIN 7.2 G/DL (5.7-8.2)
[2024-04-02] MEDS: LEVEMIR (INSULIN DETEMIR) 1 UNITS/0.01ML SC SCH (08:19)
[2024-04-02] MEDS: PANTOPRAZOLE 40MG TAB (PROTONIX) PO SCH (08:20)
[2024-04-02] MEDS: HEPARIN 1,000UNITS/ML 10ML VIAL (FOR RADIOLOGY & DIALYSIS ONLY) XX SCH (14:22)
[2024-04-02] MEDS ORDERED: HYDROmorphone 2 MG TAB PO PRN (18:55)
[2024-04-02] MEDS: oxyCODONE 5MG TAB PO PRN (20:29)
[2024-04-03] VITALS (8 sets, daily range): BP systolic 142–210; BP diastolic 56–78; TEMP 96.8–97.9; O2SAT 90–97
[2024-04-03] MEDS: hydrALAZINE 20MG/ML 1ML VIAL IV PRN (01:04)
[2024-04-03 05:25] LABS: BASO % 0.4 % (0.0-1.0); EOS % 0.4 % (0.0-3.0); HEMATOCRIT 30.1 % (42.0-52.0); HEMOGLOBIN 9.3 g/dl (13.5-17.5); LYMPH # 1.3 10^3/uL (1.5-5.0); LYMPH % 16.4 % (24.0-44.0); MEAN CORPUSCULAR HEMOGLOBIN 31.1 pg (27.0-33.0); MEAN CORPUSCULAR HGB CONC 30.9 g/dl (32.0-36.5); MEAN CORPUSCULAR VOLUME 100.7 fl (80.0-96.0); MONO # 0.5 10^3/uL (0.0-0.8); MONO % 6.7 % (2.0-8.0); NEUTROPHILS % 75.2 % (36.0-66.0); PLATELET COUNT, AUTOMATED 156 10^3/uL (150-450); RED BLOOD COUNT 2.99 10^6/uL (4.30-6.10); WHITE BLOOD COUNT 7.9 10^3/uL (4.0-10.0)
[2024-04-03] MEDS: hydrALAZINE 20MG/ML 1ML VIAL IV ONE ×2 (05:44→07:36)
[2024-04-03 06:03] LABS: ALBUMIN 2.7 G/DL (3.2-5.2); ALKALINE PHOSPHATASE 62 U/L (40-129); ALT/SGPT 12 U/L (7.0-40); AST/SGOT < 8 U/L (<34); BILIRUBIN,TOTAL 0.2 MG/DL (0.3-1.2); BLOOD UREA NITROGEN 51 MG/DL (9-23); CALCIUM LEVEL 8.4 MG/DL (8.3-10.6); CARBON DIOXIDE LEVEL 25 MMOL/L (20-31); CHLORIDE LEVEL 98 MMOL/L (98-107); CREATININE FOR GFR 5.22 MG/DL (0.70-1.30); GLOMERULAR FILTRATION RATE 11.8 (>49); GLUCOSE, FASTING 181 MG/DL (74-106); MAGNESIUM LEVEL 1.9 MG/DL (1.8-2.4); SODIUM LEVEL 137 MMOL/L (136-145); TOTAL PROTEIN 6.7 G/DL (5.7-8.2)
[2024-04-03] MEDS ORDERED: SODIUM CHLORIDE 0.9% 1000 ML IV PRN (07:40)
[2024-04-03] MEDS ORDERED: HEPARIN 1,000UNITS/ML 10ML VIAL (FOR RADIOLOGY & DIALYSIS ONLY) IV PRN (07:40)
[2024-04-03] MEDS: PREVNAR-20 VACCINE 0.5ML SYRINGE IM.IMMUN ONE (09:14)
[2024-04-03] MEDS: FLUBLOK(EGGFREE) TRIVAL(24-25) VACCINE PF 0.5ML SYRINGE 18YRS & OLDER IM.IMMUN ONE (09:15)
[2024-04-03] MEDS: DARBEPOETIN 100MCG/0.5ML *DIALYSIS* SYRINGE IV SCH (13:39)
[2024-04-03] MEDS: HEPARIN 1,000UNITS/ML 10ML VIAL (FOR RADIOLOGY & DIALYSIS ONLY) XX SCH (13:39)
[2024-04-03] MEDS: CEFEPIME HCL 1 GM in DEXTROSE 5% (D5W) ADV/MINI-BAG 50 ML IV SCH (16:00)
[2024-04-03] MEDS ORDERED: HYDR25TA87 PO (18:23)
== END 2024-04-03 18:55 | disposition home or self-care (01) | DRG 291 ==
LOC: EDBD 15:07 → M ED 15:07 → M ED INP 17:44 → M PCU 22:03
PROVIDERS: ADMIT Internal Medicine; ATTEND Internal Medicine
DX: I13.2 Hypertensive heart and chronic kidney disease with heart failure and with stage 5 chronic kidney disease, or end stage renal disease (principal); N18.6 End stage renal disease; J18.9 Pneumonia, unspecified organism; I50.33 Acute on chronic diastolic (congestive) heart failure; N25.81 Secondary hyperparathyroidism of renal origin; I48.92 Unspecified atrial flutter; J98.11 Atelectasis; E78.00 Pure hypercholesterolemia, unspecified; R26.89 Other abnormalities of gait and mobility; R00.1 Bradycardia, unspecified; I73.9 Peripheral vascular disease, unspecified; E03.9 Hypothyroidism, unspecified; G47.33 Obstructive sleep apnea (adult) (pediatric); E11.22 Type 2 diabetes mellitus with diabetic chronic kidney disease; E11.51 Type 2 diabetes mellitus with diabetic peripheral angiopathy without gangrene; G25.81 Restless legs syndrome; D50.9 Iron deficiency anemia, unspecified; D63.1 Anemia in chronic kidney disease; K27.9 Peptic ulcer, site unspecified, unspecified as acute or chronic, without hemorrhage or perforation; M10.9 Gout, unspecified; E66.01 Morbid (severe) obesity due to excess calories; I48.91 Unspecified atrial fibrillation; E87.5 Hyperkalemia; E83.39 Other disorders of phosphorus metabolism; Z95.2 Presence of prosthetic heart valve; Z99.2 Dependence on renal dialysis; Z79.899 Other long term (current) drug therapy; Z12.5 Encounter for screening for malignant neoplasm of prostate; Z85.528 Personal history of other malignant neoplasm of kidney; Z85.038 Personal history of other malignant neoplasm of large intestine; Z90.5 Acquired absence of kidney; Z90.49 Acquired absence of other specified parts of digestive tract; Z95.828 Presence of other vascular implants and grafts; Z88.8 Allergy status to other drugs, medicaments and biological substances; Z91.048 Other nonmedicinal substance allergy status

== ENCOUNTER → 2024-06-28 | Outpatient (CLI) | payer MEDICARE ==
[~2024-06-28] MED LIST changes: +AMLO-751 PO; -AMLO10TA PO; +HYDR25TA87 PO; +ISOS-18 PO; -ISOS30TAB PO
== END ==
LOC: M RAD 12:29
PROVIDERS: ATTEND Physician Assistant
DX: M79.604 Pain in right leg (principal); M79.89 Other specified soft tissue disorders; I70.201 Unspecified atherosclerosis of native arteries of extremities, right leg

== ENCOUNTER 2024-08-07 06:57 | Emergency (ER) | payer MEDICARE ==
[~2024-08-07] VITALS: Ht 182.9 cm; Wt 126.3 kg
[2024-08-07 08:29] LABS: CARBOXYHEMOGLOBIN 2.3 % (0.0-1.5); VENOUS HCO3 30.7 MMOL/L (23.0-27.0); VENOUS O2 SATURATION 59.8 % (60.0-80.0); VENOUS PARTIAL PRESSURE CO2 62.3 mmHg (38.0-50.0); VENOUS PARTIAL PRESSURE O2 32.4 mmHg (30.0-50.0); VENOUS PH 7.311 UNITS (7.330-7.430); VENOUS STANDARD HCO3 26.3 MMOL/L; VENOUS TOTAL CO2 32.6 MMOL/L (24.0-28.0)
[2024-08-07 08:32] LABS: BASO % 0.5 % (0.0-1.0); EOS # 0.2 10^3/uL (0.0-0.5); EOS % 3.7 % (0.0-3.0); HEMATOCRIT 37.6 % (42.0-52.0); HEMOGLOBIN 11.9 g/dl (13.5-17.5); LYMPH % 14.8 % (24.0-44.0); MEAN CORPUSCULAR HEMOGLOBIN 31.4 pg (27.0-33.0); MEAN CORPUSCULAR HGB CONC 31.6 g/dl (32.0-36.5); MEAN CORPUSCULAR VOLUME 99.2 fl (80.0-96.0); MONO # 0.5 10^3/uL (0.0-0.8); MONO % 7.3 % (2.0-8.0); NEUTROPHILS # 4.7 10^3/uL (1.5-8.5); NEUTROPHILS % 73.1 % (36.0-66.0); PLATELET COUNT, AUTOMATED 162 10^3/uL (150-450); RED BLOOD COUNT 3.79 10^6/uL (4.30-6.10); WHITE BLOOD COUNT 6.5 10^3/uL (4.0-10.0)
[2024-08-07] MEDS: IPRATROPIUM 0.5 MG/ALBUTEROL 2.5 MG INH SOL UD 3 ML NEB ONE (08:43)
[2024-08-07 08:55] LABS: ALBUMIN 2.9 G/DL (3.2-5.2); ALKALINE PHOSPHATASE 68 U/L (40-129); ALT/SGPT < 9 U/L (7.0-40); AST/SGOT < 8 U/L (<34); BILIRUBIN,DIRECT 0.1 MG/DL (<0.4); BILIRUBIN,TOTAL 0.3 MG/DL (0.3-1.2); BLOOD UREA NITROGEN 20 MG/DL (9-23); CALCIUM LEVEL 7.9 MG/DL (8.3-10.6); CARBON DIOXIDE LEVEL 32 MMOL/L (20-31); CHLORIDE LEVEL 98 MMOL/L (98-107); CREATININE FOR GFR 5.13 MG/DL (0.70-1.30); GLOMERULAR FILTRATION RATE 11.7 (>49); GLUCOSE, FASTING 163 MG/DL (74-106); POTASSIUM SERUM 4.2 MMOL/L (3.5-5.1); SODIUM LEVEL 139 MMOL/L (136-145); TOTAL PROTEIN 6.9 G/DL (5.7-8.2)
[2024-08-07 09:27] LABS: ABG BASE EXCESS 4.4 (-2.0-2.0); ABG HCO3 30.6 MMOL/L (22.0-26.0); ABG O2 SATURATION 90.7 % (95.0-99.0); ABG PARTIAL PRESSURE CO2 51.9 mmHg (35.0-45.0); ABG PARTIAL PRESSURE O2 60.2 mmHg (75.0-100.0); ABG STANDARD HCO3 28.3 MMOL/L. (22.0-26.0); ABG TOTAL CO2 32.2 MMOL/L (23.0-31.0); ABG pH (ARTERIAL) 7.388 UNITS (7.350-7.450)
[2024-08-07] MEDS ORDERED: GABA-1172 PO (10:19)
[2024-08-07] MEDS ORDERED: SEMA1PEN2 SQ (10:19)
[2024-08-07] MEDS ORDERED: LEVO50TA45 PO (10:19)
[2024-08-07] MEDS ORDERED: SEVE2.4P PO (10:19)
[2024-08-07] MEDS ORDERED: MIRT-10 PO (10:19)
[2024-08-07] MEDS ORDERED: VITA100093 PO (10:24)
[2024-08-07] MEDS ORDERED: CALC0.5C6 PO (10:24)
[2024-08-07] MEDS ORDERED: HOME MED LIST COMPLETE! XX SCH (10:25)
[2024-08-07 12:00] VITALS: O2SAT 91
[2024-08-07 13:00] VITALS: BP 136/64; TEMP 98.2; O2SAT 96
== END 2024-08-07 13:10 | disposition home or self-care (01) ==
LOC: M ED 06:57 → EDBD 06:57 → M ED 13:10
DX: T59.811A Toxic effect of smoke, accidental (unintentional), initial encounter (principal); X00.0XXA Exposure to flames in uncontrolled fire in building or structure, initial encounter; J70.5 Respiratory conditions due to smoke inhalation; I45.81 Long QT syndrome; I48.91 Unspecified atrial fibrillation; I50.22 Chronic systolic (congestive) heart failure; E11.9 Type 2 diabetes mellitus without complications; I11.0 Hypertensive heart disease with heart failure; N18.9 Chronic kidney disease, unspecified; E03.9 Hypothyroidism, unspecified; B18.2 Chronic viral hepatitis C; Z87.891 Personal history of nicotine dependence; Z88.8 Allergy status to other drugs, medicaments and biological substances; Z79.01 Long term (current) use of anticoagulants; Z79.899 Other long term (current) drug therapy; Z79.4 Long term (current) use of insulin

== ENCOUNTER 2024-11-15 09:26 | Day surgery (SDC) | payer MEDICARE, MEDICAID ==
[~2024-11-15] VITALS: Ht 182.9 cm; Wt 117.9 kg
[~2024-11-15 09:26] MED LIST changes: +ACET-645; +CALC0.5C6 PO; +D5W/0.2% SODIUM CHLORIDE 1,000 ML IV SCH; +LEVO50TA45 PO; +LIDOCAINE 2% 100 MG/5 ML SDV (FOR ANES.) As Ordered ONE; +MIDAZOLAM INJ 2 MG/2 ML VIAL As Ordered ONE; +MIRT-10 PO; +SEMA1PEN2 SQ; +SEVE2.4P PO; +ZOLP10TA11 PO; -ZOLP10TA2 PO
[2024-11-15] MEDS: ceFAZolin SOD 3 GM in DEXTROSE 5% (D5W) MINI-BAG PLU 1... IV ONE (09:26)
[2024-11-15] MEDS ORDERED: SODIUM CHLORIDE 0.9% 1000 ML IV ONE (09:45)
[2024-11-15] MEDS: LIDOCAINE 1% SDV 30 ML VIAL As Ordered ONE (10:12)
[2024-11-15] MEDS ORDERED: ONDANSETRON 4MG 2ML VIAL IV PRN (10:40)
[2024-11-15] MEDS ORDERED: HYDROMORPHONE HCL 0.5 MG/0.5 ML SYRINGE IV PRN (10:40)
[2024-11-15] MEDS ORDERED: ROCURONIUM BROMIDE 50MG/5ML VIAL As Ordered ONE (11:34)
[2024-11-15] MEDS ORDERED: dexAMETHasone 4 MG/ML 1 ML VIAL As Ordered ONE (11:34)
[2024-11-15] MEDS ORDERED: SUGAMMADEX SODIUM 200 MG/2 ML VIAL As Ordered ONE (11:34)
[2024-11-15 12:15] VITALS: BP 153/69; TEMP 97.2; O2SAT 95
== END 2024-11-15 12:30 | disposition home or self-care (01) ==
LOC: M SDC 09:26
PROVIDERS: ATTEND Surgery
DX: T85.611A Breakdown (mechanical) of intraperitoneal dialysis catheter, initial encounter (principal); N18.6 End stage renal disease; I25.10 Atherosclerotic heart disease of native coronary artery without angina pectoris; I12.0 Hypertensive chronic kidney disease with stage 5 chronic kidney disease or end stage renal disease; E78.5 Hyperlipidemia, unspecified; Z95.0 Presence of cardiac pacemaker; E03.9 Hypothyroidism, unspecified; Z79.01 Long term (current) use of anticoagulants; F41.9 Anxiety disorder, unspecified; F32.A Depression, unspecified; B18.2 Chronic viral hepatitis C; K21.9 Gastro-esophageal reflux disease without esophagitis; E11.9 Type 2 diabetes mellitus without complications; F12.10 Cannabis abuse, uncomplicated; Z88.8 Allergy status to other drugs, medicaments and biological substances; Z79.899 Other long term (current) drug therapy
CPT/HCPCS: 36415; 49422; 84132; J0665; J0688; J2250; J3010

== ENCOUNTER 2024-11-25 18:48 | Inpatient (IN) | payer MEDICARE, MEDICAID ==
[~2024-11-25] VITALS: Ht 182.9 cm; Wt 115.7 kg
[~2024-11-25 18:48] MED LIST changes: -D5W/0.2% SODIUM CHLORIDE 1,000 ML IV SCH; -LIDOCAINE 2% 100 MG/5 ML SDV (FOR ANES.) As Ordered ONE; -MIDAZOLAM INJ 2 MG/2 ML VIAL As Ordered ONE
[2024-11-25 19:32] LABS: ABG BASE EXCESS -1.8 (-2.0-2.0); ABG HCO3 28.8 MMOL/L (22.0-26.0); ABG O2 SATURATION 89.9 % (95.0-99.0); ABG PARTIAL PRESSURE O2 70.6 mmHg (75.0-100.0); ABG STANDARD HCO3 22.8 MMOL/L. (22.0-26.0); ABG TOTAL CO2 31.4 MMOL/L (23.0-31.0)
[2024-11-25 19:34] LABS: ABG PARTIAL PRESSURE CO2 85.9 mmHg (35.0-45.0); ABG pH (ARTERIAL) 7.143 UNITS (7.350-7.450)
[2024-11-25 19:47] LABS: BASO # 0.1 10^3/uL (0.0-0.2); BASO % 0.5 % (0.0-1.0); EOS # 0.3 10^3/uL (0.0-0.5); EOS % 2.8 % (0.0-3.0); LYMPH # 1.0 10^3/uL (1.5-5.0); LYMPH % 9.2 % (24.0-44.0); MONO # 0.8 10^3/uL (0.0-0.8); MONO % 6.8 % (2.0-8.0); NEUTROPHILS # 8.9 10^3/uL (1.5-8.5); NEUTROPHILS % 80.2 % (36.0-66.0); PLATELET COUNT, AUTOMATED 221 10^3/uL (150-450)
[2024-11-25 20:18] LABS: ETHYL ALCOHOL (ETHANOL) 0.006 % (0.000-0.010)
[2024-11-25 20:20] LABS: SALICYLATE LEVEL < 3.0 MG/DL (<30)
[2024-11-25 20:35] LABS: ALT/SGPT < 9 U/L (7.0-40); AST/SGOT 29 U/L (<34); CALCIUM LEVEL 7.9 MG/DL (8.3-10.6); CARBON DIOXIDE LEVEL 27 MMOL/L (20-31); CHLORIDE LEVEL 94 MMOL/L (98-107); CREATININE FOR GFR 6.87 MG/DL (0.70-1.30); GLOMERULAR FILTRATION RATE 8.2 (>49); POTASSIUM SERUM 6.5 MMOL/L (3.5-5.1); SODIUM LEVEL 134 MMOL/L (136-145)
[2024-11-25] MEDS: SODIUM BICARBONATE 8.4% INJ 50ML SYRINGE IV ONE (21:00)
[2024-11-25] MEDS: CALCIUM GLUCONATE 1,000 MG/10 ML VIAL IV ONE (21:02)
[2024-11-25] MEDS: DEXTROSE 50% 50 ML SYRINGE IV ONE (21:05)
[2024-11-25] MEDS: HumuLIN R (REGULAR) INSULIN (NovoLIN R) **100 U/ML** PER UNIT IV ONE (21:06)
[2024-11-25] MEDS: PATIROMER SORBITEX CALCIUM 8.4GM POWDER PACKET PO ONE (21:15)
[2024-11-25] MEDS ORDERED: ISOVUE-370 76% 100 ML VIAL As Ordered ONE (21:17)
[2024-11-25] MEDS: SODIUM BICARBONATE 8.4% INJ 50ML SYRINGE IV STA (21:58)
[2024-11-25 22:15] LABS: ABG BASE EXCESS -0.1 (-2.0-2.0); ABG HCO3 32.5 MMOL/L (22.0-26.0); ABG O2 SATURATION 97.2 % (95.0-99.0); ABG PARTIAL PRESSURE O2 131.0 mmHg (75.0-100.0); ABG STANDARD HCO3 24.4 MMOL/L. (22.0-26.0); ABG TOTAL CO2 36.0 MMOL/L (23.0-31.0)
[2024-11-25 22:16] LABS: ABG PARTIAL PRESSURE CO2 114.3 mmHg (35.0-45.0); ABG pH (ARTERIAL) 7.072 UNITS (7.350-7.450)
[2024-11-25 22:34] LABS: KETONE, URINE AUTO RFX NEGATIVE (NEGATIVE); LEUKOCYTE ESTERASE UR AUTO RFX NEGATIVE (NEGATIVE); NITRITE, URINE AUTO RFX NEGATIVE (NEGATIVE); RBC, URINE AUTO RFX 15 /HPF (0-3); SQUAM EPITHELIAL CELL UR AURFX 0 /HPF (0-6); WBC, URINE AUTO RFX 8 /HPF (0-3)
[2024-11-25] MEDS ORDERED: LIDOCAINE 1% MDV 20 ML VIAL As Ordered ONE (22:45)
[2024-11-25] MEDS ORDERED: LIDOCAINE W/EPINEPHrine 1% 20 ML VIAL As Ordered ONE (22:49)
[2024-11-25] MEDS ORDERED: LIDOCAINE 1% SDV 30 ML VIAL SC SCH (22:50)
[2024-11-25] MEDS: LIDOCAINE W/EPINEPHrine 1% 20 ML VIAL SC ONE (22:50)
[2024-11-25] MEDS ORDERED: FLUMAZENIL 0.5 MG/5 ML VIAL As Ordered ONE (22:55)
[2024-11-25] MEDS ORDERED: MIDAZOLAM INJ 2 MG/2 ML VIAL As Ordered ONE (22:55)
[2024-11-25 22:59] LABS: AMPHETAMINES LEVEL URINE NEGATIVE (NEGATIVE); BARBITURATES URINE NEGATIVE (NEGATIVE); BENZODIAZEPINES URINE NEGATIVE (NEGATIVE); CANNABINOIDS URINE NEGATIVE (NEGATIVE); COCAINE METABOLITE URINE NEGATIVE (NEGATIVE); METHADONE URINE NEGATIVE (NEGATIVE); PHENCYCLIDINE URINE NEGATIVE (NEGATIVE)
[2024-11-25] MEDS: MIDAZOLAM INJ 2 MG/2 ML VIAL IV ONE ×3 (23:00→23:58)
[2024-11-25 23:23] LABS: OPIATES URINE POSITIVE (NEGATIVE)
[2024-11-25] MEDS ORDERED: HEPARIN SOD 5000 UNITS/ML 1 ML VIAL/SYRINGE SC SCH (23:25)
[2024-11-25] MEDS ORDERED: ONDANSETRON 4MG 2ML VIAL IV PRN (23:25)
[2024-11-25] MEDS ORDERED: LEVALBUTEROL 1.25 MG 0.5ML CONCENTRATE NEB NEB PRN (23:25)
[2024-11-25] MEDS ORDERED: PERCOCET 5MG/325MG TAB PO PRN ×2 (23:25)
[2024-11-25] MEDS ORDERED: BISACODYL 10 MG SUPP PR PRN (23:25)
[2024-11-25] MEDS ORDERED: D5W/0.9% SODIUM CHLORIDE 1,000 ML IV SCH (23:45)
[2024-11-25 23:55] LABS: PH BODY FLUID 7.296 UNITS (NOT ESTABLISHED); SOURCE, BODY FLUID pH PLEURAL
[2024-11-26] VITALS (75 sets, daily range): BP systolic 78–178; BP diastolic 45–93; TEMP 97.8–100.5; O2SAT 71–100
[2024-11-26] MEDS: KETOROLAC 30 MG/ML 1 ML VIAL IV SCH (00:19)
[2024-11-26] MEDS ORDERED: HumuLIN R (REGULAR) INSULIN (NovoLIN R) **100 U/ML** PER UNIT IV STA ×2 (00:26→05:04)
[2024-11-26] MEDS ORDERED: DEXTROSE 50% 50 ML SYRINGE IV STA ×2 (00:26→05:04)
[2024-11-26] MEDS ORDERED: VANCOMYCIN HCL 1,000 MG, VIAL MATE ADAPTER 1 EACH in NS 250 ML IV SCH (00:30)
[2024-11-26 00:33] LABS: BASO # 0.1 10^3/uL (0.0-0.2); BASO % 0.5 % (0.0-1.0); EOS # 0.2 10^3/uL (0.0-0.5); EOS % 1.9 % (0.0-3.0); LYMPH # 0.6 10^3/uL (1.5-5.0); LYMPH % 6.6 % (24.0-44.0); MONO # 0.9 10^3/uL (0.0-0.8); MONO % 9.3 % (2.0-8.0); NEUTROPHILS # 7.5 10^3/uL (1.5-8.5); NEUTROPHILS % 80.6 % (36.0-66.0); PLATELET COUNT, AUTOMATED 191 10^3/uL (150-450)
[2024-11-26 00:45] LABS: APPEARANCE, BODY FLUID CLOUDY (CLEAR); PLEURAL FL COLOR YELLOW (COLORLESS); SOURCE, BODY FLUID PLEURAL
[2024-11-26 00:54] LABS: ABG BASE EXCESS -1.0 (-2.0-2.0); ABG HCO3 26.9 MMOL/L (22.0-26.0); ABG O2 SATURATION 98.4 % (95.0-99.0); ABG PARTIAL PRESSURE CO2 60.0 mmHg (35.0-45.0); ABG PARTIAL PRESSURE O2 216.4 mmHg (75.0-100.0); ABG STANDARD HCO3 23.7 MMOL/L. (22.0-26.0); ABG TOTAL CO2 28.8 MMOL/L (23.0-31.0); ABG pH (ARTERIAL) 7.270 UNITS (7.350-7.450)
[2024-11-26] MEDS ORDERED: FENTANYL DRIP LOCK BOX KEY 1 EACH XX PRN (01:00)
[2024-11-26] MEDS: MIDAZOLAM 5 MG/ML 1 ML VIAL IV STA (01:08)
[2024-11-26] MEDS ORDERED: NOREPINEPHRINE 4 MG IN D5W 250 ML IVBAG (16 MCG/ML) As Ordered ONE (01:31)
[2024-11-26] MEDS ORDERED: LEVALBUTEROL 1.25 MG 0.5ML CONCENTRATE NEB NEB SCH (02:00)
[2024-11-26] MEDS: PIPERACILLIN/TAZOBACTAM SOD 4.5 GM in DEXTROSE 5% (D5W) ADV/MINI-BAG 50 ML IV SCH (02:33)
[2024-11-26] MEDS: NS (Normal Saline) 0.9% 1,000 ML IV SCH (02:33)
[2024-11-26] MEDS ORDERED: ROCURONIUM BROMIDE 50MG/5ML VIAL IV SCH (02:40)
[2024-11-26] MEDS: VANCOMYCIN HCL 1,500 MG, VIAL MATE ADAPTER 1 EACH in NS 500 ML IV ONE ×2 (03:00→12:58)
[2024-11-26] MEDS: ETOMIDATE 20 MG/10 ML VIAL IV STA (03:25)
[2024-11-26] MEDS: ROCURONIUM BROMIDE 50MG/5ML VIAL IV ONE (03:26)
[2024-11-26] MEDS: MIDAZOLAM 100MG/100ML-0.9%NACL 100 MG in IV 1 EA IV SCH (03:38)
[2024-11-26] MEDS: NOREPINEPHRINE 4MG IN D5 250ML 4 MG in IV 1 EA IV SCH (03:40)
[2024-11-26] MEDS: fentaNYL CITRATE/NaCl 1,000 MCG in IV 1 EA IV SCH (04:13)
[2024-11-26 04:50] LABS: CALCIUM LEVEL 7.9 MG/DL (8.3-10.6); CARBON DIOXIDE LEVEL 31.0 MMOL/L (20-31); CHLORIDE LEVEL 93.0 MMOL/L (98-107); CREATININE FOR GFR 7.49 MG/DL (0.70-1.30); GLOMERULAR FILTRATION RATE 7.4 (>49); POTASSIUM SERUM 6.2 MMOL/L (3.5-5.1); SODIUM LEVEL 136.0 MMOL/L (136-145)
[2024-11-26] MEDS: FUROSEMIDE 40 MG/4 ML VIAL IV ONE (05:39)
[2024-11-26 06:00] LABS: ABG BASE EXCESS 2.4 (-2.0-2.0); ABG HCO3 27.2 MMOL/L (22.0-26.0); ABG O2 SATURATION 97.7 % (95.0-99.0); ABG PARTIAL PRESSURE CO2 42.8 mmHg (35.0-45.0); ABG PARTIAL PRESSURE O2 109.8 mmHg (75.0-100.0); ABG STANDARD HCO3 26.7 MMOL/L. (22.0-26.0); ABG TOTAL CO2 28.5 MMOL/L (23.0-31.0); ABG pH (ARTERIAL) 7.421 UNITS (7.350-7.450); BASO # 0.1 10^3/uL (0.0-0.2); BASO % 0.5 % (0.0-1.0); EOS # 0.2 10^3/uL (0.0-0.5); EOS % 1.6 % (0.0-3.0); LYMPH # 1.6 10^3/uL (1.5-5.0); LYMPH % 16.3 % (24.0-44.0); MONO # 0.9 10^3/uL (0.0-0.8); MONO % 8.8 % (2.0-8.0); NEUTROPHILS # 7.0 10^3/uL (1.5-8.5); NEUTROPHILS % 72.1 % (36.0-66.0); PLATELET COUNT, AUTOMATED 200 10^3/uL (150-450)
[2024-11-26] MEDS: INSULIN LISPRO (NovoLOG) PER UNIT SC SCH (06:00)
[2024-11-26] MEDS: CALCIUM GLUCONATE 1,000 MG in DEXTROSE 5% (D5W) MINI-BAG PLU 100 ML IV ONE (06:07)
[2024-11-26] MEDS: DEXTROSE 50% 50 ML SYRINGE IV STA (06:07)
[2024-11-26] MEDS: HumuLIN R (REGULAR) INSULIN (NovoLIN R) **100 U/ML** PER UNIT IV STA (06:08)
[2024-11-26] MEDS ORDERED: HEPARIN 1,000 UNITS/ML 10 ML VIAL (FOR RADIOLOGY & DIALYSIS ONLY) IV PRN (06:45)
[2024-11-26] MEDS ORDERED: SODIUM CHLORIDE 0.9% 1000 ML IV PRN (06:45)
[2024-11-26] MEDS: LEVALBUTEROL 1.25 MG 0.5ML CONCENTRATE NEB NEB SCH (07:27)
[2024-11-26] MEDS ORDERED: GLUCAGON INJ 1 MG VIAL SC PRN (07:50)
[2024-11-26] MEDS ORDERED: DEXTROSE 50% 50 ML SYRINGE IV PRN (07:50)
[2024-11-26] MEDS ORDERED: GLUCOSE 4 GM CHEW PO PRN (07:50)
[2024-11-26] MEDS ORDERED: PANTOPRAZOLE 40MG VIAL IV SCH (09:00)
[2024-11-26] MEDS ORDERED: PANTOPRAZOLE 40MG TAB PO SCH (09:00)
[2024-11-26] MEDS: MOM 30 ML SUSPENSION UDC PO SCH (09:00)
[2024-11-26] MEDS ORDERED: DOCUSATE SODIUM 100 MG CAPSULE PO SCH (09:00)
[2024-11-26] MEDS ORDERED: SYNT50TA PO (09:11)
[2024-11-26] MEDS ORDERED: ACET-716 PO (09:11)
[2024-11-26] MEDS ORDERED: HOME MED LIST COMPLETE! XX SCH (09:15)
[2024-11-26] MEDS: HEPARIN 1,000 UNITS/ML 10 ML VIAL (FOR RADIOLOGY & DIALYSIS ONLY) XX SCH (09:46)
[2024-11-26] MEDS: HEPARIN DRIP 25,000 UNITS in IV 1 EA IV SCH (11:13)
[2024-11-26] MEDS: PANTOPRAZOLE 40MG VIAL IV SCH (11:14)
[2024-11-26] MEDS: MIDAZOLAM INJ 2 MG/2 ML VIAL IV PRN (12:46)
[2024-11-26] MEDS: ASPIRIN 81 MG CHEWABLE TABLET PEG SCH (12:59)
[2024-11-26] MEDS: LEVOTHYROXINE 125 MCG TABLET (0.125 MG) PO SCH (12:59)
[2024-11-26] MEDS ORDERED: PROPOFOL 1,000 MG/100 ML VIAL As Ordered ONE (14:13)
[2024-11-26] MEDS ORDERED: LIDOCAINE 1% SDV 30 ML VIAL ONE (14:41)
[2024-11-26] MEDS: HEPARIN SOD 5000 UNITS/ML 1 ML VIAL/SYRINGE IV PRN (18:24)
[2024-11-27] VITALS (53 sets, daily range): BP systolic 84–140; BP diastolic 46–80; TEMP 97.8–101.1; O2SAT 78–98
[2024-11-27 05:37] LABS: ABG BASE EXCESS -5.5 (-2.0-2.0); ABG HCO3 21.6 MMOL/L (22.0-26.0); ABG O2 SATURATION 90.3 % (95.0-99.0); ABG PARTIAL PRESSURE CO2 49.4 mmHg (35.0-45.0); ABG PARTIAL PRESSURE O2 63.8 mmHg (75.0-100.0); ABG STANDARD HCO3 19.8 MMOL/L. (22.0-26.0); ABG TOTAL CO2 23.1 MMOL/L (23.0-31.0); ABG pH (ARTERIAL) 7.259 UNITS (7.350-7.450)
[2024-11-27 06:16] LABS: ABG BASE EXCESS -4.5 (-2.0-2.0); ABG HCO3 22.6 MMOL/L (22.0-26.0); ABG O2 SATURATION 93.5 % (95.0-99.0); ABG PARTIAL PRESSURE CO2 51.1 mmHg (35.0-45.0); ABG PARTIAL PRESSURE O2 76.8 mmHg (75.0-100.0); ABG STANDARD HCO3 20.7 MMOL/L. (22.0-26.0); ABG TOTAL CO2 24.2 MMOL/L (23.0-31.0); ABG pH (ARTERIAL) 7.264 UNITS (7.350-7.450)
[2024-11-27 06:46] LABS: BASO # 0.1 10^3/uL (0.0-0.2); BASO % 0.6 % (0.0-1.0); EOS # 0.2 10^3/uL (0.0-0.5); EOS % 2.3 % (0.0-3.0); LYMPH # 1.1 10^3/uL (1.5-5.0); LYMPH % 11.7 % (24.0-44.0); MONO # 0.9 10^3/uL (0.0-0.8); MONO % 9.9 % (2.0-8.0); NEUTROPHILS # 7.1 10^3/uL (1.5-8.5); NEUTROPHILS % 75.0 % (36.0-66.0); PLATELET COUNT, AUTOMATED 210 10^3/uL (150-450)
[2024-11-27 07:36] LABS: ALT/SGPT < 9 U/L (7.0-40); AST/SGOT 12 U/L (<34); CALCIUM LEVEL 8.2 MG/DL (8.3-10.6); CARBON DIOXIDE LEVEL 24 MMOL/L (20-31); CHLORIDE LEVEL 96 MMOL/L (98-107); CREATININE FOR GFR 5.64 MG/DL (0.70-1.30); GLOMERULAR FILTRATION RATE 10.4 (>49); MAGNESIUM LEVEL 1.8 MG/DL (1.8-2.4); PHOSPHORUS LEVEL 7.4 MG/DL (2.4-5.1); POTASSIUM SERUM 4.3 MMOL/L (3.5-5.1); SODIUM LEVEL 134 MMOL/L (136-145)
[2024-11-27] MEDS ORDERED: GLUCOSE 4 GM CHEW PO PRN (08:05)
[2024-11-27] MEDS ORDERED: GLUCAGON INJ 1 MG VIAL SC PRN (08:05)
[2024-11-27] MEDS ORDERED: DEXTROSE 50% 50 ML SYRINGE IV PRN (08:05)
[2024-11-27] MEDS ORDERED: VANCOMYCIN HCL 500 MG in DEXTROSE 5% (D5W) MINI-BAG PLU 100 ML IV ONE (09:00)
[2024-11-27] MEDS ORDERED: INSULIN LISPRO (NovoLOG) PER UNIT SC SCH (12:00)
[2024-11-27 15:33] LABS: ESTIMATED AVERAGE GLUCOSE 137.0 MG/DL (60-110)
[2024-11-27] MEDS ORDERED: VANCOMYCIN HCL 1,000 MG, VIAL MATE ADAPTER 1 EACH in NS 250 ML IV SCH (16:00)
[2024-11-27] MEDS: ACETAMINOPHEN 325 MG TAB PO PRN (20:19)
[2024-11-27] MEDS: INSULIN LISPRO (NovoLOG) PER UNIT SC SCH (21:00)
[2024-11-28] VITALS (15 sets, daily range): BP systolic 114–131; BP diastolic 51–82; TEMP 97.8–99.2; O2SAT 86–95
[2024-11-28] MEDS: ACETAMINOPHEN 325 MG TAB PO SCH (06:00)
[2024-11-28 06:04] LABS: ABG BASE EXCESS -2.0 (-2.0-2.0); ABG HCO3 24.2 MMOL/L (22.0-26.0); ABG O2 SATURATION 86.4 % (95.0-99.0); ABG PARTIAL PRESSURE CO2 47.8 mmHg (35.0-45.0); ABG PARTIAL PRESSURE O2 56.3 mmHg (75.0-100.0); ABG STANDARD HCO3 22.6 MMOL/L. (22.0-26.0); ABG TOTAL CO2 25.7 MMOL/L (23.0-31.0); ABG pH (ARTERIAL) 7.322 UNITS (7.350-7.450)
[2024-11-28 06:53] LABS: BASO # 0.0 10^3/uL (0.0-0.2); BASO % 0.5 % (0.0-1.0); EOS # 0.4 10^3/uL (0.0-0.5); EOS % 5.1 % (0.0-3.0); LYMPH # 1.0 10^3/uL (1.5-5.0); LYMPH % 12.8 % (24.0-44.0); MONO # 0.7 10^3/uL (0.0-0.8); MONO % 9.2 % (2.0-8.0); NEUTROPHILS # 5.3 10^3/uL (1.5-8.5); NEUTROPHILS % 72.0 % (36.0-66.0); PLATELET COUNT, AUTOMATED 157 10^3/uL (150-450)
[2024-11-28 07:21] LABS: ALT/SGPT 12.0 U/L (7.0-40); AST/SGOT 55.0 U/L (<34); CALCIUM LEVEL 7.9 MG/DL (8.3-10.6); CARBON DIOXIDE LEVEL 23.0 MMOL/L (20-31); CHLORIDE LEVEL 96.0 MMOL/L (98-107); CREATININE FOR GFR 6.78 MG/DL (0.70-1.30); GLOMERULAR FILTRATION RATE 8.3 (>49); MAGNESIUM LEVEL 1.9 MG/DL (1.8-2.4); PHOSPHORUS LEVEL 7.9 MG/DL (2.4-5.1); POTASSIUM SERUM 5.0 MMOL/L (3.5-5.1); SODIUM LEVEL 133.0 MMOL/L (136-145)
[2024-11-28] MEDS ORDERED: HEPARIN 1,000 UNITS/ML 10 ML VIAL (FOR RADIOLOGY & DIALYSIS ONLY) IV PRN (08:00)
[2024-11-28] MEDS ORDERED: SODIUM CHLORIDE 0.9% 1000 ML IV PRN (08:00)
[2024-11-28] MEDS: INSULIN LISPRO (NovoLOG) PER UNIT SC SCH (08:26)
[2024-11-28] MEDS: APIXABAN 5 MG TAB PO SCH (13:08)
[2024-11-28] MEDS: SEVELAMER *CARBONate* 800 MG TAB PO SCH (14:34)
[2024-11-28 14:52] LABS: PH BODY FLUID 7.794 UNITS (NOT ESTABLISHED); SOURCE, BODY FLUID pH PLEURAL
[2024-11-28 14:56] LABS: PLEURAL FL COLOR YELLOW (COLORLESS); SOURCE, BODY FLUID PLEURAL
[2024-11-28 14:57] LABS: APPEARANCE, BODY FLUID HAZY (CLEAR)
[2024-11-28 15:03] LABS: LDH LACTATE DEHYDROGENASE 214.0 U/L (120-246)
[2024-11-28] MEDS: HEPARIN 1,000 UNITS/ML 10 ML VIAL (FOR RADIOLOGY & DIALYSIS ONLY) XX SCH (15:32)
[2024-11-28] MEDS: LIDOCAINE 1% MDV 20 ML VIAL SC ONE (19:02)
[2024-11-28] MEDS: MIRTAZAPINE 15 MG TAB PO SCH (20:40)
[2024-11-28] MEDS: GABAPENTIN 300 MG CAP PO SCH (20:40)
[2024-11-28] MEDS: rOPINIRole 0.25 MG TAB PO SCH (20:40)
[2024-11-28] MEDS: ATORVASTATIN 20 MG TAB PO SCH (20:40)
[2024-11-29] VITALS (7 sets, daily range): BP systolic 114–151; BP diastolic 51–66; TEMP 97.5–98.9; O2SAT 48–96
[2024-11-29 05:00] LABS: BASO # 0.0 10^3/uL (0.0-0.2); BASO % 0.6 % (0.0-1.0); EOS # 0.3 10^3/uL (0.0-0.5); EOS % 5.0 % (0.0-3.0); LYMPH # 0.6 10^3/uL (1.5-5.0); LYMPH % 9.1 % (24.0-44.0); MONO # 0.5 10^3/uL (0.0-0.8); MONO % 8.5 % (2.0-8.0); NEUTROPHILS # 4.8 10^3/uL (1.5-8.5); NEUTROPHILS % 76.3 % (36.0-66.0); PLATELET COUNT, AUTOMATED 170 10^3/uL (150-450)
[2024-11-29 05:23] LABS: CALCIUM LEVEL 8.1 MG/DL (8.3-10.6); CARBON DIOXIDE LEVEL 24.0 MMOL/L (20-31); CHLORIDE LEVEL 99.0 MMOL/L (98-107); CREATININE FOR GFR 5.24 MG/DL (0.70-1.30); GLOMERULAR FILTRATION RATE 11.3 (>49); POTASSIUM SERUM 4.6 MMOL/L (3.5-5.1); SODIUM LEVEL 136.0 MMOL/L (136-145)
[2024-11-29] MEDS: PIPERACILLIN/TAZOBACTAM SOD 4.5 GM in DEXTROSE 5% (D5W) ADV/MINI-BAG 50 ML IV SCH (05:57)
[2024-11-29] MEDS: ASPIRIN 81 MG CHEWABLE TABLET PO SCH (08:40)
[2024-11-29] MEDS ORDERED: LIDOCAINE 1% SDV 5 ML VIAL SC PRN (09:05)
[2024-11-29] MEDS ORDERED: HEPARIN 1,000 UNITS/ML 10 ML VIAL (FOR RADIOLOGY & DIALYSIS ONLY) XX SCH (09:05)
[2024-11-29] MEDS ORDERED: SODIUM CHLORIDE 0.9% 1000 ML IV PRN (09:05)
[2024-11-29] MEDS: HEPARIN 1,000 UNITS/ML 10 ML VIAL (FOR RADIOLOGY & DIALYSIS ONLY) IV PRN (10:25)
[2024-11-30] VITALS (7 sets, daily range): BP systolic 102–131; BP diastolic 53–73; TEMP 97.4–98; O2SAT 87–94
[2024-11-30 05:44] LABS: BASO # 0.1 10^3/uL (0.0-0.2); BASO % 0.7 % (0.0-1.0); EOS # 0.5 10^3/uL (0.0-0.5); EOS % 6.7 % (0.0-3.0); LYMPH # 0.8 10^3/uL (1.5-5.0); LYMPH % 10.1 % (24.0-44.0); MONO # 0.6 10^3/uL (0.0-0.8); MONO % 7.7 % (2.0-8.0); NEUTROPHILS # 5.6 10^3/uL (1.5-8.5); NEUTROPHILS % 74.1 % (36.0-66.0); PLATELET COUNT, AUTOMATED 217 10^3/uL (150-450)
[2024-11-30] MEDS ORDERED: LIDOCAINE 1% SDV 5 ML VIAL SC PRN (06:00)
[2024-11-30] MEDS ORDERED: HEPARIN 1,000 UNITS/ML 10 ML VIAL (FOR RADIOLOGY & DIALYSIS ONLY) IV PRN (06:00)
[2024-11-30] MEDS ORDERED: SODIUM CHLORIDE 0.9% 1000 ML IV PRN (06:00)
[2024-11-30 06:19] LABS: CALCIUM LEVEL 8.1 MG/DL (8.3-10.6); CARBON DIOXIDE LEVEL 24.0 MMOL/L (20-31); CHLORIDE LEVEL 100.0 MMOL/L (98-107); CREATININE FOR GFR 6.59 MG/DL (0.70-1.30); GLOMERULAR FILTRATION RATE 8.6 (>49); POTASSIUM SERUM 4.9 MMOL/L (3.5-5.1); SODIUM LEVEL 137.0 MMOL/L (136-145)
[2024-11-30] MEDS: HEPARIN 1,000 UNITS/ML 10 ML VIAL (FOR RADIOLOGY & DIALYSIS ONLY) XX SCH (08:58)
[2024-12-01] VITALS (12 sets, daily range): BP systolic 114–143; BP diastolic 53–63; TEMP 97.5–98.1; O2SAT 93–100
[2024-12-01 05:38] LABS: BASO # 0.0 10^3/uL (0.0-0.2); BASO % 0.5 % (0.0-1.0); EOS # 0.5 10^3/uL (0.0-0.5); EOS % 8.1 % (0.0-3.0); LYMPH # 1.1 10^3/uL (1.5-5.0); LYMPH % 17.9 % (24.0-44.0); MONO # 0.5 10^3/uL (0.0-0.8); MONO % 8.1 % (2.0-8.0); NEUTROPHILS # 4.1 10^3/uL (1.5-8.5); NEUTROPHILS % 64.6 % (36.0-66.0); PLATELET COUNT, AUTOMATED 211 10^3/uL (150-450)
[2024-12-01 05:59] LABS: CALCIUM LEVEL 8.1 MG/DL (8.3-10.6); CARBON DIOXIDE LEVEL 28.0 MMOL/L (20-31); CHLORIDE LEVEL 98.0 MMOL/L (98-107); CREATININE FOR GFR 4.58 MG/DL (0.70-1.30); GLOMERULAR FILTRATION RATE 13.3 (>49); POTASSIUM SERUM 4.0 MMOL/L (3.5-5.1); SODIUM LEVEL 137.0 MMOL/L (136-145)
[2024-12-01] MEDS: PANTOPRAZOLE 40MG TAB PO SCH (09:50)
[2024-12-02] VITALS (11 sets, daily range): BP systolic 127–174; BP diastolic 60–75; TEMP 96.9–98.3; O2SAT 92–100
[2024-12-02 04:29] LABS: BASO # 0.1 10^3/uL (0.0-0.2); BASO % 0.8 % (0.0-1.0); EOS # 0.6 10^3/uL (0.0-0.5); EOS % 8.3 % (0.0-3.0); LYMPH # 1.1 10^3/uL (1.5-5.0); LYMPH % 16.0 % (24.0-44.0); MONO # 0.6 10^3/uL (0.0-0.8); MONO % 8.9 % (2.0-8.0); NEUTROPHILS # 4.3 10^3/uL (1.5-8.5); NEUTROPHILS % 64.9 % (36.0-66.0); PLATELET COUNT, AUTOMATED 211 10^3/uL (150-450)
[2024-12-02 05:05] LABS: CALCIUM LEVEL 8.2 MG/DL (8.3-10.6); CARBON DIOXIDE LEVEL 25.0 MMOL/L (20-31); CHLORIDE LEVEL 99.0 MMOL/L (98-107); CREATININE FOR GFR 6.11 MG/DL (0.70-1.30); GLOMERULAR FILTRATION RATE 9.4 (>49); POTASSIUM SERUM 4.1 MMOL/L (3.5-5.1); SODIUM LEVEL 136.0 MMOL/L (136-145)
[2024-12-03 02:55] VITALS: BP 169/74; O2SAT 90
[2024-12-03 03:15] VITALS: O2SAT 89
[2024-12-03 03:23] VITALS: TEMP 98
[2024-12-03] MEDS ORDERED: SODIUM CHLORIDE 0.9% 1000 ML IV PRN (06:00)
[2024-12-03] MEDS ORDERED: HEPARIN 1,000 UNITS/ML 10 ML VIAL (FOR RADIOLOGY & DIALYSIS ONLY) IV PRN (06:00)
[2024-12-03] MEDS ORDERED: LIDOCAINE 1% SDV 5 ML VIAL SC PRN (06:00)
[2024-12-03 07:35] VITALS: BP 127/59; TEMP 98.2; O2SAT 95
[2024-12-03] MEDS: DARBEPOETIN 100 MCG/0.5 ML *DIALYSIS* SYRINGE IV SCH (09:08)
[2024-12-03] MEDS: HEPARIN 1,000 UNITS/ML 10 ML VIAL (FOR RADIOLOGY & DIALYSIS ONLY) XX SCH (09:09)
[2024-12-03 12:55] VITALS: BP 126/58; TEMP 97.8; O2SAT 92
[2024-12-03] MEDS ORDERED: LEVO1TAB38 PO (13:32)
[2024-12-03] MEDS ORDERED: ASPI81CH8 PO (13:32)
[2024-12-03] MEDS ORDERED: PANT40TA29 PO (13:32)
[2024-12-03] MEDS ORDERED: RENV2TAB PO (13:32)
[2024-12-03] MEDS ORDERED: ELIQ5TAB PO (13:32)
[2024-12-03] MEDS ORDERED: GABA-1172 PO (13:35)
[2024-12-03] MEDS: LOPERAMIDE 2 MG CAPLET PO PRN (16:35)
[2024-12-03 19:36] VITALS: BP 121/83; TEMP 97.4; O2SAT 98
[2024-12-03] MEDS: LEVALBUTEROL 1.25 MG 0.5ML CONCENTRATE NEB NEB SCH (21:13)
[2024-12-04 04:08] VITALS: BP 167/82; TEMP 97.6; O2SAT 94
[2024-12-04 04:28] LABS: BASO # 0.1 10^3/uL (0.0-0.2); BASO % 0.7 % (0.0-1.0); EOS # 0.5 10^3/uL (0.0-0.5); EOS % 7.0 % (0.0-3.0); LYMPH # 1.1 10^3/uL (1.5-5.0); LYMPH % 15.7 % (24.0-44.0); MONO # 0.6 10^3/uL (0.0-0.8); MONO % 8.6 % (2.0-8.0); NEUTROPHILS # 4.6 10^3/uL (1.5-8.5); NEUTROPHILS % 66.1 % (36.0-66.0); PLATELET COUNT, AUTOMATED 242 10^3/uL (150-450)
[2024-12-04 04:45] VITALS: BP 138/78
[2024-12-04 04:51] LABS: CALCIUM LEVEL 8.3 MG/DL (8.3-10.6); CARBON DIOXIDE LEVEL 26.0 MMOL/L (20-31); CHLORIDE LEVEL 98.0 MMOL/L (98-107); CREATININE FOR GFR 5.07 MG/DL (0.70-1.30); GLOMERULAR FILTRATION RATE 11.8 (>49); POTASSIUM SERUM 4.1 MMOL/L (3.5-5.1); SODIUM LEVEL 136.0 MMOL/L (136-145)
[2024-12-04 05:48] VITALS: O2SAT 98
== END 2024-12-04 10:15 | disposition home health service (06) | DRG 871 ==
LOC: M ED 18:48 → EDBD 18:48 → M ED INP 23:23 → M ICU 11-26 04:00
PROVIDERS: ADMIT Internal Medicine; ATTEND General Practice
PROC: 5A1945Z Respiratory Ventilation, 24-96 Consecutive Hours (ICD-10-PCS; principal; 2024-11-25)
PROC: 0W9930Z Drainage of Right Pleural Cavity with Drainage Device, Percutaneous Approach (ICD-10-PCS; 2024-11-25)
PROC: 0W9930Z Drainage of Right Pleural Cavity with Drainage Device, Percutaneous Approach (ICD-10-PCS; 2024-11-28)
PROC: 06HM33Z Insertion of Infusion Device into Right Femoral Vein, Percutaneous Approach (ICD-10-PCS; 2024-11-28)
DX: A41.9 Sepsis, unspecified organism (principal); N18.6 End stage renal disease; R65.21 Severe sepsis with septic shock; G93.41 Metabolic encephalopathy; J96.01 Acute respiratory failure with hypoxia; J18.9 Pneumonia, unspecified organism; J86.9 Pyothorax without fistula; J96.02 Acute respiratory failure with hypercapnia; I12.0 Hypertensive chronic kidney disease with stage 5 chronic kidney disease or end stage renal disease; I48.92 Unspecified atrial flutter; E87.20 Acidosis, unspecified; J98.11 Atelectasis; J44.0 Chronic obstructive pulmonary disease with (acute) lower respiratory infection; I24.89 Other forms of acute ischemic heart disease; E66.01 Morbid (severe) obesity due to excess calories; E03.9 Hypothyroidism, unspecified; K74.60 Unspecified cirrhosis of liver; E11.22 Type 2 diabetes mellitus with diabetic chronic kidney disease; G25.81 Restless legs syndrome; L40.9 Psoriasis, unspecified; E78.5 Hyperlipidemia, unspecified; K21.9 Gastro-esophageal reflux disease without esophagitis; G89.29 Other chronic pain; M10.9 Gout, unspecified; E87.5 Hyperkalemia; E11.51 Type 2 diabetes mellitus with diabetic peripheral angiopathy without gangrene; D64.9 Anemia, unspecified; Z95.0 Presence of cardiac pacemaker; G47.33 Obstructive sleep apnea (adult) (pediatric); F32.A Depression, unspecified; E11.42 Type 2 diabetes mellitus with diabetic polyneuropathy; J44.9 Chronic obstructive pulmonary disease, unspecified; I35.0 Nonrheumatic aortic (valve) stenosis; D63.1 Anemia in chronic kidney disease; I25.10 Atherosclerotic heart disease of native coronary artery without angina pectoris; Z87.891 Personal history of nicotine dependence; Z85.038 Personal history of other malignant neoplasm of large intestine; Z85.528 Personal history of other malignant neoplasm of kidney

== ENCOUNTER → 2025-02-11 | Outpatient (CLI) | payer MEDICARE, MEDICAID ==
[~2025-02-11] MED LIST changes: +ACET-716 PO; +AMLO1TAB24 PO; +APAP325T4 PO; +ASPI81CH48 PO; +ASPI81CH8 PO; +COLA100C5 PO; +DOCU100C16 PO; +LEVO1TAB38 PO; +MELA10TA30 PO; +SYNT50TA PO
== END ==
LOC: M PLAIMG 11:00
PROVIDERS: ATTEND Physician Assistant
DX: Z49.02 Encounter for fitting and adjustment of peritoneal dialysis catheter (principal)